=== PATIENT | male | born 1930 | race Caucasian/White ===

== ENCOUNTER 2016-05-14 20:26 | Inpatient (IN) | payer MEDICARE, BC ==
[2016-05-14] MEDS ORDERED: Sodium Chloride 0.9% 10 ML Syringe FLUSH PRN (20:50)
[2016-05-14] MEDS ORDERED: Levofloxacin/Dextrose 5%-Water 750 MG in Premix Bag 1 BAG IV ONE (20:51)
[2016-05-14] MEDS ORDERED: Sodium Chloride 0.9% 1,000 ML IV SCH (21:00)
--- NOTE | 2016-05-14 23:05 | EDM.PDOC ---
ED HISTORY OF PRESENT ILLNESS - General Chief Complaint: Respiratory Problem Stated Complaint: COUGH THROAT SWELLING Time Seen by Provider: 05/14/16 20:38 Source of Information: Reports: Patient History Limitations: Reports: No limitations - History of Present Illness INITIAL COMMENTS - FREE TEXT/NARRATIVE: The patient presents with cough, fever and chills. He was recently diagnosed with pneumonia and influenza. He was put on tamiflu and cipro. He is having a hard time swallowing the pills and he feels like he is getting worse. He has no chest pain. He has no shortness of breath. He has no nausea, vomiting or abdominal pain. He had hypokalemia recently and was on potassium but he stopped taking that because it was hard to swallow. Timing/Duration: Reports: Day(s): Severity: moderate Improves with: Reports: None Worsens with: Reports: None Associated Symptoms (General): Reports: cough, fever/chills. Denies: chest pain , nausea/vomiting, shortness of breath - Related Data Allergies/ADRs: Allergies Allergy/AdvReac Type Severity Reaction Status Date / Time No Known Allergies Allergy Verified 05/14/16 20:37 Home Meds: Home Meds Flunisolide [Nasalide Nasal [place]] 2 spray DUARTE BID 10/24/13 [History] Tamsulosin [Flomax] 0.4 mg PO DAILY 10/24/13 [History] Travoprost (Benzalkonium) [Travoprost 0.004% Eye Drop] 1 drop EYEBOTH BEDTIME [History] amLODIPine [Norvasc] 5 mg PO DAILY 10/24/13 [History] Melatonin/Pyridoxine HCl (B6) [Melatonin 3 mg Tablet] 1 each PO DAILY 11/11/14 [ History] metFORMIN HCl [Metformin HCl] 1,000 mg PO DAILY 11/11/14 [History] Cholecalciferol (Vitamin D3) [Vitamin D3] 1,000 unit PO DAILY 07/10/15 [History] Lisinopril 40 mg PO DAILY 07/10/15 [History] QUEtiapine Fumarate [Seroquel] 25 mg PO DAILY 07/10/15 [History] Vit C/E/Zn/Coppr/Lutein/Zeaxan [Preservision Areds 2 Softgel] 1 each PO DAILY [History] glipiZIDE [Glucotrol] 10 mg PO BID 07/10/15 [History] Aspirin [Ecotrin] 81 mg PO DAILY 12/19/15 [History] Carvedilol [Coreg] 25 mg PO DAILY 12/19/15 [History] Enalapril [Vasotec] 20 mg PO BID 12/19/15 [History] Hydrochlorothiazide 25 mg PO DAILY 12/25/15 [History] Psyllium with Sucrose [Metamucil] 1 each PO BID 12/25/15 [History] Benzonatate [Tessalon Perles] 100 mg PO TID PRN 05/14/16 [History] Ciprofloxacin [Ciprofloxacin HCl] 250 mg PO BID 05/14/16 [History] Ferrous Sulfate [Slow Fe] 142 mg PO DAILY 05/14/16 [History] Naproxen Sodium 220 mg PO DAILY 05/14/16 [History] Omeprazole 20 mg PO DAILY 05/14/16 [History] Oseltamivir [Tamiflu] 75 mg PO DAILY 05/14/16 [History] Potassium Chloride 20 meq PO DAILY 05/14/16 [History] Rivaroxaban [Xarelto] 20 mg PO DAILY 05/14/16 [History] Simvastatin [Zocor] 40 mg PO BEDTIME 05/14/16 [History] metFORMIN [Glucophage] 500 mg PO ACDINNER 05/14/16 [History] Past Medical History HEENT History: Reports: Glaucoma, Impaired vision, Macular degeneration, Other ( see below) Other HEENT History: wears glasses Cardiovascular History: Reports: Afib, Hypertension Respiratory History: Reports: None Gastrointestinal History: Reports: Chronic diarrhea, GERD, Other (see below) Other Gastrointestinal History: hematochezia, melena, dysphagia Genitourinary History: Reports: Other (see below) Other Genitourinary History: polyuria Musculoskeletal History: Reports: Arthritis Other Musculoskeletal History: contractures of the fingers Endocrine/Metabolic History: Reports: Diabetes, type I Hematologic History: Reports: Anemia - Infectious Disease History Infectious Disease History: Reports: Influenza - Past Surgical History GI Surgical History: Reports: Cholecystectomy, Colonoscopy Social & Family History - Family History Family Medical History: Noncontributory - Tobacco Use Smoking Status *Q: Never Smoker Second Hand Smoke Exposure: No - Caffeine Use Caffeine Use: Reports: None - Alcohol Use Days Per Week of Alcohol Use: 0 Number of Drinks Per Day: 0 Total Drinks Per Week: 0 - Recreational Drug Use Recreational Drug Use: No Drug Use in Last 12 Months: No ED ROS GENERAL - Review of Systems Review Of Systems: See Below Constitutional: Reports: fever, chills HEENT: Reports: No symptoms Respiratory: Reports: Cough. Denies: Shortness of Breath Cardiovascular: Reports: No symptoms Endocrine: Reports: no symptoms GI/Abdominal: Reports: No symptoms : Reports: no symptoms Musculoskeletal: Reports: no symptoms Skin: Reports: no symptoms Neurological: Reports: No Symptoms ED EXAM, GENERAL - Physical Exam Exam: See Below Exam Limited By: No limitations General Appearance: alert, no apparent distress Ears: normal external exam Nose: normal inspection Head: atraumatic, normocephalic Neck: normal inspection Respiratory/Chest: no respiratory distress, lungs clear, normal breath sounds Cardiovascular: regular rate, rhythm, no edema, no murmur GI/Abdominal: soft, non tender, no organomegaly, no mass Back Exam: normal inspection Extremities: normal inspection Course - Vital Signs Last Recorded V/S: Last Vital Signs Temp 97.7 F 05/14/16 20:30 Pulse 97 05/14/16 20:30 Resp 20 05/14/16 20:30 BP 128/80 05/14/16 20:30 Pulse Ox 93 L 05/14/16 20:30 - Orders/Labs/Meds Orders: Active Orders 24 hr Category Date Time Status Patient Status [ADT] Routine ADT 05/14/16 22:54 Active Cardiac Monitoring [RC] . DIRECTED Care 05/14/16 20:50 Active Oxygen Therapy [RC] PRN Care 05/14/16 20:50 Active Peripheral IV Care [RC] . DIRECTED Care 05/14/16 20:50 Active Chest 2V [CR] Stat Exams 05/14/16 20:50 Taken CULTURE BLOOD [BC] Stat Lab 05/14/16 21:28 Received CULTURE BLOOD [BC] Stat Lab 05/14/16 21:28 Received NS + KCl 20mEq/L [Normal Saline with 20 mEq KCl] 1,000 Med 05/14/16 23:00 Active ml IV ASDIRECTED Sodium Chloride 0.9% [Normal Saline] 1,000 ml Med 05/14/16 21:00 Active IV ASDIRECTED Sodium Chloride 0.9% [Saline Flush] Med 05/14/16 20:50 Active 10 ml FLUSH ASDIRECTED PRN Blood Culture x2 Reflex Set [OM.PC] Stat Oth 05/14/16 20:51 Ordered Peripheral IV Insertion Adult [OM.PC] Stat Ot 05/14/16 20:50 Ordered Medication Orders Sodium Chloride (Normal Saline) 1,000 mls @ 125 mls/hr IV ASDIRECTED GABRIELLE Last Admin: 05/14/16 21:31 Dose: 125 mls/hr Potassium Chloride/Sodium Chloride (Normal Saline With 20 Meq Kcl) 1,000 mls @ 100 mls/hr IV ASDIRECTED GABRIELLE Sodium Chloride (Saline Flush) 10 ml FLUSH ASDIRECTED PRN PRN Reason: Keep Vein Open Last Admin: 05/14/16 21:33 Dose: 10 ml Labs: Laboratory Tests 05/14/16 05/14/16 Range/Units 21:17 21:17 WBC 6.25 (4.23-9.07) K/mm3 RBC 4.34 L (4.63-6.08) M/mm3 Hgb 11.5 L (13.7-17.5) gm/L Hct 34.6 L (40.1-51.0) % MCV 79.7 (79.0-92.2) fl MCH 26.5 (25.7-32.2) pg MCHC 33.2 (32.2-35.5) g/dl RDW Std Deviation 43.6 (35.1-43.9) fL Plt Count 168 (163-337) K/mm3 MPV 10.2 (9.4-12.3) fl Neut % (Auto) 68.6 H (34.0-67.9) % Lymph % (Auto) 16.8 L (21.8-53.1) % [place] % (Auto) 13.6 H (5.3-12.2) % Eos % (Auto) 0.5 L (0.8-7.0) Baso % (Auto) 0.2 (0.1-1.2) % Neut # 4.29 (1.78-5.38) K/mm3 Lymph # 1.05 L (1.32-3.57) K/mm3 [place] # 0.85 H (0.30-0.82) K/mm3 Eos # 0.03 L (0.04-0.54) K/mm3 Baso # 0.01 (0.01-0.08) K/mm3 Manual Slide Review Normal smear Sodium 136 (136-145) mEq/L Potassium 2.7 L (3.5-5.1) mEq/L Chloride 96 L (98-107) mEq/L Carbon Dioxide 30 (21-32) mEq/L Anion Gap 12.7 (5-15) BUN 10 (7-18) mg/dL Creatinine 0.9 (0.7-1.3) mg/dL Est Cr Clr Drug Dosing 61.59 mL/min Estimated GFR (MDRD) > 60 (>60) mL/min BUN/Creatinine Ratio 11.1 L (14-18) Glucose 162 H (83-115) mg/dL Calcium 7.7 L (8.5-10.1) mg/dL Total Bilirubin 0.7 (0.2-1.0) mg/dL AST 17 (15-37) U/L ALT 13 L (16-63) U/L Alkaline Phosphatase 49 (46-116) U/L Total Protein 6.8 (6.4-8.2) g/dl Albumin 3.1 L (3.4-5.0) g/dl Globulin 3.7 gm/dL Albumin/Globulin Ratio 0.8 L (1-2) Meds: Medications Generic Name Dose Route Start Last Admin Trade Name Freq PRN Reason Stop Dose Admin Sodium Chloride 1,000 mls @ 125 mls/hr 05/14/16 21:00 05/14/16 21:31 Normal Saline IV 125 mls/hr ASDIRECTED GABRIELLE Administration Potassium Chloride/Sodium Chloride 1,000 mls @ 100 mls/hr 05/14/16 23:00 Normal Saline With 20 Meq Kcl IV ASDIRECTED GABRIELLE Sodium Chloride 10 ml 05/14/16 20:50 05/14/16 21:33 Saline Flush FLUSH 10 ml ASDIRECTED PRN Administration Keep Vein Open Discontinued Medications Generic Name Dose Route Start Last Admin Trade Name Freq PRN Reason Stop Dose Admin Levofloxacin/Dextrose 750 mg/ 150 mls @ 100 mls/hr 05/14/16 20:51 05/14/16 21 :32 Premix IV 05/14/16 22:20 100 mls/hr ONETIME ONE Administration - Re-Assessments/Exams Free Text/Narrative Re-Assessment/Exam: 05/14/16 23:03 I ordered an IV NS at 100mL/hr, labs, blood cultures and CXR. His CXR shows a RML infiltrate. His CBC looks good. His K is low at 2.7. His influenza was positive. I changed his IV fluid to NS with 20meq of KCL at 100mL/hr. I feel he needs to be admitted. I called Dr Hu and he agreed to the admission. Departure - Departure Time of Disposition: 23:05 Disposition: Admitted As Inpatient 65 Condition: fair Clinical Impression: Influenza A, Hypokalemia Pneumonia Qualifiers: Pneumonia type: due to unspecified organism Laterality: right Lung location: middle lobe of lung Qualified Code(s): J18.1 - Lobar pneumonia, unspecified organism Forms: ED Department Discharge - My Orders Last 24 Hours: My Active Orders 05/14/16 20:50 Cardiac Monitoring [RC] . DIRECTED Oxygen Therapy [RC] PRN Peripheral IV Care [RC] . DIRECTED Chest 2V [CR] Stat Sodium Chloride 0.9% [Saline Flush] 10 ml FLUSH ASDIRECTED PRN Peripheral IV Insertion Adult [OM.PC] Stat 05/14/16 20:51 Blood Culture x2 Reflex Set [OM.PC] Stat 05/14/16 21:00 Sodium Chloride 0.9% [Normal Saline] 1,000 ml IV ASDIRECTED 05/14/16 21:28 CULTURE BLOOD [BC] Stat CULTURE BLOOD [BC] Stat 05/14/16 22:54 Patient Status [ADT] Routine 05/14/16 23:00 NS + KCl 20mEq/L [Normal Saline with 20 mEq KCl] 1,000 ml IV ASDIRECTED - Assessment/Plan Last 24 Hours: My Active Orders 05/14/16 20:50 Cardiac Monitoring [RC] . DIRECTED Oxygen Therapy [RC] PRN Peripheral IV Care [RC] . DIRECTED Chest 2V [CR] Stat Sodium Chloride 0.9% [Saline Flush] 10 ml FLUSH ASDIRECTED PRN Peripheral IV Insertion Adult [OM.PC] Stat 05/14/16 20:51 Blood Culture x2 Reflex Set [OM.PC] Stat 05/14/16 21:00 Sodium Chloride 0.9% [Normal Saline] 1,000 ml IV ASDIRECTED 05/14/16 21:28 CULTURE BLOOD [BC] Stat CULTURE BLOOD [BC] Stat 05/14/16 22:54 Patient Status [ADT] Routine 05/14/16 23:00 NS + KCl 20mEq/L [Normal Saline with 20 mEq KCl] 1,000 ml IV ASDIRECTED
--- NOTE | 2016-05-15 01:12 | PCM.HP ---
H&P History of Present Illness - General Date of Service: 05/15/16 Admit Problem/Dx: Admission Diagnosis/Problem Admission Diagnosis/Problem Pneumonia Source of Information: Patient, Old records, Provider, RN notes reviewed History Limitations: Reports: No limitations - History of Present Illness Initial Comments - Free Text/Narative: This is an 86 yo elderly white male with past medical hx/o Impaired Vision, Chronic A-fib on Xarelto, HTN, Chronic Diarrhea, GERD, Dysphagia, Polyuria, OA/ DJD, DM1 and Anemia who comes worsening cough associated with fever and chills. Patient was recently diagnosed with pneumonia and influenza A by his PCP. He given cipro and tamiflu. However he was not able to take any of it b/c of difficulty swallowing. Patient carries a hx/o some form of dysphagia and a long standing hx/o GERD on PPI. He is not on any special diet. His initial work up in ED shows a fairly unremarkable CBC. His chemistry is remarkable for K 2.7, Cl 96, BS 162, Ca 7.7, ALT 13, and Albumin 3.1. His CXR shows increased opacification on right middle-lower lobe. He is modified full code. - Related Data Allergies/Adverse Reactions: Allergies Allergy/AdvReac Type Severity Reaction Status Date / Time No Known Allergies Allergy Verified 05/14/16 20:37 Home Medications: Home Meds Flunisolide [Nasalide Nasal [place]] 2 spray DUARTE BID 10/24/13 [History] Tamsulosin [Flomax] 0.4 mg PO DAILY 10/24/13 [History] Travoprost (Benzalkonium) [Travoprost 0.004% Eye Drop] 1 drop EYEBOTH BEDTIME [History] amLODIPine [Norvasc] 5 mg PO DAILY 10/24/13 [History] Melatonin/Pyridoxine HCl (B6) [Melatonin 3 mg Tablet] 1 each PO DAILY 11/11/14 [ History] metFORMIN HCl [Metformin HCl] 1,000 mg PO DAILY 11/11/14 [History] Cholecalciferol (Vitamin D3) [Vitamin D3] 1,000 unit PO DAILY 07/10/15 [History] Lisinopril 40 mg PO DAILY 07/10/15 [History] QUEtiapine Fumarate [Seroquel] 25 mg PO DAILY 07/10/15 [History] Vit C/E/Zn/Coppr/Lutein/Zeaxan [Preservision Areds 2 Softgel] 1 each PO DAILY [History] glipiZIDE [Glucotrol] 10 mg PO BID 07/10/15 [History] Aspirin [Ecotrin] 81 mg PO DAILY 12/19/15 [History] Carvedilol [Coreg] 25 mg PO DAILY 12/19/15 [History] Enalapril [Vasotec] 20 mg PO BID 12/19/15 [History] Hydrochlorothiazide 25 mg PO DAILY 12/25/15 [History] Psyllium with Sucrose [Metamucil] 1 each PO BID 12/25/15 [History] Benzonatate [Tessalon Perles] 100 mg PO TID PRN 05/14/16 [History] Ciprofloxacin [Ciprofloxacin HCl] 250 mg PO BID 05/14/16 [History] Ferrous Sulfate [Slow Fe] 142 mg PO DAILY 05/14/16 [History] Naproxen Sodium 220 mg PO DAILY 05/14/16 [History] Omeprazole 20 mg PO DAILY 05/14/16 [History] Oseltamivir [Tamiflu] 75 mg PO DAILY 05/14/16 [History] Potassium Chloride 20 meq PO DAILY 05/14/16 [History] Rivaroxaban [Xarelto] 20 mg PO DAILY 05/14/16 [History] Simvastatin [Zocor] 40 mg PO BEDTIME 05/14/16 [History] metFORMIN [Glucophage] 500 mg PO ACDINNER 05/14/16 [History] Past Medical History HEENT History: Reports: Glaucoma, Impaired vision, Macular degeneration, Other ( see below) Other HEENT History: wears glasses Cardiovascular History: Reports: Afib, Hypertension Respiratory History: Reports: None Gastrointestinal History: Reports: Chronic diarrhea, GERD, Other (see below) Other Gastrointestinal History: hematochezia, melena, dysphagia Genitourinary History: Reports: Other (see below) Other Genitourinary History: polyuria Musculoskeletal History: Reports: Arthritis Other Musculoskeletal History: contractures of the fingers Endocrine/Metabolic History: Reports: Diabetes, type I Hematologic History: Reports: Anemia - Infectious Disease History Infectious Disease History: Reports: Influenza - Past Surgical History GI Surgical History: Reports: Cholecystectomy, Colonoscopy Social & Family History - Family History Family Medical History: Noncontributory - Tobacco Use Smoking Status *Q: Never Smoker Second Hand Smoke Exposure: No - Caffeine Use Caffeine Use: Reports: None - Alcohol Use Days Per Week of Alcohol Use: 0 Number of Drinks Per Day: 0 Total Drinks Per Week: 0 - Recreational Drug Use Recreational Drug Use: No Drug Use in Last 12 Months: No H&P Review of Systems - Review of Systems: Review Of Systems: See Below General: Denies: fever, chills HEENT: Reports: no symptoms Pulmonary: Reports: Cough. Denies: Shortness of Breath Cardiovascular: Denies: chest pain, palpitations Gastrointestinal: Reports: Difficulty swallowing. Denies: Abdominal pain, Constipation, Diarrhea, Decreased appetite, Nausea, Vomiting Genitourinary: Reports: no symptoms Musculoskeletal: Reports: no symptoms Skin: Denies: cyanosis, pruritis, rash, erythema Psychiatric: Denies: depression, anxiety, hallucinations Neurological: Reports: Gait Disturbance. Denies: Confusion, Difficulty Walking Hematologic/Lymphatic: Reports: no symptoms Immunologic: Reports: no symptoms Exam - Exam Exam: See Below - Vital Signs Vital Signs: Last Vital Signs Temp 36.5 C 05/14/16 20:30 Pulse 97 05/14/16 20:30 Resp 20 05/14/16 20:30 BP 128/80 05/14/16 20:30 Pulse Ox 93 L 05/14/16 20:30 Weight: 78.925 kg - Exam Quality Assessment: No: supplemental oxygen General: alert, oriented, cooperative, mild distress HEENT: Conjunctiva clear, EOMI, Hearing intact, Mucosa moist & pink, Nares patent, Normal nasal septum Neck: supple, trachea midline, 2+ carotid pulse wo bruit Lungs: Normal respiratory effort, Decreased breath sounds Cardiovascular: irregular rhythm Abdomen: normal bowel sounds, soft. No: organomegaly (Male) Exam: Deferred Rectal (Males) Exam: Deferred Back Exam: normal inspection, decreased range of motion Extremities: normal inspection, normal pulses. No: clubbing, cyanosis, calf tenderness, edema Peripheral Pulses: 2+: dorsalis pedis (L), dorsalis pedis (R) Skin: warm, dry, intact Neuro Extensive - Mental Status: oriented x3, normal cognition, memory intact Neuro Extensive - Motor, Sensory, Reflexes: CN II-XII intact, normal gait Psychiatric: alert, normal affect, normal mood - Patient Data Result Diagrams: 05/14/16 21:17 05/14/16 21:17 *Q Meaningful Use (ADM) - VTE *Q VTE Criteria *Q: - Stroke *Q Stroke Criteria *Q: - AMI *Q AMI Criteria *Q: Problem List Initiated/Reviewed/Updated: Yes Orders Last 24hrs: Active Orders 24 hr Category Date Time Status NS + KCl 20mEq/L [Normal Saline with 20 mEq KCl] 1,000 Med 05/14/16 23:00 Active ml IV ASDIRECTED Medication Orders Sodium Chloride (Normal Saline) 1,000 mls @ 125 mls/hr IV ASDIRECTED GABRIELLE Last Admin: 05/14/16 21:31 Dose: 125 mls/hr Potassium Chloride/Sodium Chloride (Normal Saline With 20 Meq Kcl) 1,000 mls @ 100 mls/hr IV ASDIRECTED GABRIELLE Sodium Chloride (Saline Flush) 10 ml FLUSH ASDIRECTED PRN PRN Reason: Keep Vein Open Last Admin: 05/14/16 21:33 Dose: 10 ml Assessment/Plan Comment:: Assessment/Plan: Acute: Right Lung PNA - Likely Aspiration - Risk factor: Dysphagia and GERD - Failed outpatient treatment due to dysphagia with pills Influenza A+ - Unable to take Tamiflu due to dysphagia - NPO until [employer] [facility] eval except ice chips and sips of water - Will ask pharmacy for guidance later this am Dysphagia with Pills (New) - NPO for now as above - [facility] [facility] [facility] eval - May need EGD r/o esophageal strictures, he carries a hx/o long standing GERD - Will consult Dr. Barber Mild Hypokalemia - K 2.7 - Will replete today - Pharmacy to replete and monitor for subsequent levels Chronic: Chronic A-Fib on Xarelto HTN Chronic Diarrhea GERD Polyuria OA/DJD Contractures of fingers DM Anemia Plan: Admit to Med-Surg w/ Tele Routine AM Labs Resume Home Meds NPO for now [employer] [facility] eval Isolation protocol Consider EGD given his hx/o dysphagia and GERD, he may have esophageal strictures PT/OT consult CM/SW for d/c planning Accu-check AM/HS Code status: ACLS only
[2016-05-15] MEDS: NS + KCl 20mEq/L 1,000 ML IV SCH ×3 (01:20→22:47)
[2016-05-15] MEDS ORDERED: Promethazine 12.5 MG in Sodium Chloride 0.9% 50 ML IV PRN (01:29)
[2016-05-15] MEDS ORDERED: Docusate Sodium 100 MG Cap PO PRN (01:29)
[2016-05-15] MEDS ORDERED: Acetaminophen/HYDROcodone 325-5 MG Tab PO PRN (01:29)
[2016-05-15] MEDS ORDERED: Albuterol/Ipratropium 3.0-0.5 MG/3 ML Neb Soln NEB PRN (01:29)
[2016-05-15] MEDS ORDERED: Bisacodyl 5 MG Tab PO PRN (01:29)
[2016-05-15] MEDS ORDERED: HYDROmorphone 1 MG/ML Syringe IVPUSH PRN (01:29)
[2016-05-15] MEDS ORDERED: Ondansetron 4 MG/2 ML SDV IV PRN (01:29)
[2016-05-15] MEDS ORDERED: Acetaminophen 325 MG Tab PO PRN (01:29)
[2016-05-15] MEDS ORDERED: Polyethylene Glycol 3350 Powder 17 GM Packet PO PRN (01:29)
[2016-05-15] MEDS ORDERED: 50% Dextrose in Water 50 ML Syringe IVPUSH PRN (01:37)
[2016-05-15] MEDS ORDERED: hydrALAZINE 20 MG/ML SDV IVPUSH PRN (01:38)
[2016-05-15] MEDS ORDERED: metroNIDAZOLE/Normal Saline 500 MG in Premix Bag 1 BAG IV SCH (02:00)
[2016-05-15] MEDS: Potassium Chloride 10 MEQ in Premix Bag 1 BAG IV SCH ×7 (04:24→14:39)
[2016-05-15] MEDS: Insulin Aspart 100 Units/ML 3 ML Pen SUBCUT SCH ×4 (06:39→23:39)
--- NOTE | 2016-05-15 07:11 | PCM.PN ---
- General Info Date of Service: 05/15/16 Admission Dx/Problem (Free Text): Admission Diagnosis/Problem Admission Diagnosis/Problem Pneumonia Marco is seen this morning, pleasant. Sitting up in chair. Cough continues but nonproductive. Denies CP, SOB, palpitations or pain. Did not sleep well last night. Speech therapy is ordered for swallow eval due to RML/RLL pneumonia, likely aspiration and recent hx of dysphagia with pills, longstanding GERD; pending evaluation/recommendations- NPO status currently until eval. Functional Status: Reports: pain controlled, ambulating, urinating. Denies: tolerating diet (NPO pending swallow eval with ST), new symptoms - Review of Systems General: Reports: Weakness (generalized). Denies: Fever HEENT: Reports: no symptoms Pulmonary: Reports: shortness of breath (improved), cough Cardiovascular: Reports: No Symptoms Gastrointestinal: Reports: No symptoms Genitourinary: Reports: no symptoms Musculoskeletal: Reports: no symptoms Neurological: Reports: No Symptoms Psychiatric: Reports: no symptoms - Patient Data Vitals - most recent: Last Vital Signs Temp 98.4 F 05/15/16 04:49 Pulse 89 05/15/16 04:49 Resp 16 05/15/16 04:49 BP 126/65 05/15/16 04:49 Pulse Ox 91 L 05/15/16 04:49 Weight - most recent: 174 lb I&O - last 24 hours: Intake & Output 05/14/16 05/15/16 05/15/16 22:59 06:59 14:59 Output Total 250 Balance -250 Lab Results last 24 hrs: Laboratory Results - last 24 hr 05/15/16 05/15/16 05/15/16 Range/Units 01:03 05:55 06:12 WBC 8.49 (4.23-9.07) K/mm3 RBC 4.18 L (4.63-6.08) M/mm3 Hgb 11.1 L (13.7-17.5) gm/L Hct 33.5 L (40.1-51.0) % MCV 80.1 (79.0-92.2) fl MCH 26.6 (25.7-32.2) pg MCHC 33.1 (32.2-35.5) g/dl RDW Std Deviation 43.1 (35.1-43.9) fL Plt Count 165 (163-337) K/mm3 MPV 10.5 (9.4-12.3) fl Neut % (Auto) 78.2 H (34.0-67.9) % Lymph % (Auto) 9.9 L (21.8-53.1) % [place] % (Auto) 11.4 (5.3-12.2) % Eos % (Auto) 0.4 L (0.8-7.0) Baso % (Auto) 0.1 (0.1-1.2) % Neut # 6.64 H (1.78-5.38) K/mm3 Lymph # 0.84 L (1.32-3.57) K/mm3 [place] # 0.97 H (0.30-0.82) K/mm3 Eos # 0.03 L (0.04-0.54) K/mm3 Baso # 0.01 (0.01-0.08) K/mm3 POC Glucose 133 H (83-110) mg/dL Urine Color Yellow (Yellow) Urine Appearance Clear (Clear) Urine pH 7.0 (5.0-8.0) Ur Specific [place] 1.015 (1.005-1.030) Urine Protein Negative (Negative) Urine Glucose (UA) Negative (Negative) Urine Ketones Negative (Negative) Urine Occult Blood Negative (Negative) Urine Nitrite Negative (Negative) Urine Bilirubin Negative (Negative) Urine Urobilinogen 0.2 (0.2-1.0) Ur Leukocyte Esterase Negative (Negative) Urine RBC 0-5 (0-5) /hpf Urine WBC 0-5 (0-5) /hpf Ur Squamous Epith Cells 0-5 (0-5) /hpf Urine Bacteria Not seen (FEW) /hpf Urine Mucus Few (FEW) /hpf Med Orders - Current: Current Medications Acetaminophen (Tylenol) 650 mg PO Q4H PRN PRN Reason: Pain (Mild 1-3)/fever Acetaminophen/Hydrocodone Bitart ([place] 325-5 Mg) 1 tab PO Q4H PRN PRN Reason: Pain (moderate 4-6) Albuterol/Ipratropium (Duoneb 3.0-0.5 Mg/3 Ml) 3 ml NEB Q4H PRN PRN Reason: Shortness Of Breath/wheezing Bisacodyl (Dulcolax) 5 mg PO DAILY PRN PRN Reason: Constipation Dextrose/Water (Dextrose 50% In Water) 50 ml IVPUSH ASDIRECTED PRN PRN Reason: Hypoglycemia Docusate Sodium (Colace) 100 mg PO BID PRN PRN Reason: Constipation Hydralazine HCl (Apresoline) 10 mg IVPUSH Q4H PRN PRN Reason: Hypertension Hydromorphone HCl (Dilaudid) 0.25 mg IVPUSH Q2H PRN PRN Reason: Pain (severe 7-10) Potassium Chloride/Sodium Chloride (Normal Saline With 20 Meq Kcl) 1,000 mls @ 100 mls/hr IV ASDIRECTED [facility] Last Admin: 05/15/16 01:20 Dose: 100 mls/hr Promethazine HCl 12.5 mg/ (Sodium Chloride) 50.5 mls @ 100 mls/hr IV Q6H PRN PRN Reason: Nausea/Vomiting Metronidazole 500 mg/ Premix 100 mls @ 100 mls/hr IV Q8H [facility] Potassium Chloride 10 meq/ (Premix) 100 mls @ 100 mls/hr IV Q1H [facility] Stop: 05/15/16 10:59 Last Admin: 05/15/16 06:38 Dose: 100 mls/hr Insulin Aspart (Novolog) 0 unit SUBCUT QIDACANDBED [facility] PRN Reason: Protocol Last Admin: 05/15/16 06:39 Dose: Not Given Lorazepam (Ativan) 0.5 mg IV Q6H PRN PRN Reason: Anxiety Magnesium Sulfate (Pharmacy To Dose - Magnesium Replacement) 1 dose .XX ASDIRECTED [facility] Metoprolol Tartrate (Lopressor) 5 mg IVPUSH Q4H PRN PRN Reason: Tachycardia Ondansetron HCl (Zofran) 4 mg IV Q6H PRN PRN Reason: Nausea/Vomiting Pantoprazole Sodium (Protonix Iv) 40 mg IVPUSH DAILY [facility] Polyethylene Glycol (Miralax) 17 gm PO DAILY PRN PRN Reason: Constipation Potassium Chloride (Pharmacy To Dose - Potassium Replacement) 1 dose .XX ASDIRECTED [facility] Senna/Docusate Sodium (Senna Plus) 1 tab PO BID PRN PRN Reason: Constipation Sodium Chloride (Saline Flush) 10 ml FLUSH ASDIRECTED PRN PRN Reason: Keep Vein Open Last Admin: 05/14/16 21:33 Dose: 10 ml Temazepam (Restoril) 15 mg PO BEDTIME PRN PRN Reason: Sleep Discontinued Medications Levofloxacin/Dextrose 750 mg/ (Premix) 150 mls @ 100 mls/hr IV ONETIME ONE Stop: 05/14/16 22:20 Last Admin: 05/14/16 21:32 Dose: 100 mls/hr Sodium Chloride (Normal Saline) 1,000 mls @ 125 mls/hr IV ASDIRECTED [facility] Last Admin: 05/14/16 21:31 Dose: 125 mls/hr Metronidazole 500 mg/ Premix 100 mls @ 100 mls/hr IV Q8H [facility] Last Admin: 05/15/16 04:24 Dose: 100 mls/hr Potassium Chloride 10 meq/ (Premix) 100 mls @ 100 mls/hr IV Q1H [facility] Stop: 05/15/16 07:59 Last Admin: 05/15/16 05:23 Dose: Not Given - Exam Quality Assessment: DVT prophylaxis General: alert, oriented, cooperative, no acute distress HEENT: Pupils equal, Pupils reactive, EOMI, Mucous membr. moist/pink Neck: supple Lungs: Normal respiratory effort, Decreased breath sounds, Wheezing (expiratory to bases bilat- rt >lt) Cardiovascular: Irregular Rhythm Abdomen: bowel sounds present, soft, no tenderness (Male) Exam: Deferred Extremities: no edema, no calf tenderness Peripheral Pulses: 1+: dorsalis pedis (L), dorsalis pedis (R) Skin: warm, dry, intact Neurological: no new focal deficit Psy/Mental Status: alert, normal affect, normal mood - Problem List & Annotations (1) Pneumonia SNOMED Code(s): 357128839 Code(s): J18.9 - PNEUMONIA, UNSPECIFIED ORGANISM Status: Acute Priority: High Current Visit: Yes Qualifiers: Pneumonia type: due to unspecified organism Laterality: right Lung location: middle lobe of lung Qualified Code(s): J18.1 - Lobar pneumonia, unspecified organism (2) Influenza A SNOMED Code(s): 163490271 Code(s): J10.1 - FLU DUE TO OTH IDENT INFLUENZA VIRUS W OTH RESP MANIFEST Status: Acute Priority: High Current Visit: Yes (3) Hypokalemia SNOMED Code(s): 21398994 Code(s): E87.6 - HYPOKALEMIA Status: Acute Priority: High Current Visit : Yes (4) Atrial fibrillation SNOMED Code(s): 13058505 Code(s): I48.91 - UNSPECIFIED ATRIAL FIBRILLATION Status: Chronic Priority: High Current Visit: Yes Qualifiers: Atrial fibrillation type: persistent Qualified Code(s): I48.1 - Persistent atrial fibrillation - Problem List Review Problem List Initiated/Reviewed/Updated: Yes - Plan Plan:: Assessment/Plan: Acute: Right Lung PNA-RML and RLL - Likely Aspiration - Risk factor: Dysphagia and GERD - Failed outpatient treatment due to dysphagia with pills- unable to take oral Cipro and tamiflu rx'd by PCP earlier in the week Influenza A+ - Unable to take Tamiflu due to dysphagia-- symptom onset past window for tamiflu to be helpful - NPO until SUPERVISING FILM OR VIDEOTAPE EDITOR eval except ice chips and sips of water Dysphagia with Pills (New) - NPO for now as above - SUPERVISING FILM OR VIDEOTAPE EDITOR eval - Longstanding GERD - May need EGD r/o esophageal strictures, he carries a hx/o long standing GERD - Will consult Dr. Barber Hypokalemia - K 2.7-- 2.4 today; mag also low - Will replete today with IV dosing - Pharmacy to replete and monitor for subsequent levels Hypomagnesemia -Mag level 1.1 this am; 2gm IV this am and again afternoon with recheck of mag and potassium levels at 1500 today -Cont to follow levels Chronic: Chronic A-Fib on Xarelto HTN- stable Chronic Diarrhea GERD- chronic and longstanding Polyuria OA/DJD Contractures of fingers DM- sugars stable Anemia- stable Plan: Admit to Med-Surg w/ Tele Routine AM Labs Resume Home Meds NPO for now pending SUPERVISING [employer]M OR VIDEOTAPE EDITOR eval SUPERVISING [employer]M OR VIDEOTAPE EDITOR eval Isolation protocol- flu + Consider EGD given his hx/o dysphagia and GERD, he may have esophageal strictures- Dr. Barber consult for opinion PT/OT consult CM/SW for d/c planning Accu-check AM/HS Code status: ACLS only
--- NOTE | 2016-05-15 08:01 | CR ---
Chest: Two views of the chest were obtained. Comparison: Previous chest x-ray of 11/11/14. Heart size is normal. Tortuous thoracic aorta is seen. Increased density noted within both lung bases. Possible minimal pleural effusion seen posteriorly. Upper lungs are clear. Bony structures show degenerative spurring within the spine with calcification seen within the anterior longitudinal ligament. Scattered disc space narrowing is seen. Impression: 1. Mild increased density within both lung bases. Findings could represent mild areas of pneumonia if patient has infectious symptoms. Findings otherwise are due to atelectasis. 2. Possible minimal pleural effusion. 3. Other incidental findings. Diagnostic code #3
[2016-05-15] MEDS: Pantoprazole 40 MG Vial IVPUSH SCH (08:43)
[2016-05-15] MEDS ORDERED: Diphtheria,Pertussis(Acell),Tetanus Vaccine 0.5 ML SDV inactive IM ONE (09:47)
[2016-05-15] MEDS: Magnesium Sulfate/Water 2 GM in Premix Bag 1 BAG IV ONE (10:46)
[2016-05-15] MEDS ORDERED: HYDROmorphone 0.5 MG/0.5 ML Syringe IVPUSH PRN (11:17)
[2016-05-15] MEDS ORDERED: Magnesium Sulfate/Water 2 GM in Premix Bag 1 BAG IV ONE (13:00)
[2016-05-15] MEDS: metroNIDAZOLE/Normal Saline 500 MG in Premix Bag 1 BAG IV SCH ×2 (13:11→18:34)
[2016-05-15] MEDS: Rivaroxaban 10 MG Tab PO SCH (13:40)
[2016-05-15] MEDS: Potassium Chloride 20 MEQ Tab.ER PO SCH (14:00)
[2016-05-15] MEDS: Benzonatate 100 MG Cap PO PRN ×2 (14:00→21:06)
[2016-05-15] MEDS: Cholecalciferol (Vitamin D3) 1,000 Unit Tab PO SCH (14:00)
[2016-05-15] MEDS: Hydrochlorothiazide 25 MG Tab PO SCH (14:01)
[2016-05-15] MEDS: Psyllium Husk Powder Sugar Free 3.4 GM Packet PO SCH ×2 (14:02→21:06)
[2016-05-15] MEDS: QUEtiapine 25 MG Tab PO SCH (14:04)
[2016-05-15] MEDS: Lisinopril 20 MG Tab PO SCH (14:04)
[2016-05-15] MEDS: Carvedilol 12.5 MG Tab PO SCH (14:04)
[2016-05-15] MEDS: Pantoprazole 40 MG Tab.CR PO SCH (14:04)
[2016-05-15] MEDS: Metoprolol Tartrate 5 MG/5 ML SDV IVPUSH PRN (14:05)
[2016-05-15] MEDS: FERROUS SULFATE 142 MG PO SCH (14:40)
[2016-05-15] MEDS: PYRIDOXINE HCL PO SCH (14:40)
[2016-05-15] MEDS: MELATONIN PO SCH (14:40)
[2016-05-15] MEDS: metFORMIN 500 MG Tab PO SCH (17:11)
--- NOTE | 2016-05-15 17:33 | PCM.CONSN ---
- General Info Date of Service: 05/15/16 - Patient Data Vitals - most recent: Last Vital Signs Temp 97.3 F 05/15/16 15:38 Pulse 82 05/15/16 15:38 Resp 20 05/15/16 15:38 BP 116/56 L 05/15/16 15:38 Pulse Ox 94 L 05/15/16 15:38 Weight - most recent: 78.925 kg I&O - last 24 hours: Intake & Output 05/15/16 05/15/16 05/15/16 07:59 15:59 23:59 Output Total 250 Balance -250 Lab Results last 24 hrs: Laboratory Results - last 24 hr 05/15/16 05/15/16 05/15/16 Range/Units 01:03 05:55 05:55 WBC 8.49 (4.23-9.07) K/mm3 RBC 4.18 L (4.63-6.08) M/mm3 Hgb 11.1 L (13.7-17.5) gm/L Hct 33.5 L (40.1-51.0) % MCV 80.1 (79.0-92.2) fl MCH 26.6 (25.7-32.2) pg MCHC 33.1 (32.2-35.5) g/dl RDW Std Deviation 43.1 (35.1-43.9) fL Plt Count 165 (163-337) K/mm3 MPV 10.5 (9.4-12.3) fl Neut % (Auto) 78.2 H (34.0-67.9) % Lymph % (Auto) 9.9 L (21.8-53.1) % [place] % (Auto) 11.4 (5.3-12.2) % Eos % (Auto) 0.4 L (0.8-7.0) Baso % (Auto) 0.1 (0.1-1.2) % Neut # 6.64 H (1.78-5.38) K/mm3 Lymph # 0.84 L (1.32-3.57) K/mm3 [place] # 0.97 H (0.30-0.82) K/mm3 Eos # 0.03 L (0.04-0.54) K/mm3 Baso # 0.01 (0.01-0.08) K/mm3 Manual Slide Review Normal smear Sodium 140 (136-145) mEq/L Potassium 2.7 L (3.5-5.1) mEq/L Chloride 99 (98-107) mEq/L Carbon Dioxide 31 (21-32) mEq/L Anion Gap 12.7 (5-15) BUN 7 (7-18) mg/dL Creatinine 0.7 (0.7-1.3) mg/dL Est Cr Clr Drug Dosing 79.18 mL/min Estimated GFR (MDRD) > 60 (>60) mL/min BUN/Creatinine Ratio 10.0 L (14-18) Glucose 135 H (83-115) mg/dL POC Glucose (83-110) mg/dL Calcium 7.7 L (8.5-10.1) mg/dL Magnesium 1.1 L (1.8-2.4) mg/dl C-Reactive Protein 7.2 H* (<1.0) mg/dL Urine Color Yellow (Yellow) Urine Appearance Clear (Clear) Urine pH 7.0 (5.0-8.0) Ur Specific [place] 1.015 (1.005-1.030) Urine Protein Negative (Negative) Urine Glucose (UA) Negative (Negative) Urine Ketones Negative (Negative) Urine Occult Blood Negative (Negative) Urine Nitrite Negative (Negative) Urine Bilirubin Negative (Negative) Urine Urobilinogen 0.2 (0.2-1.0) Ur Leukocyte Esterase Negative (Negative) Urine RBC 0-5 (0-5) /hpf Urine WBC 0-5 (0-5) /hpf Ur Squamous Epith Cells 0-5 (0-5) /hpf Urine Bacteria Not seen (FEW) /hpf Urine Mucus Few (FEW) /hpf Mycoplasma pneumon IgM Negative (NEGATIVE) 05/15/16 05/15/16 05/15/16 Range/Units 06:12 12:18 16:05 WBC (4.23-9.07) K/mm3 RBC (4.63-6.08) M/mm3 Hgb (13.7-17.5) gm/L Hct (40.1-51.0) % MCV (79.0-92.2) fl MCH (25.7-32.2) pg MCHC (32.2-35.5) g/dl RDW Std Deviation (35.1-43.9) fL Plt Count (163-337) K/mm3 MPV (9.4-12.3) fl Neut % (Auto) (34.0-67.9) % Lymph % (Auto) (21.8-53.1) % [place] % (Auto) (5.3-12.2) % Eos % (Auto) (0.8-7.0) Baso % (Auto) (0.1-1.2) % Neut # (1.78-5.38) K/mm3 Lymph # (1.32-3.57) K/mm3 [place] # (0.30-0.82) K/mm3 Eos # (0.04-0.54) K/mm3 Baso # (0.01-0.08) K/mm3 Manual Slide Review Sodium (136-145) mEq/L Potassium 3.3 L (3.5-5.1) mEq/L Chloride (98-107) mEq/L Carbon Dioxide (21-32) mEq/L Anion Gap (5-15) BUN (7-18) mg/dL Creatinine (0.7-1.3) mg/dL Est Cr Clr Drug Dosing mL/min Estimated GFR (MDRD) (>60) mL/min BUN/Creatinine Ratio (14-18) Glucose (83-115) mg/dL POC Glucose 133 H 233 H (83-110) mg/dL Calcium (8.5-10.1) mg/dL Magnesium 2.4 (1.8-2.4) mg/dl C-Reactive Protein (<1.0) mg/dL Urine Color (Yellow) Urine Appearance (Clear) Urine pH (5.0-8.0) Ur Specific [place] (1.005-1.030) Urine Protein (Negative) Urine Glucose (UA) (Negative) Urine Ketones (Negative) Urine Occult Blood (Negative) Urine Nitrite (Negative) Urine Bilirubin (Negative) Urine Urobilinogen (0.2-1.0) Ur Leukocyte Esterase (Negative) Urine RBC (0-5) /hpf Urine WBC (0-5) /hpf Ur Squamous Epith Cells (0-5) /hpf Urine Bacteria (FEW) /hpf Urine Mucus (FEW) /hpf Mycoplasma pneumon IgM (NEGATIVE) 05/15/16 Range/Units 16:49 WBC (4.23-9.07) K/mm3 RBC (4.63-6.08) M/mm3 Hgb (13.7-17.5) gm/L Hct (40.1-51.0) % MCV (79.0-92.2) fl MCH (25.7-32.2) pg MCHC (32.2-35.5) g/dl RDW Std Deviation (35.1-43.9) fL Plt Count (163-337) K/mm3 MPV (9.4-12.3) fl Neut % (Auto) (34.0-67.9) % Lymph % (Auto) (21.8-53.1) % [place] % (Auto) (5.3-12.2) % Eos % (Auto) (0.8-7.0) Baso % (Auto) (0.1-1.2) % Neut # (1.78-5.38) K/mm3 Lymph # (1.32-3.57) K/mm3 [place] # (0.30-0.82) K/mm3 Eos # (0.04-0.54) K/mm3 Baso # (0.01-0.08) K/mm3 Manual Slide Review Sodium (136-145) mEq/L Potassium (3.5-5.1) mEq/L Chloride (98-107) mEq/L Carbon Dioxide (21-32) mEq/L Anion Gap (5-15) BUN (7-18) mg/dL Creatinine (0.7-1.3) mg/dL Est Cr Clr Drug Dosing mL/min Estimated GFR (MDRD) (>60) mL/min BUN/Creatinine Ratio (14-18) Glucose (83-115) mg/dL POC Glucose 209 H (83-110) mg/dL Calcium (8.5-10.1) mg/dL Magnesium (1.8-2.4) mg/dl C-Reactive Protein (<1.0) mg/dL Urine Color (Yellow) Urine Appearance (Clear) Urine pH (5.0-8.0) Ur Specific [place] (1.005-1.030) Urine Protein (Negative) Urine Glucose (UA) (Negative) Urine Ketones (Negative) Urine Occult Blood (Negative) Urine Nitrite (Negative) Urine Bilirubin (Negative) Urine Urobilinogen (0.2-1.0) Ur Leukocyte Esterase (Negative) Urine RBC (0-5) /hpf Urine WBC (0-5) /hpf Ur Squamous Epith Cells (0-5) /hpf Urine Bacteria (FEW) /hpf Urine Mucus (FEW) /hpf Mycoplasma pneumon IgM (NEGATIVE) Med Orders - Current: Current Medications Acetaminophen (Tylenol) 650 mg PO Q4H PRN PRN Reason: Pain (Mild 1-3)/fever Acetaminophen/Hydrocodone Bitart ([place] 325-5 Mg) 1 tab PO Q4H PRN PRN Reason: Pain (moderate 4-6) Albuterol/Ipratropium (Duoneb 3.0-0.5 Mg/3 Ml) 3 ml NEB Q4H PRN PRN Reason: Shortness Of Breath/wheezing Amlodipine Besylate (Norvasc) 5 mg PO DAILY [facility] Aspirin (Halfprin) 81 mg PO DAILY [facility] Benzonatate (Tessalon Perles) 100 mg PO TID PRN PRN Reason: Cough Last Admin: 05/15/16 14:00 Dose: 100 mg Bisacodyl (Dulcolax) 5 mg PO DAILY PRN PRN Reason: Constipation Carvedilol (Coreg) 25 mg PO DAILY [facility] Last Admin: 05/15/16 14:04 Dose: 25 mg Cholecalciferol (Vitamin D3) 1,000 units PO DAILY [facility] Last Admin: 05/15/16 14:00 Dose: 1,000 units Cholestyramine Resin (Prevalite Packet) 4 gm PO DAILY [facility] Dextrose/Water (Dextrose 50% In Water) 50 ml IVPUSH ASDIRECTED PRN PRN Reason: Hypoglycemia Docusate Sodium (Colace) 100 mg PO BID PRN PRN Reason: Constipation Enalapril Maleate (Vasotec) 20 mg PO BID [facility] Flunisolide (Nasalide Nasal [place]) 0 ml DUARTE BID [facility] Last Admin: 05/15/16 14:02 Dose: 2 spr Glipizide (Glucotrol) 10 mg PO BID [facility] Hydralazine HCl (Apresoline) 10 mg IVPUSH Q4H PRN PRN Reason: Hypertension Hydrochlorothiazide (Hydrochlorothiazide) 25 mg PO DAILY [facility] Last Admin: 05/15/16 14:01 Dose: 25 mg Hydromorphone HCl (Dilaudid) 0.25 mg IVPUSH Q2H PRN PRN Reason: Pain (severe 7-10) Potassium Chloride/Sodium Chloride (Normal Saline With 20 Meq Kcl) 1,000 mls @ 100 mls/hr IV ASDIRECTED [facility] Last Admin: 05/15/16 12:57 Dose: 100 mls/hr Promethazine HCl 12.5 mg/ (Sodium Chloride) 50.5 mls @ 100 mls/hr IV Q6H PRN PRN Reason: Nausea/Vomiting Metronidazole 500 mg/ Premix 100 mls @ 100 mls/hr IV Q8H [facility] Last Admin: 05/15/16 13:11 Dose: 100 mls/hr Levofloxacin/Dextrose 750 mg/ (Premix) 150 mls @ 100 mls/hr IV Q24H [facility] Insulin Aspart (Novolog) 0 unit SUBCUT QIDACANDBED [facility] PRN Reason: Protocol Last Admin: 05/15/16 17:11 Dose: 2 units Lisinopril (Prinivil) 40 mg PO DAILY [facility] Last Admin: 05/15/16 14:04 Dose: 40 mg Lorazepam (Ativan) 0.5 mg IV Q6H PRN PRN Reason: Anxiety Magnesium Sulfate (Pharmacy To Dose - Magnesium Replacement) 1 dose .XX ASDIRECTED [facility] Metformin HCl (Glucophage) 500 mg PO ACDINNER [facility] Last Admin: 05/15/16 17:11 Dose: 500 mg Metformin HCl (Glucophage) 1,000 mg PO DAILY [facility] Metoprolol Tartrate (Lopressor) 5 mg IVPUSH Q4H PRN PRN Reason: Tachycardia Last Admin: 05/15/16 14:05 Dose: 5 mg Ondansetron HCl (Zofran) 4 mg IV Q6H PRN PRN Reason: Nausea/Vomiting Pantoprazole Sodium (Protonix Iv) 40 mg IVPUSH DAILY [facility] Last Admin: 05/15/16 08:43 Dose: 40 mg Pantoprazole Sodium (Protonix) 40 mg PO DAILY [facility] Last Admin: 05/15/16 14:04 Dose: 40 mg Cyanocobalamin ( Vitamin B-12) 100 Mcg 0 each PO DAILY [facility] Ferrous Sulfate [ (Slow Fe] 142 Mg) 0 each PO DAILY [facility] Last Admin: 05/15/16 14:40 Dose: Not Given Melatonin/Pyridoxine Hcl (B6) [Melatonin 3 Mg Tablet] 1 E 0 each PO DAILY [facility] Last Admin: 05/15/16 14:40 Dose: Not Given Travoprost ( Benzalkonium) [ Travoprost 0.004% Eye Drop] 1 0 each EYEBOTH BEDTIME [facility] Polyethylene Glycol (Miralax) 17 gm PO DAILY PRN PRN Reason: Constipation Potassium Chloride (Pharmacy To Dose - Potassium Replacement) 1 dose .XX ASDIRECTED [facility] Potassium Chloride (Klor-Con M20) 20 meq PO DAILY [facility] Last Admin: 05/15/16 14:00 Dose: 20 meq Psyllium Husk (Metamucil Sugar Free) 1 packet PO BID [facility] Last Admin: 05/15/16 14:02 Dose: 1 packet Quetiapine Fumarate (Seroquel) 25 mg PO DAILY [facility] Last Admin: 05/15/16 14:04 Dose: 25 mg Rivaroxaban (Xarelto) 20 mg PO DAILY [facility] Last Admin: 05/15/16 13:40 Dose: 20 mg Senna/Docusate Sodium (Senna Plus) 1 tab PO BID PRN PRN Reason: Constipation Simvastatin (Zocor) 40 mg PO BEDTIME [facility] Sodium Chloride (Saline Flush) 10 ml FLUSH ASDIRECTED PRN PRN Reason: Keep Vein Open Last Admin: 05/14/16 21:33 Dose: 10 ml Tamsulosin HCl (Flomax) 0.4 mg PO DAILY [facility] Temazepam (Restoril) 15 mg PO BEDTIME PRN PRN Reason: Sleep Vit A/Vit C/Vit E/Selen/Cu/Zn/Lutei (Icaps Mv) 1 tab PO DAILY [facility] Discontinued Medications Diphtheria/Tetanus/Acell Pertussis (Boostrix) 0.5 ml IM .ONCE ONE Stop: 05/15/16 09:48 Hydromorphone HCl (Dilaudid) 0.25 mg IVPUSH Q2H PRN PRN Reason: Pain (severe 7-10) Levofloxacin/Dextrose 750 mg/ (Premix) 150 mls @ 100 mls/hr IV ONETIME ONE Stop: 05/14/16 22:20 Last Admin: 05/14/16 21:32 Dose: 100 mls/hr Sodium Chloride (Normal Saline) 1,000 mls @ 125 mls/hr IV ASDIRECTED [facility] Last Admin: 05/14/16 21:31 Dose: 125 mls/hr Metronidazole 500 mg/ Premix 100 mls @ 100 mls/hr IV Q8H [facility] Last Admin: 05/15/16 04:24 Dose: 100 mls/hr Potassium Chloride 10 meq/ (Premix) 100 mls @ 100 mls/hr IV Q1H [facility] Stop: 05/15/16 07:59 Last Admin: 05/15/16 05:23 Dose: Not Given Potassium Chloride 10 meq/ (Premix) 100 mls @ 100 mls/hr IV Q1H [facility] Stop: 05/15/16 10:59 Last Admin: 05/15/16 14:39 Dose: 100 mls/hr Magnesium Sulfate 2 gm/ Premix 50 mls @ 25 mls/hr IV ONETIME ONE Stop: 05/15/16 10:59 Last Admin: 05/15/16 10:46 Dose: 25 mls/hr Magnesium Sulfate 2 gm/ Premix 50 mls @ 25 mls/hr IV ONETIME ONE Stop: 05/15/16 14:59 Last Admin: 05/15/16 14:25 Dose: 25 mls/hr Consult PN Assessment/Plan Procedures: Procedures ASSAY OF BLOOD LIPOPROTEIN (01/23/15) ASSAY OF CREATININE (11/13/14) ASSAY OF LACTIC ACID (11/11/14) ASSAY OF NATRIURETIC PEPTIDE (11/11/14) ASSAY OF SERUM POTASSIUM (12/21/14) ASSAY OF TROPONIN QUANT (07/10/15) BLOOD CULTURE FOR BACTERIA (11/11/14) C-REACTIVE PROTEIN (11/11/14) CHEST X-RAY 1 VIEW FRONTAL (11/11/14) COLONOSCOPY AND BIOPSY (12/26/15) COMPLETE CBC W/AUTO DIFF WBC (07/10/15) COMPREHEN METABOLIC PANEL (07/10/15) CT ABD & PELV W/CONTRAST (11/11/14) CT HEAD/BRAIN W/O DYE (07/10/15) DIAGNOSTIC COLONOSCOPY (10/25/13) EGD BIOPSY SINGLE/MULTIPLE (12/26/15) ELECTROCARDIOGRAM TRACING (07/10/15) EMERGENCY DEPT VISIT (12/19/15) EMERGENCY DEPT VISIT (07/10/15) EMERGENCY DEPT VISIT (11/11/14) EMERGENCY DEPT VISIT (11/12/13) GLUCOSE BLOOD TEST (12/26/15) GLYCOSYLATED HEMOGLOBIN TEST (08/15/15) HYDRATE IV INFUSION ADD-ON (11/11/14) HYDRATION IV INFUSION INIT (07/10/15) METABOLIC PANEL TOTAL CA (07/16/15) MICROALBUMIN QUANTITATIVE (01/23/15) PROTHROMBIN TIME (09/18/15) ROUTINE VENIPUNCTURE (09/18/15) THER/PROPH/DIAG IV INF ADDON (11/11/14) THER/PROPH/DIAG IV INF INIT (11/11/14) TISSUE EXAM BY PATHOLOGIST (12/26/15) TTE W/DOPPLER COMPLETE (07/19/15) URINALYSIS AUTO W/SCOPE (11/11/14) X-RAY EXAM OF FOREARM (12/19/15) X-RAY EXAM OF SHOULDER (12/19/15) Problem List Initiated/Reviewed/Updated: Yes My Orders last 24 hours: surgical consult dictated MAGALY
[2016-05-15] MEDS: Simvastatin 40 MG Tab PO SCH (21:06)
[2016-05-15] MEDS: Levofloxacin/Dextrose 5%-Water 750 MG in Premix Bag 1 BAG IV SCH (21:07)
[2016-05-15] MEDS: TRAVOPROST EYEBOTH SCH (22:48)
[2016-05-16] MEDS: metroNIDAZOLE/Normal Saline 500 MG in Premix Bag 1 BAG IV SCH ×3 (03:48→18:07)
[2016-05-16] MEDS: Temazepam 15 MG Cap PO PRN (04:34)
--- NOTE | 2016-05-16 07:09 | CONS ---
CONSULTING PHYSICIAN: Rustam Barber MD DATE OF CONSULTATION: 05/15/2016 HISTORY OF PRESENT ILLNESS: This is an 86-year-old, who came in through the emergency room on 05/14/2016. He was complaining of a cough, fever and chills and an x-ray, which suggested pneumonia or influenza. The patient was placed in the hospital and was treated and has improved. He carries with him a history of some dysphasia especially the pills, which has possibly associated with GERD of which has been treated since November with PPIs and he has this problem has been quite stable. In fact, upper GI endoscopy was done on 12/[address] Singh did not show any obstruction. The patient is presently undergoing a swallowing evaluation for possible aspiration and the report is not yet available. PAST MEDICAL HISTORY: Glaucoma, hypertension, atrial fib on Xarelto, gastroesophageal reflux with some dysphagia to pills. Note, the pill dysphagia has been partially solved by giving him crushed pills or liquid. MEDICATIONS: Per medication reconciliation form noted. SOCIAL HISTORY: No exposure to smoke. No alcohol use. No smoking or drug use. FAMILY HISTORY: Negative. PAST SURGICAL HISTORY: Colonoscopy, EGD and upper GI and cholecystectomy. REVIEW OF SYSTEMS: No chest pain, shortness of breath, hoarseness, wheezing. He does have a cough. No fainting, weakness, numbness, convulsions. No GI problems other than pill dysphagia. PHYSICAL EXAMINATION: GENERAL: Reveals an elderly thin male. VITAL SIGNS: Show temperature 97, pulse rate 82, blood pressure 160/52 and saturation 94% on 1 L. HEENT: Eyes, sclerae white. Extraocular muscle motion normal. Oral cavity, healthy mucous membrane with mouth and tongue. NECK: Supple. No nodes. No thyromegaly. Trachea midline. LUNGS: Clear. No rales, rhonchi, fremitus, or dullness. ABDOMEN: Soft. 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 NEUROLOGIC: Cranial nerves 3 trough 7 intact. He does have some gait disturbances requiring a walker. SKIN: Dry and clean. ASSESSMENT: Pill dysphagia. He has had an upper GI endoscopy in November and feels at the moment, repeat will not contribute to his care. It may be helpful if an esophagram may help given his diagnosis. PLAN: As stated above. MMODAL /[id number]
[2016-05-16] MEDS: Insulin Aspart 100 Units/ML 3 ML Pen SUBCUT SCH ×4 (08:18→21:56)
[2016-05-16] MEDS ORDERED: Potassium Chloride 20 MEQ Tab.ER PO ONE (08:30)
[2016-05-16] MEDS: Carvedilol 12.5 MG Tab PO SCH (08:36)
[2016-05-16] MEDS: Rivaroxaban 10 MG Tab PO SCH (08:36)
[2016-05-16] MEDS: Multivitamins with Minerals/Folic Acid/Lutein/Zeaxanth Tab PO SCH (08:36)
[2016-05-16] MEDS: Pantoprazole 40 MG Tab.CR PO SCH (08:36)
[2016-05-16] MEDS: Potassium Chloride 20 MEQ Tab.ER PO SCH (08:37)
[2016-05-16] MEDS: Hydrochlorothiazide 25 MG Tab PO SCH (08:37)
[2016-05-16] MEDS: Tamsulosin 0.4 MG Cap.ER PO SCH (08:38)
[2016-05-16] MEDS: metFORMIN 500 MG Tab PO SCH ×2 (08:38→15:59)
[2016-05-16] MEDS: Cholecalciferol (Vitamin D3) 1,000 Unit Tab PO SCH (08:39)
[2016-05-16] MEDS: Lisinopril 20 MG Tab PO SCH (08:40)
[2016-05-16] MEDS: Psyllium Husk Powder Sugar Free 3.4 GM Packet PO SCH ×2 (08:40→21:53)
[2016-05-16] MEDS: QUEtiapine 25 MG Tab PO SCH (08:40)
[2016-05-16] MEDS: Cholestyramine/Aspartame Powder 4 GM Packet PO SCH (08:40)
[2016-05-16] MEDS: Aspirin 81 MG Tab.EC PO SCH (08:40)
[2016-05-16] MEDS: amLODIPine 5 MG Tab PO SCH (08:40)
[2016-05-16] MEDS: Pantoprazole 40 MG Vial IVPUSH SCH (08:41)
[2016-05-16] MEDS: Cyanocobalamin (Vitamin B-12) 100 MCG PO SCH (08:41)
[2016-05-16] MEDS: FERROUS SULFATE 142 MG PO SCH (08:41)
[2016-05-16] MEDS: PYRIDOXINE HCL PO SCH (08:41)
[2016-05-16] MEDS: MELATONIN PO SCH (08:41)
[2016-05-16] MEDS ORDERED: Magnesium Sulfate/Water 2 GM in Premix Bag 1 BAG IV ONE (10:00)
[2016-05-16] MEDS: Magnesium Sulfate/Water 2 GM in Premix Bag 1 BAG IV ONE (10:53)
[2016-05-16] MEDS ORDERED: Albuterol/Ipratropium 3.0-0.5 MG/3 ML Neb Soln NEB SCH (13:00)
--- NOTE | 2016-05-16 13:07 | PCM.PN ---
- General Info Date of Service: 05/16/16 Admission Dx/Problem (Free Text): Admission Diagnosis/Problem Admission Diagnosis/Problem Pneumonia Marco is seen this morning, pleasant. Sitting up in chair. Cough continues now productive but unable to get it up; weak cough. Denies CP, SOB, palpitations or pain. Slept better last night. Ambulating with PT, working with OT and ST. Afebrile overnight; VSS. Functional Status: Reports: pain controlled, tolerating diet, ambulating, urinating. Denies: new symptoms - Review of Systems General: Reports: Weakness HEENT: Reports: no symptoms Pulmonary: Reports: shortness of breath (mild ), cough (weak) Cardiovascular: Denies: Chest Pain, Palpitations Gastrointestinal: Reports: No symptoms Genitourinary: Reports: no symptoms Musculoskeletal: Reports: other (generalized weakness) Neurological: Reports: No Symptoms Psychiatric: Reports: no symptoms - Patient Data Vitals - most recent: Last Vital Signs Temp 97.0 F 05/16/16 11:50 Pulse 86 05/16/16 11:50 Resp 24 H 05/16/16 11:50 BP 133/69 05/16/16 11:50 Pulse Ox 93 L 05/16/16 11:50 Weight - most recent: 163 lb 11.2 oz I&O - last 24 hours: Intake & Output 05/15/16 05/16/16 05/16/16 22:59 06:59 14:59 Intake Total 2460 1800 0 Output Total 1025 1050 Balance 1435 750 0 Lab Results last 24 hrs: Laboratory Results - last 24 hr 05/15/16 05/15/16 05/15/16 Range/Units 12:18 16:05 16:49 WBC (4.23-9.07) K/mm3 RBC (4.63-6.08) M/mm3 Hgb (13.7-17.5) gm/L Hct (40.1-51.0) % MCV (79.0-92.2) fl MCH (25.7-32.2) pg MCHC (32.2-35.5) g/dl RDW Std Deviation (35.1-43.9) fL Plt Count (163-337) K/mm3 MPV (9.4-12.3) fl Neut % (Auto) (34.0-67.9) % Lymph % (Auto) (21.8-53.1) % [place] % (Auto) (5.3-12.2) % Eos % (Auto) (0.8-7.0) Baso % (Auto) (0.1-1.2) % Neut # (1.78-5.38) K/mm3 Lymph # (1.32-3.57) K/mm3 [place] # (0.30-0.82) K/mm3 Eos # (0.04-0.54) K/mm3 Baso # (0.01-0.08) K/mm3 Manual Slide Review Sodium (136-145) mEq/L Potassium 3.3 L (3.5-5.1) mEq/L Chloride (98-107) mEq/L Carbon Dioxide (21-32) mEq/L Anion Gap (5-15) BUN (7-18) mg/dL Creatinine (0.7-1.3) mg/dL Est Cr Clr Drug Dosing mL/min Estimated GFR (MDRD) (>60) mL/min BUN/Creatinine Ratio (14-18) Glucose (83-115) mg/dL POC Glucose 233 H 209 H (83-110) mg/dL Calcium (8.5-10.1) mg/dL Magnesium 2.4 (1.8-2.4) mg/dl C-Reactive Protein (<1.0) mg/dL 05/15/16 05/16/16 05/16/16 Range/Units 20:44 07:23 07:23 WBC 7.07 (4.23-9.07) K/mm3 RBC 3.84 L (4.63-6.08) M/mm3 Hgb 10.2 L (13.7-17.5) gm/L Hct 31.2 L (40.1-51.0) % MCV 81.3 (79.0-92.2) fl MCH 26.6 (25.7-32.2) pg MCHC 32.7 (32.2-35.5) g/dl RDW Std Deviation 44.0 H (35.1-43.9) fL Plt Count 180 (163-337) K/mm3 MPV 10.0 (9.4-12.3) fl Neut % (Auto) 75.2 H (34.0-67.9) % Lymph % (Auto) 12.7 L (21.8-53.1) % [place] % (Auto) 11.6 (5.3-12.2) % Eos % (Auto) 0.3 L (0.8-7.0) Baso % (Auto) 0.1 (0.1-1.2) % Neut # 5.31 (1.78-5.38) K/mm3 Lymph # 0.90 L (1.32-3.57) K/mm3 [place] # 0.82 (0.30-0.82) K/mm3 Eos # 0.02 L (0.04-0.54) K/mm3 Baso # 0.01 (0.01-0.08) K/mm3 Manual Slide Review Normal smear Sodium 138 (136-145) mEq/L Potassium 3.1 L (3.5-5.1) mEq/L Chloride 102 (98-107) mEq/L Carbon Dioxide 29 (21-32) mEq/L Anion Gap 10.1 (5-15) BUN 5 L (7-18) mg/dL Creatinine 0.7 (0.7-1.3) mg/dL Est Cr Clr Drug Dosing 78.08 mL/min Estimated GFR (MDRD) > 60 (>60) mL/min BUN/Creatinine Ratio 7.1 L (14-18) Glucose 170 H (83-115) mg/dL POC Glucose 145 H (83-110) mg/dL Calcium 7.4 L (8.5-10.1) mg/dL Magnesium 1.8 (1.8-2.4) mg/dl C-Reactive Protein 5.8 H* (<1.0) mg/dL 05/16/16 05/16/16 Range/Units 07:54 11:10 WBC (4.23-9.07) K/mm3 RBC (4.63-6.08) M/mm3 Hgb (13.7-17.5) gm/L Hct (40.1-51.0) % MCV (79.0-92.2) fl MCH (25.7-32.2) pg MCHC (32.2-35.5) g/dl RDW Std Deviation (35.1-43.9) fL Plt Count (163-337) K/mm3 MPV (9.4-12.3) fl Neut % (Auto) (34.0-67.9) % Lymph % (Auto) (21.8-53.1) % [place] % (Auto) (5.3-12.2) % Eos % (Auto) (0.8-7.0) Baso % (Auto) (0.1-1.2) % Neut # (1.78-5.38) K/mm3 Lymph # (1.32-3.57) K/mm3 [place] # (0.30-0.82) K/mm3 Eos # (0.04-0.54) K/mm3 Baso # (0.01-0.08) K/mm3 Manual Slide Review Sodium (136-145) mEq/L Potassium (3.5-5.1) mEq/L Chloride (98-107) mEq/L Carbon Dioxide (21-32) mEq/L Anion Gap (5-15) BUN (7-18) mg/dL Creatinine (0.7-1.3) mg/dL Est Cr Clr Drug Dosing mL/min Estimated GFR (MDRD) (>60) mL/min BUN/Creatinine Ratio (14-18) Glucose (83-115) mg/dL POC Glucose 148 H 204 H (83-110) mg/dL Calcium (8.5-10.1) mg/dL Magnesium (1.8-2.4) mg/dl C-Reactive Protein (<1.0) mg/dL Mikael Results last 24 hrs: Microbiology 05/15/16 01:03 Streptococcus pneumoniae Antigen (M - Final Urine 05/15/16 01:03 Urine Culture - Preliminary Urine, Clean Catch NO GROWTH AFTER 1 DAY Med Orders - Current: Current Medications Acetaminophen (Tylenol) 650 mg PO Q4H PRN PRN Reason: Pain (Mild 1-3)/fever Acetaminophen/Hydrocodone Bitart ([place] 325-5 Mg) 1 tab PO Q4H PRN PRN Reason: Pain (moderate 4-6) Albuterol/Ipratropium (Duoneb 3.0-0.5 Mg/3 Ml) 3 ml NEB Q4H PRN PRN Reason: Shortness Of Breath/wheezing Amlodipine Besylate (Norvasc) 5 mg PO DAILY [facility] Last Admin: 05/16/16 08:40 Dose: 5 mg Aspirin (Halfprin) 81 mg PO DAILY [facility] Last Admin: 05/16/16 08:40 Dose: 81 mg Bisacodyl (Dulcolax) 5 mg PO DAILY PRN PRN Reason: Constipation Carvedilol (Coreg) 25 mg PO DAILY [facility] Last Admin: 05/16/16 08:36 Dose: 25 mg Cholecalciferol (Vitamin D3) 1,000 units PO DAILY [facility] Last Admin: 05/16/16 08:39 Dose: 1,000 units Cholestyramine Resin (Prevalite Packet) 4 gm PO DAILY [facility] Last Admin: 05/16/16 08:40 Dose: 4 gm Dextrose/Water (Dextrose 50% In Water) 50 ml IVPUSH ASDIRECTED PRN PRN Reason: Hypoglycemia Docusate Sodium (Colace) 100 mg PO BID PRN PRN Reason: Constipation Enalapril Maleate (Vasotec) 20 mg PO BID [facility] Last Admin: 05/16/16 08:39 Dose: 20 mg Flunisolide (Nasalide Nasal [place]ts) 0 ml DUARTE BID [facility] Last Admin: 05/16/16 08:35 Dose: 2 spr Glipizide (Glucotrol) 10 mg PO BID [facility] Last Admin: 05/16/16 08:37 Dose: 10 mg Guaifenesin/Phenylephrine HCl (Robitussin Dm) 5 ml PO Q6H [facility] Hydralazine HCl (Apresoline) 10 mg IVPUSH Q4H PRN PRN Reason: Hypertension Hydrochlorothiazide (Hydrochlorothiazide) 25 mg PO DAILY [facility] Last Admin: 05/16/16 08:37 Dose: 25 mg Hydromorphone HCl (Dilaudid) 0.25 mg IVPUSH Q2H PRN PRN Reason: Pain (severe 7-10) Promethazine HCl 12.5 mg/ (Sodium Chloride) 50.5 mls @ 100 mls/hr IV Q6H PRN PRN Reason: Nausea/Vomiting Metronidazole 500 mg/ Premix 100 mls @ 100 mls/hr IV Q8H [facility] Last Admin: 05/16/16 10:53 Dose: 100 mls/hr Levofloxacin/Dextrose 750 mg/ (Premix) 150 mls @ 100 mls/hr IV Q24H [facility] Last Admin: 05/15/16 21:07 Dose: 100 mls/hr Insulin Aspart (Novolog) 0 unit SUBCUT QIDACANDBED [facility] PRN Reason: Protocol Last Admin: 05/16/16 12:08 Dose: 2 units Lisinopril (Prinivil) 40 mg PO DAILY [facility] Last Admin: 05/16/16 08:40 Dose: 40 mg Lorazepam (Ativan) 0.5 mg IV Q6H PRN PRN Reason: Anxiety Magnesium Sulfate (Pharmacy To Dose - Magnesium Replacement) 1 dose .XX ASDIRECTED [facility] Metformin HCl (Glucophage) 500 mg PO ACDINNER [facility] Last Admin: 05/15/16 17:11 Dose: 500 mg Metformin HCl (Glucophage) 1,000 mg PO DAILY [facility] Last Admin: 05/16/16 08:38 Dose: 1,000 mg Metoprolol Tartrate (Lopressor) 5 mg IVPUSH Q4H PRN PRN Reason: Tachycardia Last Admin: 05/15/16 14:05 Dose: 5 mg Ondansetron HCl (Zofran) 4 mg IV Q6H PRN PRN Reason: Nausea/Vomiting Pantoprazole Sodium (Protonix) 40 mg PO DAILY [facility] Last Admin: 05/16/16 08:36 Dose: 40 mg Cyanocobalamin ( Vitamin B-12) 100 Mcg 0 each PO DAILY [facility] Last Admin: 05/16/16 08:41 Dose: Not Given Ferrous Sulfate [ (Slow Fe] 142 Mg) 0 each PO DAILY [facility] Last Admin: 05/16/16 08:41 Dose: Not Given Melatonin/Pyridoxine Hcl (B6) [Melatonin 3 Mg Tablet] 1 E 0 each PO DAILY [facility] Last Admin: 05/16/16 08:41 Dose: Not Given Travoprost ( Benzalkonium) [ Travoprost 0.004% Eye Drop] 1 0 each EYEBOTH BEDTIME [facility] Last Admin: 05/15/16 22:48 Dose: 2 each Polyethylene Glycol (Miralax) 17 gm PO DAILY PRN PRN Reason: Constipation Potassium Chloride (Pharmacy To Dose - Potassium Replacement) 1 dose .XX ASDIRECTED [facility] Potassium Chloride (Klor-Con M20) 20 meq PO DAILY [facility] Last Admin: 05/16/16 08:37 Dose: 20 meq Psyllium Husk (Metamucil Sugar Free) 1 packet PO BID [facility] Last Admin: 05/16/16 08:40 Dose: 1 packet Quetiapine Fumarate (Seroquel) 25 mg PO DAILY [facility] Last Admin: 05/16/16 08:40 Dose: 25 mg Rivaroxaban (Xarelto) 20 mg PO DAILY [facility] Last Admin: 05/16/16 08:36 Dose: 20 mg Senna/Docusate Sodium (Senna Plus) 1 tab PO BID PRN PRN Reason: Constipation Simvastatin (Zocor) 40 mg PO BEDTIME [facility] Last Admin: 05/15/16 21:06 Dose: 40 mg Sodium Chloride (Saline Flush) 10 ml FLUSH ASDIRECTED PRN PRN Reason: Keep Vein Open Last Admin: 05/14/16 21:33 Dose: 10 ml Tamsulosin HCl (Flomax) 0.4 mg PO DAILY [facility] Last Admin: 05/16/16 08:38 Dose: 0.4 mg Temazepam (Restoril) 15 mg PO BEDTIME PRN PRN Reason: Sleep Last Admin: 05/16/16 04:34 Dose: 15 mg Vit A/Vit C/Vit E/Selen/Cu/Zn/Lutei (Icaps Mv) 1 tab PO DAILY [facility] Last Admin: 05/16/16 08:36 Dose: 1 tab Discontinued Medications Benzonatate (Tessalon Perles) 100 mg PO TID PRN PRN Reason: Cough Last Admin: 05/15/16 21:06 Dose: 100 mg Diphtheria/Tetanus/Acell Pertussis (Boostrix) 0.5 ml IM .ONCE ONE Stop: 05/15/16 09:48 Hydromorphone HCl (Dilaudid) 0.25 mg IVPUSH Q2H PRN PRN Reason: Pain (severe 7-10) Levofloxacin/Dextrose 750 mg/ (Premix) 150 mls @ 100 mls/hr IV ONETIME ONE Stop: 05/14/16 22:20 Last Admin: 05/14/16 21:32 Dose: 100 mls/hr Sodium Chloride (Normal Saline) 1,000 mls @ 125 mls/hr IV ASDIRECTED [facility] Last Admin: 05/14/16 21:31 Dose: 125 mls/hr Potassium Chloride/Sodium Chloride (Normal Saline With 20 Meq Kcl) 1,000 mls @ 100 mls/hr IV ASDIRECTED [facility] Last Admin: 05/15/16 22:47 Dose: 100 mls/hr Metronidazole 500 mg/ Premix 100 mls @ 100 mls/hr IV Q8H [facility] Last Admin: 05/15/16 04:24 Dose: 100 mls/hr Potassium Chloride 10 meq/ (Premix) 100 mls @ 100 mls/hr IV Q1H [facility] Stop: 05/15/16 07:59 Last Admin: 05/15/16 05:23 Dose: Not Given Potassium Chloride 10 meq/ (Premix) 100 mls @ 100 mls/hr IV Q1H [facility] Stop: 05/15/16 10:59 Last Admin: 05/15/16 14:39 Dose: 100 mls/hr Magnesium Sulfate 2 gm/ Premix 50 mls @ 25 mls/hr IV ONETIME ONE Stop: 05/15/16 10:59 Last Admin: 05/16/16 10:53 Dose: 25 mls/hr Magnesium Sulfate 2 gm/ Premix 50 mls @ 25 mls/hr IV ONETIME ONE Stop: 05/15/16 14:59 Last Admin: 05/15/16 14:25 Dose: 25 mls/hr Magnesium Sulfate 2 gm/ Premix 50 mls @ 25 mls/hr IV ONETIME ONE Stop: 05/16/16 11:59 Last Admin: 05/16/16 10:54 Dose: Not Given Pantoprazole Sodium (Protonix Iv) 40 mg IVPUSH DAILY [facility] Last Admin: 05/16/16 08:41 Dose: Not Given Potassium Chloride (Klor-Con M20) 40 meq PO ONETIME ONE Stop: 05/16/16 08:31 Last Admin: 05/16/16 08:37 Dose: 40 meq - Exam Quality Assessment: DVT prophylaxis. No: supplemental oxygen General: alert, oriented, cooperative, no acute distress HEENT: Pupils equal, Pupils reactive, EOMI, Mucous membr. moist/pink Neck: supple Lungs: Normal respiratory effort, Decreased breath sounds, Rhonchi (rt >lt), Wheezing (exp at bases) Cardiovascular: Irregular Rhythm Abdomen: bowel sounds present, soft, no tenderness, no distension (Male) Exam: Deferred Back Exam: normal inspection Extremities: no edema, no calf tenderness Peripheral Pulses: 1+: dorsalis pedis (L), dorsalis pedis (R) Skin: warm, dry, intact Neurological: no new focal deficit, other [place] Psy/Mental Status: alert, normal affect, normal mood - Problem List & Annotations (1) Pneumonia SNOMED Code(s): 654658914 Code(s): J18.9 - PNEUMONIA, UNSPECIFIED ORGANISM Status: Acute Priority: High Current Visit: Yes Qualifiers: Pneumonia type: due to unspecified organism Laterality: right Lung location: middle lobe of lung Qualified Code(s): J18.1 - Lobar pneumonia, unspecified organism (2) Influenza A SNOMED Code(s): 401756450 Code(s): J10.1 - FLU DUE TO OTH IDENT INFLUENZA VIRUS W OTH RESP MANIFEST Status: Acute Priority: High Current Visit: Yes (3) Hypokalemia SNOMED Code(s): 72960946 Code(s): E87.6 - HYPOKALEMIA Status: Acute Priority: High Current Visit : Yes (4) Atrial fibrillation SNOMED Code(s): 44635218 Code(s): I48.91 - UNSPECIFIED ATRIAL FIBRILLATION Status: Chronic Priority: High Current Visit: Yes Qualifiers: Atrial fibrillation type: persistent Qualified Code(s): I48.1 - Persistent atrial fibrillation - Problem List Review Problem List Initiated/Reviewed/Updated: Yes - My Orders Last 24 Hours: My Active Orders 05/15/16 21:00 Levofloxacin/Dextrose 5%-Water [Levaquin in D5W 750 MG/150 ML] 750 mg Premix Bag 1 bag IV Q24H 05/16/16 12:57 RT Chest Physiotherapy [RC] Q2HWA RT Incentive Spirometry [RC] Q2HWA Turn, Cough, Deep Breathe [RC] Q2HWA 05/16/16 12:59 RT Aerosol Therapy [RC] ASDIRECTED RT Aerosol Therapy [RC] ASDIRECTED 05/16/16 13:00 Albuterol/Ipratropium [DuoNeb 3.0-0.5 MG/3 ML] 3 ml NEB QID Dextromethorphan/guaiFENesin [Robitussin DM] 10 ml PO Q6H 05/16/16 21:00 Budesonide [Pulmicort] 0.5 mg NEB BIDRT - Plan Plan:: Assessment/Plan: Acute: Right Lung PNA-RML and RLL - Likely Aspiration - Risk factor: Dysphagia and GERD - Failed outpatient treatment due to dysphagia with pills- unable to take oral Cipro and tamiflu rx'd by PCP earlier in the week -Cont with Levaquin and Flagyl; responding well -Neb tx, RT, IS, acapella Influenza A+ - Unable to take Tamiflu due to dysphagia-- symptom onset past window for tamiflu to be helpful - Symptomatic tx; symptoms improving Dysphagia with Pills (New) - [employer] eval; mechanical soft diet with liquids changed to nectar thick on this mornings eval - Longstanding GERD - May need EGD r/o esophageal strictures, he carries a hx/o long standing GERD - Will consult Dr. Barber; ? of EGD to be done vs esophagram/barium swallow-- Radiologist out of town and unable to do esophagram x 1+ weeks. Hypokalemia - K 2.7-- 2.4-->3.1 today; mag also low - Will replete today with IV dosing - Pharmacy to replete and monitor for subsequent levels Hypomagnesemia -Mag level 1.1 -->2.8--> 1.9 -Cont to follow levels and replete as needed per pharmacy to dose Chronic: Chronic A-Fib on Xarelto HTN- stable Chronic Diarrhea GERD- chronic and longstanding, now with pill dysphagia Polyuria OA/DJD Contractures of fingers DM- sugars stable Anemia- stable Plan: Admit to Med-Surg w/ Tele Routine AM Labs Resume Home Meds [employer] eval- recommendations above Isolation protocol- flu + Consider EGD given his hx/o dysphagia and GERD, he may have esophageal strictures- Dr. Barber consult for opinion--as above PT/OT consult CM/SW for d/c planning Accu-check AM/HS Code status: ACLS only LOS will likely be >96 hours due to complexity of case, cont swallow evaluations , cont tx for aspiration pneumonia with IV abx, electrolyte monitoring and replacement until stable.
[2016-05-16] MEDS: Albuterol/Ipratropium 3.0-0.5 MG/3 ML Neb Soln NEB SCH ×2 (15:15→21:25)
[2016-05-16] MEDS: guaiFENesin/Dextromethorphan 100-10 MG/5 ML Soln 5 ML Cup PO SCH ×2 (15:59→21:52)
[2016-05-16] MEDS ORDERED: Budesonide 0.5 MG/2 ML Neb Susp NEB SCH (21:00)
[2016-05-16] MEDS: Levofloxacin/Dextrose 5%-Water 750 MG in Premix Bag 1 BAG IV SCH (21:53)
[2016-05-16] MEDS: TRAVOPROST EYEBOTH SCH (21:54)
[2016-05-16] MEDS: Simvastatin 40 MG Tab PO SCH (21:55)
[2016-05-17] MEDS: guaiFENesin/Dextromethorphan 100-10 MG/5 ML Soln 5 ML Cup PO SCH ×4 (01:51→18:43)
[2016-05-17] MEDS: metroNIDAZOLE/Normal Saline 500 MG in Premix Bag 1 BAG IV SCH ×3 (01:59→18:42)
[2016-05-17] MEDS: Amiodarone In Dextrose,Iso-Osm 200 ML IV SCH ×2 (02:26→08:19)
[2016-05-17] MEDS ORDERED: Amiodarone In Dextrose,Iso-Osm 150 MG in Premix Bag 1 BAG IV ONE ×2 (03:16)
[2016-05-17] MEDS: Albuterol/Ipratropium 3.0-0.5 MG/3 ML Neb Soln NEB SCH ×4 (05:44→20:21)
[2016-05-17] MEDS ORDERED: Budesonide 0.5 MG/2 ML Neb Susp NEB SCH ×2 (06:00→09:00)
--- NOTE | 2016-05-17 09:16 | PCM.PN ---
- General Info Date of Service: 05/17/16 Admission Dx/Problem (Free Text): Admission Diagnosis/Problem Admission Diagnosis/Problem Pneumonia Subjective Update: Follow Up Functional Status: Reports: pain controlled, tolerating diet, ambulating, urinating. Denies: new symptoms - Review of Systems General: Reports: Weakness. Denies: Fever, Malaise HEENT: Reports: no symptoms, contact lenses, dysphasia Pulmonary: Denies: shortness of breath, cough Cardiovascular: Denies: Chest Pain, Palpitations, Dyspnea on Exertion Gastrointestinal: Reports: Difficulty swallowing. Denies: Abdominal pain, Nausea, Vomiting Genitourinary: Reports: no symptoms Musculoskeletal: Reports: no symptoms Skin: Reports: no symptoms Neurological: Denies: Confusion, Difficulty Walking, Gait Disturbance Psychiatric: Denies: depression, anxiety, hallucinations Systems Review Comment:: His HR has been stable. Still has occasional PVCs no v-tach noted on telemetry. He remains asymptomatic. He did not sleep well last night due to his a-fib RVR. - Patient Data Vitals - most recent: Last Vital Signs Temp 36.7 C 05/17/16 04:00 Pulse 99 05/17/16 04:00 Resp 20 05/17/16 04:00 BP 114/80 05/17/16 04:00 Pulse Ox 96 05/17/16 05:45 Weight - most recent: 74.7 kg I&O - last 24 hours: Intake & Output 05/16/16 05/17/16 05/17/16 22:59 06:59 14:59 Intake Total 1527 250 Output Total 600 600 Balance 927 -350 Lab Results last 24 hrs: Laboratory Results - last 24 hr 05/16/16 05/16/16 05/16/16 Range/Units 11:10 16:50 21:32 WBC (4.23-9.07) K/mm3 RBC (4.63-6.08) M/mm3 Hgb (13.7-17.5) gm/L Hct (40.1-51.0) % MCV (79.0-92.2) fl MCH (25.7-32.2) pg MCHC (32.2-35.5) g/dl RDW Std Deviation (35.1-43.9) fL Plt Count (163-337) K/mm3 MPV (9.4-12.3) fl Neut % (Auto) (34.0-67.9) % Lymph % (Auto) (21.8-53.1) % [place] % (Auto) (5.3-12.2) % Eos % (Auto) (0.8-7.0) Baso % (Auto) (0.1-1.2) % Neut # (1.78-5.38) K/mm3 Lymph # (1.32-3.57) K/mm3 [place] # (0.30-0.82) K/mm3 Eos # (0.04-0.54) K/mm3 Baso # (0.01-0.08) K/mm3 Sodium (136-145) mEq/L Potassium (3.5-5.1) mEq/L Chloride (98-107) mEq/L Carbon Dioxide (21-32) mEq/L Anion Gap (5-15) BUN (7-18) mg/dL Creatinine (0.7-1.3) mg/dL Est Cr Clr Drug Dosing mL/min Estimated GFR (MDRD) (>60) mL/min BUN/Creatinine Ratio (14-18) Glucose (83-115) mg/dL POC Glucose 204 H 198 H 140 H (83-110) mg/dL Calcium (8.5-10.1) mg/dL Magnesium (1.8-2.4) mg/dl C-Reactive Protein (<1.0) mg/dL 05/16/16 05/17/16 05/17/16 Range/Units 23:01 05:29 05:29 WBC 6.50 (4.23-9.07) K/mm3 RBC 4.44 L (4.63-6.08) M/mm3 Hgb 11.6 L (13.7-17.5) gm/L Hct 35.9 L (40.1-51.0) % MCV 80.9 (79.0-92.2) fl MCH 26.1 (25.7-32.2) pg MCHC 32.3 (32.2-35.5) g/dl RDW Std Deviation 44.3 H (35.1-43.9) fL Plt Count 211 (163-337) K/mm3 MPV 9.9 (9.4-12.3) fl Neut % (Auto) 75.2 H (34.0-67.9) % Lymph % (Auto) 11.4 L (21.8-53.1) % [place] % (Auto) 12.2 (5.3-12.2) % Eos % (Auto) 0.9 (0.8-7.0) Baso % (Auto) 0.0 L (0.1-1.2) % Neut # 4.89 (1.78-5.38) K/mm3 Lymph # 0.74 L (1.32-3.57) K/mm3 [place] # 0.79 (0.30-0.82) K/mm3 Eos # 0.06 (0.04-0.54) K/mm3 Baso # 0.00 L (0.01-0.08) K/mm3 Sodium 137 137 (136-145) mEq/L Potassium 3.9 3.8 (3.5-5.1) mEq/L Chloride 102 101 (98-107) mEq/L Carbon Dioxide 30 29 (21-32) mEq/L Anion Gap 8.9 10.8 (5-15) BUN 7 6 L (7-18) mg/dL Creatinine 0.8 0.8 (0.7-1.3) mg/dL Est Cr Clr Drug Dosing 68.32 68.32 mL/min Estimated GFR (MDRD) > 60 > 60 (>60) mL/min BUN/Creatinine Ratio 8.8 L 7.5 L (14-18) Glucose 180 H 190 H (83-115) mg/dL POC Glucose (83-110) mg/dL Calcium 7.7 L 7.8 L (8.5-10.1) mg/dL Magnesium 2.1 1.9 (1.8-2.4) mg/dl C-Reactive Protein 3.8 H* (<1.0) mg/dL Mikael Results last 24 hrs: Microbiology 05/15/16 01:03 Urine Culture - Final Urine, Clean Catch NO GROWTH AFTER 2 DAYS 05/15/16 01:03 Streptococcus pneumoniae Antigen (M - Final Urine Med Orders - Current: Current Medications Acetaminophen (Tylenol) 650 mg PO Q4H PRN PRN Reason: Pain (Mild 1-3)/fever Acetaminophen/Hydrocodone Bitart ([place] 325-5 Mg) 1 tab PO Q4H PRN PRN Reason: Pain (moderate 4-6) Albuterol/Ipratropium (Duoneb 3.0-0.5 Mg/3 Ml) 3 ml NEB Q4H PRN PRN Reason: Shortness Of Breath/wheezing Albuterol/Ipratropium (Duoneb 3.0-0.5 Mg/3 Ml) 3 ml NEB QIDRT [facility] Last Admin: 05/17/16 05:44 Dose: 3 ml Amiodarone HCl (Cordarone) 200 mg PO DAILY [facility] Amlodipine Besylate (Norvasc) 5 mg PO DAILY [facility] Last Admin: 05/16/16 08:40 Dose: 5 mg Aspirin (Halfprin) 81 mg PO DAILY [facility] Last Admin: 05/16/16 08:40 Dose: 81 mg Bisacodyl (Dulcolax) 5 mg PO DAILY PRN PRN Reason: Constipation Budesonide (Pulmicort) 0.5 mg NEB BID [facility] Carvedilol (Coreg) 25 mg PO DAILY [facility] Last Admin: 05/16/16 08:36 Dose: 25 mg Cholecalciferol (Vitamin D3) 1,000 units PO DAILY [facility] Last Admin: 05/16/16 08:39 Dose: 1,000 units Cholestyramine Resin (Prevalite Packet) 4 gm PO DAILY [facility] Last Admin: 05/16/16 08:40 Dose: 4 gm Dextrose/Water (Dextrose 50% In Water) 50 ml IVPUSH ASDIRECTED PRN PRN Reason: Hypoglycemia Docusate Sodium (Colace) 100 mg PO BID PRN PRN Reason: Constipation Enalapril Maleate (Vasotec) 20 mg PO BID [facility] Last Admin: 05/16/16 21:54 Dose: 20 mg Flunisolide (Nasalide Nasal [place]) 0 ml DUARTE BID [facility] Last Admin: 05/16/16 21:54 Dose: 2 spr Glipizide (Glucotrol) 10 mg PO BID [facility] Last Admin: 05/16/16 21:53 Dose: 10 mg Guaifenesin/Phenylephrine HCl (Robitussin Dm) 5 ml PO Q6H [facility] Last Admin: 05/17/16 01:51 Dose: 5 ml Hydralazine HCl (Apresoline) 10 mg IVPUSH Q4H PRN PRN Reason: Hypertension Hydrochlorothiazide (Hydrochlorothiazide) 25 mg PO DAILY [facility] Last Admin: 05/16/16 08:37 Dose: 25 mg Hydromorphone HCl (Dilaudid) 0.25 mg IVPUSH Q2H PRN PRN Reason: Pain (severe 7-10) Promethazine HCl 12.5 mg/ (Sodium Chloride) 50.5 mls @ 100 mls/hr IV Q6H PRN PRN Reason: Nausea/Vomiting Metronidazole 500 mg/ Premix 100 mls @ 100 mls/hr IV Q8H [facility] Last Admin: 05/17/16 01:59 Dose: 100 mls/hr Levofloxacin/Dextrose 750 mg/ (Premix) 150 mls @ 100 mls/hr IV Q24H [facility] Last Admin: 05/16/16 21:53 Dose: 100 mls/hr Amiodarone HCl/Dextrose (Nexterone In Dextrose 360 Mg/200 Ml) 200 mls @ 33.333 mls/hr IV ASDIRECTED [facility] PRN Reason: Protocol Last Admin: 05/17/16 08:19 Dose: 16.7 mls/hr Insulin Aspart (Novolog) 0 unit SUBCUT QIDACANDBED [facility] PRN Reason: Protocol Last Admin: 05/16/16 21:56 Dose: Not Given Lisinopril (Prinivil) 40 mg PO DAILY [facility] Last Admin: 05/16/16 08:40 Dose: 40 mg Lorazepam (Ativan) 0.5 mg IV Q6H PRN PRN Reason: Anxiety Magnesium Sulfate (Pharmacy To Dose - Magnesium Replacement) 1 dose .XX ASDIRECTED [facility] Metformin HCl (Glucophage) 500 mg PO ACDINNER [facility] Last Admin: 05/16/16 15:59 Dose: 500 mg Metformin HCl (Glucophage) 1,000 mg PO DAILY [facility] Last Admin: 05/16/16 08:38 Dose: 1,000 mg Metoprolol Tartrate (Lopressor) 5 mg IVPUSH Q4H PRN PRN Reason: Tachycardia Last Admin: 05/15/16 14:05 Dose: 5 mg Ondansetron HCl (Zofran) 4 mg IV Q6H PRN PRN Reason: Nausea/Vomiting Pantoprazole Sodium (Protonix) 40 mg PO DAILY [facility] Last Admin: 05/16/16 08:36 Dose: 40 mg Cyanocobalamin ( Vitamin B-12) 100 Mcg 0 each PO DAILY [facility] Last Admin: 05/16/16 08:41 Dose: Not Given Ferrous Sulfate [ (Slow Fe] 142 Mg) 0 each PO DAILY [facility] Last Admin: 05/16/16 08:41 Dose: Not Given Melatonin/Pyridoxine Hcl (B6) [Melatonin 3 Mg Tablet] 1 E 0 each PO DAILY [facility] Last Admin: 05/16/16 08:41 Dose: Not Given Travoprost ( Benzalkonium) [ Travoprost 0.004% Eye Drop] 1 0 each EYEBOTH BEDTIME [facility] Last Admin: 05/16/16 21:54 Dose: 1 each Polyethylene Glycol (Miralax) 17 gm PO DAILY PRN PRN Reason: Constipation Potassium Chloride (Pharmacy To Dose - Potassium Replacement) 1 dose .XX ASDIRECTED [facility] Potassium Chloride (Klor-Con M20) 20 meq PO DAILY [facility] Last Admin: 05/16/16 08:37 Dose: 20 meq Psyllium Husk (Metamucil Sugar Free) 1 packet PO BID [facility] Last Admin: 05/16/16 21:53 Dose: 1 packet Quetiapine Fumarate (Seroquel) 25 mg PO DAILY [facility] Last Admin: 05/16/16 08:40 Dose: 25 mg Rivaroxaban (Xarelto) 20 mg PO DAILY [facility] Last Admin: 05/16/16 08:36 Dose: 20 mg Senna/Docusate Sodium (Senna Plus) 1 tab PO BID PRN PRN Reason: Constipation Simvastatin (Zocor) 40 mg PO BEDTIME [facility] Last Admin: 05/16/16 21:55 Dose: 40 mg Sodium Chloride (Saline Flush) 10 ml FLUSH ASDIRECTED PRN PRN Reason: Keep Vein Open Last Admin: 05/14/16 21:33 Dose: 10 ml Tamsulosin HCl (Flomax) 0.4 mg PO DAILY [facility] Last Admin: 05/16/16 08:38 Dose: 0.4 mg Temazepam (Restoril) 15 mg PO BEDTIME PRN PRN Reason: Sleep Last Admin: 05/16/16 04:34 Dose: 15 mg Vit A/Vit C/Vit E/Selen/Cu/Zn/Lutei (Icaps Mv) 1 tab PO DAILY [facility] Last Admin: 05/16/16 08:36 Dose: 1 tab Discontinued Medications Albuterol/Ipratropium (Duoneb 3.0-0.5 Mg/3 Ml) 3 ml NEB QID [facility] Last Admin: 05/17/16 02:04 Dose: Not Given Benzonatate (Tessalon Perles) 100 mg PO TID PRN PRN Reason: Cough Last Admin: 05/15/16 21:06 Dose: 100 mg Budesonide (Pulmicort) 0.5 mg NEB BIDRT [facility] Last Admin: 05/16/16 21:25 Dose: 0.5 mg Budesonide (Pulmicort) 0.5 mg NEB BIDRT [facility] Budesonide (Pulmicort) 0.5 mg NEB BIDRT [facility] Diphtheria/Tetanus/Acell Pertussis (Boostrix) 0.5 ml IM .ONCE ONE Stop: 05/15/16 09:48 Hydromorphone HCl (Dilaudid) 0.25 mg IVPUSH Q2H PRN PRN Reason: Pain (severe 7-10) Levofloxacin/Dextrose 750 mg/ (Premix) 150 mls @ 100 mls/hr IV ONETIME ONE Stop: 05/14/16 22:20 Last Admin: 05/14/16 21:32 Dose: 100 mls/hr Sodium Chloride (Normal Saline) 1,000 mls @ 125 mls/hr IV ASDIRECTED [facility] Last Admin: 05/14/16 21:31 Dose: 125 mls/hr Potassium Chloride/Sodium Chloride (Normal Saline With 20 Meq Kcl) 1,000 mls @ 100 mls/hr IV ASDIRECTED [facility] Last Admin: 05/15/16 22:47 Dose: 100 mls/hr Metronidazole 500 mg/ Premix 100 mls @ 100 mls/hr IV Q8H [facility] Last Admin: 05/15/16 04:24 Dose: 100 mls/hr Potassium Chloride 10 meq/ (Premix) 100 mls @ 100 mls/hr IV Q1H [facility] Stop: 05/15/16 07:59 Last Admin: 05/15/16 05:23 Dose: Not Given Potassium Chloride 10 meq/ (Premix) 100 mls @ 100 mls/hr IV Q1H [facility] Stop: 05/15/16 10:59 Last Admin: 05/15/16 14:39 Dose: 100 mls/hr Magnesium Sulfate 2 gm/ Premix 50 mls @ 25 mls/hr IV ONETIME ONE Stop: 05/15/16 10:59 Last Admin: 05/16/16 10:53 Dose: 25 mls/hr Magnesium Sulfate 2 gm/ Premix 50 mls @ 25 mls/hr IV ONETIME ONE Stop: 05/15/16 14:59 Last Admin: 05/15/16 14:25 Dose: 25 mls/hr Magnesium Sulfate 2 gm/ Premix 50 mls @ 25 mls/hr IV ONETIME ONE Stop: 05/16/16 11:59 Last Admin: 05/16/16 10:54 Dose: Not Given Amiodarone HCl/Dextrose (Nexterone In Dextrose 150 Mg/100 Ml) Confirm Administered Dose 100 mls @ as directed IV .STK-MED ONE Stop: 05/17/16 03:15 Last Admin: 05/17/16 06:48 Dose: Not Given Amiodarone HCl/Dextrose 150 mg (/ Premix) 100 mls @ 400 mls/hr IV NOW ONE PRN Reason: Protocol Stop: 05/17/16 03:30 Last Admin: 05/17/16 06:48 Dose: Not Given Pantoprazole Sodium (Protonix Iv) 40 mg IVPUSH DAILY [facility] Last Admin: 05/16/16 08:41 Dose: Not Given Potassium Chloride (Klor-Con M20) 40 meq PO ONETIME ONE Stop: 05/16/16 08:31 Last Admin: 05/16/16 08:37 Dose: 40 meq - Exam General: alert, oriented, cooperative, no acute distress HEENT: Pupils equal, Pupils reactive, EOMI, Mucous membr. moist/pink Neck: supple, trachea midline, no JVD Lungs: Normal respiratory effort, Decreased breath sounds Cardiovascular: Irregular Rhythm, Other (irregular) Abdomen: bowel sounds present, soft, no tenderness, no distension (Male) Exam: Deferred Back Exam: normal inspection, decreased range of motion Extremities: no edema, normal pulses, no tenderness/swelling, no clubbing, no cyanosis, no calf tenderness Peripheral Pulses: 2+: dorsalis pedis (L), dorsalis pedis (R) Skin: warm, dry, intact Neurological: no new focal deficit Psy/Mental Status: alert, normal affect, normal mood - Problem List Review Problem List Initiated/Reviewed/Updated: Yes - My Orders Last 24 Hours: My Active Orders 05/16/16 09:00 Aspirin [Halfprin] 81 mg PO DAILY Cholestyramine/Aspartame [Prevalite Packet] 4 gm PO DAILY Multivitamins/Min/FA/Lut/Zeax [ICaps MV] 1 tab PO DAILY Patient's Own Medication [Ptom] 0 each PO DAILY Tamsulosin [Flomax] 0.4 mg PO DAILY amLODIPine [Norvasc] 5 mg PO DAILY metFORMIN [Glucophage] 1,000 mg PO DAILY 05/17/16 02:12 Transfer Patient (Change bed) [ADT] Routine 05/17/16 02:15 Amiodarone In Dextrose,Iso-Osm [Nexterone in Dextrose 360 MG/200 ML] 200 ml IV ASDIRECTED 05/17/16 02:53 Transfer Patient (Change bed) [ADT] Routine 05/17/16 05:11 Chest 2V [CR] AM 05/17/16 08:43 EKG 12 Lead [EKG Documentation Completion] [RC] URGENT 05/17/16 09:00 Amiodarone [Cordarone] 200 mg PO DAILY 05/18/16 05:11 BASIC METABOLIC PANEL,BMP [CHEM] AM C-REACTIVE PROTEIN [CHEM] AM CBC WITH AUTO DIFF [HEME] AM MAGNESIUM [CHEM] AM 05/19/16 05:11 BASIC METABOLIC PANEL,BMP [CHEM] AM C-REACTIVE PROTEIN [CHEM] AM CBC WITH AUTO DIFF [HEME] AM MAGNESIUM [CHEM] AM 05/20/16 05:11 BASIC METABOLIC PANEL,BMP [CHEM] AM C-REACTIVE PROTEIN [CHEM] AM CBC WITH AUTO DIFF [HEME] AM MAGNESIUM [CHEM] AM - Plan Plan:: Assessment/Plan: Acute: A-Fib with RVR - HR is now controlled with digoxin added - Coreg 25 mg po BID - Xarelto for stroke ppx Right Lung PNA-RML and RLL - Likely Aspiration - Risk factor: Dysphagia and GERD - Failed outpatient treatment due to dysphagia with pills- unable to take oral Cipro and tamiflu rx'd by PCP earlier in the week - Cont with Levaquin and Flagyl; responding well - Neb tx, RT, IS, acapella - Follow up CXR: continuing b/l pleural effusion with probable atelectasis, no interval change - CT scan in am to assess pleural effusions Influenza A+ - Unable to take Tamiflu due to dysphagia-- symptom onset past window for tamiflu to be helpful - Symptomatic tx; symptoms improving Dysphagia with Pills - ETL TESTER eval; mechanical soft diet with liquids changed to nectar thick on this mornings eval - Longstanding GERD - May need EGD r/o esophageal strictures, he carries a hx/o long standing GERD - Consulted Dr. Barber; ? of EGD to be done vs esophagram/barium swallow-- Radiologist out of town and unable to do esophagram x 1+ weeks - EGD not indicated per Dr. Barber - May need outpatient work up, consider ENT eval as well Resolved: S/p Hypokalemia - K 2.7-- 2.4-->3.1 today; mag also low - Will replete today with IV dosing - Pharmacy to replete and monitor for subsequent levels S/p Hypomagnesemia -Mag level 1.1 -->2.8--> 1.9 -Cont to follow levels and replete as needed per pharmacy to dose S/p V-tach - Received amiodarone drip - Continue cordarone 200 mg po daily Chronic: Chronic A-Fib on Xarelto HTN- stable Chronic Diarrhea GERD- chronic and longstanding, now with pill dysphagia Polyuria OA/DJD Contractures of fingers DM- sugars stable Anemia- stable Plan: He is clinically stable Possible transfer to Med-Surg in AM Routine AM Labs Isolation protocol- flu + Consider EGD given his hx/o dysphagia and GERD, he may have esophageal strictures- Dr. Barber consult for opinion--as above Continue PT/OT consult CM/SW for d/c planning Accu-check AM/HS Code status: ACLS only Additional orders as above LOS likely >96 hours due to complexity of case, cont swallow evaluations, cont tx for aspiration pneumonia with IV abx, electrolyte monitoring and replacement until stable.
[2016-05-17] MEDS: Budesonide 0.5 MG/2 ML Neb Susp NEB SCH ×2 (09:24→20:23)
[2016-05-17] MEDS: Aspirin 81 MG Tab.EC PO SCH (09:25)
[2016-05-17] MEDS: Pantoprazole 40 MG Tab.CR PO SCH (09:26)
[2016-05-17] MEDS: Hydrochlorothiazide 25 MG Tab PO SCH (09:26)
[2016-05-17] MEDS: metFORMIN 500 MG Tab PO SCH ×2 (09:26→17:13)
[2016-05-17] MEDS: Potassium Chloride 20 MEQ Tab.ER PO SCH (09:26)
[2016-05-17] MEDS: Lisinopril 20 MG Tab PO SCH (09:26)
[2016-05-17] MEDS: Rivaroxaban 10 MG Tab PO SCH (09:27)
[2016-05-17] MEDS: Multivitamins with Minerals/Folic Acid/Lutein/Zeaxanth Tab PO SCH (09:27)
[2016-05-17] MEDS: Carvedilol 12.5 MG Tab PO SCH (09:28)
[2016-05-17] MEDS: amLODIPine 5 MG Tab PO SCH (09:28)
[2016-05-17] MEDS: Tamsulosin 0.4 MG Cap.ER PO SCH (09:28)
[2016-05-17] MEDS: QUEtiapine 25 MG Tab PO SCH (09:28)
[2016-05-17] MEDS: Amiodarone 200 MG Tab PO SCH (09:29)
[2016-05-17] MEDS: Cholecalciferol (Vitamin D3) 1,000 Unit Tab PO SCH (09:29)
[2016-05-17] MEDS: Cholestyramine/Aspartame Powder 4 GM Packet PO SCH (09:30)
[2016-05-17] MEDS: Psyllium Husk Powder Sugar Free 3.4 GM Packet PO SCH ×2 (09:30→20:42)
[2016-05-17] MEDS: Cyanocobalamin (Vitamin B-12) 100 MCG PO SCH (09:31)
[2016-05-17] MEDS: Metoprolol Tartrate 5 MG/5 ML SDV IVPUSH PRN (09:36)
[2016-05-17] MEDS: Insulin Aspart 100 Units/ML 3 ML Pen SUBCUT SCH ×4 (09:55→21:01)
[2016-05-17] MEDS: FERROUS SULFATE 142 MG PO SCH (09:56)
[2016-05-17] MEDS: PYRIDOXINE HCL PO SCH (09:56)
[2016-05-17] MEDS: MELATONIN PO SCH (09:56)
[2016-05-17] MEDS: Digoxin 500 MCG/2 ML Amp IVPUSH SCH ×3 (11:11→21:44)
[2016-05-17] MEDS: Temazepam 15 MG Cap PO PRN (12:14)
--- NOTE | 2016-05-17 16:09 | CR ---
Chest: 2 views of the chest were obtained. Comparison: Previous chest x-ray of 05/14/16. Bilateral pleural effusions are seen. Probable atelectasis also noted within both lung bases. Lungs otherwise are clear. Heart size and mediastinum are within normal limits. Diffuse degenerative endplate spurring is noted within the spine. Impression: 1. Continuing bilateral pleural effusions with probable bibasilar atelectasis. 2. No appreciable interval change is seen from prior exam. Diagnostic code #3
[2016-05-17] MEDS: Levofloxacin/Dextrose 5%-Water 750 MG in Premix Bag 1 BAG IV SCH (20:34)
[2016-05-17] MEDS: Simvastatin 40 MG Tab PO SCH (20:36)
[2016-05-17] MEDS: TRAVOPROST EYEBOTH SCH (20:41)
[2016-05-18] MEDS: Metoprolol Tartrate 5 MG/5 ML SDV IVPUSH PRN ×2 (00:40→09:14)
[2016-05-18] MEDS: guaiFENesin/Dextromethorphan 100-10 MG/5 ML Soln 5 ML Cup PO SCH ×2 (00:40→07:06)
[2016-05-18] MEDS: Digoxin 500 MCG/2 ML Amp IVPUSH SCH (03:56)
[2016-05-18] MEDS: metroNIDAZOLE/Normal Saline 500 MG in Premix Bag 1 BAG IV SCH ×3 (03:59→18:10)
[2016-05-18] MEDS: Albuterol/Ipratropium 3.0-0.5 MG/3 ML Neb Soln NEB SCH ×4 (06:54→21:23)
[2016-05-18] MEDS: Insulin Aspart 100 Units/ML 3 ML Pen SUBCUT SCH ×4 (07:04→21:00)
[2016-05-18] MEDS ORDERED: Magnesium Sulfate/Water 2 GM in Premix Bag 1 BAG IV ONE (08:15)
[2016-05-18] MEDS: Budesonide 0.5 MG/2 ML Neb Susp NEB SCH ×2 (09:00→21:23)
[2016-05-18] MEDS: QUEtiapine 25 MG Tab PO SCH (09:18)
[2016-05-18] MEDS: Tamsulosin 0.4 MG Cap.ER PO SCH (09:18)
[2016-05-18] MEDS: Potassium Chloride 20 MEQ Tab.ER PO SCH (09:18)
[2016-05-18] MEDS: Cholestyramine/Aspartame Powder 4 GM Packet PO SCH (09:18)
[2016-05-18] MEDS: Lisinopril 20 MG Tab PO SCH (09:19)
[2016-05-18] MEDS: Rivaroxaban 10 MG Tab PO SCH (09:19)
[2016-05-18] MEDS: amLODIPine 5 MG Tab PO SCH (09:19)
[2016-05-18] MEDS: Aspirin 81 MG Tab.EC PO SCH (09:19)
[2016-05-18] MEDS: Multivitamins with Minerals/Folic Acid/Lutein/Zeaxanth Tab PO SCH (09:19)
[2016-05-18] MEDS: Hydrochlorothiazide 25 MG Tab PO SCH (09:20)
[2016-05-18] MEDS: metFORMIN 500 MG Tab PO SCH ×2 (09:20→16:36)
[2016-05-18] MEDS: Cholecalciferol (Vitamin D3) 1,000 Unit Tab PO SCH (09:20)
[2016-05-18] MEDS: Amiodarone 200 MG Tab PO SCH (09:20)
[2016-05-18] MEDS: Carvedilol 12.5 MG Tab PO SCH (09:20)
[2016-05-18] MEDS: Pantoprazole 40 MG Tab.CR PO SCH (09:20)
[2016-05-18] MEDS: Psyllium Husk Powder Sugar Free 3.4 GM Packet PO SCH ×2 (09:34→21:00)
[2016-05-18] MEDS: PYRIDOXINE HCL PO SCH (09:38)
[2016-05-18] MEDS: Cyanocobalamin (Vitamin B-12) 100 MCG PO SCH (09:38)
[2016-05-18] MEDS: MELATONIN PO SCH (09:38)
[2016-05-18] MEDS: FERROUS SULFATE 142 MG PO SCH (09:38)
--- NOTE | 2016-05-18 10:06 | PCM.PN ---
- General Info Date of Service: 05/18/16 Admission Dx/Problem (Free Text): Admission Diagnosis/Problem Admission Diagnosis/Problem Pneumonia Subjective Update: Follow Up Functional Status: Reports: pain controlled, tolerating diet, ambulating. Denies: urinating, new symptoms - Review of Systems General: Reports: No Symptoms. Denies: Fever, Chills HEENT: Reports: no symptoms Pulmonary: Denies: shortness of breath Cardiovascular: Denies: Chest Pain Gastrointestinal: Denies: Abdominal pain, Nausea, Vomiting Genitourinary: Reports: no symptoms Musculoskeletal: Reports: no symptoms Skin: Reports: no symptoms Neurological: Reports: Weakness Psychiatric: Denies: depression, anxiety, hallucinations Systems Review Comment:: No overnight issues. HR is fairly stable. He still fell weak. Mg is low at 1.7. His Chest CT scan shows b/l pleural effusions. - Patient Data Vitals - most recent: Last Vital Signs Temp 36.7 C 05/18/16 08:00 Pulse 112 H 05/18/16 09:20 Resp 16 05/18/16 08:00 BP 132/93 H 05/18/16 09:20 Pulse Ox 94 L 05/18/16 09:00 Weight - most recent: 74.298 kg I&O - last 24 hours: Intake & Output 05/17/16 05/18/16 05/18/16 22:59 06:59 14:59 Intake Total 100 250 Output Total 250 Balance 100 0 Lab Results last 24 hrs: Laboratory Results - last 24 hr 05/17/16 05/17/16 05/17/16 Range/Units 12:12 17:09 20:59 WBC (4.23-9.07) K/mm3 RBC (4.63-6.08) M/mm3 Hgb (13.7-17.5) gm/L Hct (40.1-51.0) % MCV (79.0-92.2) fl MCH (25.7-32.2) pg MCHC (32.2-35.5) g/dl RDW Std Deviation (35.1-43.9) fL Plt Count (163-337) K/mm3 MPV (9.4-12.3) fl Neut % (Auto) (34.0-67.9) % Lymph % (Auto) (21.8-53.1) % [place] % (Auto) (5.3-12.2) % Eos % (Auto) (0.8-7.0) Baso % (Auto) (0.1-1.2) % Neut # (1.78-5.38) K/mm3 Lymph # (1.32-3.57) K/mm3 [place] # (0.30-0.82) K/mm3 Eos # (0.04-0.54) K/mm3 Baso # (0.01-0.08) K/mm3 Manual Slide Review Sodium (136-145) mEq/L Potassium (3.5-5.1) mEq/L Chloride (98-107) mEq/L Carbon Dioxide (21-32) mEq/L Anion Gap (5-15) BUN (7-18) mg/dL Creatinine (0.7-1.3) mg/dL Est Cr Clr Drug Dosing mL/min Estimated GFR (MDRD) (>60) mL/min BUN/Creatinine Ratio (14-18) Glucose (83-115) mg/dL POC Glucose 258 H 159 H 136 H (83-110) mg/dL Calcium (8.5-10.1) mg/dL Magnesium (1.8-2.4) mg/dl C-Reactive Protein (<1.0) mg/dL Digoxin (0.9-2.0) ng/mL 05/18/16 05/18/16 05/18/16 Range/Units 05:32 05:32 07:01 WBC 11.54 H (4.23-9.07) K/mm3 RBC 4.58 L (4.63-6.08) M/mm3 Hgb 12.2 L (13.7-17.5) gm/L Hct 36.8 L (40.1-51.0) % MCV 80.3 (79.0-92.2) fl MCH 26.6 (25.7-32.2) pg MCHC 33.2 (32.2-35.5) g/dl RDW Std Deviation 44.1 H (35.1-43.9) fL Plt Count 245 (163-337) K/mm3 MPV 10.0 (9.4-12.3) fl Neut % (Auto) 82.4 H (34.0-67.9) % Lymph % (Auto) 5.6 L (21.8-53.1) % [place] % (Auto) 11.2 (5.3-12.2) % Eos % (Auto) 0.5 L (0.8-7.0) Baso % (Auto) 0.1 (0.1-1.2) % Neut # 9.51 H (1.78-5.38) K/mm3 Lymph # 0.65 L (1.32-3.57) K/mm3 [place] # 1.29 H (0.30-0.82) K/mm3 Eos # 0.06 (0.04-0.54) K/mm3 Baso # 0.01 (0.01-0.08) K/mm3 Manual Slide Review Normal smear Sodium 137 (136-145) mEq/L Potassium 3.7 (3.5-5.1) mEq/L Chloride 101 (98-107) mEq/L Carbon Dioxide 26 (21-32) mEq/L Anion Gap 13.7 (5-15) BUN 6 L (7-18) mg/dL Creatinine 0.8 (0.7-1.3) mg/dL Est Cr Clr Drug Dosing 68.36 mL/min Estimated GFR (MDRD) > 60 (>60) mL/min BUN/Creatinine Ratio 7.5 L (14-18) Glucose 155 H (83-115) mg/dL POC Glucose 156 H (83-110) mg/dL Calcium 7.8 L (8.5-10.1) mg/dL Magnesium 1.7 L (1.8-2.4) mg/dl C-Reactive Protein 2.4 H* (<1.0) mg/dL Digoxin 1.2 (0.9-2.0) ng/mL Mikael Results last 24 hrs: Microbiology 05/15/16 01:03 Urine Culture - Final Urine, Clean Catch NO GROWTH AFTER 2 DAYS Med Orders - Current: Current Medications Acetaminophen (Tylenol) 650 mg PO Q4H PRN PRN Reason: Pain (Mild 1-3)/fever Acetaminophen/Hydrocodone Bitart ([place] 325-5 Mg) 1 tab PO Q4H PRN PRN Reason: Pain (moderate 4-6) Albuterol/Ipratropium (Duoneb 3.0-0.5 Mg/3 Ml) 3 ml NEB Q4H PRN PRN Reason: Shortness Of Breath/wheezing Albuterol/Ipratropium (Duoneb 3.0-0.5 Mg/3 Ml) 3 ml NEB QIDRT [facility] Last Admin: 05/18/16 09:00 Dose: 3 ml Amiodarone HCl (Cordarone) 200 mg PO DAILY [facility] Last Admin: 05/18/16 09:20 Dose: 200 mg Amlodipine Besylate (Norvasc) 5 mg PO DAILY [facility] Last Admin: 05/18/16 09:19 Dose: 5 mg Aspirin (Halfprin) 81 mg PO DAILY [facility] Last Admin: 05/18/16 09:19 Dose: 81 mg Bisacodyl (Dulcolax) 5 mg PO DAILY PRN PRN Reason: Constipation Budesonide (Pulmicort) 0.5 mg NEB BID [facility] Last Admin: 05/18/16 09:00 Dose: 0.5 mg Carvedilol (Coreg) 25 mg PO DAILY [facility] Last Admin: 05/18/16 09:20 Dose: 25 mg Cholecalciferol (Vitamin D3) 1,000 units PO DAILY [facility] Last Admin: 05/18/16 09:20 Dose: 1,000 units Cholestyramine Resin (Prevalite Packet) 4 gm PO DAILY [facility] Last Admin: 05/18/16 09:18 Dose: 4 gm Dextrose/Water (Dextrose 50% In Water) 50 ml IVPUSH ASDIRECTED PRN PRN Reason: Hypoglycemia Docusate Sodium (Colace) 100 mg PO BID PRN PRN Reason: Constipation Enalapril Maleate (Vasotec) 20 mg PO BID [facility] Last Admin: 05/18/16 09:19 Dose: 20 mg Flunisolide (Nasalide Nasal [place]) 0 ml DUARTE BID [facility] Last Admin: 05/18/16 09:34 Dose: Not Given Glipizide (Glucotrol) 10 mg PO BID [facility] Last Admin: 05/18/16 09:20 Dose: 10 mg Guaifenesin/Phenylephrine HCl (Robitussin Dm) 5 ml PO Q6H [facility] Last Admin: 05/18/16 07:06 Dose: Not Given Hydralazine HCl (Apresoline) 10 mg IVPUSH Q4H PRN PRN Reason: Hypertension Hydrochlorothiazide (Hydrochlorothiazide) 25 mg PO DAILY [facility] Last Admin: 05/18/16 09:20 Dose: 25 mg Hydromorphone HCl (Dilaudid) 0.25 mg IVPUSH Q2H PRN PRN Reason: Pain (severe 7-10) Promethazine HCl 12.5 mg/ (Sodium Chloride) 50.5 mls @ 100 mls/hr IV Q6H PRN PRN Reason: Nausea/Vomiting Metronidazole 500 mg/ Premix 100 mls @ 100 mls/hr IV Q8H [facility] Last Admin: 05/18/16 03:59 Dose: 100 mls/hr Levofloxacin/Dextrose 750 mg/ (Premix) 150 mls @ 100 mls/hr IV Q24H [facility] Last Admin: 05/17/16 20:34 Dose: 100 mls/hr Amiodarone HCl/Dextrose (Nexterone In Dextrose 360 Mg/200 Ml) 200 mls @ 33.333 mls/hr IV ASDIRECTED [facility] PRN Reason: Protocol Last Admin: 05/17/16 08:19 Dose: 16.7 mls/hr Magnesium Sulfate 2 gm/ Premix 50 mls @ 25 mls/hr IV ONETIME ONE Stop: 05/18/16 10:14 Last Admin: 05/18/16 09:16 Dose: 25 mls/hr Insulin Aspart (Novolog) 0 unit SUBCUT QIDACANDBED [facility] PRN Reason: Protocol Last Admin: 05/18/16 07:04 Dose: 1 units Lisinopril (Prinivil) 40 mg PO DAILY [facility] Last Admin: 05/18/16 09:19 Dose: 40 mg Lorazepam (Ativan) 0.5 mg IV Q6H PRN PRN Reason: Anxiety Magnesium Sulfate (Pharmacy To Dose - Magnesium Replacement) 1 dose .XX ASDIRECTED [facility] Metformin HCl (Glucophage) 500 mg PO ACDINNER [facility] Last Admin: 05/17/16 17:13 Dose: 500 mg Metformin HCl (Glucophage) 1,000 mg PO DAILY [facility] Last Admin: 05/18/16 09:20 Dose: 1,000 mg Metoprolol Tartrate (Lopressor) 5 mg IVPUSH Q4H PRN PRN Reason: Tachycardia Last Admin: 05/18/16 09:14 Dose: 5 mg Ondansetron HCl (Zofran) 4 mg IV Q6H PRN PRN Reason: Nausea/Vomiting Pantoprazole Sodium (Protonix) 40 mg PO DAILY [facility] Last Admin: 05/18/16 09:20 Dose: 40 mg Cyanocobalamin ( Vitamin B-12) 100 Mcg 0 each PO DAILY [facility] Last Admin: 05/18/16 09:38 Dose: Not Given Ferrous Sulfate [ (Slow Fe] 142 Mg) 0 each PO DAILY [facility] Last Admin: 05/18/16 09:38 Dose: Not Given Melatonin/Pyridoxine Hcl (B6) [Melatonin 3 Mg Tablet] 1 E 0 each PO DAILY [facility] Last Admin: 05/18/16 09:38 Dose: Not Given Travoprost ( Benzalkonium) [ Travoprost 0.004% Eye Drop] 1 0 each EYEBOTH BEDTIME [facility] Last Admin: 05/17/16 20:41 Dose: 1 each Polyethylene Glycol (Miralax) 17 gm PO DAILY PRN PRN Reason: Constipation Potassium Chloride (Pharmacy To Dose - Potassium Replacement) 1 dose .XX ASDIRECTED [facility] Potassium Chloride (Klor-Con M20) 20 meq PO DAILY [facility] Last Admin: 05/18/16 09:18 Dose: 20 meq Psyllium Husk (Metamucil Sugar Free) 1 packet PO BID [facility] Last Admin: 05/18/16 09:34 Dose: Not Given Quetiapine Fumarate (Seroquel) 25 mg PO DAILY [facility] Last Admin: 05/18/16 09:18 Dose: 25 mg Rivaroxaban (Xarelto) 20 mg PO DAILY [facility] Last Admin: 05/18/16 09:19 Dose: 20 mg Senna/Docusate Sodium (Senna Plus) 1 tab PO BID PRN PRN Reason: Constipation Simvastatin (Zocor) 40 mg PO BEDTIME [facility] Last Admin: 05/17/16 20:36 Dose: 40 mg Sodium Chloride (Saline Flush) 10 ml FLUSH ASDIRECTED PRN PRN Reason: Keep Vein Open Last Admin: 05/14/16 21:33 Dose: 10 ml Tamsulosin HCl (Flomax) 0.4 mg PO DAILY [facility] Last Admin: 05/18/16 09:18 Dose: 0.4 mg Temazepam (Restoril) 15 mg PO BEDTIME PRN PRN Reason: Sleep Last Admin: 05/17/16 12:14 Dose: 15 mg Vit A/Vit C/Vit E/Selen/Cu/Zn/Lutei (Icaps Mv) 1 tab PO DAILY [facility] Last Admin: 05/18/16 09:19 Dose: 1 tab Discontinued Medications Albuterol/Ipratropium (Duoneb 3.0-0.5 Mg/3 Ml) 3 ml NEB QID [facility] Last Admin: 05/17/16 02:04 Dose: Not Given Benzonatate (Tessalon Perles) 100 mg PO TID PRN PRN Reason: Cough Last Admin: 05/15/16 21:06 Dose: 100 mg Budesonide (Pulmicort) 0.5 mg NEB BIDRT [facility] Last Admin: 05/16/16 21:25 Dose: 0.5 mg Budesonide (Pulmicort) 0.5 mg NEB BIDRT [facility] Budesonide (Pulmicort) 0.5 mg NEB BIDRT [facility] Digoxin (Lanoxin) 125 mcg IVPUSH Q6H [facility] Stop: 05/18/16 04:01 Last Admin: 05/18/16 03:56 Dose: 125 mcg Diphtheria/Tetanus/Acell Pertussis (Boostrix) 0.5 ml IM .ONCE ONE Stop: 05/15/16 09:48 Hydromorphone HCl (Dilaudid) 0.25 mg IVPUSH Q2H PRN PRN Reason: Pain (severe 7-10) Levofloxacin/Dextrose 750 mg/ (Premix) 150 mls @ 100 mls/hr IV ONETIME ONE Stop: 05/14/16 22:20 Last Admin: 05/14/16 21:32 Dose: 100 mls/hr Sodium Chloride (Normal Saline) 1,000 mls @ 125 mls/hr IV ASDIRECTED [facility] Last Admin: 05/14/16 21:31 Dose: 125 mls/hr Potassium Chloride/Sodium Chloride (Normal Saline With 20 Meq Kcl) 1,000 mls @ 100 mls/hr IV ASDIRECTED [facility] Last Admin: 05/15/16 22:47 Dose: 100 mls/hr Metronidazole 500 mg/ Premix 100 mls @ 100 mls/hr IV Q8H [facility] Last Admin: 05/15/16 04:24 Dose: 100 mls/hr Potassium Chloride 10 meq/ (Premix) 100 mls @ 100 mls/hr IV Q1H [facility] Stop: 05/15/16 07:59 Last Admin: 05/15/16 05:23 Dose: Not Given Potassium Chloride 10 meq/ (Premix) 100 mls @ 100 mls/hr IV Q1H [facility] Stop: 05/15/16 10:59 Last Admin: 05/15/16 14:39 Dose: 100 mls/hr Magnesium Sulfate 2 gm/ Premix 50 mls @ 25 mls/hr IV ONETIME ONE Stop: 05/15/16 10:59 Last Admin: 05/16/16 10:53 Dose: 25 mls/hr Magnesium Sulfate 2 gm/ Premix 50 mls @ 25 mls/hr IV ONETIME ONE Stop: 05/15/16 14:59 Last Admin: 05/15/16 14:25 Dose: 25 mls/hr Magnesium Sulfate 2 gm/ Premix 50 mls @ 25 mls/hr IV ONETIME ONE Stop: 05/16/16 11:59 Last Admin: 05/16/16 10:54 Dose: Not Given Amiodarone HCl/Dextrose (Nexterone In Dextrose 150 Mg/100 Ml) Confirm Administered Dose 100 mls @ as directed IV .STK-MED ONE Stop: 05/17/16 03:15 Last Admin: 05/17/16 06:48 Dose: Not Given Amiodarone HCl/Dextrose 150 mg (/ Premix) 100 mls @ 400 mls/hr IV NOW ONE PRN Reason: Protocol Stop: 05/17/16 03:30 Last Admin: 05/17/16 06:48 Dose: Not Given Pantoprazole Sodium (Protonix Iv) 40 mg IVPUSH DAILY [facility] Last Admin: 05/16/16 08:41 Dose: Not Given Potassium Chloride (Klor-Con M20) 40 meq PO ONETIME ONE Stop: 05/16/16 08:31 Last Admin: 05/16/16 08:37 Dose: 40 meq - Exam Quality Assessment: No: supplemental oxygen General: alert, cooperative, no acute distress HEENT: Pupils equal, Pupils reactive, EOMI, Mucous membr. moist/pink Neck: supple, trachea midline, no JVD Lungs: Normal respiratory effort, Decreased breath sounds Cardiovascular: Irregular Rhythm, Other (irregular) Abdomen: bowel sounds present, soft, no tenderness, no distension (Male) Exam: Deferred Back Exam: normal inspection, decreased range of motion Extremities: no edema, normal pulses, no tenderness/swelling, no clubbing, no cyanosis, no calf tenderness Peripheral Pulses: 2+: dorsalis pedis (L), dorsalis pedis (R) Skin: warm, dry, intact Neurological: no new focal deficit Psy/Mental Status: alert, normal affect, normal mood - Problem List Review Problem List Initiated/Reviewed/Updated: Yes - My Orders Last 24 Hours: My Active Orders 05/18/16 07:00 Chest wo Cont [CT] Routine 05/18/16 08:15 Magnesium Sulfate/Water [Magnesium Sulfate 2 GM in Water 50 ML] 2 gm Premix Bag 1 bag IV ONETIME 05/18/16 09:52 Consult to Occupational Therapy [OT Evaluation and Treatment] [CONS] Routine Consult to Physical Therapy [PT Evaluation and Treatment] [CONS] Routine Consult to Speech Language Pathology [SKY CAP Evaluation and Treatment] [CONS] Routine 05/19/16 05:11 BASIC METABOLIC PANEL,BMP [CHEM] AM C-REACTIVE PROTEIN [CHEM] AM CBC WITH AUTO DIFF [HEME] AM MAGNESIUM [CHEM] AM 05/20/16 05:11 BASIC METABOLIC PANEL,BMP [CHEM] AM C-REACTIVE PROTEIN [CHEM] AM CBC WITH AUTO DIFF [HEME] AM MAGNESIUM [CHEM] AM - Plan Plan:: Assessment/Plan: Acute: A-Fib with RVR - HR is now controlled with digoxin added - Coreg 25 mg po BID - Xarelto for stroke ppx B/L Pleural Effusions L>R - Discussed with patient, and daughter CT scan result - Informed them diuretic could only do so much - Offered therapeutic and diagnostic thoracentesis-they all agreed - CXR in AM Right Lung PNA-RML and RLL - Likely Aspiration - Risk factor: Dysphagia and GERD - Failed outpatient treatment due to dysphagia with pills- unable to take oral Cipro and tamiflu rx'd by PCP earlier in the week - Cont with Levaquin and Flagyl; responding well - Neb tx, RT, IS, acapella - Follow up CXR: continuing b/l pleural effusion with probable atelectasis, no interval change - CT scan: shows b/l effusions Dysphagia with Pills - SKY CAP eval; mechanical soft diet with liquids changed to nectar thick on this mornings eval - Longstanding GERD - May need EGD r/o esophageal strictures, he carries a hx/o long standing GERD - Consulted Dr. Barber; ? of EGD to be done vs esophagram/barium swallow-- Radiologist out of town and unable to do esophagram x 1+ weeks - EGD not indicated per Dr. Barber - May need outpatient work up, consider ENT eval as well Resolved: S/p Hypokalemia - K 2.7-- 2.4-->3.1 today; mag also low - Will replete today with IV dosing - Pharmacy to replete and monitor for subsequent levels S/p Hypomagnesemia -Mag level 1.1 -->2.8--> 1.9 -Cont to follow levels and replete as needed per pharmacy to dose S/p V-tach - Received amiodarone drip - Continue cordarone 200 mg po daily S/p Influenza A+ - Unable to take Tamiflu due to dysphagia-- symptom onset past window for tamiflu to be helpful - Symptomatic tx; symptoms improving Chronic: Chronic A-Fib on Xarelto HTN- stable Chronic Diarrhea GERD- chronic and longstanding, now with pill dysphagia Polyuria OA/DJD Contractures of fingers DM- sugars stable Anemia- stable Plan: He remains clinically stable Transfer to [facility] Routine AM Labs Consider EGD given his hx/o dysphagia and GERD, he may have esophageal strictures- Dr. Barber consult for opinion--as above Continue PT/OT Therapeutic and diagnostic thoracentesis sometime today CM/SW for d/c planning Accu-check AM/HS Code status: ACLS only Additional orders as above LOS likely >96 hours due to complexity of case, cont swallow evaluations, cont tx for aspiration pneumonia with IV abx, electrolyte monitoring and replacement until stable. Patient may not do well at home, who is his primary care coordinator also sick here in the hospital, receiving treatment. SW to re-evaluate d/c care plans in AM. They may need both [facility].
--- NOTE | 2016-05-18 10:35 | CT ---
CT chest Technique: Multiple axial sections were obtained from above the lung apices inferiorly through the lung bases. Intravenous contrast was not utilized. Comparison: Previous chest x-ray of 05/17/16. No previous chest CT. Findings: Small to moderate sized bilateral pleural effusions are seen. Atelectasis likely on a compressive basis is seen within both lung bases, more prominent on the left side. Atherosclerotic change is seen within the aorta. Multiple small mediastinal lymph nodes are seen which are believed to be within normal limits. Mild coronary artery calcification is seen. Surgical clips are seen from prior cholecystectomy. No acute parenchymal change is appreciated. Scattered degenerative change is seen within the spine. Impression: 1. Small to moderate sized bilateral pleural effusions. 2. Lower lobe atelectasis on a compressive basis, more prominent on the left side. 3. Other incidental findings. Diagnostic code #3
[2016-05-18] MEDS ORDERED: Digoxin 500 MCG/2 ML Amp IVPUSH ONE (11:00)
[2016-05-18] MEDS ORDERED: guaiFENesin/Dextromethorphan 100-10 MG/5 ML Soln 5 ML Cup PO PRN (11:34)
--- NOTE | 2016-05-18 16:13 | PCM.PRNOTE ---
- Free Text/Narrative Note: DATE OF PROCEDURE: 05/18/2016 PREOPERATIVE DIAGNOSIS: Bilateral Pleural Effusion (L>R) POSTOPERATIVE DIAGNOSIS: Bilateral Pleural Effusion PROCEDURE PERFORMED: Therapeutic and Diagnostic U/S Guided Left Sided Thoracentesis DESCRIPTION OF PROCEDURE: Informed consent was obtained. The patient was in his room with daughter present at bedside, seated in an upright position. The left posterior chest was marked and localized using ultrasound. Chlorhexidine was used to prep the skin in the usual sterile fashion. Ten mL of 1% Xylocaine was used to infiltrate the skin and soft tissue. Subsequently, an 18 gauge drainage catheter was introduced over the rib in the pleural space, and free flowing clear, straw-colored pleural fluid was easily aspirated. The catheter was advanced and the needle removed. The catheter was hooked through a stopcock and opened to vacutainer suction. A total of 950 mL of pleural fluid was easily drained. The flow was spontaneously ceased. The catheter was removed and procedure terminated. Studies were sent to the lab. The patient tolerated the procedure well. Post thoracentesis chest x-ray ordered. ESTIMATED BLOOD LOSS: Minimal COMPLICATIONS: None
--- NOTE | 2016-05-18 17:14 | CR ---
Chest: Portable view of the chest was obtained. Comparison: Previous chest CT performed on the same day as well as chest x-ray performed one day earlier. Decreased density within both lung bases noted from prior study. No pneumothorax is seen. Minimal right sided pleural effusion remains. Mild atelectasis within the right lung base remains. Upper lungs are clear. Heart size and mediastinum are stable. Bony structures are also unchanged. Impression: 1. Improved appearance of both lung bases from prior study. 2. Mild right-sided pleural effusion is seen with mild continued right basilar atelectasis. Diagnostic code #3
[2016-05-18] MEDS: TRAVOPROST EYEBOTH SCH (20:53)
[2016-05-18] MEDS: Levofloxacin/Dextrose 5%-Water 750 MG in Premix Bag 1 BAG IV SCH (21:00)
[2016-05-18] MEDS: Simvastatin 40 MG Tab PO SCH (21:00)
[2016-05-18] MEDS: Temazepam 15 MG Cap PO PRN (21:04)
[2016-05-19] MEDS: metroNIDAZOLE/Normal Saline 500 MG in Premix Bag 1 BAG IV SCH ×3 (04:09→18:29)
[2016-05-19] MEDS: Albuterol/Ipratropium 3.0-0.5 MG/3 ML Neb Soln NEB SCH ×4 (06:33→20:38)
--- NOTE | 2016-05-19 07:43 | PCM.DCSUM1 ---
Discharge Summary - Hospital Course Free Text/Narrative:: This is an 86 yo elderly white male with past medical hx/o Impaired Vision, Chronic A-fib on Xarelto, HTN, Chronic Diarrhea, GERD, Dysphagia, Polyuria, OA/ DJD, DM1 and Anemia who comes worsening cough associated with fever and chills. Patient was recently diagnosed with pneumonia and influenza A by his PCP. He given cipro and tamiflu. However he was not able to take any of it b/c of difficulty swallowing. Patient carries a hx/o some form of dysphagia and a long standing hx/o GERD on PPI. He is not on any special diet. His initial work up in ED shows a fairly unremarkable CBC. His chemistry is remarkable for K 2.7, Cl 96, BS 162, Ca 7.7, ALT 13, and Albumin 3.1. His CXR shows increased opacification on right middle-lower lobe. He is modified full code. He was admitted for hydration, IV antibiotics for RML pneumonia- started on levaquin and flagyl IV. Swallow eval was orded with to [facility] during his hospital stay. PT/OT also worked with him on strengthening. He developed bout of afib with RVR then vtach one evening. He received amiodarone loading dose IV , drip and was transitioned to oral dosing once stable. He was also started on digoxin due to hypotension but continuous, intermittent tachycardia. Echocardiogram was obtained with essentially normal findings, cardiac enzymes were normal. HR control was maintained after medication administration, in the 80's. Patient continued to have pill dysphagia. Dr. Barber was consulted for opinion re: EGD. He felt not necessary or indicated at this time. Patient will have ENT f/up as outpatient for further eval of this dysphagia. Repeat CXR showed worsening pleural effusion, Dr. Hu performed thoracentesis with normal or negative workup/eval of fluid aspirate. Patient slowly improved but remained weak. He will be discharged to [facility] today for a rehab stay. He will follow up with Dr. Choi within 5-7 days of discharge with labs at that time, CBC, BMP and dig level. - Discharge Data Discharge Date: 05/22/16 (admit date 05/14/16) Discharge Disposition: DC/Tfer to SNF 03 Condition: Good - Discharge Diagnosis/Problem(s) (1) Pneumonia SNOMED Code(s): 169591097 ICD Code: J18.9 - PNEUMONIA, UNSPECIFIED ORGANISM Status: Acute Priority : High Qualifiers: Pneumonia type: due to unspecified organism Laterality: right Lung location: middle lobe of lung Qualified Code(s): J18.1 - Lobar pneumonia, unspecified organism (2) Influenza A SNOMED Code(s): 944383065 ICD Code: J10.1 - FLU DUE TO OTH IDENT INFLUENZA VIRUS W OTH RESP MANIFEST Status: Acute Priority: High (3) Hypokalemia SNOMED Code(s): 92395418 ICD Code: E87.6 - HYPOKALEMIA Status: Resolved Priority: High (4) Atrial fibrillation SNOMED Code(s): 00518235 ICD Code: I48.91 - UNSPECIFIED ATRIAL FIBRILLATION Status: Chronic Priority: High Qualifiers: Atrial fibrillation type: persistent Qualified Code(s): I48.1 - Persistent atrial fibrillation (5) S/P thoracentesis SNOMED Code(s): 135632957, 197563311 ICD Code: Z98.890 - OTHER SPECIFIED POSTPROCEDURAL STATES Status: Resolved Priority: High Problem Details: 950cc (6) Pleural effusion associated with pulmonary infection SNOMED Code(s): 83145603 ICD Code: J18.9 - PNEUMONIA, UNSPECIFIED ORGANISM; J91.8 - PLEURAL EFFUSION IN OTHER CONDITIONS CLASSIFIED ELSEWHERE Status: Acute Priority: High (7) Ventricular tachyarrhythmia SNOMED Code(s): 80066972 ICD Code: I47.2 - VENTRICULAR TACHYCARDIA Status: Resolved Priority: High (8) Weakness generalized SNOMED Code(s): 17145614 ICD Code: R53.1 - WEAKNESS Status: Acute Priority: High - Patient Summary/Data Operative Procedure(s) Performed: None Complications: None Consults: Consultations 05/15/16 01:32 Consult to Case Management [CONS] Routine Consult to Sanitarian [CONS] Routine Consult to Spiritual Care [CONS] Routine Respiratory Care Assess and Treatment [CONS] Routine 05/15/16 01:35 Consult to Physician [CONS] Routine - Dr. Rustam Barber 05/18/16 09:52 Consult to Occupational Therapy [OT Evaluation and Treatment] [CONS] Routine Consult to Physical Therapy [PT Evaluation and Treatment] [CONS] Routine Consult to Speech Language Pathology [PREPARATION SUPER[employer] CANNING Evaluation and Treatment] [CONS] Routine Labs Pending at D/C: None Recommended Follow-up Testing/Procedures: Close follow up with PCP, Dr. Choi within 3-5 days of discharge with labs prior to appointment Planned Operative Procedure(s) after DC: None Hospital Course: As above - Patient Instructions Diet: Heart Healthy Diet, Low Sodium Activity: As Tolerated, Rest and Relax Today Driving: Do Not Drive Showering/Bathing: May Shower Notify Provider of: Fever, Increased Pain, Nausea and/or Vomiting (shortness of breath, chest pains, palpiations, dizziness) - Discharge Plan Prescriptions/Med Rec: RX: Amiodarone [Cordarone] 200 mg PO DAILY #30 tablet RX: Carvedilol [Coreg] 25 mg PO BID #60 tablet RX: Digoxin [Lanoxin] 125 mcg PO DAILY #30 tablet RX: Doxazosin [Cardura] 4 mg PO BEDTIME #30 tablet RX: Dronabinol [Marinol] 2.5 mg PO BIDMEALS #60 cap RX: Levofloxacin [Levaquin] 500 mg PO Q24H #3 tablet RX: Magnesium Oxide 400 mg PO BID #60 tablet RX: Tamsulosin [Flomax] 0.4 mg PO BIDPC #60 cap.er Home Medications: Home Meds RX: Flunisolide [Nasalide Nasal [place]] 2 spray DUARTE BID 10/24/13 [History] RX: Travoprost (Benzalkonium) [Travoprost 0.004% Eye Drop] 1 drop EYEBOTH BEDTIME 10/24/13 [History] RX: Melatonin/Pyridoxine HCl (B6) [Melatonin 3 mg Tablet] 1 each PO DAILY [History] RX: metFORMIN HCl [Metformin HCl] 1,000 mg PO DAILY 11/11/14 [History] RX: Cholecalciferol (Vitamin D3) [Vitamin D3] 1,000 unit PO DAILY 07/10/15 [ History] RX: Lisinopril 40 mg PO DAILY 07/10/15 [History] RX: QUEtiapine Fumarate [Seroquel] 25 mg PO DAILY 07/10/15 [History] RX: Vit C/E/Zn/Coppr/Lutein/Zeaxan [Preservision Areds 2 Softgel] 1 each PO DAILY 07/10/15 [History] RX: glipiZIDE [Glucotrol] 10 mg PO BID 07/10/15 [History] RX: Aspirin [Ecotrin] 81 mg PO DAILY 12/19/15 [History] RX: Enalapril [Vasotec] 20 mg PO BID 12/19/15 [History] RX: Hydrochlorothiazide 25 mg PO DAILY 12/25/15 [History] RX: Psyllium with Sucrose [Metamucil] 1 each PO BID 12/25/15 [History] RX: Ferrous Sulfate [Slow Fe] 142 mg PO DAILY 05/14/16 [History] RX: Naproxen Sodium 220 mg PO DAILY 05/14/16 [History] RX: Omeprazole 20 mg PO DAILY 05/14/16 [History] RX: Potassium Chloride 20 meq PO DAILY 05/14/16 [History] RX: Rivaroxaban [Xarelto] 20 mg PO DAILY 05/14/16 [History] RX: Simvastatin [Zocor] 40 mg PO BEDTIME 05/14/16 [History] RX: metFORMIN [Glucophage] 500 mg PO ACDINNER 05/14/16 [History] RX: Cholestyramine/Sucrose [Cholestyramine] 4 gm PO DAILY 05/15/16 [History] RX: Cyanocobalamin (Vitamin B-12) [Vitamin B-12] 100 mcg PO DAILY 05/15/16 [ History] RX: Amiodarone [Cordarone] 200 mg PO DAILY #30 tablet 05/22/16 [Rx] RX: Carvedilol [Coreg] 25 mg PO BID #60 tablet 05/22/16 [Rx] RX: Digoxin [Lanoxin] 125 mcg PO DAILY #30 tablet 05/22/16 [Rx] RX: Doxazosin [Cardura] 4 mg PO BEDTIME #30 tablet 05/22/16 [Rx] RX: Dronabinol [Marinol] 2.5 mg PO BIDMEALS #60 cap 05/22/16 [Rx] RX: Levofloxacin [Levaquin] 500 mg PO Q24H #3 tablet 05/22/16 [Rx] RX: Magnesium Oxide 400 mg PO BID #60 tablet 05/22/16 [Rx] RX: Tamsulosin [Flomax] 0.4 mg PO BIDPC #60 cap.er 05/22/16 [Rx] Patient Handouts: Influenza, Adult, [id number], Hypertension, [id number], Dysphagia Diet Level 3, Mechanically Advanced, Atrial Fibrillation, [id number] , Community-Acquired Pneumonia, Adult, [id number] Referrals: Jean Pierre Choi MD [Primary Care Provider] - - Discharge Summary/Plan Comment DC Time >30 min.: Yes (40 min) - General Info Date of Service: 05/22/16 Admission Dx/Problem (Free Text: Admission Diagnosis/Problem Admission Diagnosis/Problem Pneumonia Marco is seen this morning sitting up in chair. He is feeling better overall, strength is slowly improving. Cough is minimal now, no SOB. Continues to have difficulties getting his medications down even with nursing crushing and putting them in applesauce or pudding. VSS, afebrile. Continues to work with PT/ OT/ST. Plans for discharge to [facility] today for rehab stay Functional Status: Reports: pain controlled, tolerating diet, ambulating, urinating. Denies: new symptoms - Review of Systems General: Reports: Weakness (improving) HEENT: Reports: no symptoms Pulmonary: Reports: shortness of breath (mild), cough (improved) Cardiovascular: Reports: No Symptoms Gastrointestinal: Reports: No symptoms Genitourinary: Reports: no symptoms Musculoskeletal: Reports: no symptoms Skin: Reports: no symptoms Neurological: Reports: No Symptoms Psychiatric: Reports: no symptoms - Patient Data Vitals - Most Recent: Last Vital Signs Temp 97.3 F 05/19/16 04:11 Pulse 92 05/19/16 04:11 Resp 20 05/19/16 04:11 BP 131/64 05/19/16 04:11 Pulse Ox 97 05/19/16 06:33 Weight - Most Recent: 156 lb 14.4 oz I&O - Last 24 hours: Intake & Output 05/18/16 05/19/16 05/19/16 22:59 06:59 14:59 Intake Total 150 550 Output Total 200 200 Balance -50 350 Lab Results - Last 24 hrs: Laboratory Results - last 24 hr 05/18/16 05/18/16 05/18/16 Range/Units 11:30 16:05 16:05 POC Glucose 189 H (83-110) mg/dL Body Fluid Site Fluid Type Thoracentesis fluid Thoracentesis fluid Fluid Volume ML Fluid Color Fluid Appearance Fluid pH 8.0 (4.5-10.0) Fluid WBC (0.20-0.60) k/mm*3 Fluid RBC (0.00-0.010) 10*6/uL Fluid Diff Comment Fluid Seg Neutrophils (0-25) % Fluid Lymphocytes (0-78) % Fluid Monocytes (0-71) % Fl Polymorphonucl Cell Fluid Macrophages Fluid Glucose mg/dL Fluid Total Protein 3.0 gm/dl Fluid Albumin Cancelled 05/18/16 05/18/16 05/18/16 Range/Units 16:05 16:35 20:55 POC Glucose 150 H 145 H (83-110) mg/dL Body Fluid Site Left lung pleural fl Fluid Type Thoracentesis fluid Fluid Volume 848 ML Fluid Color Yellow Fluid Appearance Cloudy Fluid pH (4.5-10.0) Fluid WBC 0.71 H (0.20-0.60) k/mm*3 Fluid RBC 0.001 (0.00-0.010) 10*6/uL Fluid Diff Comment Not Reportable Fluid Seg Neutrophils 8.0 (0-25) % Fluid Lymphocytes 58.0 (0-78) % Fluid Monocytes 24.0 (0-71) % Fl Polymorphonucl Cell Not Reportable Fluid Macrophages 10 Fluid Glucose 178 mg/dL Fluid Total Protein gm/dl Fluid Albumin JOANNE Results - Last 24 hrs: Microbiology 05/18/16 16:05 VARGHESE Preparation - Final Other - Lung, Left Med Orders - Current: Current Medications Acetaminophen (Tylenol) 650 mg PO Q4H PRN PRN Reason: Pain (Mild 1-3)/fever Acetaminophen/Hydrocodone Bitart ([place] 325-5 Mg) 1 tab PO Q4H PRN PRN Reason: Pain (moderate 4-6) Albuterol/Ipratropium (Duoneb 3.0-0.5 Mg/3 Ml) 3 ml NEB Q4H PRN PRN Reason: Shortness Of Breath/wheezing Albuterol/Ipratropium (Duoneb 3.0-0.5 Mg/3 Ml) 3 ml NEB QIDRT [facility] Last Admin: 05/19/16 06:33 Dose: 3 ml Amiodarone HCl (Cordarone) 200 mg PO DAILY [facility] Last Admin: 05/18/16 09:20 Dose: 200 mg Amlodipine Besylate (Norvasc) 5 mg PO DAILY [facility] Last Admin: 05/18/16 09:19 Dose: 5 mg Aspirin (Halfprin) 81 mg PO DAILY [facility] Last Admin: 05/18/16 09:19 Dose: 81 mg Bisacodyl (Dulcolax) 5 mg PO DAILY PRN PRN Reason: Constipation Budesonide (Pulmicort) 0.5 mg NEB BID [facility] Last Admin: 05/18/16 21:23 Dose: 0.5 mg Carvedilol (Coreg) 25 mg PO DAILY [facility] Last Admin: 05/18/16 09:20 Dose: 25 mg Cholecalciferol (Vitamin D3) 1,000 units PO DAILY [facility] Last Admin: 05/18/16 09:20 Dose: 1,000 units Cholestyramine Resin (Prevalite Packet) 4 gm PO DAILY [facility] Last Admin: 05/18/16 09:18 Dose: 4 gm Dextrose/Water (Dextrose 50% In Water) 50 ml IVPUSH ASDIRECTED PRN PRN Reason: Hypoglycemia Digoxin (Lanoxin) 125 mcg PO DAILY [facility] Docusate Sodium (Colace) 100 mg PO BID PRN PRN Reason: Constipation Doxazosin Mesylate (Cardura) 4 mg PO BEDTIME [facility] Enalapril Maleate (Vasotec) 20 mg PO BID [facility] Last Admin: 05/18/16 20:56 Dose: 20 mg Flunisolide (Nasalide Nasal [place]) 0 ml DUARTE BID [facility] Last Admin: 05/18/16 09:34 Dose: Not Given Glipizide (Glucotrol) 10 mg PO BID [facility] Last Admin: 05/18/16 20:57 Dose: 10 mg Guaifenesin/Phenylephrine HCl (Robitussin Dm) 5 ml PO Q6H PRN PRN Reason: Cough Hydralazine HCl (Apresoline) 10 mg IVPUSH Q4H PRN PRN Reason: Hypertension Hydrochlorothiazide (Hydrochlorothiazide) 25 mg PO DAILY [facility] Last Admin: 05/18/16 09:20 Dose: 25 mg Hydromorphone HCl (Dilaudid) 0.25 mg IVPUSH Q2H PRN PRN Reason: Pain (severe 7-10) Promethazine HCl 12.5 mg/ (Sodium Chloride) 50.5 mls @ 100 mls/hr IV Q6H PRN PRN Reason: Nausea/Vomiting Metronidazole 500 mg/ Premix 100 mls @ 100 mls/hr IV Q8H [facility] Last Admin: 05/19/16 04:09 Dose: 100 mls/hr Levofloxacin/Dextrose 750 mg/ (Premix) 150 mls @ 100 mls/hr IV Q24H [facility] Last Admin: 05/18/16 21:00 Dose: 100 mls/hr Insulin Aspart (Novolog) 0 unit SUBCUT QIDACANDBED [facility] PRN Reason: Protocol Last Admin: 05/18/16 21:00 Dose: Not Given Lorazepam (Ativan) 0.5 mg IV Q6H PRN PRN Reason: Anxiety Magnesium Sulfate (Pharmacy To Dose - Magnesium Replacement) 1 dose .XX ASDIRECTED [facility] Metformin HCl (Glucophage) 500 mg PO ACDINNER [facility] Last Admin: 05/18/16 16:36 Dose: 500 mg Metformin HCl (Glucophage) 1,000 mg PO DAILY [facility] Last Admin: 05/18/16 09:20 Dose: 1,000 mg Metoprolol Tartrate (Lopressor) 5 mg IVPUSH Q4H PRN PRN Reason: Tachycardia Last Admin: 05/18/16 09:14 Dose: 5 mg Ondansetron HCl (Zofran) 4 mg IV Q6H PRN PRN Reason: Nausea/Vomiting Last Admin: 05/18/16 18:16 Dose: 4 mg Pantoprazole Sodium (Protonix) 40 mg PO DAILY [facility] Last Admin: 05/18/16 09:20 Dose: 40 mg Cyanocobalamin ( Vitamin B-12) 100 Mcg 0 each PO DAILY [facility] Last Admin: 05/18/16 09:38 Dose: Not Given Ferrous Sulfate [ (Slow Fe] 142 Mg) 0 each PO DAILY [facility] Last Admin: 05/18/16 09:38 Dose: Not Given Melatonin/Pyridoxine Hcl (B6) [Melatonin 3 Mg Tablet] 1 E 0 each PO DAILY [facility] Last Admin: 05/18/16 09:38 Dose: Not Given Travoprost ( Benzalkonium) [ Travoprost 0.004% Eye Drop] 1 0 each EYEBOTH BEDTIME [facility] Last Admin: 05/18/16 20:53 Dose: 1 each Polyethylene Glycol (Miralax) 17 gm PO DAILY PRN PRN Reason: Constipation Potassium Chloride (Pharmacy To Dose - Potassium Replacement) 1 dose .XX ASDIRECTED [facility] Potassium Chloride (Klor-Con M20) 20 meq PO DAILY [facility] Last Admin: 05/18/16 09:18 Dose: 20 meq Psyllium Husk (Metamucil Sugar Free) 1 packet PO BID [facility] Last Admin: 05/18/16 21:00 Dose: 1 packet Quetiapine Fumarate (Seroquel) 25 mg PO DAILY [facility] Last Admin: 05/18/16 09:18 Dose: 25 mg Rivaroxaban (Xarelto) 20 mg PO DAILY [facility] Last Admin: 05/18/16 09:19 Dose: 20 mg Senna/Docusate Sodium (Senna Plus) 1 tab PO BID PRN PRN Reason: Constipation Simvastatin (Zocor) 40 mg PO BEDTIME [facility] Last Admin: 05/18/16 21:00 Dose: 40 mg Sodium Chloride (Saline Flush) 10 ml FLUSH ASDIRECTED PRN PRN Reason: Keep Vein Open Last Admin: 05/14/16 21:33 Dose: 10 ml Tamsulosin [facility] ([facility]) [facility] Temazepam (Restoril) 15 mg PO BEDTIME PRN PRN Reason: Sleep Last Admin: 05/18/16 21:04 Dose: 15 mg Vit A/Vit C/Vit E/Selen/Cu/Zn/Lutei (Icaps Mv) 1 tab PO DAILY [facility] Last Admin: 05/18/16 09:19 Dose: 1 tab Discontinued Medications Albuterol/Ipratropium (Duoneb 3.0-0.5 Mg/3 Ml) 3 ml NEB QID [facility] Last Admin: 05/17/16 02:04 Dose: Not Given Benzonatate (Tessalon Perles) 100 mg PO TID PRN PRN Reason: Cough Last Admin: 05/15/16 21:06 Dose: 100 mg Budesonide (Pulmicort) 0.5 mg NEB BIDRT [facility] Last Admin: 05/16/16 21:25 Dose: 0.5 mg Budesonide (Pulmicort) 0.5 mg NEB BIDRT [facility] Budesonide (Pulmicort) 0.5 mg NEB BIDRT [facility] Digoxin (Lanoxin) 125 mcg IVPUSH Q6H [facility] Stop: 05/18/16 04:01 Last Admin: 05/18/16 03:56 Dose: 125 mcg Digoxin (Lanoxin) 125 mcg IVPUSH ONETIME ONE Stop: 05/18/16 11:01 Last Admin: 05/18/16 11:28 Dose: 125 mcg Diphtheria/Tetanus/Acell Pertussis (Boostrix) 0.5 ml IM .ONCE ONE Stop: 05/15/16 09:48 Guaifenesin/Phenylephrine HCl (Robitussin Dm) 5 ml PO Q6H [facility] Last Admin: 05/18/16 07:06 Dose: Not Given Hydromorphone HCl (Dilaudid) 0.25 mg IVPUSH Q2H PRN PRN Reason: Pain (severe 7-10) Levofloxacin/Dextrose 750 mg/ (Premix) 150 mls @ 100 mls/hr IV ONETIME ONE Stop: 05/14/16 22:20 Last Admin: 05/14/16 21:32 Dose: 100 mls/hr Sodium Chloride (Normal Saline) 1,000 mls @ 125 mls/hr IV ASDIRECTED [facility] Last Admin: 05/14/16 21:31 Dose: 125 mls/hr Potassium Chloride/Sodium Chloride (Normal Saline With 20 Meq Kcl) 1,000 mls @ 100 mls/hr IV ASDIRECTED [facility] Last Admin: 05/15/16 22:47 Dose: 100 mls/hr Metronidazole 500 mg/ Premix 100 mls @ 100 mls/hr IV Q8H [facility] Last Admin: 05/15/16 04:24 Dose: 100 mls/hr Potassium Chloride 10 meq/ (Premix) 100 mls @ 100 mls/hr IV Q1H [facility] Stop: 05/15/16 07:59 Last Admin: 05/15/16 05:23 Dose: Not Given Potassium Chloride 10 meq/ (Premix) 100 mls @ 100 mls/hr IV Q1H [facility] Stop: 05/15/16 10:59 Last Admin: 05/15/16 14:39 Dose: 100 mls/hr Magnesium Sulfate 2 gm/ Premix 50 mls @ 25 mls/hr IV ONETIME ONE Stop: 05/15/16 10:59 Last Admin: 05/16/16 10:53 Dose: 25 mls/hr Magnesium Sulfate 2 gm/ Premix 50 mls @ 25 mls/hr IV ONETIME ONE Stop: 05/15/16 14:59 Last Admin: 05/15/16 14:25 Dose: 25 mls/hr Magnesium Sulfate 2 gm/ Premix 50 mls @ 25 mls/hr IV ONETIME ONE Stop: 05/16/16 11:59 Last Admin: 05/16/16 10:54 Dose: Not Given Amiodarone HCl/Dextrose (Nexterone In Dextrose 360 Mg/200 Ml) 200 mls @ 33.333 mls/hr IV ASDIRECTED [facility] PRN Reason: Protocol Last Admin: 05/17/16 08:19 Dose: 16.7 mls/hr Amiodarone HCl/Dextrose (Nexterone In Dextrose 150 Mg/100 Ml) Confirm Administered Dose 100 mls @ as directed IV .STK-MED ONE Stop: 05/17/16 03:15 Last Admin: 05/17/16 06:48 Dose: Not Given Amiodarone HCl/Dextrose 150 mg (/ Premix) 100 mls @ 400 mls/hr IV NOW ONE PRN Reason: Protocol Stop: 05/17/16 03:30 Last Admin: 05/17/16 06:48 Dose: Not Given Magnesium Sulfate 2 gm/ Premix 50 mls @ 25 mls/hr IV ONETIME ONE Stop: 05/18/16 10:14 Last Admin: 05/18/16 09:16 Dose: 25 mls/hr Lisinopril (Prinivil) 40 mg PO DAILY [facility] Last Admin: 05/18/16 09:19 Dose: 40 mg Pantoprazole Sodium (Protonix Iv) 40 mg IVPUSH DAILY [facility] Last Admin: 05/16/16 08:41 Dose: Not Given Potassium Chloride (Klor-Con M20) 40 meq PO ONETIME ONE Stop: 05/16/16 08:31 Last Admin: 05/16/16 08:37 Dose: 40 meq Tamsulosin HCl (Flomax) 0.4 mg PO DAILY [facility] Last Admin: 05/18/16 09:18 Dose: 0.4 mg - Exam Quality Assessment: Reports: DVT prophylaxis General: Reports: alert, oriented, cooperative, no acute distress HEENT: Reports: Pupils equal, Pupils reactive, EOMI, Mucous membr. moist/pink Neck: Reports: supple Lungs: Reports: Normal respiratory effort, Wheezing (rt lobes- middle to lower) Cardiovascular: Reports: Irregular Rhythm Abdomen: Reports: bowel sounds present, soft, no tenderness, no distension (Male) Exam: Deferred Rectal (Males) Exam: Deferred Extremities: Reports: no edema, no calf tenderness Skin: Reports: warm, dry, intact Neurological: Reports: no new focal deficit Psy/Mental Status: Reports: alert, normal affect, normal mood *Q Meaningful Use (DIS) - VTE *Q VTE Criteria *Q: - Stroke *Q Stroke Criteria *Q: - AMI *Q AMI Criteria *Q:
[2016-05-19] MEDS: Insulin Aspart 100 Units/ML 3 ML Pen SUBCUT SCH ×4 (08:00→22:01)
[2016-05-19] MEDS: Psyllium Husk Powder Sugar Free 3.4 GM Packet PO SCH ×2 (08:56→22:03)
[2016-05-19] MEDS: Cholestyramine/Aspartame Powder 4 GM Packet PO SCH (08:56)
[2016-05-19] MEDS: Hydrochlorothiazide 25 MG Tab PO SCH (08:57)
[2016-05-19] MEDS: Rivaroxaban 10 MG Tab PO SCH (08:57)
[2016-05-19] MEDS: amLODIPine 5 MG Tab PO SCH (08:57)
[2016-05-19] MEDS: metFORMIN 500 MG Tab PO SCH ×2 (08:57→17:18)
[2016-05-19] MEDS: QUEtiapine 25 MG Tab PO SCH (08:57)
[2016-05-19] MEDS: Aspirin 81 MG Tab.EC PO SCH (08:57)
[2016-05-19] MEDS: Carvedilol 12.5 MG Tab PO SCH (08:57)
[2016-05-19] MEDS: Cholecalciferol (Vitamin D3) 1,000 Unit Tab PO SCH (08:57)
[2016-05-19] MEDS: Potassium Chloride 20 MEQ Tab.ER PO SCH (08:57)
[2016-05-19] MEDS: Pantoprazole 40 MG Tab.CR PO SCH (08:58)
[2016-05-19] MEDS: Multivitamins with Minerals/Folic Acid/Lutein/Zeaxanth Tab PO SCH (08:58)
[2016-05-19] MEDS: Tamsulosin 0.4 MG Cap.ER PO SCH ×2 (08:58→17:18)
[2016-05-19] MEDS: Digoxin 125 MCG Tab PO SCH (08:58)
[2016-05-19] MEDS: Amiodarone 200 MG Tab PO SCH (08:58)
[2016-05-19] MEDS: Cyanocobalamin (Vitamin B-12) 100 MCG PO SCH (08:59)
[2016-05-19] MEDS: PYRIDOXINE HCL PO SCH (08:59)
[2016-05-19] MEDS: FERROUS SULFATE 142 MG PO SCH (08:59)
[2016-05-19] MEDS: MELATONIN PO SCH (08:59)
[2016-05-19] MEDS: Budesonide 0.5 MG/2 ML Neb Susp NEB SCH ×2 (09:41→20:38)
[2016-05-19] MEDS ORDERED: Magnesium Sulfate/Water 2 GM in Premix Bag 1 BAG IV ONE (10:15)
--- NOTE | 2016-05-19 10:30 | CR ---
Chest: Portable view of the chest was obtained. Comparison: Previous chest x-ray of 05/18/16. Decreased pleural effusion on the right side. Thick linear density within the right lung base is seen presumably due to persisting atelectasis. Lungs otherwise are clear. No pneumothorax is appreciated at this time. Heart size and mediastinum are stable. Impression: 1. Decreased right-sided pleural effusion. Persisting thick linear density within right lung base most likely due to continued atelectasis. Diagnostic code #3
--- NOTE | 2016-05-19 13:22 | PCM.PN ---
- General Info Date of Service: 05/19/16 Admission Dx/Problem (Free Text): Admission Diagnosis/Problem Admission Diagnosis/Problem Pneumonia Marco is seen this morning sitting up in chair. He is feeling better overall, strength is slowly improving. Cough is minimal now, no SOB. He has no appetite. Continues to have difficulties getting his medications down even with nursing crushing and putting them in applesauce or pudding. VSS, afebrile. Continues to work with PT/OT/ST. Telemetry is with no further v-tach or RVR. Functional Status: Reports: pain controlled, tolerating diet, ambulating, urinating. Denies: new symptoms - Review of Systems General: Reports: Weakness (improving). Denies: Appetite (minimal) HEENT: Reports: no symptoms Pulmonary: Reports: cough (minimal). Denies: shortness of breath, pleuritic chest pain, sputum, wheezing Cardiovascular: Reports: No Symptoms. Denies: Chest Pain, Palpitations, Dyspnea on Exertion, Lightheadedness Gastrointestinal: Reports: No symptoms Genitourinary: Reports: no symptoms Musculoskeletal: Reports: no symptoms Neurological: Reports: No Symptoms Psychiatric: Reports: no symptoms - Patient Data Vitals - most recent: Last Vital Signs Temp 97.3 F 05/19/16 04:11 Pulse 80 05/19/16 08:58 Resp 20 05/19/16 04:11 BP 145/75 H 05/19/16 08:58 Pulse Ox 97 05/19/16 09:42 Weight - most recent: 156 lb 14.4 oz I&O - last 24 hours: Intake & Output 05/18/16 05/19/16 05/19/16 22:59 06:59 14:59 Intake Total 150 550 0 Output Total 200 200 Balance -50 350 0 Lab Results last 24 hrs: Laboratory Results - last 24 hr 05/18/16 05/18/16 05/18/16 Range/Units 16:05 16:05 16:05 WBC (4.23-9.07) K/mm3 RBC (4.63-6.08) M/mm3 Hgb (13.7-17.5) gm/L Hct (40.1-51.0) % MCV (79.0-92.2) fl MCH (25.7-32.2) pg MCHC (32.2-35.5) g/dl RDW Std Deviation (35.1-43.9) fL Plt Count (163-337) K/mm3 MPV (9.4-12.3) fl Neut % (Auto) (34.0-67.9) % Lymph % (Auto) (21.8-53.1) % [place] % (Auto) (5.3-12.2) % Eos % (Auto) (0.8-7.0) Baso % (Auto) (0.1-1.2) % Neut # (1.78-5.38) K/mm3 Lymph # (1.32-3.57) K/mm3 [place] # (0.30-0.82) K/mm3 Eos # (0.04-0.54) K/mm3 Baso # (0.01-0.08) K/mm3 Manual Slide Review Sodium (136-145) mEq/L Potassium (3.5-5.1) mEq/L Chloride (98-107) mEq/L Carbon Dioxide (21-32) mEq/L Anion Gap (5-15) BUN (7-18) mg/dL Creatinine (0.7-1.3) mg/dL Est Cr Clr Drug Dosing mL/min Estimated GFR (MDRD) (>60) mL/min BUN/Creatinine Ratio (14-18) Glucose (83-115) mg/dL POC Glucose (83-110) mg/dL Calcium (8.5-10.1) mg/dL Magnesium (1.8-2.4) mg/dl Lactate Dehydrogenase (85-227) U/L CK-MB (CK-2) (0-3.6) ng/ml Troponin I (0.00-0.056) ng/mL C-Reactive Protein (<1.0) mg/dL Albumin (3.4-5.0) g/dl Body Fluid Site Left lung pleural fl Fluid Type Thoracentesis fluid Thoracentesis fluid Thoracentesis fluid Fluid Volume 848 ML Fluid Color Yellow Fluid Appearance Cloudy Fluid pH 8.0 (4.5-10.0) Fluid WBC 0.71 H (0.20-0.60) k/mm*3 Fluid RBC 0.001 (0.00-0.010) 10*6/uL Fluid Diff Comment Not Reportable Fluid Seg Neutrophils 8.0 (0-25) % Fluid Lymphocytes 58.0 (0-78) % Fluid Monocytes 24.0 (0-71) % Fl Polymorphonucl Cell Not Reportable Fluid Macrophages 10 Fluid Glucose 178 mg/dL Fluid Total Protein 3.0 gm/dl Fluid Albumin Cancelled 05/18/16 05/18/16 05/19/16 Range/Units 16:35 20:55 05:52 WBC 10.86 H (4.23-9.07) K/mm3 RBC 4.72 (4.63-6.08) M/mm3 Hgb 12.5 L (13.7-17.5) gm/L Hct 37.9 L (40.1-51.0) % MCV 80.3 (79.0-92.2) fl MCH 26.5 (25.7-32.2) pg MCHC 33.0 (32.2-35.5) g/dl RDW Std Deviation 44.1 H (35.1-43.9) fL Plt Count 287 (163-337) K/mm3 MPV 10.0 (9.4-12.3) fl Neut % (Auto) 79.5 H (34.0-67.9) % Lymph % (Auto) 7.7 L (21.8-53.1) % [place] % (Auto) 12.0 (5.3-12.2) % Eos % (Auto) 0.4 L (0.8-7.0) Baso % (Auto) 0.0 L (0.1-1.2) % Neut # 8.64 H (1.78-5.38) K/mm3 Lymph # 0.84 L (1.32-3.57) K/mm3 [place] # 1.30 H (0.30-0.82) K/mm3 Eos # 0.04 (0.04-0.54) K/mm3 Baso # 0.00 L (0.01-0.08) K/mm3 Manual Slide Review Normal smear Sodium (136-145) mEq/L Potassium (3.5-5.1) mEq/L Chloride (98-107) mEq/L Carbon Dioxide (21-32) mEq/L Anion Gap (5-15) BUN (7-18) mg/dL Creatinine (0.7-1.3) mg/dL Est Cr Clr Drug Dosing mL/min Estimated GFR (MDRD) (>60) mL/min BUN/Creatinine Ratio (14-18) Glucose (83-115) mg/dL POC Glucose 150 H 145 H (83-110) mg/dL Calcium (8.5-10.1) mg/dL Magnesium (1.8-2.4) mg/dl Lactate Dehydrogenase (85-227) U/L CK-MB (CK-2) (0-3.6) ng/ml Troponin I (0.00-0.056) ng/mL C-Reactive Protein (<1.0) mg/dL Albumin (3.4-5.0) g/dl Body Fluid Site Fluid Type Fluid Volume ML Fluid Color Fluid Appearance Fluid pH (4.5-10.0) Fluid WBC (0.20-0.60) k/mm*3 Fluid RBC (0.00-0.010) 10*6/uL Fluid Diff Comment Fluid Seg Neutrophils (0-25) % Fluid Lymphocytes (0-78) % Fluid Monocytes (0-71) % Fl Polymorphonucl Cell Fluid Macrophages Fluid Glucose mg/dL Fluid Total Protein gm/dl Fluid Albumin 05/19/16 05/19/16 05/19/16 Range/Units 05:52 05:52 07:39 WBC (4.23-9.07) K/mm3 RBC (4.63-6.08) M/mm3 Hgb (13.7-17.5) gm/L Hct (40.1-51.0) % MCV (79.0-92.2) fl MCH (25.7-32.2) pg MCHC (32.2-35.5) g/dl RDW Std Deviation (35.1-43.9) fL Plt Count (163-337) K/mm3 MPV (9.4-12.3) fl Neut % (Auto) (34.0-67.9) % Lymph % (Auto) (21.8-53.1) % [place] % (Auto) (5.3-12.2) % Eos % (Auto) (0.8-7.0) Baso % (Auto) (0.1-1.2) % Neut # (1.78-5.38) K/mm3 Lymph # (1.32-3.57) K/mm3 [place] # (0.30-0.82) K/mm3 Eos # (0.04-0.54) K/mm3 Baso # (0.01-0.08) K/mm3 Manual Slide Review Sodium 137 (136-145) mEq/L Potassium 3.9 (3.5-5.1) mEq/L Chloride 102 (98-107) mEq/L Carbon Dioxide 28 (21-32) mEq/L Anion Gap 10.9 (5-15) BUN 9 (7-18) mg/dL Creatinine 0.9 (0.7-1.3) mg/dL Est Cr Clr Drug Dosing 58.21 mL/min Estimated GFR (MDRD) > 60 (>60) mL/min BUN/Creatinine Ratio 10.0 L (14-18) Glucose 131 H (83-115) mg/dL POC Glucose 136 H (83-110) mg/dL Calcium 8.2 L (8.5-10.1) mg/dL Magnesium 1.8 (1.8-2.4) mg/dl Lactate Dehydrogenase 165 (85-227) U/L CK-MB (CK-2) 0.5 (0-3.6) ng/ml Troponin I < 0.017 (0.00-0.056) ng/mL C-Reactive Protein 1.6 H* (<1.0) mg/dL Albumin 2.8 L (3.4-5.0) g/dl Body Fluid Site Fluid Type Fluid Volume ML Fluid Color Fluid Appearance Fluid pH (4.5-10.0) Fluid WBC (0.20-0.60) k/mm*3 Fluid RBC (0.00-0.010) 10*6/uL Fluid Diff Comment Fluid Seg Neutrophils (0-25) % Fluid Lymphocytes (0-78) % Fluid Monocytes (0-71) % Fl Polymorphonucl Cell Fluid Macrophages Fluid Glucose mg/dL Fluid Total Protein gm/dl Fluid Albumin 05/19/16 Range/Units 10:54 WBC (4.23-9.07) K/mm3 RBC (4.63-6.08) M/mm3 Hgb (13.7-17.5) gm/L Hct (40.1-51.0) % MCV (79.0-92.2) fl MCH (25.7-32.2) pg MCHC (32.2-35.5) g/dl RDW Std Deviation (35.1-43.9) fL Plt Count (163-337) K/mm3 MPV (9.4-12.3) fl Neut % (Auto) (34.0-67.9) % Lymph % (Auto) (21.8-53.1) % [place] % (Auto) (5.3-12.2) % Eos % (Auto) (0.8-7.0) Baso % (Auto) (0.1-1.2) % Neut # (1.78-5.38) K/mm3 Lymph # (1.32-3.57) K/mm3 [place] # (0.30-0.82) K/mm3 Eos # (0.04-0.54) K/mm3 Baso # (0.01-0.08) K/mm3 Manual Slide Review Sodium (136-145) mEq/L Potassium (3.5-5.1) mEq/L Chloride (98-107) mEq/L Carbon Dioxide (21-32) mEq/L Anion Gap (5-15) BUN (7-18) mg/dL Creatinine (0.7-1.3) mg/dL Est Cr Clr Drug Dosing mL/min Estimated GFR (MDRD) (>60) mL/min BUN/Creatinine Ratio (14-18) Glucose (83-115) mg/dL POC Glucose 245 H (83-110) mg/dL Calcium (8.5-10.1) mg/dL Magnesium (1.8-2.4) mg/dl Lactate Dehydrogenase (85-227) U/L CK-MB (CK-2) (0-3.6) ng/ml Troponin I (0.00-0.056) ng/mL C-Reactive Protein (<1.0) mg/dL Albumin (3.4-5.0) g/dl Body Fluid Site Fluid Type Fluid Volume ML Fluid Color Fluid Appearance Fluid pH (4.5-10.0) Fluid WBC (0.20-0.60) k/mm*3 Fluid RBC (0.00-0.010) 10*6/uL Fluid Diff Comment Fluid Seg Neutrophils (0-25) % Fluid Lymphocytes (0-78) % Fluid Monocytes (0-71) % Fl Polymorphonucl Cell Fluid Macrophages Fluid Glucose mg/dL Fluid Total Protein gm/dl Fluid Albumin Mikael Results last 24 hrs: Microbiology 05/18/16 16:05 VARGHESE Preparation - Final Other - Lung, Left Med Orders - Current: Current Medications Acetaminophen (Tylenol) 650 mg PO Q4H PRN PRN Reason: Pain (Mild 1-3)/fever Acetaminophen/Hydrocodone Bitart ([place] 325-5 Mg) 1 tab PO Q4H PRN PRN Reason: Pain (moderate 4-6) Albuterol/Ipratropium (Duoneb 3.0-0.5 Mg/3 Ml) 3 ml NEB Q4H PRN PRN Reason: Shortness Of Breath/wheezing Albuterol/Ipratropium (Duoneb 3.0-0.5 Mg/3 Ml) 3 ml NEB QIDRT [facility] Last Admin: 05/19/16 09:41 Dose: 3 ml Amiodarone HCl (Cordarone) 200 mg PO DAILY [facility] Last Admin: 05/19/16 08:58 Dose: 200 mg Amlodipine Besylate (Norvasc) 5 mg PO DAILY [facility] Last Admin: 05/19/16 08:57 Dose: 5 mg Aspirin (Halfprin) 81 mg PO DAILY [facility] Last Admin: 05/19/16 08:57 Dose: 81 mg Bisacodyl (Dulcolax) 5 mg PO DAILY PRN PRN Reason: Constipation Budesonide (Pulmicort) 0.5 mg NEB BID [facility] Last Admin: 05/19/16 09:41 Dose: 0.5 mg Carvedilol (Coreg) 25 mg PO DAILY [facility] Last Admin: 05/19/16 08:57 Dose: 25 mg Cholecalciferol (Vitamin D3) 1,000 units PO DAILY [facility] Last Admin: 05/19/16 08:57 Dose: 1,000 units Cholestyramine Resin (Prevalite Packet) 4 gm PO DAILY [facility] Last Admin: 05/19/16 08:56 Dose: 4 gm Dextrose/Water (Dextrose 50% In Water) 50 ml IVPUSH ASDIRECTED PRN PRN Reason: Hypoglycemia Digoxin (Lanoxin) 125 mcg PO DAILY [facility] Last Admin: 05/19/16 08:58 Dose: 125 mcg Docusate Sodium (Colace) 100 mg PO BID PRN PRN Reason: Constipation Doxazosin Mesylate (Cardura) 4 mg PO BEDTIME [facility] Enalapril Maleate (Vasotec) 20 mg PO BID [facility] Last Admin: 05/19/16 08:58 Dose: 20 mg Flunisolide (Nasalide Nasal [place]) 0 ml DUARTE BID [facility] Last Admin: 05/19/16 08:58 Dose: 2 spr Glipizide (Glucotrol) 10 mg PO BID [facility] Last Admin: 05/19/16 08:57 Dose: 10 mg Guaifenesin/Phenylephrine HCl (Robitussin Dm) 5 ml PO Q6H PRN PRN Reason: Cough Hydralazine HCl (Apresoline) 10 mg IVPUSH Q4H PRN PRN Reason: Hypertension Hydrochlorothiazide (Hydrochlorothiazide) 25 mg PO DAILY [facility] Last Admin: 05/19/16 08:57 Dose: 25 mg Hydromorphone HCl (Dilaudid) 0.25 mg IVPUSH Q2H PRN PRN Reason: Pain (severe 7-10) Promethazine HCl 12.5 mg/ (Sodium Chloride) 50.5 mls @ 100 mls/hr IV Q6H PRN PRN Reason: Nausea/Vomiting Metronidazole 500 mg/ Premix 100 mls @ 100 mls/hr IV Q8H [facility] Last Admin: 05/19/16 10:46 Dose: 100 mls/hr Levofloxacin/Dextrose 750 mg/ (Premix) 150 mls @ 100 mls/hr IV Q24H [facility] Last Admin: 05/18/16 21:00 Dose: 100 mls/hr Insulin Aspart (Novolog) 0 unit SUBCUT QIDACANDBED [facility] PRN Reason: Protocol Last Admin: 05/19/16 11:00 Dose: 2 units Lorazepam (Ativan) 0.5 mg IV Q6H PRN PRN Reason: Anxiety Magnesium Oxide (Magnesium Oxide) 400 mg PO BID [facility] Magnesium Sulfate (Pharmacy To Dose - Magnesium Replacement) 1 dose .XX ASDIRECTED [facility] Metformin HCl (Glucophage) 500 mg PO ACDINNER [facility] Last Admin: 05/18/16 16:36 Dose: 500 mg Metformin HCl (Glucophage) 1,000 mg PO DAILY [facility] Last Admin: 05/19/16 08:57 Dose: 1,000 mg Metoprolol Tartrate (Lopressor) 5 mg IVPUSH Q4H PRN PRN Reason: Tachycardia Last Admin: 05/18/16 09:14 Dose: 5 mg Ondansetron HCl (Zofran) 4 mg IV Q6H PRN PRN Reason: Nausea/Vomiting Last Admin: 05/18/16 18:16 Dose: 4 mg Pantoprazole Sodium (Protonix) 40 mg PO DAILY [facility] Last Admin: 05/19/16 08:58 Dose: 40 mg Cyanocobalamin ( Vitamin B-12) 100 Mcg 0 each PO DAILY [facility] Last Admin: 05/19/16 08:59 Dose: Not Given Ferrous Sulfate [ (Slow Fe] 142 Mg) 0 each PO DAILY [facility] Last Admin: 05/19/16 08:59 Dose: Not Given Melatonin/Pyridoxine Hcl (B6) [Melatonin 3 Mg Tablet] 1 E 0 each PO DAILY [facility] Last Admin: 05/19/16 08:59 Dose: Not Given Travoprost ( Benzalkonium) [ Travoprost 0.004% Eye Drop] 1 0 each EYEBOTH BEDTIME [facility] Last Admin: 05/18/16 20:53 Dose: 1 each Polyethylene Glycol (Miralax) 17 gm PO DAILY PRN PRN Reason: Constipation Potassium Chloride (Pharmacy To Dose - Potassium Replacement) 1 dose .XX ASDIRECTED [facility] Potassium Chloride (Klor-Con M20) 20 meq PO DAILY [facility] Last Admin: 05/19/16 08:57 Dose: 20 meq Psyllium Husk (Metamucil Sugar Free) 1 packet PO BID [facility] Last Admin: 05/19/16 08:56 Dose: 1 packet Quetiapine Fumarate (Seroquel) 25 mg PO DAILY [facility] Last Admin: 05/19/16 08:57 Dose: 25 mg Rivaroxaban (Xarelto) 20 mg PO DAILY [facility] Last Admin: 05/19/16 08:57 Dose: 20 mg Senna/Docusate Sodium (Senna Plus) 1 tab PO BID PRN PRN Reason: Constipation Simvastatin (Zocor) 40 mg PO BEDTIME [facility] Last Admin: 05/18/16 21:00 Dose: 40 mg Sodium Chloride (Saline Flush) 10 ml FLUSH ASDIRECTED PRN PRN Reason: Keep Vein Open Last Admin: 05/14/16 21:33 Dose: 10 ml [facility] Last Admin: 05/19/16 08:58 Dose: 0.4 mg Temazepam (Restoril) 15 mg PO BEDTIME PRN PRN Reason: Sleep Last Admin: 05/18/16 21:04 Dose: 15 mg Vit A/Vit C/Vit E/Selen/Cu/Zn/Lutei (Icaps Mv) 1 tab PO DAILY [facility] Last Admin: 05/19/16 08:58 Dose: 1 tab Discontinued Medications Albuterol/Ipratropium (Duoneb 3.0-0.5 Mg/3 Ml) 3 ml NEB QID [facility] Last Admin: 05/17/16 02:04 Dose: Not Given Benzonatate (Tessalon Perles) 100 mg PO TID PRN PRN Reason: Cough Last Admin: 05/15/16 21:06 Dose: 100 mg Budesonide (Pulmicort) 0.5 mg NEB BIDRT [facility] Last Admin: 05/16/16 21:25 Dose: 0.5 mg Budesonide (Pulmicort) 0.5 mg NEB BIDRT [facility] Budesonide (Pulmicort) 0.5 mg NEB BIDRT [facility] Digoxin (Lanoxin) 125 mcg IVPUSH Q6H [facility] Stop: 05/18/16 04:01 Last Admin: 05/18/16 03:56 Dose: 125 mcg Digoxin (Lanoxin) 125 mcg IVPUSH ONETIME ONE Stop: 05/18/16 11:01 Last Admin: 05/18/16 11:28 Dose: 125 mcg Diphtheria/Tetanus/Acell Pertussis (Boostrix) 0.5 ml IM .ONCE ONE Stop: 05/15/16 09:48 Guaifenesin/Phenylephrine HCl (Robitussin Dm) 5 ml PO Q6H [facility] Last Admin: 05/18/16 07:06 Dose: Not Given Hydromorphone HCl (Dilaudid) 0.25 mg IVPUSH Q2H PRN PRN Reason: Pain (severe 7-10) Levofloxacin/Dextrose 750 mg/ (Premix) 150 mls @ 100 mls/hr IV ONETIME ONE Stop: 05/14/16 22:20 Last Admin: 05/14/16 21:32 Dose: 100 mls/hr Sodium Chloride (Normal Saline) 1,000 mls @ 125 mls/hr IV ASDIRECTED [facility] Last Admin: 05/14/16 21:31 Dose: 125 mls/hr Potassium Chloride/Sodium Chloride (Normal Saline With 20 Meq Kcl) 1,000 mls @ 100 mls/hr IV ASDIRECTED [facility] Last Admin: 05/15/16 22:47 Dose: 100 mls/hr Metronidazole 500 mg/ Premix 100 mls @ 100 mls/hr IV Q8H [facility] Last Admin: 05/15/16 04:24 Dose: 100 mls/hr Potassium Chloride 10 meq/ (Premix) 100 mls @ 100 mls/hr IV Q1H [facility] Stop: 05/15/16 07:59 Last Admin: 05/15/16 05:23 Dose: Not Given Potassium Chloride 10 meq/ (Premix) 100 mls @ 100 mls/hr IV Q1H [facility] Stop: 05/15/16 10:59 Last Admin: 05/15/16 14:39 Dose: 100 mls/hr Magnesium Sulfate 2 gm/ Premix 50 mls @ 25 mls/hr IV ONETIME ONE Stop: 05/15/16 10:59 Last Admin: 05/16/16 10:53 Dose: 25 mls/hr Magnesium Sulfate 2 gm/ Premix 50 mls @ 25 mls/hr IV ONETIME ONE Stop: 05/15/16 14:59 Last Admin: 05/15/16 14:25 Dose: 25 mls/hr Magnesium Sulfate 2 gm/ Premix 50 mls @ 25 mls/hr IV ONETIME ONE Stop: 05/16/16 11:59 Last Admin: 05/16/16 10:54 Dose: Not Given Amiodarone HCl/Dextrose (Nexterone In Dextrose 360 Mg/200 Ml) 200 mls @ 33.333 mls/hr IV ASDIRECTED [facility] PRN Reason: Protocol Last Admin: 05/17/16 08:19 Dose: 16.7 mls/hr Amiodarone HCl/Dextrose (Nexterone In Dextrose 150 Mg/100 Ml) Confirm Administered Dose 100 mls @ as directed IV .STK-MED ONE Stop: 05/17/16 03:15 Last Admin: 05/17/16 06:48 Dose: Not Given Amiodarone HCl/Dextrose 150 mg (/ Premix) 100 mls @ 400 mls/hr IV NOW ONE PRN Reason: Protocol Stop: 05/17/16 03:30 Last Admin: 05/17/16 06:48 Dose: Not Given Magnesium Sulfate 2 gm/ Premix 50 mls @ 25 mls/hr IV ONETIME ONE Stop: 05/18/16 10:14 Last Admin: 05/18/16 09:16 Dose: 25 mls/hr Magnesium Sulfate 2 gm/ Premix 50 mls @ 25 mls/hr IV ONETIME ONE Stop: 05/19/16 12:14 Last Admin: 05/19/16 10:46 Dose: 25 mls/hr Lisinopril (Prinivil) 40 mg PO DAILY [facility] Last Admin: 05/18/16 09:19 Dose: 40 mg Pantoprazole Sodium (Protonix Iv) 40 mg IVPUSH DAILY [facility] Last Admin: 05/16/16 08:41 Dose: Not Given Potassium Chloride (Klor-Con M20) 40 meq PO ONETIME ONE Stop: 05/16/16 08:31 Last Admin: 05/16/16 08:37 Dose: 40 meq Tamsulosin HCl (Flomax) 0.4 mg PO DAILY [facility] Last Admin: 05/18/16 09:18 Dose: 0.4 mg - Exam Quality Assessment: DVT prophylaxis General: alert, oriented, cooperative, no acute distress, other (color much improved than when I saw him last on Thursday) HEENT: Pupils equal, Pupils reactive, EOMI, Mucous membr. moist/pink Neck: supple Lungs: Clear to auscultation, Normal respiratory effort, Decreased breath sounds (to bases) Cardiovascular: Irregular Rhythm Abdomen: bowel sounds present, soft, no tenderness, no distension (Male) Exam: Deferred Back Exam: normal inspection Extremities: no edema, no calf tenderness Peripheral Pulses: 1+: dorsalis pedis (L), dorsalis pedis (R) Skin: warm, dry, intact Neurological: no new focal deficit Psy/Mental Status: alert, normal affect, normal mood - Problem List & Annotations (1) Pneumonia SNOMED Code(s): 665895176 Code(s): J18.9 - PNEUMONIA, UNSPECIFIED ORGANISM Status: Acute Priority: High Current Visit: Yes Qualifiers: Pneumonia type: due to unspecified organism Laterality: right Lung location: middle lobe of lung Qualified Code(s): J18.1 - Lobar pneumonia, unspecified organism (2) Influenza A SNOMED Code(s): 103226535 Code(s): J10.1 - FLU DUE TO OTH IDENT INFLUENZA VIRUS W OTH RESP MANIFEST Status: Acute Priority: High Current Visit: Yes (3) Hypokalemia SNOMED Code(s): 00615947 Code(s): E87.6 - HYPOKALEMIA Status: Acute Priority: High Current Visit : Yes (4) Atrial fibrillation SNOMED Code(s): 09403587 Code(s): I48.91 - UNSPECIFIED ATRIAL FIBRILLATION Status: Chronic Priority: High Current Visit: Yes Qualifiers: Atrial fibrillation type: persistent Qualified Code(s): I48.1 - Persistent atrial fibrillation (5) S/P thoracentesis SNOMED Code(s): 898627354, 759214186 Code(s): Z98.890 - OTHER SPECIFIED POSTPROCEDURAL STATES Status: Acute Priority: High Current Visit: Yes Annotation/Comment:: 950cc (6) Pleural effusion associated with pulmonary infection SNOMED Code(s): 92461739 Code(s): J18.9 - PNEUMONIA, UNSPECIFIED ORGANISM; J91.8 - PLEURAL EFFUSION IN OTHER CONDITIONS CLASSIFIED ELSEWHERE Status: Acute Priority: High Current Visit: Yes (7) Ventricular tachyarrhythmia SNOMED Code(s): 56898472 Code(s): I47.2 - VENTRICULAR TACHYCARDIA Status: Resolved Priority: High Current Visit: Yes (8) Weakness generalized SNOMED Code(s): 26805772 Code(s): R53.1 - WEAKNESS Status: Acute Priority: High Current Visit: Yes - Problem List Review Problem List Initiated/Reviewed/Updated: Yes - My Orders Last 24 Hours: My Active Orders 05/19/16 21:00 Magnesium Oxide 400 mg PO BID - Plan Plan:: Assessment/Plan: Acute: A-Fib with RVR - HR is now controlled with digoxin added; cont PO dosing - Coreg 25 mg po BID - Xarelto for stroke ppx; home dose B/L Pleural Effusions L>R - Discussed with patient, and daughter CT scan result - Informed them diuretic could only do so much - Offered therapeutic and diagnostic thoracentesis-they all agreed-- 950cc was drained from left side yesterday per Dr. Hu; tolerated well with improvement in resp status. - CXR to be repeated this am. Right Lung PNA-RML and RLL - Likely Aspiration in conjunction with Influenza A infection - Risk factor: Dysphagia and GERD - Failed outpatient treatment due to dysphagia with pills- unable to take oral Cipro and tamiflu rx'd by PCP as outpatient - Cont with Levaquin and Flagyl; responding well - Neb tx, RT, IS, acapella Dysphagia with Pills - CERAMIC ARTIST eval; mechanical soft diet with liquids changed to nectar thick - Longstanding GERD - May need EGD r/o esophageal strictures, he carries a hx/o long standing GERD - Consulted Dr. Barber; ? of EGD to be done vs esophagram/barium swallow-- Radiologist out of town and unable to do esophagram x 1+ weeks - EGD not indicated per Dr. Barber - May need outpatient work up, consider ENT eval as outpatient, will schedule for consult as outpatient Resolved: S/p Hypokalemia - K 2.7-- 2.4-->3.1 today; mag also low - Will replete today with IV dosing - Pharmacy to replete and monitor for subsequent levels S/p Hypomagnesemia -Mag level 1.1 -->2.8--> 1.9 -Cont to follow levels and replete as needed per pharmacy to dose S/p V-tach (over the weekend--resolved now) - Received amiodarone drip - Continue cordarone 200 mg po daily S/p Influenza A+ - Unable to take Tamiflu due to dysphagia-- symptom onset past window for tamiflu to be helpful - Symptomatic tx; symptoms improving Chronic: Chronic A-Fib on Xarelto HTN- stable Chronic Diarrhea GERD- chronic and longstanding, now with pill dysphagia Polyuria OA/DJD Contractures of fingers DM- sugars stable Anemia- stable Plan: He remains clinically stable; slowly improving Routine AM Labs Consider EGD given his hx/o dysphagia and GERD, he may have esophageal strictures- ENT for eval as outpatient Continue PT/OT Therapeutic and diagnostic thoracentesis s/p procedure yesterday with Dr. Hu as above CM/SW for d/c planning Accu-check AM/HS Code status: ACLS only Additional orders as above LOS likely >96 hours due to complexity of case, cont swallow evaluations, cont tx for aspiration pneumonia with IV abx, electrolyte monitoring and replacement until stable. Patient may not do well at home, who is his primary rn complex care also sick here in the hospital, receiving treatment. SW to re-evaluate d/c care plans in AM. They may need both Care Home Home Health. Discussion with patient and today; they are not open to NH or assisted living at this time. Will arrange social work for home and community based services, Home health care with PT/OT and ST as outpatient basis for continued cares. I discussed case with Dr. Choi today PCP; recommends echocardiogram due to arrhythmias over the weekend- ordered and results pending. Likely discharge home tomorrow.
[2016-05-19] MEDS: Levofloxacin/Dextrose 5%-Water 750 MG in Premix Bag 1 BAG IV SCH (22:01)
[2016-05-19] MEDS: Simvastatin 40 MG Tab PO SCH (22:02)
[2016-05-19] MEDS: Magnesium Oxide 400 MG Tab PO SCH (22:02)
[2016-05-19] MEDS: TRAVOPROST EYEBOTH SCH (22:03)
[2016-05-19] MEDS: Doxazosin 4 MG Tab PO SCH (22:03)
[2016-05-20] MEDS: metroNIDAZOLE/Normal Saline 500 MG in Premix Bag 1 BAG IV SCH ×3 (03:02→18:49)
[2016-05-20] MEDS: Albuterol/Ipratropium 3.0-0.5 MG/3 ML Neb Soln NEB SCH (05:30)
[2016-05-20] MEDS: Insulin Aspart 100 Units/ML 3 ML Pen SUBCUT SCH ×4 (06:41→21:41)
[2016-05-20] MEDS: amLODIPine 5 MG Tab PO SCH (08:28)
[2016-05-20] MEDS: Hydrochlorothiazide 25 MG Tab PO SCH (08:30)
[2016-05-20] MEDS: metFORMIN 500 MG Tab PO SCH ×2 (08:31→17:03)
[2016-05-20] MEDS: Rivaroxaban 10 MG Tab PO SCH (08:32)
[2016-05-20] MEDS: Magnesium Oxide 400 MG Tab PO SCH ×2 (08:32→20:42)
[2016-05-20] MEDS: Cholestyramine/Aspartame Powder 4 GM Packet PO SCH (08:34)
[2016-05-20] MEDS: Psyllium Husk Powder Sugar Free 3.4 GM Packet PO SCH ×2 (08:34→20:41)
[2016-05-20] MEDS: Amiodarone 200 MG Tab PO SCH (08:34)
[2016-05-20] MEDS: Digoxin 125 MCG Tab PO SCH (08:34)
[2016-05-20] MEDS: Potassium Chloride 20 MEQ Tab.ER PO SCH (08:35)
[2016-05-20] MEDS: Cholecalciferol (Vitamin D3) 1,000 Unit Tab PO SCH (08:36)
[2016-05-20] MEDS: Tamsulosin 0.4 MG Cap.ER PO SCH ×2 (08:36→17:04)
[2016-05-20] MEDS: Aspirin 81 MG Tab.EC PO SCH (08:37)
[2016-05-20] MEDS: PYRIDOXINE HCL PO SCH (08:38)
[2016-05-20] MEDS: FERROUS SULFATE 142 MG PO SCH (08:38)
[2016-05-20] MEDS: QUEtiapine 25 MG Tab PO SCH (08:38)
[2016-05-20] MEDS: Pantoprazole 40 MG Tab.CR PO SCH (08:38)
[2016-05-20] MEDS: Cyanocobalamin (Vitamin B-12) 100 MCG PO SCH (08:38)
[2016-05-20] MEDS: MELATONIN PO SCH (08:38)
[2016-05-20] MEDS: Multivitamins with Minerals/Folic Acid/Lutein/Zeaxanth Tab PO SCH (08:39)
[2016-05-20] MEDS: Metoprolol Tartrate 5 MG/5 ML SDV IVPUSH PRN (08:56)
[2016-05-20] MEDS: Budesonide 0.5 MG/2 ML Neb Susp NEB SCH (10:16)
[2016-05-20] MEDS: Carvedilol 12.5 MG Tab PO SCH ×2 (11:04→20:42)
--- NOTE | 2016-05-20 13:42 | PCM.PN ---
- General Info Date of Service: 05/20/16 Admission Dx/Problem (Free Text): Admission Diagnosis/Problem Admission Diagnosis/Problem Pneumonia Marco is seen this morning sitting up in chair. He is feeling better overall, strength is slowly improving. Cough is minimal now, no SOB. He has no appetite. Continues to have difficulties getting his medications down even with nursing crushing and putting them in applesauce or pudding. VSS, afebrile. Continues to work with PT/OT/ST. Telemetry is with no further v-tach or RVR. Discussion with daughter this morning about discharge plan; recommend SW discuss further with family. Functional Status: Reports: pain controlled, tolerating diet (still pill dysphagia), ambulating, urinating. Denies: new symptoms - Review of Systems General: Reports: Weakness (improving) HEENT: Reports: no symptoms Pulmonary: Reports: cough (improved) Cardiovascular: Reports: No Symptoms Gastrointestinal: Reports: Difficulty swallowing (pills; crushing all meds and still difficulty getting them down) Genitourinary: Reports: no symptoms Musculoskeletal: Reports: no symptoms Skin: Reports: no symptoms Neurological: Reports: No Symptoms Psychiatric: Reports: no symptoms - Patient Data Vitals - most recent: Last Vital Signs Temp 98.1 F 05/20/16 11:06 Pulse 113 H 05/20/16 11:06 Resp 16 05/20/16 11:06 BP 121/66 05/20/16 11:06 Pulse Ox 98 05/20/16 11:06 Weight - most recent: 156 lb 1.6 oz I&O - last 24 hours: Intake & Output 05/19/16 05/20/16 05/20/16 22:59 06:59 14:59 Intake Total 390 490 60 Output Total 400 Balance -10 490 60 Lab Results last 24 hrs: Laboratory Results - last 24 hr 05/19/16 05/19/16 05/20/16 Range/Units 17:17 21:40 06:32 WBC (4.23-9.07) K/mm3 RBC (4.63-6.08) M/mm3 Hgb (13.7-17.5) gm/L Hct (40.1-51.0) % MCV (79.0-92.2) fl MCH (25.7-32.2) pg MCHC (32.2-35.5) g/dl RDW Std Deviation (35.1-43.9) fL Plt Count (163-337) K/mm3 MPV (9.4-12.3) fl Neut % (Auto) (34.0-67.9) % Lymph % (Auto) (21.8-53.1) % [place] % (Auto) (5.3-12.2) % Eos % (Auto) (0.8-7.0) Baso % (Auto) (0.1-1.2) % Neut # (1.78-5.38) K/mm3 Lymph # (1.32-3.57) K/mm3 [place] # (0.30-0.82) K/mm3 Eos # (0.04-0.54) K/mm3 Baso # (0.01-0.08) K/mm3 Manual Slide Review Sodium (136-145) mEq/L Potassium (3.5-5.1) mEq/L Chloride (98-107) mEq/L Carbon Dioxide (21-32) mEq/L Anion Gap (5-15) BUN (7-18) mg/dL Creatinine (0.7-1.3) mg/dL Est Cr Clr Drug Dosing mL/min Estimated GFR (MDRD) (>60) mL/min BUN/Creatinine Ratio (14-18) Glucose (83-115) mg/dL POC Glucose 135 H 160 H 166 H (83-110) mg/dL Calcium (8.5-10.1) mg/dL Magnesium (1.8-2.4) mg/dl C-Reactive Protein (<1.0) mg/dL 05/20/16 05/20/16 05/20/16 Range/Units 06:35 06:35 11:02 WBC 14.18 H (4.23-9.07) K/mm3 RBC 4.84 (4.63-6.08) M/mm3 Hgb 12.7 L (13.7-17.5) gm/L Hct 38.9 L (40.1-51.0) % MCV 80.4 (79.0-92.2) fl MCH 26.2 (25.7-32.2) pg MCHC 32.6 (32.2-35.5) g/dl RDW Std Deviation 44.4 H (35.1-43.9) fL Plt Count 294 (163-337) K/mm3 MPV 10.1 (9.4-12.3) fl Neut % (Auto) 87.5 H (34.0-67.9) % Lymph % (Auto) 3.7 L (21.8-53.1) % [place] % (Auto) 8.1 (5.3-12.2) % Eos % (Auto) 0.4 L (0.8-7.0) Baso % (Auto) 0.1 (0.1-1.2) % Neut # 12.41 H (1.78-5.38) K/mm3 Lymph # 0.53 L (1.32-3.57) K/mm3 [place] # 1.15 H (0.30-0.82) K/mm3 Eos # 0.05 (0.04-0.54) K/mm3 Baso # 0.01 (0.01-0.08) K/mm3 Manual Slide Review Abnormal smear Sodium 137 (136-145) mEq/L Potassium 4.1 (3.5-5.1) mEq/L Chloride 102 (98-107) mEq/L Carbon Dioxide 27 (21-32) mEq/L Anion Gap 12.1 (5-15) BUN 15 (7-18) mg/dL Creatinine 1.0 (0.7-1.3) mg/dL Est Cr Clr Drug Dosing 52.12 mL/min Estimated GFR (MDRD) > 60 (>60) mL/min BUN/Creatinine Ratio 15.0 (14-18) Glucose 172 H (83-115) mg/dL POC Glucose 216 H (83-110) mg/dL Calcium 8.4 L (8.5-10.1) mg/dL Magnesium 2.1 (1.8-2.4) mg/dl C-Reactive Protein 1.4 H* (<1.0) mg/dL Mikael Results last 24 hrs: Microbiology 05/18/16 16:05 Gram Stain - Final Thoracentesis Fluid - Left Body Fluid Culture - Preliminary NO GROWTH AFTER 2 DAYS Med Orders - Current: Current Medications Acetaminophen (Tylenol) 650 mg PO Q4H PRN PRN Reason: Pain (Mild 1-3)/fever Acetaminophen/Hydrocodone Bitart (Cataldo 325-5 Mg) 1 tab PO Q4H PRN PRN Reason: Pain (moderate 4-6) Amiodarone HCl (Cordarone) 200 mg PO DAILY [facility] Last Admin: 05/20/16 08:34 Dose: 200 mg Aspirin (Halfprin) 81 mg PO DAILY [facility] Last Admin: 05/20/16 08:37 Dose: 81 mg Bisacodyl (Dulcolax) 5 mg PO DAILY PRN PRN Reason: Constipation Carvedilol (Coreg) 25 mg PO BID [facility] Cholecalciferol (Vitamin D3) 1,000 units PO DAILY [facility] Last Admin: 05/20/16 08:36 Dose: 1,000 units Cholestyramine Resin (Prevalite Packet) 4 gm PO DAILY [facility] Last Admin: 05/20/16 08:34 Dose: 4 gm Dextrose/Water (Dextrose 50% In Water) 50 ml IVPUSH ASDIRECTED PRN PRN Reason: Hypoglycemia Digoxin (Lanoxin) 125 mcg PO DAILY [facility] Last Admin: 05/20/16 08:34 Dose: 125 mcg Docusate Sodium (Colace) 100 mg PO BID PRN PRN Reason: Constipation Doxazosin Mesylate (Cardura) 4 mg PO BEDTIME [facility] Last Admin: 05/19/16 22:03 Dose: 4 mg [facility] Enalapril Maleate (Vasotec) 20 mg PO BID [facility] Last Admin: 05/20/16 08:29 Dose: 20 mg Flunisolide (Nasalide Nasal [place]) 0 ml DUARTE BID [facility] Last Admin: 05/20/16 08:39 Dose: 1 spr Glipizide (Glucotrol) 10 mg PO BID [facility] Last Admin: 05/20/16 08:30 Dose: 10 mg Guaifenesin/Phenylephrine HCl (Robitussin Dm) 5 ml PO Q6H PRN PRN Reason: Cough Hydralazine HCl (Apresoline) 10 mg IVPUSH Q4H PRN PRN Reason: Hypertension Hydrochlorothiazide (Hydrochlorothiazide) 25 mg PO DAILY [facility] Last Admin: 05/20/16 08:30 Dose: 25 mg Hydromorphone HCl (Dilaudid) 0.25 mg IVPUSH Q2H PRN PRN Reason: Pain (severe 7-10) Promethazine HCl 12.5 mg/ (Sodium Chloride) 50.5 mls @ 100 mls/hr IV Q6H PRN PRN Reason: Nausea/Vomiting Metronidazole 500 mg/ Premix 100 mls @ 100 mls/hr IV Q8H [facility] Last Admin: 05/20/16 11:03 Dose: 100 mls/hr Levofloxacin/Dextrose 750 mg/ (Premix) 150 mls @ 100 mls/hr IV Q24H [facility] Last Admin: 05/19/16 22:01 Dose: 100 mls/hr Insulin Aspart (Novolog) 0 unit SUBCUT QIDACANDBED [facility] PRN Reason: Protocol Last Admin: 05/20/16 11:07 Dose: 2 units Lorazepam (Ativan) 0.5 mg IV Q6H PRN PRN Reason: Anxiety Magnesium Oxide (Magnesium Oxide) 400 mg PO BID [facility] Last Admin: 05/20/16 08:32 Dose: 400 mg Magnesium Sulfate (Pharmacy To Dose - Magnesium Replacement) 1 dose .XX ASDIRECTED [facility] Metformin HCl (Glucophage) 500 mg PO ACDINNER [facility] Last Admin: 05/19/16 17:18 Dose: 500 mg Metformin HCl (Glucophage) 1,000 mg PO DAILY [facility] Last Admin: 05/20/16 08:31 Dose: 1,000 mg Metoprolol Tartrate (Lopressor) 5 mg IVPUSH Q4H PRN PRN Reason: Tachycardia Last Admin: 05/20/16 08:56 Dose: 2.5 mg Ondansetron HCl (Zofran) 4 mg IV Q6H PRN PRN Reason: Nausea/Vomiting Last Admin: 05/18/16 18:16 Dose: 4 mg Pantoprazole Sodium (Protonix) 40 mg PO DAILY [facility] Last Admin: 05/20/16 08:38 Dose: 40 mg Cyanocobalamin ( Vitamin B-12) 100 Mcg 0 each PO DAILY [facility] Last Admin: 05/20/16 08:38 Dose: Not Given Ferrous Sulfate [ (Slow Fe] 142 Mg) 0 each PO DAILY [facility] Last Admin: 05/20/16 08:38 Dose: Not Given Melatonin/Pyridoxine Hcl (B6) [Melatonin 3 Mg Tablet] 1 E 0 each PO DAILY [facility] Last Admin: 05/20/16 08:38 Dose: Not Given Travoprost ( Benzalkonium) [ Travoprost 0.004% Eye Drop] 1 0 each EYEBOTH BEDTIME [facility] Last Admin: 05/19/16 22:03 Dose: 1 each Polyethylene Glycol (Miralax) 17 gm PO DAILY PRN PRN Reason: Constipation Potassium Chloride (Pharmacy To Dose - Potassium Replacement) 1 dose .XX ASDIRECTED [facility] Potassium Chloride (Klor-Con M20) 20 meq PO DAILY [facility] Last Admin: 05/20/16 08:35 Dose: 20 meq Psyllium Husk (Metamucil Sugar Free) 1 packet PO BID [facility] Last Admin: 05/20/16 08:34 Dose: 1 packet Quetiapine Fumarate (Seroquel) 25 mg PO DAILY [facility] Last Admin: 05/20/16 08:38 Dose: 25 mg Rivaroxaban (Xarelto) 20 mg PO DAILY [facility] Last Admin: 05/20/16 08:32 Dose: 20 mg Senna/Docusate Sodium (Senna Plus) 1 tab PO BID PRN PRN Reason: Constipation Simvastatin (Zocor) 40 mg PO BEDTIME [facility] Last Admin: 05/19/16 22:02 Dose: 40 mg Sodium Chloride (Saline Flush) 10 ml FLUSH ASDIRECTED PRN PRN Reason: Keep Vein Open Last Admin: 05/14/16 21:33 Dose: 10 ml [facility]amsulosin [facility]) [id number] Last Admin: 05/20/16 08:36 Dose: 0.4 mg Temazepam (Restoril) 15 mg PO BEDTIME PRN PRN Reason: Sleep Last Admin: 05/18/16 21:04 Dose: 15 mg Vit A/Vit C/Vit E/Selen/Cu/Zn/Lutei (Icaps Mv) 1 tab PO DAILY [facility] Last Admin: 05/20/16 08:39 Dose: 1 tab Discontinued Medications Albuterol/Ipratropium (Duoneb 3.0-0.5 Mg/3 Ml) 3 ml NEB Q4H PRN PRN Reason: Shortness Of Breath/wheezing Albuterol/Ipratropium (Duoneb 3.0-0.5 Mg/3 Ml) 3 ml NEB QID [facility] Last Admin: 05/17/16 02:04 Dose: Not Given Albuterol/Ipratropium (Duoneb 3.0-0.5 Mg/3 Ml) 3 ml NEB QIDRT [facility] Last Admin: 05/20/16 05:30 Dose: 3 ml Amlodipine Besylate (Norvasc) 5 mg PO DAILY [facility] Last Admin: 05/20/16 08:28 Dose: 5 mg Benzonatate (Tessalon Perles) 100 mg PO TID PRN PRN Reason: Cough Last Admin: 05/15/16 21:06 Dose: 100 mg Budesonide (Pulmicort) 0.5 mg NEB BIDRT [facility] Last Admin: 05/16/16 21:25 Dose: 0.5 mg Budesonide (Pulmicort) 0.5 mg NEB BIDRT [facility] Budesonide (Pulmicort) 0.5 mg NEB BIDRT [facility] Budesonide (Pulmicort) 0.5 mg NEB BID [facility] Last Admin: 05/20/16 10:16 Dose: Not Given Carvedilol (Coreg) 25 mg PO DAILY [facility] Last Admin: 05/20/16 11:04 Dose: 25 mg Digoxin (Lanoxin) 125 mcg IVPUSH Q6H [facility] Stop: 05/18/16 04:01 Last Admin: 05/18/16 03:56 Dose: 125 mcg Digoxin (Lanoxin) 125 mcg IVPUSH ONETIME ONE Stop: 05/18/16 11:01 Last Admin: 05/18/16 11:28 Dose: 125 mcg Diphtheria/Tetanus/Acell Pertussis (Boostrix) 0.5 ml IM .ONCE ONE Stop: 05/15/16 09:48 Guaifenesin/Phenylephrine HCl (Robitussin Dm) 5 ml PO Q6H [facility] Last Admin: 05/18/16 07:06 Dose: Not Given Hydromorphone HCl (Dilaudid) 0.25 mg IVPUSH Q2H PRN PRN Reason: Pain (severe 7-10) Levofloxacin/Dextrose 750 mg/ (Premix) 150 mls @ 100 mls/hr IV ONETIME ONE Stop: 05/14/16 22:20 Last Admin: 05/14/16 21:32 Dose: 100 mls/hr Sodium Chloride (Normal Saline) 1,000 mls @ 125 mls/hr IV ASDIRECTED [facility] Last Admin: 05/14/16 21:31 Dose: 125 mls/hr Potassium Chloride/Sodium Chloride (Normal Saline With 20 Meq Kcl) 1,000 mls @ 100 mls/hr IV ASDIRECTED [facility] Last Admin: 05/15/16 22:47 Dose: 100 mls/hr Metronidazole 500 mg/ Premix 100 mls @ 100 mls/hr IV Q8H [facility] Last Admin: 05/15/16 04:24 Dose: 100 mls/hr Potassium Chloride 10 meq/ (Premix) 100 mls @ 100 mls/hr IV Q1H [facility] Stop: 05/15/16 07:59 Last Admin: 05/15/16 05:23 Dose: Not Given Potassium Chloride 10 meq/ (Premix) 100 mls @ 100 mls/hr IV Q1H [facility] Stop: 05/15/16 10:59 Last Admin: 05/15/16 14:39 Dose: 100 mls/hr Magnesium Sulfate 2 gm/ Premix 50 mls @ 25 mls/hr IV ONETIME ONE Stop: 05/15/16 10:59 Last Admin: 05/16/16 10:53 Dose: 25 mls/hr Magnesium Sulfate 2 gm/ Premix 50 mls @ 25 mls/hr IV ONETIME ONE Stop: 05/15/16 14:59 Last Admin: 05/15/16 14:25 Dose: 25 mls/hr Magnesium Sulfate 2 gm/ Premix 50 mls @ 25 mls/hr IV ONETIME ONE Stop: 05/16/16 11:59 Last Admin: 05/16/16 10:54 Dose: Not Given Amiodarone HCl/Dextrose (Nexterone In Dextrose 360 Mg/200 Ml) 200 mls @ 33.333 mls/hr IV ASDIRECTED [facility] PRN Reason: Protocol Last Admin: 05/17/16 08:19 Dose: 16.7 mls/hr Amiodarone HCl/Dextrose (Nexterone In Dextrose 150 Mg/100 Ml) Confirm Administered Dose 100 mls @ as directed IV .STK-MED ONE Stop: 05/17/16 03:15 Last Admin: 05/17/16 06:48 Dose: Not Given Amiodarone HCl/Dextrose 150 mg (/ Premix) 100 mls @ 400 mls/hr IV NOW ONE PRN Reason: Protocol Stop: 05/17/16 03:30 Last Admin: 05/17/16 06:48 Dose: Not Given Magnesium Sulfate 2 gm/ Premix 50 mls @ 25 mls/hr IV ONETIME ONE Stop: 05/18/16 10:14 Last Admin: 05/18/16 09:16 Dose: 25 mls/hr Magnesium Sulfate 2 gm/ Premix 50 mls @ 25 mls/hr IV ONETIME ONE Stop: 05/19/16 12:14 Last Admin: 05/19/16 10:46 Dose: 25 mls/hr Lisinopril (Prinivil) 40 mg PO DAILY [facility] Last Admin: 05/18/16 09:19 Dose: 40 mg Pantoprazole Sodium (Protonix Iv) 40 mg IVPUSH DAILY [facility] Last Admin: 05/16/16 08:41 Dose: Not Given Potassium Chloride (Klor-Con M20) 40 meq PO ONETIME ONE Stop: 05/16/16 08:31 Last Admin: 05/16/16 08:37 Dose: 40 meq Tamsulosin HCl (Flomax) 0.4 mg PO DAILY [facility] Last Admin: 05/18/16 09:18 Dose: 0.4 mg - Exam Quality Assessment: DVT prophylaxis General: alert, oriented, cooperative, no acute distress HEENT: Pupils equal, Pupils reactive, EOMI, Mucous membr. moist/pink Neck: supple Lungs: Clear to auscultation, Normal respiratory effort, Decreased breath sounds (to bases) Cardiovascular: Irregular Rhythm Abdomen: bowel sounds present, soft, no tenderness, no distension (Male) Exam: Deferred Extremities: no edema, no calf tenderness Peripheral Pulses: 1+: dorsalis pedis (L), dorsalis pedis (R) Skin: warm, dry, intact Neurological: no new focal deficit Psy/Mental Status: alert, normal mood, other (flat affect) - Problem List & Annotations (1) Pneumonia SNOMED Code(s): 623644547 Code(s): J18.9 - PNEUMONIA, UNSPECIFIED ORGANISM Status: Acute Priority: High Current Visit: Yes Qualifiers: Pneumonia type: due to unspecified organism Laterality: right Lung location: middle lobe of lung Qualified Code(s): J18.1 - Lobar pneumonia, unspecified organism (2) Influenza A SNOMED Code(s): 158821005 Code(s): J10.1 - FLU DUE TO OTH IDENT INFLUENZA VIRUS W OTH RESP MANIFEST Status: Acute Priority: High Current Visit: Yes (3) Hypokalemia SNOMED Code(s): 95904438 Code(s): E87.6 - HYPOKALEMIA Status: Acute Priority: High Current Visit : Yes (4) Atrial fibrillation SNOMED Code(s): 57630312 Code(s): I48.91 - UNSPECIFIED ATRIAL FIBRILLATION Status: Chronic Priority: High Current Visit: Yes Qualifiers: Atrial fibrillation type: persistent Qualified Code(s): I48.1 - Persistent atrial fibrillation (5) S/P thoracentesis SNOMED Code(s): 386386006, 920658943 Code(s): Z98.890 - OTHER SPECIFIED POSTPROCEDURAL STATES Status: Acute Priority: High Current Visit: Yes Annotation/Comment:: 950cc (6) Pleural effusion associated with pulmonary infection SNOMED Code(s): 09992828 Code(s): J18.9 - PNEUMONIA, UNSPECIFIED ORGANISM; J91.8 - PLEURAL EFFUSION IN OTHER CONDITIONS CLASSIFIED ELSEWHERE Status: Acute Priority: High Current Visit: Yes (7) Ventricular tachyarrhythmia SNOMED Code(s): 26080009 Code(s): I47.2 - VENTRICULAR TACHYCARDIA Status: Resolved Priority: High Current Visit: Yes (8) Weakness generalized SNOMED Code(s): 25866311 Code(s): R53.1 - WEAKNESS Status: Acute Priority: High Current Visit: Yes - Problem List Review Problem List Initiated/Reviewed/Updated: Yes - My Orders Last 24 Hours: My Active Orders 05/19/16 21:00 Magnesium Oxide 400 mg PO BID 05/20/16 12:15 Dronabinol [Marinol] 2.5 mg PO BIDMEALS 05/20/16 21:00 Carvedilol [Coreg] 25 mg PO BID - Plan Plan:: Assessment/Plan: Acute: A-Fib with RVR - HR is now controlled with digoxin added; cont PO dosing--HR up to 150-160' s with activity this am; meds adjusted, did receive lopressor PRN IVP for tachycardia. Will cont on telemetry; hold discharge for today to cont to monitor heart rates. - Coreg 25 mg po BID-- up from once daily, stopped amlodipine 5mg daily for b /p - Xarelto for stroke ppx; home dose Right Lung PNA-RML and RLL - Likely Aspiration in conjunction with Influenza A infection - Risk factor: Dysphagia and GERD; acute infection - Failed outpatient treatment due to dysphagia with pills- unable to take oral Cipro and tamiflu rx'd by PCP as outpatient - Cont with Levaquin and Flagyl; responding well - Neb tx, RT, IS, acapella Dysphagia with Pills - [employer] eval; mechanical soft diet with liquids changed to nectar thick - Longstanding GERD - May need EGD r/o esophageal strictures, he carries a hx/o long standing GERD - Consulted Dr. Barber; ? of EGD to be done vs esophagram/barium swallow-- Radiologist out of town and unable to do esophagram x 1+ weeks - EGD not indicated per Dr. Barber - May need outpatient work up, consider ENT eval as outpatient, will schedule for consult as outpatient; long discussion with daughter this morning, patient does not want further evaluation with any specialist for dysphagia. At this time will keep ENT f/up and have him f/up with PCP, Dr. Choi after discharge for further discussion and recommendations. Resolved: B/L Pleural Effusions L>R - Discussed with patient, and daughter CT scan result - Informed them diuretic could only do so much - Offered therapeutic and diagnostic thoracentesis-they all agreed-- 950cc was drained from left side yesterday per Dr. Hu; tolerated well with improvement in resp status. - CXR --much improved and stable now S/p Hypokalemia - K 2.7-- 2.4-->3.1 today; mag also low - Will replete today with IV dosing - Pharmacy to replete and monitor for subsequent levels S/p Hypomagnesemia -Mag level 1.1 -->2.8--> 1.9 -Cont to follow levels and replete as needed per pharmacy to dose S/p V-tach (over the weekend--resolved now) - Received amiodarone drip - Continue cordarone 200 mg po daily S/p Influenza A+ - Unable to take Tamiflu due to dysphagia-- symptom onset past window for tamiflu to be helpful - Symptomatic tx; symptoms improving Chronic: Chronic A-Fib on Xarelto HTN- stable Chronic Diarrhea GERD- chronic and longstanding, now with pill dysphagia Polyuria OA/DJD Contractures of fingers DM- sugars stable Anemia- stable Plan: He remains clinically stable; slowly improving--heart rate bursts this am with activity Routine AM Labs Consider EGD given his hx/o dysphagia and GERD, he may have esophageal strictures- ENT for eval as outpatient-- f/up with PCP after discharge to discuss further Continue PT/OT Therapeutic and diagnostic thoracentesis s/p procedure with Dr. Hu as above CM/SW for d/c planning--family requesting NH placement/rehab stay. SW to discuss further with family. Accu-check AM/HS Code status: ACLS only Additional orders as above LOS likely >96 hours due to complexity of case, cont swallow evaluations, cont tx for aspiration pneumonia with IV abx, electrolyte monitoring and replacement until stable. HR elevated this am with ambulation- cont to monitor on tele today. Patient may not do well at home, who is his primary care partner also sick here in the hospital, receiving treatment. SW to re-evaluate d/c care plans in AM. They may both need Alf Home Health. Discussion with patient and yesterday, at that time they were not open to NH or assisted living at this time. Will arrange social work for home and community based services, Home health care with PT/OT and ST as outpatient basis for continued cares. Today however, family is concerned about patient returning home. I discussed case with Dr. Choi yesterday PCP; recommends echocardiogram due to arrhythmias over the weekend- ordered and results with EF of 50-55%, moderate aortic valve sclerosis without stenosis. Results to be sent to Dr. Choi for his review also. Likely discharge tomorrow- home vs SNF/rehab.
[2016-05-20] MEDS: Dronabinol 2.5 MG Cap PO SCH ×2 (17:03)
[2016-05-20] MEDS: Levofloxacin/Dextrose 5%-Water 750 MG in Premix Bag 1 BAG IV SCH (20:40)
[2016-05-20] MEDS: Simvastatin 40 MG Tab PO SCH (20:42)
[2016-05-20] MEDS: Doxazosin 4 MG Tab PO SCH (20:43)
[2016-05-20] MEDS: TRAVOPROST EYEBOTH SCH (21:36)
[2016-05-20] MEDS: LORazepam 2 MG/ML MDV IV PRN (22:20)
[2016-05-21] MEDS: metroNIDAZOLE/Normal Saline 500 MG in Premix Bag 1 BAG IV SCH ×3 (01:32→11:33)
[2016-05-21] MEDS: Dronabinol 2.5 MG Cap PO SCH ×2 (06:23→16:59)
[2016-05-21] MEDS: Insulin Aspart 100 Units/ML 3 ML Pen SUBCUT SCH ×4 (06:28→23:58)
[2016-05-21] MEDS: Psyllium Husk Powder Sugar Free 3.4 GM Packet PO SCH ×2 (08:04→21:11)
[2016-05-21] MEDS: Cholestyramine/Aspartame Powder 4 GM Packet PO SCH (08:04)
[2016-05-21] MEDS: Magnesium Oxide 400 MG Tab PO SCH ×2 (08:06→21:10)
[2016-05-21] MEDS: Potassium Chloride 20 MEQ Tab.ER PO SCH (08:07)
[2016-05-21] MEDS: Multivitamins with Minerals/Folic Acid/Lutein/Zeaxanth Tab PO SCH (08:07)
[2016-05-21] MEDS: Cholecalciferol (Vitamin D3) 1,000 Unit Tab PO SCH (08:08)
[2016-05-21] MEDS: Amiodarone 200 MG Tab PO SCH (08:08)
[2016-05-21] MEDS: Hydrochlorothiazide 25 MG Tab PO SCH (08:08)
[2016-05-21] MEDS: Digoxin 125 MCG Tab PO SCH (08:09)
[2016-05-21] MEDS: QUEtiapine 25 MG Tab PO SCH (08:09)
[2016-05-21] MEDS: Pantoprazole 40 MG Tab.CR PO SCH (08:09)
[2016-05-21] MEDS: Carvedilol 12.5 MG Tab PO SCH ×2 (08:10→21:10)
[2016-05-21] MEDS: Rivaroxaban 10 MG Tab PO SCH (08:11)
[2016-05-21] MEDS: Tamsulosin 0.4 MG Cap.ER PO SCH ×2 (08:11→16:59)
[2016-05-21] MEDS: metFORMIN 500 MG Tab PO SCH ×2 (08:12→16:59)
[2016-05-21] MEDS: Cyanocobalamin (Vitamin B-12) 100 MCG PO SCH (08:13)
[2016-05-21] MEDS: FERROUS SULFATE 142 MG PO SCH (08:13)
[2016-05-21] MEDS: Aspirin 81 MG Tab.EC PO SCH (08:13)
[2016-05-21] MEDS: MELATONIN PO SCH (08:14)
[2016-05-21] MEDS: PYRIDOXINE HCL PO SCH (08:14)
[2016-05-21] MEDS ORDERED: Magnesium Sulfate/Water 2 GM in Premix Bag 1 BAG IV ONE (11:00)
--- NOTE | 2016-05-21 15:13 | PCM.PN ---
<Kaley Knight M - Last Filed: 05/21/16 15:09> - General Info Date of Service: 05/21/16 Admission Dx/Problem (Free Text): Admission Diagnosis/Problem Admission Diagnosis/Problem Pneumonia Marco is seen this morning sitting up in chair. He is feeling better overall, strength is slowly improving. Cough is minimal now, no SOB. Continues to have difficulties getting his medications down even with nursing crushing and putting them in applesauce or pudding. VSS, afebrile. Continues to work with PT/ OT/ST. Functional Status: Reports: pain controlled, tolerating diet, ambulating, urinating. Denies: new symptoms - Review of Systems General: Reports: Weakness, Fatigue HEENT: Reports: no symptoms Pulmonary: Reports: shortness of breath (improved) Cardiovascular: Reports: Dyspnea on Exertion (improved) Gastrointestinal: Reports: No symptoms Genitourinary: Reports: no symptoms Musculoskeletal: Reports: no symptoms Neurological: Reports: No Symptoms Psychiatric: Reports: no symptoms - Patient Data Vitals - most recent: Last Vital Signs Temp 97.5 F 05/21/16 11:54 Pulse 84 05/21/16 11:54 Resp 18 05/21/16 11:54 BP 118/80 05/21/16 11:54 Pulse Ox 96 05/21/16 11:54 Weight - most recent: 71.804 kg I&O - last 24 hours: Intake & Output 05/21/16 05/21/16 05/21/16 06:59 14:59 22:59 Intake Total 550 Output Total 600 Balance -50 Lab Results last 24 hrs: Laboratory Results - last 24 hr 05/20/16 05/20/16 05/21/16 Range/Units 17:09 20:40 06:28 WBC (4.23-9.07) K/mm3 RBC (4.63-6.08) M/mm3 Hgb (13.7-17.5) gm/L Hct (40.1-51.0) % MCV (79.0-92.2) fl MCH (25.7-32.2) pg MCHC (32.2-35.5) g/dl RDW Std Deviation (35.1-43.9) fL Plt Count (163-337) K/mm3 MPV (9.4-12.3) fl Neut % (Auto) (34.0-67.9) % Lymph % (Auto) (21.8-53.1) % [place] % (Auto) (5.3-12.2) % Eos % (Auto) (0.8-7.0) Baso % (Auto) (0.1-1.2) % Neut # (1.78-5.38) K/mm3 Lymph # (1.32-3.57) K/mm3 [place] # (0.30-0.82) K/mm3 Eos # (0.04-0.54) K/mm3 Baso # (0.01-0.08) K/mm3 Manual Slide Review Sodium (136-145) mEq/L Potassium (3.5-5.1) mEq/L Chloride (98-107) mEq/L Carbon Dioxide (21-32) mEq/L Anion Gap (5-15) BUN (7-18) mg/dL Creatinine (0.7-1.3) mg/dL Est Cr Clr Drug Dosing mL/min Estimated GFR (MDRD) (>60) mL/min BUN/Creatinine Ratio (14-18) Glucose (83-115) mg/dL POC Glucose 196 H 125 H 101 (83-110) mg/dL Calcium (8.5-10.1) mg/dL Magnesium (1.8-2.4) mg/dl 05/21/16 05/21/16 05/21/16 Range/Units 09:00 09:00 11:31 WBC 13.73 H (4.23-9.07) K/mm3 RBC 4.82 (4.63-6.08) M/mm3 Hgb 12.6 L (13.7-17.5) gm/L Hct 38.8 L (40.1-51.0) % MCV 80.5 (79.0-92.2) fl MCH 26.1 (25.7-32.2) pg MCHC 32.5 (32.2-35.5) g/dl RDW Std Deviation 44.3 H (35.1-43.9) fL Plt Count 293 (163-337) K/mm3 MPV 9.6 (9.4-12.3) fl Neut % (Auto) 83.7 H (34.0-67.9) % Lymph % (Auto) 6.0 L (21.8-53.1) % [place] % (Auto) 9.5 (5.3-12.2) % Eos % (Auto) 0.6 L (0.8-7.0) Baso % (Auto) 0.1 (0.1-1.2) % Neut # 11.50 H (1.78-5.38) K/mm3 Lymph # 0.82 L (1.32-3.57) K/mm3 [place] # 1.30 H (0.30-0.82) K/mm3 Eos # 0.08 (0.04-0.54) K/mm3 Baso # 0.01 (0.01-0.08) K/mm3 Manual Slide Review Abnormal smear Sodium 135 L (136-145) mEq/L Potassium 4.2 (3.5-5.1) mEq/L Chloride 102 (98-107) mEq/L Carbon Dioxide 28 (21-32) mEq/L Anion Gap 9.2 (5-15) BUN 14 (7-18) mg/dL Creatinine 1.0 (0.7-1.3) mg/dL Est Cr Clr Drug Dosing 52.86 mL/min Estimated GFR (MDRD) > 60 (>60) mL/min BUN/Creatinine Ratio 14.0 (14-18) Glucose 128 H (83-115) mg/dL POC Glucose 177 H (83-110) mg/dL Calcium 8.4 L (8.5-10.1) mg/dL Magnesium 1.7 L (1.8-2.4) mg/dl Mikael Results last 24 hrs: Microbiology 05/18/16 16:05 Gram Stain - Final Thoracentesis Fluid - Left Body Fluid Culture - Preliminary NO GROWTH AFTER 3 DAYS 05/18/16 16:05 Acid Fast Bacilli Smear - Final Thoracentesis Fluid - Left Med Orders - Current: Current Medications Acetaminophen (Tylenol) 650 mg PO Q4H PRN PRN Reason: Pain (Mild 1-3)/fever Acetaminophen/Hydrocodone Bitart ([place] 325-5 Mg) 1 tab PO Q4H PRN PRN Reason: Pain (moderate 4-6) Amiodarone HCl (Cordarone) 200 mg PO DAILY [facility] Last Admin: 05/21/16 08:08 Dose: 200 mg Aspirin (Halfprin) 81 mg PO DAILY [facility] Last Admin: 05/21/16 08:13 Dose: 81 mg Bisacodyl (Dulcolax) 5 mg PO DAILY PRN PRN Reason: Constipation Carvedilol (Coreg) 25 mg PO BID [facility] Last Admin: 05/21/16 08:10 Dose: 25 mg Cholecalciferol (Vitamin D3) 1,000 units PO DAILY [facility] Last Admin: 05/21/16 08:08 Dose: 1,000 units Cholestyramine Resin (Prevalite Packet) 4 gm PO DAILY [facility] Last Admin: 05/21/16 08:04 Dose: 4 gm Dextrose/Water (Dextrose 50% In Water) 50 ml IVPUSH ASDIRECTED PRN PRN Reason: Hypoglycemia Digoxin (Lanoxin) 125 mcg PO DAILY [facility] Last Admin: 05/21/16 08:09 Dose: 125 mcg Docusate Sodium (Colace) 100 mg PO BID PRN PRN Reason: Constipation Doxazosin Mesylate (Cardura) 4 mg PO BEDTIME [facility] Last Admin: 05/20/16 20:43 Dose: 4 mg Dronabinol (Marinol) 2.5 mg PO BIDMEALS [facility] Last Admin: 05/21/16 06:23 Dose: 2.5 mg Enalapril Maleate (Vasotec) 20 mg PO BID [facility] Last Admin: 05/21/16 08:06 Dose: 20 mg Flunisolide (Nasalide Nasal [place]) 0 ml DUARTE BID [facility] Last Admin: 05/21/16 08:03 Dose: 2 spr Glipizide (Glucotrol) 10 mg PO BID [facility] Last Admin: 05/21/16 08:12 Dose: 10 mg Guaifenesin/Phenylephrine HCl (Robitussin Dm) 5 ml PO Q6H PRN PRN Reason: Cough Hydralazine HCl (Apresoline) 10 mg IVPUSH Q4H PRN PRN Reason: Hypertension Hydrochlorothiazide (Hydrochlorothiazide) 25 mg PO DAILY [facility] Last Admin: 05/21/16 08:08 Dose: 25 mg Hydromorphone HCl (Dilaudid) 0.25 mg IVPUSH Q2H PRN PRN Reason: Pain (severe 7-10) Promethazine HCl 12.5 mg/ (Sodium Chloride) 50.5 mls @ 100 mls/hr IV Q6H PRN PRN Reason: Nausea/Vomiting Insulin Aspart (Novolog) 0 unit SUBCUT QIDACANDBED [facility] PRN Reason: Protocol Last Admin: 05/21/16 11:34 Dose: 1 units Levofloxacin (Levaquin) 500 mg PO Q24H [facility] Stop: 05/23/16 21:01 Lorazepam (Ativan) 0.5 mg IV Q6H PRN PRN Reason: Anxiety Last Admin: 05/20/16 22:20 Dose: 0.5 mg Magnesium Oxide (Magnesium Oxide) 400 mg PO BID [facility] Last Admin: 05/21/16 08:06 Dose: 400 mg Metformin HCl (Glucophage) 500 mg PO ACDINNER [facility] Last Admin: 05/20/16 17:03 Dose: 500 mg Metformin HCl (Glucophage) 1,000 mg PO DAILY [facility] Last Admin: 05/21/16 08:12 Dose: 1,000 mg Metoprolol Tartrate (Lopressor) 5 mg IVPUSH Q4H PRN PRN Reason: Tachycardia Last Admin: 05/20/16 08:56 Dose: 2.5 mg Ondansetron HCl (Zofran) 4 mg IV Q6H PRN PRN Reason: Nausea/Vomiting Last Admin: 05/18/16 18:16 Dose: 4 mg Pantoprazole Sodium (Protonix) 40 mg PO DAILY [facility] Last Admin: 05/21/16 08:09 Dose: 40 mg Cyanocobalamin ( Vitamin B-12) 100 Mcg 0 each PO DAILY [facility] Last Admin: 05/21/16 08:13 Dose: Not Given Ferrous Sulfate [ (Slow Fe] 142 Mg) 0 each PO DAILY [facility] Last Admin: 05/21/16 08:13 Dose: Not Given Melatonin/Pyridoxine Hcl (B6) [Melatonin 3 Mg Tablet] 1 E 0 each PO DAILY [facility] Last Admin: 05/21/16 08:14 Dose: Not Given Travoprost ( Benzalkonium) [ Travoprost 0.004% Eye Drop] 1 0 each EYEBOTH BEDTIME [facility] Last Admin: 05/20/16 21:36 Dose: Not Given Polyethylene Glycol (Miralax) 17 gm PO DAILY PRN PRN Reason: Constipation Potassium Chloride (Klor-Con M20) 20 meq PO DAILY [facility] Last Admin: 05/21/16 08:07 Dose: 20 meq Psyllium Husk (Metamucil Sugar Free) 1 packet PO BID [facility] Last Admin: 05/21/16 08:04 Dose: 1 packet Quetiapine Fumarate (Seroquel) 25 mg PO DAILY [facility] Last Admin: 05/21/16 08:09 Dose: 25 mg Rivaroxaban (Xarelto) 20 mg PO DAILY [facility] Last Admin: 05/21/16 08:11 Dose: 20 mg Saccharomyces Boulardii (Florastor) 250 mg PO BID [facility] Senna/Docusate Sodium (Senna Plus) 1 tab PO BID PRN PRN Reason: Constipation Simvastatin (Zocor) 40 mg PO BEDTIME [facility] Last Admin: 05/20/16 20:42 Dose: 40 mg Sodium Chloride (Saline Flush) 10 ml FLUSH ASDIRECTED PRN PRN Reason: Keep Vein Open Last Admin: 05/14/16 21:33 Dose: 10 ml Tamsulosin HCl (Flomax) 0.4 mg PO BIDPC [facility] Last Admin: 05/21/16 08:11 Dose: 0.4 mg Temazepam (Restoril) 15 mg PO BEDTIME PRN PRN Reason: Sleep Last Admin: 05/18/16 21:04 Dose: 15 mg Vit A/Vit C/Vit E/Selen/Cu/Zn/Lutei (Icaps Mv) 1 tab PO DAILY [facility] Last Admin: 05/21/16 08:07 Dose: 1 tab Discontinued Medications Albuterol/Ipratropium (Duoneb 3.0-0.5 Mg/3 Ml) 3 ml NEB Q4H PRN PRN Reason: Shortness Of Breath/wheezing Albuterol/Ipratropium (Duoneb 3.0-0.5 Mg/3 Ml) 3 ml NEB QID [facility] Last Admin: 05/17/16 02:04 Dose: Not Given Albuterol/Ipratropium (Duoneb 3.0-0.5 Mg/3 Ml) 3 ml NEB QIDRT [facility] Last Admin: 05/20/16 05:30 Dose: 3 ml Amlodipine Besylate (Norvasc) 5 mg PO DAILY [facility] Last Admin: 05/20/16 08:28 Dose: 5 mg Benzonatate (Tessalon Perles) 100 mg PO TID PRN PRN Reason: Cough Last Admin: 05/15/16 21:06 Dose: 100 mg Budesonide (Pulmicort) 0.5 mg NEB BIDRT [facility] Last Admin: 05/16/16 21:25 Dose: 0.5 mg Budesonide (Pulmicort) 0.5 mg NEB BIDRT [facility] Budesonide (Pulmicort) 0.5 mg NEB BIDRT [facility] Budesonide (Pulmicort) 0.5 mg NEB BID [facility] Last Admin: 05/20/16 10:16 Dose: Not Given Carvedilol (Coreg) 25 mg PO DAILY [facility] Last Admin: 05/20/16 11:04 Dose: 25 mg Digoxin (Lanoxin) 125 mcg IVPUSH Q6H [facility] Stop: 05/18/16 04:01 Last Admin: 05/18/16 03:56 Dose: 125 mcg Digoxin (Lanoxin) 125 mcg IVPUSH ONETIME ONE Stop: 05/18/16 11:01 Last Admin: 05/18/16 11:28 Dose: 125 mcg Diphtheria/Tetanus/Acell Pertussis (Boostrix) 0.5 ml IM .ONCE ONE Stop: 05/15/16 09:48 Guaifenesin/Phenylephrine HCl (Robitussin Dm) 5 ml PO Q6H [facility] Last Admin: 05/18/16 07:06 Dose: Not Given Hydromorphone HCl (Dilaudid) 0.25 mg IVPUSH Q2H PRN PRN Reason: Pain (severe 7-10) Levofloxacin/Dextrose 750 mg/ (Premix) 150 mls @ 100 mls/hr IV ONETIME ONE Stop: 05/14/16 22:20 Last Admin: 05/14/16 21:32 Dose: 100 mls/hr Sodium Chloride (Normal Saline) 1,000 mls @ 125 mls/hr IV ASDIRECTED [facility] Last Admin: 05/14/16 21:31 Dose: 125 mls/hr Potassium Chloride/Sodium Chloride (Normal Saline With 20 Meq Kcl) 1,000 mls @ 100 mls/hr IV ASDIRECTED [facility] Last Admin: 05/15/16 22:47 Dose: 100 mls/hr Metronidazole 500 mg/ Premix 100 mls @ 100 mls/hr IV Q8H [facility] Last Admin: 05/15/16 04:24 Dose: 100 mls/hr Potassium Chloride 10 meq/ (Premix) 100 mls @ 100 mls/hr IV Q1H [facility] Stop: 05/15/16 07:59 Last Admin: 05/15/16 05:23 Dose: Not Given Metronidazole 500 mg/ Premix 100 mls @ 100 mls/hr IV Q8H [facility] Last Admin: 05/21/16 11:33 Dose: 100 mls/hr Potassium Chloride 10 meq/ (Premix) 100 mls @ 100 mls/hr IV Q1H [facility] Stop: 05/15/16 10:59 Last Admin: 05/15/16 14:39 Dose: 100 mls/hr Magnesium Sulfate 2 gm/ Premix 50 mls @ 25 mls/hr IV ONETIME ONE Stop: 05/15/16 10:59 Last Admin: 05/16/16 10:53 Dose: 25 mls/hr Magnesium Sulfate 2 gm/ Premix 50 mls @ 25 mls/hr IV ONETIME ONE Stop: 05/15/16 14:59 Last Admin: 05/15/16 14:25 Dose: 25 mls/hr Levofloxacin/Dextrose 750 mg/ (Premix) 150 mls @ 100 mls/hr IV Q24H [facility] Last Admin: 05/20/16 20:40 Dose: 100 mls/hr Magnesium Sulfate 2 gm/ Premix 50 mls @ 25 mls/hr IV ONETIME ONE Stop: 05/16/16 11:59 Last Admin: 05/16/16 10:54 Dose: Not Given Amiodarone HCl/Dextrose (Nexterone In Dextrose 360 Mg/200 Ml) 200 mls @ 33.333 mls/hr IV ASDIRECTED [facility] PRN Reason: Protocol Last Admin: 05/17/16 08:19 Dose: 16.7 mls/hr Amiodarone HCl/Dextrose (Nexterone In Dextrose 150 Mg/100 Ml) Confirm Administered Dose 100 mls @ as directed IV .STK-MED ONE Stop: 05/17/16 03:15 Last Admin: 05/17/16 06:48 Dose: Not Given Amiodarone HCl/Dextrose 150 mg (/ Premix) 100 mls @ 400 mls/hr IV NOW ONE PRN Reason: Protocol Stop: 05/17/16 03:30 Last Admin: 05/17/16 06:48 Dose: Not Given Magnesium Sulfate 2 gm/ Premix 50 mls @ 25 mls/hr IV ONETIME ONE Stop: 05/18/16 10:14 Last Admin: 05/18/16 09:16 Dose: 25 mls/hr Magnesium Sulfate 2 gm/ Premix 50 mls @ 25 mls/hr IV ONETIME ONE Stop: 05/19/16 12:14 Last Admin: 05/19/16 10:46 Dose: 25 mls/hr Magnesium Sulfate 2 gm/ Premix 50 mls @ 25 mls/hr IV ONETIME ONE Stop: 05/21/16 12:59 Last Admin: 05/21/16 11:34 Dose: 25 mls/hr Lisinopril (Prinivil) 40 mg PO DAILY [facility] Last Admin: 05/18/16 09:19 Dose: 40 mg Magnesium Sulfate (Pharmacy To Dose - Magnesium Replacement) 1 dose .XX ASDIRECTED [facility] Pantoprazole Sodium (Protonix Iv) 40 mg IVPUSH DAILY [facility] Last Admin: 05/16/16 08:41 Dose: Not Given Potassium Chloride (Pharmacy To Dose - Potassium Replacement) 1 dose .XX ASDIRECTED [facility] Potassium Chloride (Klor-Con M20) 40 meq PO ONETIME ONE Stop: 05/16/16 08:31 Last Admin: 05/16/16 08:37 Dose: 40 meq Tamsulosin HCl (Flomax) 0.4 mg PO DAILY [facility] Last Admin: 05/18/16 09:18 Dose: 0.4 mg - Exam Quality Assessment: DVT prophylaxis General: alert, oriented, cooperative, no acute distress HEENT: Pupils equal, Pupils reactive, EOMI, Mucous membr. moist/pink Neck: supple Lungs: Clear to auscultation, Normal respiratory effort, Decreased breath sounds (to bases) Cardiovascular: Irregular Rhythm Abdomen: bowel sounds present, soft, no tenderness, no distension (Male) Exam: Deferred Extremities: no edema, no calf tenderness Peripheral Pulses: 1+: dorsalis pedis (L), dorsalis pedis (R) Skin: warm, dry Neurological: no new focal deficit Psy/Mental Status: alert, normal affect, normal mood - Problem List & Annotations (1) Pneumonia SNOMED Code(s): 166994660 Code(s): J18.9 - PNEUMONIA, UNSPECIFIED ORGANISM Status: Acute Priority: High Qualifiers: Pneumonia type: due to unspecified organism Laterality: right Lung location: middle lobe of lung Qualified Code(s): J18.1 - Lobar pneumonia, unspecified organism (2) Influenza A SNOMED Code(s): 014988218 Code(s): J10.1 - FLU DUE TO OTH IDENT INFLUENZA VIRUS W OTH RESP MANIFEST Status: Acute Priority: High (3) Hypokalemia SNOMED Code(s): 81871384 Code(s): E87.6 - HYPOKALEMIA Status: Resolved Priority: High (4) Atrial fibrillation SNOMED Code(s): 52228068 Code(s): I48.91 - UNSPECIFIED ATRIAL FIBRILLATION Status: Chronic Priority: High Qualifiers: Atrial fibrillation type: persistent Qualified Code(s): I48.1 - Persistent atrial fibrillation (5) S/P thoracentesis SNOMED Code(s): 295742407, 985285755 Code(s): Z98.890 - OTHER SPECIFIED POSTPROCEDURAL STATES Status: Resolved Priority: High Annotation/Comment:: 950cc (6) Pleural effusion associated with pulmonary infection SNOMED Code(s): 46026902 Code(s): J18.9 - PNEUMONIA, UNSPECIFIED ORGANISM; J91.8 - PLEURAL EFFUSION IN OTHER CONDITIONS CLASSIFIED ELSEWHERE Status: Acute Priority: High (7) Ventricular tachyarrhythmia SNOMED Code(s): 84435454 Code(s): I47.2 - VENTRICULAR TACHYCARDIA Status: Resolved Priority: High (8) Weakness generalized SNOMED Code(s): 19064061 Code(s): R53.1 - WEAKNESS Status: Acute Priority: High - Problem List Review Problem List Initiated/Reviewed/Updated: Yes - My Orders Last 24 Hours: My Active Orders 05/20/16 21:00 Carvedilol [Coreg] 25 mg PO BID 05/21/16 21:00 Levofloxacin [Levaquin] 500 mg PO Q24H Saccharomyces Boulardii [Florastor] 250 mg PO BID 05/22/16 05:11 Chest 2V [CR] AM BASIC METABOLIC PANEL,BMP [CHEM] AM CBC WITH AUTO DIFF [HEME] AM DIGOXIN [CHEM] AM MAGNESIUM [CHEM] AM - Plan Plan:: Assessment/Plan: Acute: A-Fib with RVR-- HR improved over last 24 hours - HR is now controlled with digoxin added; cont PO dosing--HR up to 150-160' s with activity this am; meds adjusted, did receive lopressor PRN IVP for tachycardia. - Coreg 25 mg po BID-- up from once daily, stopped amlodipine 5mg daily for b /p - Xarelto for stroke ppx; home dose Right Lung PNA-RML and RLL - Likely Aspiration in conjunction with Influenza A infection - Risk factor: Dysphagia and GERD; acute infection - Failed outpatient treatment due to dysphagia with pills- unable to take oral Cipro and tamiflu rx'd by PCP as outpatient - Cont with Levaquin - will switch to PO as has rec'd 7 days of IV levaquin and flagyl now. - Neb tx, RT, IS, acapella - Florastor BID - Repeat CXR in am Dysphagia with Pills - [employer] eval; mechanical soft diet with liquids changed to nectar thick - Longstanding GERD - May need EGD r/o esophageal strictures, he carries a hx/o long standing GERD - Consulted Dr. Barber; ? of EGD to be done vs esophagram/barium swallow-- Radiologist out of town and unable to do esophagram x 1+ weeks - EGD not indicated per Dr. Barber - May need outpatient work up, consider ENT eval as outpatient, will schedule for consult as outpatient; long discussion with daughter this morning, patient does not want further evaluation with any specialist for dysphagia. At this time will keep ENT f/up and have him f/up with PCP, Dr. Choi after discharge for further discussion and recommendations. Resolved: B/L Pleural Effusions L>R - Discussed with patient, and daughter CT scan result - Informed them diuretic could only do so much - Offered therapeutic and diagnostic thoracentesis-they all agreed-- 950cc was drained from left side yesterday per Dr. Hu; tolerated well with improvement in resp status. - CXR --much improved and stable now S/p Hypokalemia - K 2.7-- 2.4-->3.1 today; mag also low - Will replete today with IV dosing - Pharmacy to replete and monitor for subsequent levels S/p Hypomagnesemia -Mag level 1.1 -->2.8--> 1.9 -Cont to follow levels and replete as needed per pharmacy to dose S/p V-tach (over the weekend--resolved now) - Received amiodarone drip - Continue cordarone 200 mg po daily S/p Influenza A+ - Unable to take Tamiflu due to dysphagia-- symptom onset past window for tamiflu to be helpful - Symptomatic tx; symptoms improving Chronic: Chronic A-Fib on Xarelto HTN- stable Chronic Diarrhea GERD- chronic and longstanding, now with pill dysphagia Polyuria OA/DJD Contractures of fingers DM- sugars stable Anemia- stable Plan: He remains clinically stable; slowly improving--heart rates improved today Routine AM Labs Consider EGD given his hx/o dysphagia and GERD, he may have esophageal strictures- ENT for eval as outpatient-- f/up with PCP after discharge to discuss further Continue PT/OT Therapeutic and diagnostic thoracentesis s/p procedure with Dr. Hu as above CM/SW for d/c planning--family requesting NH placement/rehab stay. SW to discuss further with family. Likely DC to SNF tomorrow Accu-check AM/HS Code status: ACLS only LOS likely >96 hours due to complexity of case, cont swallow evaluations, cont tx for aspiration pneumonia with IV abx, electrolyte monitoring and replacement until stable. HR elevated this am with ambulation- cont to monitor on tele today. <Kristal Carrillo M - Last Filed: 05/27/16 13:31> - Patient Data Vitals - most recent: Last Vital Signs Temp 37.0 C 05/22/16 08:00 Pulse 78 05/22/16 08:33 Resp 18 05/22/16 08:00 BP 121/74 05/22/16 08:33 Pulse Ox 96 05/22/16 08:00 Med Orders - Current: Current Medications Discontinued Medications Acetaminophen (Tylenol) 650 mg PO Q4H PRN PRN Reason: Pain (Mild 1-3)/fever Hydrocodone Bitart/Acetaminophen ([place] 325-5 Mg) 1 tab PO Q4H PRN PRN Reason: Pain (moderate 4-6) Albuterol/Ipratropium (Duoneb 3.0-0.5 Mg/3 Ml) 3 ml NEB Q4H PRN PRN Reason: Shortness Of Breath/wheezing Albuterol/Ipratropium (Duoneb 3.0-0.5 Mg/3 Ml) 3 ml NEB QID [facility] Last Admin: 05/17/16 02:04 Dose: Not Given Albuterol/Ipratropium (Duoneb 3.0-0.5 Mg/3 Ml) 3 ml NEB QIDRT [facility] Last Admin: 05/20/16 05:30 Dose: 3 ml Amiodarone HCl (Cordarone) 200 mg PO DAILY [facility] Last Admin: 05/22/16 08:33 Dose: 200 mg Amlodipine Besylate (Norvasc) 5 mg PO DAILY [facility] Last Admin: 05/20/16 08:28 Dose: 5 mg Aspirin (Halfprin) 81 mg PO DAILY [facility] Last Admin: 05/22/16 08:31 Dose: 81 mg Benzonatate (Tessalon Perles) 100 mg PO TID PRN PRN Reason: Cough Last Admin: 05/15/16 21:06 Dose: 100 mg Bisacodyl (Dulcolax) 5 mg PO DAILY PRN PRN Reason: Constipation Budesonide (Pulmicort) 0.5 mg NEB BIDRT [facility] Last Admin: 05/16/16 21:25 Dose: 0.5 mg Budesonide (Pulmicort) 0.5 mg NEB BIDRT [facility] Budesonide (Pulmicort) 0.5 mg NEB BIDRT [facility] Budesonide (Pulmicort) 0.5 mg NEB BID [facility] Last Admin: 05/20/16 10:16 Dose: Not Given Carvedilol (Coreg) 25 mg PO DAILY [facility] Last Admin: 05/20/16 11:04 Dose: 25 mg Carvedilol (Coreg) 25 mg PO BID [facility] Last Admin: 05/22/16 08:31 Dose: 25 mg Cholecalciferol (Vitamin D3) 1,000 units PO DAILY [facility] Last Admin: 05/22/16 08:31 Dose: 1,000 units Cholestyramine Resin (Prevalite Packet) 4 gm PO DAILY [facility] Last Admin: 05/22/16 08:30 Dose: 4 gm Dextrose/Water (Dextrose 50% In Water) 50 ml IVPUSH ASDIRECTED PRN PRN Reason: Hypoglycemia Digoxin (Lanoxin) 125 mcg IVPUSH Q6H [facility] Stop: 05/18/16 04:01 Last Admin: 05/18/16 03:56 Dose: 125 mcg Digoxin (Lanoxin) 125 mcg IVPUSH ONETIME ONE Stop: 05/18/16 11:01 Last Admin: 05/18/16 11:28 Dose: 125 mcg Digoxin (Lanoxin) 125 mcg PO DAILY [facility] Last Admin: 05/22/16 08:33 Dose: 125 mcg Diphtheria/Tetanus/Acell Pertussis (Boostrix) 0.5 ml IM .ONCE ONE Stop: 05/15/16 09:48 Diphtheria/Tetanus/Acell Pertussis (Boostrix) 0.5 ml IM .ONCE ONE Stop: 05/22/16 10:33 Last Admin: 05/22/16 10:43 Dose: 0.5 ml Docusate Sodium (Colace) 100 mg PO BID PRN PRN Reason: Constipation Doxazosin Mesylate (Cardura) 4 mg PO BEDTIME [facility] Last Admin: 05/21/16 21:10 Dose: 4 mg Dronabinol (Marinol) 2.5 mg PO BIDMEALS [facility] Last Admin: 05/22/16 06:34 Dose: 2.5 mg Enalapril Maleate (Vasotec) 20 mg PO BID [facility] Last Admin: 05/22/16 08:33 Dose: 20 mg Flunisolide (Nasalide Nasal [place]) 0 ml DUARTE BID [facility] Last Admin: 05/22/16 08:32 Dose: 2 spr Glipizide (Glucotrol) 10 mg PO BID [facility] Last Admin: 05/22/16 08:32 Dose: 10 mg Guaifenesin/Phenylephrine HCl (Robitussin Dm) 5 ml PO Q6H [facility] Last Admin: 05/18/16 07:06 Dose: Not Given Guaifenesin/Phenylephrine HCl (Robitussin Dm) 5 ml PO Q6H PRN PRN Reason: Cough Hydralazine HCl (Apresoline) 10 mg IVPUSH Q4H PRN PRN Reason: Hypertension Hydrochlorothiazide (Hydrochlorothiazide) 25 mg PO DAILY [facility] Last Admin: 05/22/16 08:32 Dose: 25 mg Hydromorphone HCl (Dilaudid) 0.25 mg IVPUSH Q2H PRN PRN Reason: Pain (severe 7-10) Hydromorphone HCl (Dilaudid) 0.25 mg IVPUSH Q2H PRN PRN Reason: Pain (severe 7-10) Levofloxacin/Dextrose 750 mg/ (Premix) 150 mls @ 100 mls/hr IV ONETIME ONE Stop: 05/14/16 22:20 Last Admin: 05/14/16 21:32 Dose: 100 mls/hr Sodium Chloride (Normal Saline) 1,000 mls @ 125 mls/hr IV ASDIRECTED [facility] Last Admin: 05/14/16 21:31 Dose: 125 mls/hr Potassium Chloride/Sodium Chloride (Normal Saline With 20 Meq Kcl) 1,000 mls @ 100 mls/hr IV ASDIRECTED [facility] Last Admin: 05/15/16 22:47 Dose: 100 mls/hr Promethazine HCl 12.5 mg/ (Sodium Chloride) 50.5 mls @ 100 mls/hr IV Q6H PRN PRN Reason: Nausea/Vomiting Metronidazole 500 mg/ Premix 100 mls @ 100 mls/hr IV Q8H [facility] Last Admin: 05/15/16 04:24 Dose: 100 mls/hr Potassium Chloride 10 meq/ (Premix) 100 mls @ 100 mls/hr IV Q1H [facility] Stop: 05/15/16 07:59 Last Admin: 05/15/16 05:23 Dose: Not Given Metronidazole 500 mg/ Premix 100 mls @ 100 mls/hr IV Q8H [facility] Last Admin: 05/21/16 11:33 Dose: 100 mls/hr Potassium Chloride 10 meq/ (Premix) 100 mls @ 100 mls/hr IV Q1H [facility] Stop: 05/15/16 10:59 Last Admin: 05/15/16 14:39 Dose: 100 mls/hr Magnesium Sulfate 2 gm/ Premix 50 mls @ 25 mls/hr IV ONETIME ONE Stop: 05/15/16 10:59 Last Admin: 05/16/16 10:53 Dose: 25 mls/hr Magnesium Sulfate 2 gm/ Premix 50 mls @ 25 mls/hr IV ONETIME ONE Stop: 05/15/16 14:59 Last Admin: 05/15/16 14:25 Dose: 25 mls/hr Levofloxacin/Dextrose 750 mg/ (Premix) 150 mls @ 100 mls/hr IV Q24H [facility] Last Admin: 05/20/16 20:40 Dose: 100 mls/hr Magnesium Sulfate 2 gm/ Premix 50 mls @ 25 mls/hr IV ONETIME ONE Stop: 05/16/16 11:59 Last Admin: 05/16/16 10:54 Dose: Not Given Amiodarone HCl/Dextrose (Nexterone In Dextrose 360 Mg/200 Ml) 200 mls @ 33.333 mls/hr IV ASDIRECTED [facility] HEALTH PRN Reason: Protocol Last Admin: 05/17/16 08:19 Dose: 16.7 mls/hr Amiodarone HCl/Dextrose (Nexterone In Dextrose 150 Mg/100 Ml) Confirm Administered Dose 100 mls @ as directed IV .STK-MED ONE Stop: 05/17/16 03:15 Last Admin: 05/17/16 06:48 Dose: Not Given Amiodarone HCl/Dextrose 150 mg (/ Premix) 100 mls @ 400 mls/hr IV NOW ONE PRN Reason: Protocol Stop: 05/17/16 03:30 Last Admin: 05/17/16 06:48 Dose: Not Given Magnesium Sulfate 2 gm/ Premix 50 mls @ 25 mls/hr IV ONETIME ONE Stop: 05/18/16 10:14 Last Admin: 05/18/16 09:16 Dose: 25 mls/hr Magnesium Sulfate 2 gm/ Premix 50 mls @ 25 mls/hr IV ONETIME ONE Stop: 05/19/16 12:14 Last Admin: 05/19/16 10:46 Dose: 25 mls/hr Magnesium Sulfate 2 gm/ Premix 50 mls @ 25 mls/hr IV ONETIME ONE Stop: 05/21/16 12:59 Last Admin: 05/21/16 11:34 Dose: 25 mls/hr Insulin Aspart (Novolog) 0 unit SUBCUT QIDACANDBED [facility] PRN Reason: Protocol Last Admin: 05/22/16 06:35 Dose: Not Given Levofloxacin (Levaquin) 500 mg PO Q24H [facility] Stop: 05/23/16 21:01 Last Admin: 05/21/16 21:09 Dose: 500 mg Lisinopril (Prinivil) 40 mg PO DAILY [facility] Last Admin: 05/18/16 09:19 Dose: 40 mg Lorazepam (Ativan) 0.5 mg IV Q6H PRN PRN Reason: Anxiety Last Admin: 05/22/16 00:04 Dose: 0.5 mg Magnesium Oxide (Magnesium Oxide) 400 mg PO BID [facility] Last Admin: 05/22/16 08:30 Dose: 400 mg Magnesium Sulfate (Pharmacy To Dose - Magnesium Replacement) 1 dose .XX ASDIRECTED [facility] Metformin HCl (Glucophage) 500 mg PO ACDINNER [facility] Last Admin: 05/21/16 16:59 Dose: 500 mg Metformin HCl (Glucophage) 1,000 mg PO DAILY [facility] Last Admin: 05/22/16 08:38 Dose: 1,000 mg Metoprolol Tartrate (Lopressor) 5 mg IVPUSH Q4H PRN PRN Reason: Tachycardia Last Admin: 05/20/16 08:56 Dose: 2.5 mg Ondansetron HCl (Zofran) 4 mg IV Q6H PRN PRN Reason: Nausea/Vomiting Last Admin: 05/18/16 18:16 Dose: 4 mg Pantoprazole Sodium (Protonix Iv) 40 mg IVPUSH DAILY [facility] Last Admin: 05/16/16 08:41 Dose: Not Given Pantoprazole Sodium (Protonix) 40 mg PO DAILY [facility] Last Admin: 05/22/16 08:31 Dose: 40 mg Cyanocobalamin ( Vitamin B-12) 100 Mcg 0 each PO DAILY [facility] Last Admin: 05/22/16 08:32 Dose: Not Given Ferrous Sulfate [ (Slow Fe] 142 Mg) 0 each PO DAILY [facility] Last Admin: 05/22/16 08:33 Dose: Not Given Melatonin/Pyridoxine Hcl (B6) [Melatonin 3 Mg Tablet] 1 E 0 each PO DAILY [facility] Last Admin: 05/22/16 08:33 Dose: Not Given Travoprost ( Benzalkonium) [ Travoprost 0.004% Eye Drop] 1 0 each EYEBOTH BEDTIME [facility] Last Admin: 05/21/16 21:11 Dose: Not Given Polyethylene Glycol (Miralax) 17 gm PO DAILY PRN PRN Reason: Constipation Potassium Chloride (Pharmacy To Dose - Potassium Replacement) 1 dose .XX ASDIRECTED [facility] Potassium Chloride (Klor-Con M20) 20 meq PO DAILY [facility] Last Admin: 05/22/16 08:33 Dose: 20 meq Potassium Chloride (Klor-Con M20) 40 meq PO ONETIME ONE Stop: 05/16/16 08:31 Last Admin: 05/16/16 08:37 Dose: 40 meq Psyllium Husk (Metamucil Sugar Free) 1 packet PO BID [facility] Last Admin: 05/22/16 08:30 Dose: 1 packet Quetiapine Fumarate (Seroquel) 25 mg PO DAILY [facility] Last Admin: 05/22/16 08:31 Dose: 25 mg Rivaroxaban (Xarelto) 20 mg PO DAILY [facility] Last Admin: 05/22/16 08:31 Dose: 20 mg Saccharomyces Boulardii (Florastor) 250 mg PO BID [facility] Last Admin: 05/22/16 08:30 Dose: 250 mg Senna/Docusate Sodium (Senna Plus) 1 tab PO BID PRN PRN Reason: Constipation Simvastatin (Zocor) 40 mg PO BEDTIME [facility] Last Admin: 05/21/16 21:10 Dose: 40 mg Sodium Chloride (Saline Flush) 10 ml FLUSH ASDIRECTED PRN PRN Reason: Keep Vein Open Last Admin: 05/14/16 21:33 Dose: 10 ml Tamsulosin HCl (Flomax) 0.4 mg PO DAILY [facility] Last Admin: 05/18/16 09:18 Dose: 0.4 mg Tamsulosin HCl (Flomax) 0.4 mg PO BIDPC [facility] Last Admin: 05/22/16 08:30 Dose: 0.4 mg Temazepam (Restoril) 15 mg PO BEDTIME PRN PRN Reason: Sleep Last Admin: 05/21/16 21:10 Dose: 15 mg Vit A/Vit C/Vit E/Selen/Cu/Zn/Lutei (Icaps Mv) 1 tab PO DAILY [facility] Last Admin: 05/22/16 08:31 Dose: 1 tab - Plan Plan:: Agree with above.
[2016-05-21] MEDS ORDERED: Levofloxacin 500 MG Tab PO SCH (21:00)
[2016-05-21] MEDS: Saccharomyces Boulardii (Probiotic) 250 MG Cap PO SCH (21:09)
[2016-05-21] MEDS: Doxazosin 4 MG Tab PO SCH (21:10)
[2016-05-21] MEDS: Temazepam 15 MG Cap PO PRN (21:10)
[2016-05-21] MEDS: Simvastatin 40 MG Tab PO SCH (21:10)
[2016-05-21] MEDS: TRAVOPROST EYEBOTH SCH (21:11)
[2016-05-22] MEDS: LORazepam 2 MG/ML MDV IV PRN (00:04)
[2016-05-22] MEDS: Dronabinol 2.5 MG Cap PO SCH (06:34)
[2016-05-22] MEDS: Insulin Aspart 100 Units/ML 3 ML Pen SUBCUT SCH (06:35)
[2016-05-22 08:04] VITALS: BP 121/74
[2016-05-22] MEDS: Magnesium Oxide 400 MG Tab PO SCH (08:30)
[2016-05-22] MEDS: Tamsulosin 0.4 MG Cap.ER PO SCH (08:30)
[2016-05-22] MEDS: Psyllium Husk Powder Sugar Free 3.4 GM Packet PO SCH (08:30)
[2016-05-22] MEDS: Cholestyramine/Aspartame Powder 4 GM Packet PO SCH (08:30)
[2016-05-22] MEDS: Saccharomyces Boulardii (Probiotic) 250 MG Cap PO SCH (08:30)
[2016-05-22] MEDS: Rivaroxaban 10 MG Tab PO SCH (08:31)
[2016-05-22] MEDS: Multivitamins with Minerals/Folic Acid/Lutein/Zeaxanth Tab PO SCH (08:31)
[2016-05-22] MEDS: Pantoprazole 40 MG Tab.CR PO SCH (08:31)
[2016-05-22] MEDS: Aspirin 81 MG Tab.EC PO SCH (08:31)
[2016-05-22] MEDS: QUEtiapine 25 MG Tab PO SCH (08:31)
[2016-05-22] MEDS: Cholecalciferol (Vitamin D3) 1,000 Unit Tab PO SCH (08:31)
[2016-05-22] MEDS: Carvedilol 12.5 MG Tab PO SCH (08:31)
[2016-05-22] MEDS: Hydrochlorothiazide 25 MG Tab PO SCH (08:32)
[2016-05-22] MEDS: Cyanocobalamin (Vitamin B-12) 100 MCG PO SCH (08:32)
[2016-05-22] MEDS: Potassium Chloride 20 MEQ Tab.ER PO SCH (08:33)
[2016-05-22] MEDS: Amiodarone 200 MG Tab PO SCH (08:33)
[2016-05-22] MEDS: MELATONIN PO SCH (08:33)
[2016-05-22] MEDS: PYRIDOXINE HCL PO SCH (08:33)
[2016-05-22] MEDS: Digoxin 125 MCG Tab PO SCH (08:33)
[2016-05-22] MEDS: FERROUS SULFATE 142 MG PO SCH (08:33)
[2016-05-22] MEDS: metFORMIN 500 MG Tab PO SCH (08:38)
--- NOTE | 2016-05-22 09:50 | CR ---
Chest: Two views of the chest were obtained. Comparison: Previous chest x-ray of 05/19/16. Minimal bilateral pleural effusions are noted. Thick density seen within the right costophrenic angle compatible with stable atelectasis. Lungs otherwise are clear. Heart size is normal. Tortuous thoracic aorta is noted. Bony structures show diffuse degenerative spurring within the spine. Osteopenia is also noted. Impression: 1. Minimal pleural effusions on both sides. 2. Stable area of atelectasis within the right costophrenic angle. Diagnostic code #2
[2016-05-22] MEDS ORDERED: Diphtheria,Pertussis(Acell),Tetanus Vaccine 0.5 ML SDV inactive IM ONE (10:32)
== END 2016-05-22 10:50 | DRG 194 ==
LOC: JD.ED 20:26 → JD.MS 22:54 → JD.ICU 05-17 02:12 → JD.MS 05-18 13:13
PROVIDERS: ADMIT Internal Medicine; ATTEND Internal Medicine
PROC: 0W9B3ZZ Drainage of Left Pleural Cavity, Percutaneous Approach (ICD-10-PCS; principal; 2016-05-18)
DX: J09.X1 Influenza due to identified novel influenza A virus with pneumonia (principal); J90 Pleural effusion, not elsewhere classified; I48.91 Unspecified atrial fibrillation; I10 Essential (primary) hypertension; R13.10 Dysphagia, unspecified; E87.6 Hypokalemia; E83.42 Hypomagnesemia; R53.1 Weakness; I49.3 Ventricular premature depolarization; I48.2 Chronic atrial fibrillation; I11.0 Hypertensive heart disease with heart failure; I50.9 Heart failure, unspecified; K21.9 Gastro-esophageal reflux disease without esophagitis; K52.9 Noninfective gastroenteritis and colitis, unspecified; M19.90 Unspecified osteoarthritis, unspecified site; E10.9 Type 1 diabetes mellitus without complications; Z79.84 Long term (current) use of oral hypoglycemic drugs; D64.9 Anemia, unspecified; H35.30 Unspecified macular degeneration; Z79.01 Long term (current) use of anticoagulants; Z79.82 Long term (current) use of aspirin; Z79.899 Other long term (current) drug therapy
CPT/HCPCS: 36415; 71020; 80053; 85025; 87040 ×2; 87804 ×2; 96361; 96365; 96366; 99284; J1956; J7040; J7050; 71010; 71010-26; 71250; 71250-26; 76942; 80048; 80162; 81001; 82040; 82042; 82553; 82945; 82962; 83615; 83735; 83986; 84132; 84157; 84484; 86140; 86738; 87015; 87070; 87086; 87102; 87116; 87205; 87206; 87220; 87899; 88112; 88112-26; 88305; 88305-26; 89050; 90471; 90715; 92526-GN; 92610-GN; 93005; 93306; 94640-76; 94664; 94667; 94668; 94760; 94761; 97116-GP; 97161-GP; 97165-GO; 97530-GP; A9270-GY; C1729; C9113; J0282; J1160; J1815-GY; J2060; J2405; J3475; J3480; J3490; Q0167

== ENCOUNTER 2016-06-16 07:41 | Inpatient (IN) | payer MEDICARE, BC ==
[2016-06-16] MEDS ORDERED: Sodium Chloride 0.9% 10 ML Syringe FLUSH PRN (07:50)
--- NOTE | 2016-06-16 08:03 | EDM.PDOC ---
ED HISTORY OF PRESENT ILLNESS - General Chief Complaint: Respiratory Problem Stated Complaint: [facility] Time Seen by Provider: 06/16/16 07:44 Source of Information: Reports: Patient, EMS, jail records, RN notes reviewed - History of Present Illness INITIAL COMMENTS - FREE TEXT/NARRATIVE: 86-year-old retirement resident brought in by ambulance for difficulty breathing. This started during the night and became much worse this morning. He was on O2 2 L upon EMS arrival. Sats were only about 87% with oxygen on arrival. He was tachypneic, obviously short of breath. He was given an albuterol neb while in route and sats did improve to the low 90s with that. He has had occasional nonproductive cough. No recent fever or chills. No recent nasal or sinus congestion. He denies chest discomfort during the night or at present. He denies current abdominal pain. He states he did have some nausea this morning with the difficulty breathing but that is now gone. - Related Data Allergies/ADRs: Allergies Allergy/AdvReac Type Severity Reaction Status Date / Time No Known Allergies Allergy Verified 06/16/16 08:01 Home Meds: Home Meds Flunisolide [Nasalide Nasal [place]] 2 spray DUARTE BID 10/24/13 [History] Travoprost (Benzalkonium) [Travoprost 0.004% Eye Drop] 1 drop EYEBOTH BEDTIME [History] Melatonin/Pyridoxine HCl (B6) [Melatonin 3 mg Tablet] 1 each PO DAILY 11/11/14 [ History] metFORMIN HCl [Metformin HCl] 1,000 mg PO DAILY 11/11/14 [History] Cholecalciferol (Vitamin D3) [Vitamin D3] 1,000 unit PO DAILY 07/10/15 [History] Lisinopril 40 mg PO DAILY 07/10/15 [History] QUEtiapine Fumarate [Seroquel] 25 mg PO DAILY 07/10/15 [History] Vit C/E/Zn/Coppr/Lutein/Zeaxan [Preservision Areds 2 Softgel] 1 each PO DAILY [History] glipiZIDE [Glucotrol] 10 mg PO BID 07/10/15 [History] Aspirin [Ecotrin] 81 mg PO DAILY 12/19/15 [History] Enalapril [Vasotec] 20 mg PO BID 12/19/15 [History] Hydrochlorothiazide 25 mg PO DAILY 12/25/15 [History] Psyllium with Sucrose [Metamucil] 1 each PO BID 12/25/15 [History] Ferrous Sulfate [Slow Fe] 142 mg PO DAILY 05/14/16 [History] Naproxen Sodium 220 mg PO DAILY 05/14/16 [History] Omeprazole 20 mg PO DAILY 05/14/16 [History] Potassium Chloride 20 meq PO DAILY 05/14/16 [History] Rivaroxaban [Xarelto] 20 mg PO DAILY 05/14/16 [History] Simvastatin [Zocor] 40 mg PO BEDTIME 05/14/16 [History] metFORMIN [Glucophage] 500 mg PO ACDINNER 05/14/16 [History] Cholestyramine/Sucrose [Cholestyramine] 4 gm PO DAILY 05/15/16 [History] Cyanocobalamin (Vitamin B-12) [Vitamin B-12] 100 mcg PO DAILY 05/15/16 [History] Amiodarone [Cordarone] 200 mg PO DAILY #30 tablet 05/22/16 [Rx] Carvedilol [Coreg] 25 mg PO BID #60 tablet 05/22/16 [Rx] Digoxin [Lanoxin] 125 mcg PO DAILY #30 tablet 05/22/16 [Rx] Doxazosin [Cardura] 4 mg PO BEDTIME #30 tablet 05/22/16 [Rx] Dronabinol [Marinol] 2.5 mg PO BIDMEALS #60 cap 05/22/16 [Rx] Levofloxacin [Levaquin] 500 mg PO Q24H #3 tablet 05/22/16 [Rx] Magnesium Oxide 400 mg PO BID #60 tablet 05/22/16 [Rx] Tamsulosin [Flomax] 0.4 mg PO BIDPC #60 cap.er 05/22/16 [Rx] Past Medical History HEENT History: Reports: Glaucoma, Impaired vision, Macular degeneration, Other ( see below) Other HEENT History: wears glasses Cardiovascular History: Reports: Afib, Hypertension Respiratory History: Reports: None Gastrointestinal History: Reports: Chronic diarrhea, GERD, Other (see below) Other Gastrointestinal History: hematochezia, melena, dysphagia Genitourinary History: Reports: Other (see below) Other Genitourinary History: polyuria Musculoskeletal History: Reports: Arthritis Other Musculoskeletal History: contractures of the fingers Endocrine/Metabolic History: Reports: Diabetes, type I Hematologic History: Reports: Anemia - Infectious Disease History Infectious Disease History: Reports: Influenza - Past Surgical History GI Surgical History: Reports: Cholecystectomy, Colonoscopy Social & Family History - Family History Family Medical History: Noncontributory - Tobacco Use Smoking Status *Q: Never Smoker Second Hand Smoke Exposure: No - Caffeine Use Caffeine Use: Reports: None Other Caffeine Use: 2 cups in am and tea at night - Alcohol Use Days Per Week of Alcohol Use: 0 Number of Drinks Per Day: 0 Total Drinks Per Week: 0 - Recreational Drug Use Recreational Drug Use: No Drug Use in Last 12 Months: No ED ROS GENERAL - Review of Systems Review Of Systems: See Below Constitutional: Denies: fever, chills, diaphoresis HEENT: Denies: Sinus problem, Throat pain Respiratory: Reports: Shortness of Breath, Wheezing, Cough. Denies: Pleuritic Chest Pain, Sputum Cardiovascular: Denies: Chest pain GI/Abdominal: Reports: Nausea. Denies: Abdominal pain, Hematochezia, Melena, Vomiting Musculoskeletal: Denies: leg pain Neurological: Denies: Numbness, Tingling, Trouble Speaking ED EXAM, GENERAL - Physical Exam Exam: See Below General Appearance: alert, no apparent distress Eye Exam: bilateral eye: PERRL Throat/Mouth: Normal inspection, Normal oropharynx Head: atraumatic. No: facial swelling Neck: supple, full range of motion, other (No JVD) Respiratory/Chest: respiratory distress (Moderate tachypnea), decreased breath sounds, wheezing (My) Cardiovascular: irregularly irregular GI/Abdominal: soft, non tender. No: guarding Back Exam: No: CVA tenderness (L), CVA tenderness (R) Extremities: pedal edema. No: leg pain, increased warmth, redness Skin Exam: Warm, Dry, Normal color EKG INTERPRETATION EKG Date: 06/16/16 Rhythm: a-fib [place]: normal QRS: normal ST-T: other (T-wave flattening inferior leads) Course - Vital Signs Last Recorded V/S: Last Vital Signs Temp 97.2 F 06/16/16 07:41 Pulse 71 06/16/16 09:40 Resp 20 06/16/16 09:40 BP 151/85 H 06/16/16 09:40 Pulse Ox 96 06/16/16 09:40 - Orders/Labs/Meds Orders: Active Orders 24 hr Category Date Time Status EKG 12 Lead [EKG Documentation Completion] [RC] STAT Care 06/16/16 07:51 Active Peripheral IV Care [RC] . DIRECTED Care 06/16/16 07:51 Active Sodium Chloride 0.9% [Saline Flush] Med 06/16/16 07:50 Active 10 ml FLUSH ASDIRECTED PRN Peripheral IV Insertion Adult [OM.PC] Stat Oth 06/16/16 07:51 Ordered Medication Orders Sodium Chloride (Saline Flush) 10 ml FLUSH ASDIRECTED PRN PRN Reason: Keep Vein Open Last Admin: 06/16/16 08:19 Dose: 10 ml Labs: Laboratory Tests 06/16/16 06/16/16 06/16/16 Range/Units 08:18 08:18 08:18 WBC 11.29 H (4.23-9.07) K/mm3 RBC 3.79 L (4.63-6.08) M/mm3 Hgb 10.3 L (13.7-17.5) gm/L Hct 32.1 L (40.1-51.0) % MCV 84.7 (79.0-92.2) fl MCH 27.2 (25.7-32.2) pg MCHC 32.1 L (32.2-35.5) g/dl RDW Std Deviation 53.2 H (35.1-43.9) fL Plt Count 176 (163-337) K/mm3 MPV 10.0 (9.4-12.3) fl Neut % (Auto) 87.1 H (34.0-67.9) % Lymph % (Auto) 4.5 L (21.8-53.1) % Ogle % (Auto) 6.6 (5.3-12.2) % Eos % (Auto) 1.4 (0.8-7.0) Baso % (Auto) 0.2 (0.1-1.2) % Neut # (Auto) 9.83 H (1.78-5.38) K/mm3 Lymph # (Auto) 0.51 L (1.32-3.57) K/mm3 Ogle # (Auto) 0.75 (0.30-0.82) K/mm3 Eos # (Auto) 0.16 (0.04-0.54) K/mm3 Baso # (Auto) 0.02 (0.01-0.08) K/mm3 Manual Slide Review Abnormal smear Sodium 134 L (136-145) mEq/L Potassium 4.0 (3.5-5.1) mEq/L Chloride 98 (98-107) mEq/L Carbon Dioxide 29 (21-32) mEq/L Anion Gap 11.0 (5-15) BUN 7 (7-18) mg/dL Creatinine 0.8 (0.7-1.3) mg/dL Est Cr Clr Drug Dosing 69.29 mL/min Estimated GFR (MDRD) > 60 (>60) mL/min BUN/Creatinine Ratio 8.8 L (14-18) Glucose 174 H (83-115) mg/dL Calcium 8.5 (8.5-10.1) mg/dL Total Bilirubin 0.5 (0.2-1.0) mg/dL AST 13 L (15-37) U/L ALT 16 (16-63) U/L Alkaline Phosphatase 45 L (46-116) U/L Troponin I 0.022 (0.00-0.056) ng/mL C-Reactive Protein < 0.2 (<1.0) mg/dL B-Natriuretic Peptide 552 H (0-100) pg/mL Total Protein 6.3 L (6.4-8.2) g/dl Albumin 3.0 L (3.4-5.0) g/dl Globulin 3.3 gm/dL Albumin/Globulin Ratio 0.9 L (1-2) Meds: Medications Generic Name Dose Route Start Last Admin Trade Name Freq PRN Reason Stop Dose Admin Sodium Chloride 10 ml 06/16/16 07:50 06/16/16 08:19 Saline Flush FLUSH 10 ml ASDIRECTED PRN Administration Keep Vein Open Discontinued Medications Generic Name Dose Route Start Last Admin Trade Name Freq PRN Reason Stop Dose Admin Furosemide 40 mg 06/16/16 08:41 06/16/16 09:06 Lasix IVPUSH 06/16/16 08:42 40 mg NOW ONE Administration - Re-Assessments/Exams Free Text/Narrative Re-Assessment/Exam: 06/16/16 09:00. Chest x-ray shows bilateral pleural effusions, visiting with family he has history of that and did have some fluid tapped from one side just 3 or 4 weeks ago. Have given Lasix 40 mg IV. He is in atrial fib, rate is stable running in the 70s. Troponin was negative. White blood count mildly elevated at 11,000 with C-reactive protein was normal. BNP moderately elevated in the 550 range. As noted his sats were only about 87% this morning with oxygen at 2 L. He does meet inpatient criteria. Patient will be admitted or further treatment. CODE STATUS at the retirement called level II. Departure - Departure Time of Disposition: 09:33 Disposition: Admitted As Inpatient 65 Condition: fair Clinical Impression: Pleural effusion, Hypoxia Congestive heart failure Qualifiers: Congestive heart failure type: combined Congestive heart failure chronicity: acute on chronic Qualified Code(s): I50.43 - Acute on chronic combined systolic (congestive) and diastolic (congestive) heart failure Referrals: Jean Pierre Choi MD [Primary Care Provider] - ED Communication - Discussed Case With (1) Discussed Case With (1): Admitting Provider (Dr. Carrillo, decision to admit at about 09:40.) - My Orders Last 24 Hours: My Active Orders 06/16/16 07:50 Sodium Chloride 0.9% [Saline Flush] 10 ml FLUSH ASDIRECTED PRN 06/16/16 07:51 EKG 12 Lead [EKG Documentation Completion] [RC] STAT Peripheral IV Care [RC] . DIRECTED Peripheral IV Insertion Adult [OM.PC] Stat - Assessment/Plan Last 24 Hours: My Active Orders 06/16/16 07:50 Sodium Chloride 0.9% [Saline Flush] 10 ml FLUSH ASDIRECTED PRN 06/16/16 07:51 EKG 12 Lead [EKG Documentation Completion] [RC] STAT Peripheral IV Care [RC] . DIRECTED Peripheral IV Insertion Adult [OM.PC] Stat
--- NOTE | 2016-06-16 08:28 | CR ---
Chest: Frontal view of the chest was obtained. Comparison: Previous chest x-ray of 05/22/16. Heart size is slightly enlarged. Bilateral pleural effusions are seen. Increased density also noted within both lung bases with differential including atelectasis/aspiration as well as bibasilar pneumonia. Pulmonary vessels are felt to be slightly congested. Impression: 1. Bilateral pleural effusions with mild pulmonary vascular congestion. 2. Mild parenchymal densities within both lung bases as noted above. Diagnostic code #3
[2016-06-16] MEDS ORDERED: Furosemide 40 MG/4 ML VIAL IVPUSH ONE (08:41)
--- NOTE | 2016-06-16 13:44 | PCM.HP ---
H&P History of Present Illness - General Date of Service: 06/16/16 Admit Problem/Dx: Admission Diagnosis/Problem Admission Diagnosis/Problem Congestive heart failure Source of Information: Patient, Family, Provider History Limitations: Reports: No limitations - History of Present Illness Initial Comments - Free Text/Narative: 86 year old male with PMH CHF, unknown etiology, will review previous stay at [facility]. He now presents with progressive SOB, this began overnight, but denied PND, orthopnea. The cough has been nonproductive. There has been no chest pain; no recent change in meds or diet. He presented hypoxic which improved with 2 l/m via NC. Saturation improved from 87% to 96%. His CXR showed possible bilateral pleural effusion vs bilateral pneumonia. Onset of Symptoms: Reports: gradual Duration of Symptoms: Reports: Hour(s): Location: Reports: chest Quality: Reports: Same as previous episode Improves with: Reports: Medication Worsens with: Reports: None Associated Symptoms: Reports: shortness of breath, weakness - Related Data Allergies/Adverse Reactions: Allergies Allergy/AdvReac Type Severity Reaction Status Date / Time No Known Allergies Allergy Verified 06/16/16 08:01 Home Medications: Home Meds Flunisolide [Nasalide Nasal [place]] 2 spray NASBOTH BID 10/24/13 [History] Melatonin/Pyridoxine HCl (B6) [Melatonin 3 mg Tablet] 3 mg PO DAILY 11/11/14 [ History] metFORMIN HCl [Metformin HCl] 1,000 mg PO DAILY 11/11/14 [History] Lisinopril 40 mg PO DAILY 07/10/15 [History] QUEtiapine Fumarate [Seroquel] 25 mg PO BEDTIME 07/10/15 [History] glipiZIDE [Glucotrol] 10 mg PO BID 07/10/15 [History] Aspirin [Ecotrin] 81 mg PO DAILY 12/19/15 [History] Enalapril [Vasotec] 20 mg PO BID 12/19/15 [History] Hydrochlorothiazide 25 mg PO DAILY 12/25/15 [History] Psyllium with Sucrose [Metamucil] 0.5 packet PO BID 12/25/15 [History] Ferrous Sulfate [Slow Fe] 142 mg PO DAILY 05/14/16 [History] Naproxen Sodium 220 mg PO DAILY 05/14/16 [History] Omeprazole 20 mg PO DAILY 05/14/16 [History] Potassium Chloride 20 meq PO DAILY 05/14/16 [History] Rivaroxaban [Xarelto] 20 mg PO DAILY 05/14/16 [History] Simvastatin [Zocor] 40 mg PO BEDTIME 05/14/16 [History] metFORMIN [Glucophage] 500 mg PO ACDINNER 05/14/16 [History] Cholestyramine/Sucrose [Cholestyramine] 4 gm PO DAILY 05/15/16 [History] Amiodarone [Cordarone] 200 mg PO DAILY #30 tablet 05/22/16 [Rx] Carvedilol [Coreg] 25 mg PO BID #60 tablet 05/22/16 [Rx] Digoxin [Lanoxin] 125 mcg PO DAILY #30 tablet 05/22/16 [Rx] Doxazosin [Cardura] 4 mg PO BEDTIME #30 tablet 05/22/16 [Rx] Dronabinol [Marinol] 2.5 mg PO BIDMEALS #60 cap 05/22/16 [Rx] Magnesium Oxide 400 mg PO BID #60 tablet 05/22/16 [Rx] Bisacodyl 10 mg PO ASDIRECTED PRN 06/16/16 [History] Cholecalciferol (Vitamin D3) [Vitamin D3] 1,000 unit PO DAILY 06/16/16 [History] Lanolin [Lantiseptic] 1 applic TOP BID 06/16/16 [History] Polyvinyl Alcohol/Povidone/Pf [Refresh Classic Eye Drops] 1 drop EYEBOTH ASDIRECTED PRN 06/16/16 [History] Tamsulosin [Flomax] 0.4 mg PO DAILY 06/16/16 [History] Travoprost [Travatan Z] 1 drop EYEBOTH BEDTIME 06/16/16 [History] Vit A,C & E/Lutein/Minerals [Healthy Eyes] 1 tab PO DAILY 06/16/16 [History] Past Medical History HEENT History: Reports: Glaucoma, Impaired vision, Macular degeneration, Other ( see below) Other HEENT History: wears glasses, cannot hear or see from right side. Cardiovascular History: Reports: Afib, Aneurysm, Arrhythmia, Hypertension, Other (see below) Other Cardiovascular History: ventricular tachycardia Respiratory History: Reports: None, Other (see below) Other Respiratory History: had pneumonia 2 weeks ago, now admitted for CHF. Gastrointestinal History: Reports: GERD, Other (see below) Other Gastrointestinal History: hematochezia, melena, dysphagia Genitourinary History: Reports: Other (see below) Other Genitourinary History: polyuria Musculoskeletal History: Reports: Arthritis, Osteoarthritis Other Musculoskeletal History: contractures of the fingers Endocrine/Metabolic History: Reports: Diabetes, type I Hematologic History: Reports: Anemia - Infectious Disease History Infectious Disease History: Reports: Chicken pox, Influenza, Measles - Past Surgical History HEENT Surgical History: Reports: Cataract surgery, Laser surgery Other HEENT Surgeries/Procedures: laser surgery after cataract surgery Cardiovascular Surgical History: Reports: None GI Surgical History: Reports: Cholecystectomy, Colonoscopy Social & Family History - Family History Family Medical History: Noncontributory - Tobacco Use Smoking Status *Q: Former Smoker Years of Tobacco use: 5 Used Tobacco, but Quit: Yes Month Tobacco Last Used: 60 years ago Second Hand Smoke Exposure: No - Caffeine Use Caffeine Use: Reports: Coffee Other Caffeine Use: 2 cups in am and tea at night - Alcohol Use Days Per Week of Alcohol Use: 0 Number of Drinks Per Day: 0 Total Drinks Per Week: 0 - Recreational Drug Use Recreational Drug Use: No Drug Use in Last 12 Months: No H&P Review of Systems - Review of Systems: Review Of Systems: See Below General: Reports: malaise, weakness, fatigue Pulmonary: Reports: Shortness of Breath Cardiovascular: Reports: palpitations Gastrointestinal: Reports: No symptoms Genitourinary: Reports: no symptoms Musculoskeletal: Reports: no symptoms Skin: Reports: no symptoms Psychiatric: Reports: no symptoms Neurological: Reports: No Symptoms Hematologic/Lymphatic: Reports: no symptoms Immunologic: Reports: no symptoms Exam - Exam Exam: See Below - Vital Signs Vital Signs: Last Vital Signs Temp 37.2 C 06/16/16 11:47 Pulse 74 06/16/16 11:47 Resp 16 06/16/16 11:47 BP 150/66 H 06/16/16 11:47 Pulse Ox 96 06/16/16 11:47 Weight: 82.463 kg - Exam Quality Assessment: supplemental oxygen, DVT prophylaxis General: alert, oriented, cooperative HEENT: Nares patent, Normal nasal septum, Posterior pharynx clear, Pupils equal , Pupils reactive Neck: supple, trachea midline Lungs: Normal respiratory effort, Decreased breath sounds, Crackles Cardiovascular: regular rate Abdomen: normal bowel sounds, soft (Male) Exam: Deferred Rectal (Males) Exam: Deferred Back Exam: normal inspection Extremities: normal inspection Skin: warm Neurological: cranial nerves intact Neuro Extensive - Mental Status: alert, oriented x3 Neuro Extensive - Motor, Sensory, Reflexes: CN II-XII intact Psychiatric: alert, normal affect, normal mood - Patient Data Result Diagrams: 06/16/16 08:18 06/16/16 08:18 *Q Meaningful Use (ADM) - VTE *Q VTE Criteria *Q: - Stroke *Q Stroke Criteria *Q: - AMI *Q AMI Criteria *Q: - Problem List (1) Congestive heart failure SNOMED Code(s): 39509796 ICD Code: I50.9 - HEART FAILURE, UNSPECIFIED Status: Acute Current Visit : Yes Qualifiers: Congestive heart failure type: combined Congestive heart failure chronicity : acute on chronic Qualified Code(s): I50.43 - Acute on chronic combined systolic (congestive) and diastolic (congestive) heart failure (2) Hypoxia SNOMED Code(s): 030008262, 114731372 ICD Code: R09.02 - HYPOXEMIA Status: Acute Current Visit: Yes (3) Pleural effusion SNOMED Code(s): 75243018 ICD Code: J90 - PLEURAL EFFUSION, NOT ELSEWHERE CLASSIFIED Status: Acute Current Visit: Yes (4) Dizziness SNOMED Code(s): 853879764, 408135275 ICD Code: R42 - DIZZINESS AND GIDDINESS Status: Acute Current Visit: No Problem List Initiated/Reviewed/Updated: Yes Orders Last 24hrs: Active Orders 24 hr Category Date Time Status 2 Gram Sodium Diet [DIET] Diet 06/16/16 Lunch Active Code Status [Resuscitation Status] Routine Resus Stat 06/16/16 12:28 Ordered Medication Orders Sodium Chloride (Saline Flush) 10 ml FLUSH ASDIRECTED PRN PRN Reason: Keep Vein Open Last Admin: 06/16/16 08:19 Dose: 10 ml Assessment/Plan Comment:: Impression: History of A fib DHF, likely with poor functional capacity Query dietary restriction non compliance Hypoxia with mild pulmonary congestion/pleural effusion and possible bilateral infiltrates. Chronic HTN Hyperlipidemia Diabetes Mellitus GERD Plan: Continue diuresis Adjust meds to avoid hypotension Empiric treatment for HCAP monotherapy Sliding Scale Novolog DVT/GI prophylaxis Consult SW/PT/OT
[2016-06-16] MEDS: Ferrous Sulfate 140 MG Tab PO SCH (16:48)
[2016-06-16] MEDS: Multivitamins with Minerals/Folic Acid/Lutein/Zeaxanth Tab PO SCH (16:48)
[2016-06-16] MEDS: Aspirin 81 MG Tab.EC PO SCH (16:49)
[2016-06-16] MEDS: Rivaroxaban 10 MG Tab PO SCH (16:49)
[2016-06-16] MEDS: Tamsulosin 0.4 MG Cap.ER PO SCH (16:49)
[2016-06-16] MEDS: Piperacillin/Tazobactam 4.5 GM in Sodium Chloride 0.9% 100 ML IV SCH ×3 (16:49→18:21)
[2016-06-16] MEDS: Cholestyramine/Aspartame Powder 4 GM Packet PO SCH (16:49)
[2016-06-16] MEDS: Pantoprazole 40 MG Tab.CR PO SCH (16:49)
[2016-06-16] MEDS: Amiodarone 200 MG Tab PO SCH (16:49)
[2016-06-16] MEDS: Digoxin 125 MCG Tab PO SCH (16:49)
[2016-06-16] MEDS ORDERED: Piperacillin/Tazobactam 4.5 GM in Sodium Chloride 0.9% 100 ML IV ONE (17:00)
[2016-06-16] MEDS: Dronabinol 2.5 MG Cap PO SCH (18:13)
[2016-06-16] MEDS ORDERED: 50% Dextrose in Water 50 ML Syringe IVPUSH PRN (18:49)
[2016-06-16] MEDS: Psyllium Husk Powder Sugar Free 3.4 GM Packet PO SCH (22:08)
[2016-06-16] MEDS: Latanoprost 0.005% Ophth Soln 2.5 ML Bottle EYEBOTH SCH (22:08)
[2016-06-16] MEDS: Carvedilol 12.5 MG Tab PO SCH (22:09)
[2016-06-16] MEDS: Doxazosin 4 MG Tab PO SCH (22:09)
[2016-06-16] MEDS: QUEtiapine 25 MG Tab PO SCH (22:09)
[2016-06-16] MEDS: Temazepam 7.5 MG Cap PO PRN (22:10)
[2016-06-16] MEDS: Simvastatin 40 MG Tab PO SCH (22:10)
[2016-06-16] MEDS: Insulin Aspart 100 Units/ML 3 ML Pen SUBCUT SCH (22:12)
[2016-06-17] MEDS: Piperacillin/Tazobactam 4.5 GM in Sodium Chloride 0.9% 100 ML IV SCH ×3 (00:44→17:21)
[2016-06-17] MEDS: Insulin Aspart 100 Units/ML 3 ML Pen SUBCUT SCH ×4 (06:12→21:49)
[2016-06-17] MEDS: Pantoprazole 40 MG Tab.CR PO SCH (06:12)
[2016-06-17] MEDS ORDERED: Furosemide 40 MG/4 ML VIAL IVPUSH ONE (08:00)
[2016-06-17] MEDS ORDERED: Diphtheria,Pertussis(Acell),Tetanus Vaccine 0.5 ML SDV inactive IM ONE (08:24)
[2016-06-17] MEDS: Rivaroxaban 10 MG Tab PO SCH (08:54)
[2016-06-17] MEDS: Psyllium Husk Powder Sugar Free 3.4 GM Packet PO SCH ×2 (08:54→21:41)
[2016-06-17] MEDS: Ferrous Sulfate 140 MG Tab PO SCH (08:54)
[2016-06-17] MEDS: Cholestyramine/Aspartame Powder 4 GM Packet PO SCH (08:55)
[2016-06-17] MEDS: Carvedilol 12.5 MG Tab PO SCH ×2 (08:55→21:43)
[2016-06-17] MEDS: Multivitamins with Minerals/Folic Acid/Lutein/Zeaxanth Tab PO SCH (08:55)
[2016-06-17] MEDS: Tamsulosin 0.4 MG Cap.ER PO SCH (08:55)
[2016-06-17] MEDS: Amiodarone 200 MG Tab PO SCH (08:55)
[2016-06-17] MEDS: Aspirin 81 MG Tab.EC PO SCH (08:55)
[2016-06-17] MEDS: Hypromellose 0.5% Ophth Soln 15 ML Bottle EYEBOTH PRN (09:27)
[2016-06-17] MEDS: Digoxin 125 MCG Tab PO SCH (11:13)
[2016-06-17] MEDS: Dronabinol 2.5 MG Cap PO SCH ×2 (11:13→17:23)
[2016-06-17] MEDS ORDERED: Potassium Chloride 10% 20 MEQ/15 ML Soln 30 ML UD Cup PO ONE (12:26)
--- NOTE | 2016-06-17 12:38 | PCM.PN ---
- General Info Date of Service: 06/17/16 Admission Dx/Problem (Free Text): Patient has less SOB after yesterday, wants to ambulate this afternoon. Functional Status: Reports: tolerating diet, ambulating, urinating - Review of Systems General: Reports: Weakness HEENT: Reports: no symptoms Pulmonary: Reports: shortness of breath (decreased) Cardiovascular: Reports: No Symptoms Gastrointestinal: Reports: No symptoms Genitourinary: Reports: no symptoms Musculoskeletal: Reports: no symptoms Skin: Reports: no symptoms Neurological: Reports: No Symptoms - Patient Data Vitals - most recent: Last Vital Signs Temp 37.1 C 06/17/16 07:59 Pulse 67 06/17/16 07:59 Resp 16 06/17/16 07:59 BP 155/71 H 06/17/16 07:59 Pulse Ox 91 L 06/17/16 09:10 Weight - most recent: 78.88 kg I&O - last 24 hours: Intake & Output 06/16/16 06/17/16 06/17/16 22:59 06:59 14:59 Intake Total 430 900 400 Output Total 4325 620 Balance -3895 280 400 Lab Results last 24 hrs: Laboratory Results - last 24 hr 06/16/16 06/16/16 06/16/16 Range/Units 17:52 18:20 18:50 WBC (4.23-9.07) K/mm3 RBC (4.63-6.08) M/mm3 Hgb (13.7-17.5) gm/L Hct (40.1-51.0) % MCV (79.0-92.2) fl MCH (25.7-32.2) pg MCHC (32.2-35.5) g/dl RDW Std Deviation (35.1-43.9) fL Plt Count (163-337) K/mm3 MPV (9.4-12.3) fl Neut % (Auto) (34.0-67.9) % Lymph % (Auto) (21.8-53.1) % [place] % (Auto) (5.3-12.2) % Eos % (Auto) (0.8-7.0) Baso % (Auto) (0.1-1.2) % Neut # (Auto) (1.78-5.38) K/mm3 Lymph # (Auto) (1.32-3.57) K/mm3 [place] # (Auto) (0.30-0.82) K/mm3 Eos # (Auto) (0.04-0.54) K/mm3 Baso # (Auto) (0.01-0.08) K/mm3 Manual Slide Review Sodium (136-145) mEq/L Potassium (3.5-5.1) mEq/L Chloride (98-107) mEq/L Carbon Dioxide (21-32) mEq/L Anion Gap (5-15) BUN (7-18) mg/dL Creatinine (0.7-1.3) mg/dL Est Cr Clr Drug Dosing mL/min Estimated GFR (MDRD) (>60) mL/min BUN/Creatinine Ratio (14-18) Glucose (83-115) mg/dL POC Glucose 257 H (83-110) mg/dL Calcium (8.5-10.1) mg/dL B-Natriuretic Peptide (0-100) pg/mL Urine Color Light yellow (Yellow) Urine Appearance Clear (Clear) Urine pH 7.0 (5.0-8.0) Ur Specific [place] 1.015 (1.005-1.030) Urine Protein Negative (Negative) Urine Glucose (UA) Negative (Negative) Urine Ketones Negative (Negative) Urine Occult Blood Negative (Negative) Urine Nitrite Negative (Negative) Urine Bilirubin Negative (Negative) Urine Urobilinogen 0.2 (0.2-1.0) Ur Leukocyte Esterase Negative (Negative) Urine RBC 0-5 (0-5) /hpf Urine WBC Not seen (0-5) /hpf Ur Epithelial Cells Not seen (0-5) /hpf Urine Bacteria Not seen (FEW) /hpf Urine Mucus Not seen (FEW) /hpf Digoxin (0.9-2.0) ng/mL Mycoplasma pneumon IgM Negative (NEGATIVE) MRSA (PCR) 06/16/16 06/16/16 06/17/16 Range/Units 20:02 22:12 05:52 WBC 8.06 (4.23-9.07) K/mm3 RBC 3.76 L (4.63-6.08) M/mm3 Hgb 10.3 L (13.7-17.5) gm/L Hct 31.9 L (40.1-51.0) % MCV 84.8 (79.0-92.2) fl MCH 27.4 (25.7-32.2) pg MCHC 32.3 (32.2-35.5) g/dl RDW Std Deviation 54.3 H (35.1-43.9) fL Plt Count 169 (163-337) K/mm3 MPV 10.9 (9.4-12.3) fl Neut % (Auto) 76.1 H (34.0-67.9) % Lymph % (Auto) 8.7 L (21.8-53.1) % [place] % (Auto) 12.3 H (5.3-12.2) % Eos % (Auto) 2.6 (0.8-7.0) Baso % (Auto) 0.2 (0.1-1.2) % Neut # (Auto) 6.13 H (1.78-5.38) K/mm3 Lymph # (Auto) 0.70 L (1.32-3.57) K/mm3 [place] # (Auto) 0.99 H (0.30-0.82) K/mm3 Eos # (Auto) 0.21 (0.04-0.54) K/mm3 Baso # (Auto) 0.02 (0.01-0.08) K/mm3 Manual Slide Review Abnormal smear Sodium (136-145) mEq/L Potassium (3.5-5.1) mEq/L Chloride (98-107) mEq/L Carbon Dioxide (21-32) mEq/L Anion Gap (5-15) BUN (7-18) mg/dL Creatinine (0.7-1.3) mg/dL Est Cr Clr Drug Dosing mL/min Estimated GFR (MDRD) (>60) mL/min BUN/Creatinine Ratio (14-18) Glucose (83-115) mg/dL POC Glucose 219 H (83-110) mg/dL Calcium (8.5-10.1) mg/dL B-Natriuretic Peptide (0-100) pg/mL Urine Color (Yellow) Urine Appearance (Clear) Urine pH (5.0-8.0) Ur Specific [place] (1.005-1.030) Urine Protein (Negative) Urine Glucose (UA) (Negative) Urine Ketones (Negative) Urine Occult Blood (Negative) Urine Nitrite (Negative) Urine Bilirubin (Negative) Urine Urobilinogen (0.2-1.0) Ur Leukocyte Esterase (Negative) Urine RBC (0-5) /hpf Urine WBC (0-5) /hpf Ur Epithelial Cells (0-5) /hpf Urine Bacteria (FEW) /hpf Urine Mucus (FEW) /hpf Digoxin (0.9-2.0) ng/mL Mycoplasma pneumon IgM (NEGATIVE) MRSA (PCR) Negative 06/17/16 06/17/16 06/17/16 Range/Units 05:52 05:52 06:11 WBC (4.23-9.07) K/mm3 RBC (4.63-6.08) M/mm3 Hgb (13.7-17.5) gm/L Hct (40.1-51.0) % MCV (79.0-92.2) fl MCH (25.7-32.2) pg MCHC (32.2-35.5) g/dl RDW Std Deviation (35.1-43.9) fL Plt Count (163-337) K/mm3 MPV (9.4-12.3) fl Neut % (Auto) (34.0-67.9) % Lymph % (Auto) (21.8-53.1) % [place] % (Auto) (5.3-12.2) % Eos % (Auto) (0.8-7.0) Baso % (Auto) (0.1-1.2) % Neut # (Auto) (1.78-5.38) K/mm3 Lymph # (Auto) (1.32-3.57) K/mm3 [place] # (Auto) (0.30-0.82) K/mm3 Eos # (Auto) (0.04-0.54) K/mm3 Baso # (Auto) (0.01-0.08) K/mm3 Manual Slide Review Sodium 138 (136-145) mEq/L Potassium 3.4 L (3.5-5.1) mEq/L Chloride 100 (98-107) mEq/L Carbon Dioxide 32 (21-32) mEq/L Anion Gap 9.4 (5-15) BUN 9 (7-18) mg/dL Creatinine 0.8 (0.7-1.3) mg/dL Est Cr Clr Drug Dosing 69.29 mL/min Estimated GFR (MDRD) > 60 (>60) mL/min BUN/Creatinine Ratio 11.3 L (14-18) Glucose 157 H (83-115) mg/dL POC Glucose 157 H (83-110) mg/dL Calcium 8.3 L (8.5-10.1) mg/dL B-Natriuretic Peptide 551 H (0-100) pg/mL Urine Color (Yellow) Urine Appearance (Clear) Urine pH (5.0-8.0) Ur Specific [place] (1.005-1.030) Urine Protein (Negative) Urine Glucose (UA) (Negative) Urine Ketones (Negative) Urine Occult Blood (Negative) Urine Nitrite (Negative) Urine Bilirubin (Negative) Urine Urobilinogen (0.2-1.0) Ur Leukocyte Esterase (Negative) Urine RBC (0-5) /hpf Urine WBC (0-5) /hpf Ur Epithelial Cells (0-5) /hpf Urine Bacteria (FEW) /hpf Urine Mucus (FEW) /hpf Digoxin 0.8 L (0.9-2.0) ng/mL Mycoplasma pneumon IgM (NEGATIVE) MRSA (PCR) 06/17/16 Range/Units 10:44 WBC (4.23-9.07) K/mm3 RBC (4.63-6.08) M/mm3 Hgb (13.7-17.5) gm/L Hct (40.1-51.0) % MCV (79.0-92.2) fl MCH (25.7-32.2) pg MCHC (32.2-35.5) g/dl RDW Std Deviation (35.1-43.9) fL Plt Count (163-337) K/mm3 MPV (9.4-12.3) fl Neut % (Auto) (34.0-67.9) % Lymph % (Auto) (21.8-53.1) % [place] % (Auto) (5.3-12.2) % Eos % (Auto) (0.8-7.0) Baso % (Auto) (0.1-1.2) % Neut # (Auto) (1.78-5.38) K/mm3 Lymph # (Auto) (1.32-3.57) K/mm3 [place] # (Auto) (0.30-0.82) K/mm3 Eos # (Auto) (0.04-0.54) K/mm3 Baso # (Auto) (0.01-0.08) K/mm3 Manual Slide Review Sodium (136-145) mEq/L Potassium (3.5-5.1) mEq/L Chloride (98-107) mEq/L Carbon Dioxide (21-32) mEq/L Anion Gap (5-15) BUN (7-18) mg/dL Creatinine (0.7-1.3) mg/dL Est Cr Clr Drug Dosing mL/min Estimated GFR (MDRD) (>60) mL/min BUN/Creatinine Ratio (14-18) Glucose (83-115) mg/dL POC Glucose 295 H (83-110) mg/dL Calcium (8.5-10.1) mg/dL B-Natriuretic Peptide (0-100) pg/mL Urine Color (Yellow) Urine Appearance (Clear) Urine pH (5.0-8.0) Ur Specific [place] (1.005-1.030) Urine Protein (Negative) Urine Glucose (UA) (Negative) Urine Ketones (Negative) Urine Occult Blood (Negative) Urine Nitrite (Negative) Urine Bilirubin (Negative) Urine Urobilinogen (0.2-1.0) Ur Leukocyte Esterase (Negative) Urine RBC (0-5) /hpf Urine WBC (0-5) /hpf Ur Epithelial Cells (0-5) /hpf Urine Bacteria (FEW) /hpf Urine Mucus (FEW) /hpf Digoxin (0.9-2.0) ng/mL Mycoplasma pneumon IgM (NEGATIVE) MRSA (PCR) Mikael Results last 24 hrs: Microbiology 06/16/16 17:00 Influenza Type A Antigen Screen - Final Nasal, Unspecified NEGATIVE INFLUENZA A VIRUS AG Influenza Type B Antigen Screen - Final NEGATIVE INFLUENZA B VIRUS AG Med Orders - Current: Current Medications Amiodarone HCl (Cordarone) 200 mg PO DAILY [facility] Last Admin: 06/17/16 08:55 Dose: 200 mg Artificial Tears (Isopto Tears 0.5% Ophth Soln) 0 ml EYEBOTH ASDIRECTED PRN PRN Reason: Dry Eyes Last Admin: 06/17/16 09:27 Dose: 1 drop Aspirin (Halfprin) 81 mg PO DAILY [facility] Last Admin: 06/17/16 08:55 Dose: 81 mg Carvedilol (Coreg) 25 mg PO BID [facility] Last Admin: 06/17/16 08:55 Dose: 25 mg Cholestyramine Resin (Prevalite Packet) 4 gm PO DAILY [facility] Last Admin: 06/17/16 08:55 Dose: 4 gm Dextrose/Water (Dextrose 50% In Water) 50 ml IVPUSH ASDIRECTED PRN PRN Reason: Hypoglycemia Digoxin (Lanoxin) 125 mcg PO DAILY@1200 [facility] Last Admin: 06/17/16 11:13 Dose: 125 mcg Doxazosin Mesylate (Cardura) 4 mg PO BEDTIME [facility] Last Admin: 06/16/16 22:09 Dose: 4 mg Dronabinol (Marinol) 2.5 mg PO BID@1100,1700 [facility] Last Admin: 06/17/16 11:13 Dose: 2.5 mg Enalapril Maleate (Vasotec) 10 mg PO BID [facility] Last Admin: 06/17/16 08:55 Dose: 10 mg Ferrous Sulfate (Slow Fe) 140 mg PO DAILY [facility] Last Admin: 06/17/16 08:54 Dose: 140 mg Flunisolide (Nasalide Nasal [place]) 0 ml NASBOTH BID [facility] Last Admin: 06/17/16 08:55 Dose: 2 sprays Piperacillin Sod/Tazobactam (Sod 4.5 gm/ Sodium Chloride) 100 mls @ 25 mls/hr IV Q8H [facility] Last Admin: 06/17/16 08:56 Dose: 25 mls/hr Insulin Aspart (Novolog) 0 unit SUBCUT QIDACANDBED [facility] PRN Reason: Protocol Last Admin: 06/17/16 11:11 Dose: 3 units Latanoprost (Xalatan 0.005% Ophth Soln) 0 ml EYEBOTH BEDTIME [facility] Last Admin: 06/16/16 22:08 Dose: 1 drop Pantoprazole Sodium (Protonix) 40 mg PO DAILY@0700 [facility] Last Admin: 06/17/16 06:12 Dose: 40 mg Psyllium Husk (Metamucil Sugar Free) 0.5 packet PO BID [facility] Last Admin: 06/17/16 08:54 Dose: 0.5 packet Quetiapine Fumarate (Seroquel) 25 mg PO BEDTIME [facility] Last Admin: 06/16/16 22:09 Dose: 25 mg Rivaroxaban (Xarelto) 20 mg PO DAILY [facility] Last Admin: 06/17/16 08:54 Dose: 20 mg Simvastatin (Zocor) 40 mg PO BEDTIME [facility] Last Admin: 06/16/16 22:10 Dose: 40 mg Tamsulosin HCl (Flomax) 0.4 mg PO DAILY [facility] Last Admin: 06/17/16 08:55 Dose: 0.4 mg Temazepam (Restoril) 7.5 mg PO BEDTIME PRN PRN Reason: Insomnia Last Admin: 06/16/16 22:10 Dose: 7.5 mg Vit A/Vit C/Vit E/Selen/Cu/Zn/Lutei (Icaps Mv) 1 tab PO DAILY [facility] Last Admin: 06/17/16 08:55 Dose: 1 tab Discontinued Medications Diphtheria/Tetanus/Acell Pertussis (Boostrix) 0.5 ml IM .ONCE ONE Stop: 06/17/16 08:25 Furosemide (Lasix) 40 mg IVPUSH NOW ONE Stop: 06/16/16 08:42 Last Admin: 06/16/16 09:06 Dose: 40 mg Furosemide (Lasix) 40 mg IVPUSH NOW ONE Stop: 06/17/16 08:01 Last Admin: 06/17/16 08:53 Dose: 40 mg Piperacillin Sod/Tazobactam (Sod 4.5 gm/ Sodium Chloride) 100 mls @ 200 mls/hr IV ONETIME ONE Stop: 06/16/16 17:29 Last Admin: 06/16/16 16:45 Dose: 200 mls/hr Piperacillin Sod/Tazobactam (Sod 4.5 gm/ Sodium Chloride) 100 mls @ 25 mls/hr IV Q8H [facility] Last Admin: 06/16/16 18:21 Dose: Not Given Potassium Chloride (Potassium Chloride) 40 meq PO ONETIME ONE Stop: 06/17/16 12:27 Sodium Chloride (Saline Flush) 10 ml FLUSH ASDIRECTED PRN PRN Reason: Keep Vein Open Last Admin: 06/16/16 08:19 Dose: 10 ml - Exam Quality Assessment: supplemental oxygen, DVT prophylaxis General: alert, oriented, cooperative, no acute distress HEENT: Pupils equal, Pupils reactive, EOMI Neck: supple, trachea midline Lungs: Normal respiratory effort, Decreased breath sounds Cardiovascular: Regular Rate Abdomen: bowel sounds present, soft, no tenderness, no distension (Male) Exam: Deferred Back Exam: normal inspection Extremities: normal pulses Skin: warm Neurological: no new focal deficit, normal speech Psy/Mental Status: alert, normal affect, normal mood - Problem List & Annotations (1) Congestive heart failure SNOMED Code(s): 89472873 Code(s): I50.9 - HEART FAILURE, UNSPECIFIED Status: Acute Current Visit: Yes Qualifiers: Congestive heart failure type: combined Congestive heart failure chronicity : acute on chronic Qualified Code(s): I50.43 - Acute on chronic combined systolic (congestive) and diastolic (congestive) heart failure (2) Hypoxia SNOMED Code(s): 911657348, 080876690 Code(s): R09.02 - HYPOXEMIA Status: Acute Current Visit: Yes (3) Pleural effusion SNOMED Code(s): 19948265 Code(s): J90 - PLEURAL EFFUSION, NOT ELSEWHERE CLASSIFIED Status: Acute Current Visit: Yes (4) Dizziness SNOMED Code(s): 743513028, 411636775 Code(s): R42 - DIZZINESS AND GIDDINESS Status: Acute Current Visit: No - Problem List Review Problem List Initiated/Reviewed/Updated: Yes - My Orders Last 24 Hours: My Active Orders 06/16/16 12:28 Code Status [Resuscitation Status] Routine 06/16/16 13:00 Oxygen Therapy Adult [Oxygen Therapy] [RC] ASDIRECTED 06/16/16 15:47 Hypromellose [Isopto Tears 0.5% Ophth Soln] 0 ml EYEBOTH ASDIRECTED PRN 06/16/16 15:53 MAYLIN Hose [Antiembolic Hose] [OM.PC] Routine 06/16/16 15:54 Antiembolic Devices [RC] PER UNIT ROUTINE Vital Signs [RC] Q6H 06/16/16 16:00 Consult to Case Management [CONS] Routine 06/16/16 16:15 Amiodarone [Cordarone] 200 mg PO DAILY Digoxin [Lanoxin] 125 mcg PO DAILY@1200 Pantoprazole [ProTONIX] 40 mg PO DAILY@0700 Tamsulosin [Flomax] 0.4 mg PO DAILY 06/16/16 16:30 Aspirin [Halfprin] 81 mg PO DAILY Cholestyramine/Aspartame [Prevalite Packet] 4 gm PO DAILY Ferrous Sulfate [Slow Fe] 140 mg PO DAILY Multivitamins/Min/FA/Lut/Zeax [ICaps MV] 1 tab PO DAILY Rivaroxaban [Xarelto] 20 mg PO DAILY 06/16/16 17:00 Dronabinol [Marinol] 2.5 mg PO BID@1100,1700 06/16/16 18:45 STREP PNEUMONIAE ANTIGEN [MREF] Routine 06/16/16 18:49 Blood Glucose Check, Bedside [RC] QIDACANDBED Dextrose 50% in Water 50 ml IVPUSH ASDIRECTED PRN 06/16/16 19:49 Temazepam [Restoril] 7.5 mg PO BEDTIME PRN 06/16/16 19:53 Up With Assistance [RC] ASDIRECTED 06/16/16 21:00 Carvedilol [Coreg] 25 mg PO BID Doxazosin [Cardura] 4 mg PO BEDTIME Enalapril [Vasotec] 10 mg PO BID Flunisolide [Nasalide Nasal [place]] 0 ml NASBOTH BID Latanoprost [Xalatan 0.005% Ophth Soln] 0 ml EYEBOTH BEDTIME Psyllium Husk/Aspartame [Metamucil Sugar Free] 0.5 packet PO BID QUEtiapine [SEROquel] 25 mg PO BEDTIME Simvastatin [Zocor] 40 mg PO BEDTIME 06/16/16 22:00 Insulin Aspart [NovoLOG] See Protocol SUBCUT QIDACANDBED 06/17/16 01:00 Piperacillin/Tazobactam [Zosyn] 4.5 gm Sodium Chloride 0.9% [Normal Saline] 100 ml IV Q8H 06/17/16 08:00 PT Evaluation and Treatment [CONS] Routine 06/17/16 08:24 Vaccines to be Administered [RC] PER UNIT ROUTINE 06/17/16 09:00 Consult to Occupational Therapy [OT Evaluation and Treatment] [CONS] Routine 06/17/16 Breakfast 2 Gram Sodium Diet [DIET] 06/18/16 05:00 BASIC METABOLIC PANEL,BMP [CHEM] DAILY CBC WITH AUTO DIFF [HEME] DAILY 06/19/16 05:00 BASIC METABOLIC PANEL,BMP [CHEM] DAILY CBC WITH AUTO DIFF [HEME] DAILY - Plan Plan:: Impression: History of A fib DHF, likely with poor functional capacity Query dietary restriction non compliance Hypoxia with mild pulmonary congestion/pleural effusion and possible bilateral infiltrates. Chronic HTN Hyperlipidemia Diabetes Mellitus GERD Plan: Continue diuresis Adjust meds to avoid hypotension Empiric treatment for HCAP monotherapy Sliding Scale Novolog DVT/GI prophylaxis Consult SW/PT/OT DC 24-48 hours
[2016-06-17] MEDS: Latanoprost 0.005% Ophth Soln 2.5 ML Bottle EYEBOTH SCH (21:40)
[2016-06-17] MEDS: QUEtiapine 25 MG Tab PO SCH (21:42)
[2016-06-17] MEDS: Temazepam 7.5 MG Cap PO PRN (21:42)
[2016-06-17] MEDS: Doxazosin 4 MG Tab PO SCH (21:42)
[2016-06-17] MEDS: Simvastatin 40 MG Tab PO SCH (21:44)
[2016-06-18] MEDS: Piperacillin/Tazobactam 4.5 GM in Sodium Chloride 0.9% 100 ML IV SCH ×3 (02:25→16:10)
[2016-06-18] MEDS: Pantoprazole 40 MG Tab.CR PO SCH (06:01)
[2016-06-18] MEDS: Insulin Aspart 100 Units/ML 3 ML Pen SUBCUT SCH ×4 (08:10→21:27)
[2016-06-18] MEDS: Cholestyramine/Aspartame Powder 4 GM Packet PO SCH (08:11)
[2016-06-18] MEDS: Psyllium Husk Powder Sugar Free 3.4 GM Packet PO SCH ×2 (08:12→21:25)
[2016-06-18] MEDS: Rivaroxaban 10 MG Tab PO SCH (08:13)
[2016-06-18] MEDS: Tamsulosin 0.4 MG Cap.ER PO SCH (08:13)
[2016-06-18] MEDS: Ferrous Sulfate 140 MG Tab PO SCH (08:14)
[2016-06-18] MEDS: Aspirin 81 MG Tab.EC PO SCH (08:14)
[2016-06-18] MEDS: Carvedilol 12.5 MG Tab PO SCH ×2 (08:14→21:26)
[2016-06-18] MEDS: Amiodarone 200 MG Tab PO SCH (08:14)
[2016-06-18] MEDS: Multivitamins with Minerals/Folic Acid/Lutein/Zeaxanth Tab PO SCH (08:14)
[2016-06-18] MEDS ORDERED: Potassium Chloride 10% 20 MEQ/15 ML Soln 30 ML UD Cup PO ONE (10:38)
[2016-06-18] MEDS: Furosemide 20 MG Tab PO SCH (11:10)
[2016-06-18] MEDS: Dronabinol 2.5 MG Cap PO SCH ×2 (11:10→16:10)
[2016-06-18] MEDS: Digoxin 125 MCG Tab PO SCH (11:54)
--- NOTE | 2016-06-18 13:42 | PCM.PN ---
- General Info Date of Service: 06/18/16 Functional Status: Reports: tolerating diet, ambulating, urinating - Review of Systems General: Reports: No Symptoms HEENT: Reports: no symptoms Pulmonary: Reports: no symptoms Cardiovascular: Reports: No Symptoms Gastrointestinal: Reports: No symptoms Genitourinary: Reports: no symptoms Musculoskeletal: Reports: no symptoms Skin: Reports: no symptoms Neurological: Reports: No Symptoms Psychiatric: Reports: no symptoms - Patient Data Vitals - most recent: Last Vital Signs Temp 36.4 C 06/18/16 07:43 Pulse 66 06/18/16 08:14 Resp 12 06/18/16 07:43 BP 128/96 H 06/18/16 08:14 Pulse Ox 94 L 06/18/16 07:43 Weight - most recent: 77.474 kg I&O - last 24 hours: Intake & Output 06/17/16 06/18/16 06/18/16 22:59 06:59 14:59 Intake Total 970 550 210 Output Total 1600 Balance -630 550 210 Lab Results last 24 hrs: Laboratory Results - last 24 hr 06/17/16 06/17/16 06/18/16 Range/Units 17:20 21:49 06:07 WBC (4.23-9.07) K/mm3 RBC (4.63-6.08) M/mm3 Hgb (13.7-17.5) gm/L Hct (40.1-51.0) % MCV (79.0-92.2) fl MCH (25.7-32.2) pg MCHC (32.2-35.5) g/dl RDW Std Deviation (35.1-43.9) fL Plt Count (163-337) K/mm3 MPV (9.4-12.3) fl Neut % (Auto) (34.0-67.9) % Lymph % (Auto) (21.8-53.1) % [place] % (Auto) (5.3-12.2) % Eos % (Auto) (0.8-7.0) Baso % (Auto) (0.1-1.2) % Neut # (Auto) (1.78-5.38) K/mm3 Lymph # (Auto) (1.32-3.57) K/mm3 [place] # (Auto) (0.30-0.82) K/mm3 Eos # (Auto) (0.04-0.54) K/mm3 Baso # (Auto) (0.01-0.08) K/mm3 Sodium (136-145) mEq/L Potassium (3.5-5.1) mEq/L Chloride (98-107) mEq/L Carbon Dioxide (21-32) mEq/L Anion Gap (5-15) BUN (7-18) mg/dL Creatinine (0.7-1.3) mg/dL Est Cr Clr Drug Dosing mL/min Estimated GFR (MDRD) (>60) mL/min BUN/Creatinine Ratio (14-18) Glucose (83-115) mg/dL POC Glucose 156 H 252 H 168 H (83-110) mg/dL Calcium (8.5-10.1) mg/dL 06/18/16 06/18/16 06/18/16 Range/Units 06:33 06:33 11:06 WBC 7.99 (4.23-9.07) K/mm3 RBC 3.89 L (4.63-6.08) M/mm3 Hgb 10.6 L (13.7-17.5) gm/L Hct 33.1 L (40.1-51.0) % MCV 85.1 (79.0-92.2) fl MCH 27.2 (25.7-32.2) pg MCHC 32.0 L (32.2-35.5) g/dl RDW Std Deviation 55.4 H (35.1-43.9) fL Plt Count 180 (163-337) K/mm3 MPV 10.4 (9.4-12.3) fl Neut % (Auto) 72.4 H (34.0-67.9) % Lymph % (Auto) 12.4 L (21.8-53.1) % [place] % (Auto) 11.9 (5.3-12.2) % Eos % (Auto) 2.8 (0.8-7.0) Baso % (Auto) 0.4 (0.1-1.2) % Neut # (Auto) 5.79 H (1.78-5.38) K/mm3 Lymph # (Auto) 0.99 L (1.32-3.57) K/mm3 [place] # (Auto) 0.95 H (0.30-0.82) K/mm3 Eos # (Auto) 0.22 (0.04-0.54) K/mm3 Baso # (Auto) 0.03 (0.01-0.08) K/mm3 Sodium 139 (136-145) mEq/L Potassium 3.6 (3.5-5.1) mEq/L Chloride 102 (98-107) mEq/L Carbon Dioxide 30 (21-32) mEq/L Anion Gap 10.6 (5-15) BUN 13 (7-18) mg/dL Creatinine 1.0 (0.7-1.3) mg/dL Est Cr Clr Drug Dosing 55.43 mL/min Estimated GFR (MDRD) > 60 (>60) mL/min BUN/Creatinine Ratio 13.0 L (14-18) Glucose 181 H (83-115) mg/dL POC Glucose 296 H (83-110) mg/dL Calcium 8.3 L (8.5-10.1) mg/dL Mikael Results last 24 hrs: Microbiology 06/16/16 18:45 Streptococcus pneumoniae Antigen (M - Final Urine - Nasotracheal Med Orders - Current: Current Medications Amiodarone HCl (Cordarone) 200 mg PO DAILY [facility] Last Admin: 06/18/16 08:14 Dose: 200 mg Artificial Tears (Isopto Tears 0.5% Ophth Soln) 0 ml EYEBOTH ASDIRECTED PRN PRN Reason: Dry Eyes Last Admin: 06/17/16 09:27 Dose: 1 drop Aspirin (Halfprin) 81 mg PO DAILY [facility] Last Admin: 06/18/16 08:14 Dose: 81 mg Carvedilol (Coreg) 25 mg PO BID [facility] Last Admin: 06/18/16 08:14 Dose: 25 mg Cholestyramine Resin (Prevalite Packet) 4 gm PO DAILY [facility] Last Admin: 06/18/16 08:11 Dose: 4 gm Dextrose/Water (Dextrose 50% In Water) 50 ml IVPUSH ASDIRECTED PRN PRN Reason: Hypoglycemia Digoxin (Lanoxin) 125 mcg PO DAILY@1200 [facility] Last Admin: 06/18/16 11:54 Dose: Not Given Doxazosin Mesylate (Cardura) 4 mg PO BEDTIME [facility] Last Admin: 06/17/16 21:42 Dose: 4 mg Dronabinol (Marinol) 2.5 mg PO BID@1100,1700 [facility] Last Admin: 06/18/16 11:10 Dose: 2.5 mg Enalapril Maleate (Vasotec) 10 mg PO BID [facility] Last Admin: 06/18/16 08:14 Dose: 10 mg Ferrous Sulfate (Slow Fe) 140 mg PO DAILY [facility] Last Admin: 06/18/16 08:14 Dose: 140 mg Flunisolide (Nasalide Nasal [place]) 0 ml NASBOTH BID [facility] Last Admin: 06/18/16 08:13 Dose: 2 sprays Furosemide (Lasix) 10 mg PO DAILY [facility] Last Admin: 06/18/16 11:10 Dose: 10 mg Piperacillin Sod/Tazobactam (Sod 4.5 gm/ Sodium Chloride) 100 mls @ 25 mls/hr IV Q8H [facility] Last Admin: 06/18/16 08:13 Dose: 25 mls/hr Insulin Aspart (Novolog) 0 unit SUBCUT QIDACANDBED [facility] PRN Reason: Protocol Last Admin: 06/18/16 11:08 Dose: 3 units Latanoprost (Xalatan 0.005% Oph Soln) 0 ml EYEBOTH BEDTIME [facility] Last Admin: 06/17/16 21:40 Dose: 1 drop Pantoprazole Sodium (Protonix) 40 mg PO DAILY@0700 [facility] Last Admin: 06/18/16 06:01 Dose: 40 mg Psyllium Husk (Metamucil Sugar Free) 0.5 packet PO BID [facility] Last Admin: 06/18/16 08:12 Dose: 0.5 packet Quetiapine Fumarate (Seroquel) 25 mg PO BEDTIME [facility] Last Admin: 06/17/16 21:42 Dose: 25 mg Rivaroxaban (Xarelto) 20 mg PO DAILY [facility] Last Admin: 06/18/16 08:13 Dose: 20 mg Simvastatin (Zocor) 40 mg PO BEDTIME [facility] Last Admin: 06/17/16 21:44 Dose: 40 mg Tamsulosin HCl (Flomax) 0.4 mg PO DAILY [facility] Last Admin: 06/18/16 08:13 Dose: 0.4 mg Temazepam (Restoril) 7.5 mg PO BEDTIME PRN PRN Reason: Insomnia Last Admin: 06/17/16 21:42 Dose: 7.5 mg Vit A/Vit C/Vit E/Selen/Cu/Zn/Lutei (Icaps Mv) 1 tab PO DAILY [facility] Last Admin: 06/18/16 08:14 Dose: 1 tab Discontinued Medications Diphtheria/Tetanus/Acell Pertussis (Boostrix) 0.5 ml IM .ONCE ONE Stop: 06/17/16 08:25 Furosemide (Lasix) 40 mg IVPUSH NOW ONE Stop: 06/16/16 08:42 Last Admin: 06/16/16 09:06 Dose: 40 mg Furosemide (Lasix) 40 mg IVPUSH NOW ONE Stop: 06/17/16 08:01 Last Admin: 06/17/16 08:53 Dose: 40 mg Piperacillin Sod/Tazobactam (Sod 4.5 gm/ Sodium Chloride) 100 mls @ 200 mls/hr IV ONETIME ONE Stop: 06/16/16 17:29 Last Admin: 06/16/16 16:45 Dose: 200 mls/hr Piperacillin Sod/Tazobactam (Sod 4.5 gm/ Sodium Chloride) 100 mls @ 25 mls/hr IV Q8H [facility] Last Admin: 06/16/16 18:21 Dose: Not Given Potassium Chloride (Potassium Chloride) 40 meq PO ONETIME ONE Stop: 06/17/16 12:27 Last Admin: 06/17/16 13:25 Dose: 40 meq Potassium Chloride (Potassium Chloride) 40 meq PO ONETIME ONE Stop: 06/18/16 10:39 Last Admin: 06/18/16 11:08 Dose: 40 meq Sodium Chloride (Saline Flush) 10 ml FLUSH ASDIRECTED PRN PRN Reason: Keep Vein Open Last Admin: 06/16/16 08:19 Dose: 10 ml - Exam Quality Assessment: supplemental oxygen, DVT prophylaxis General: alert, oriented, cooperative HEENT: Pupils equal, Pupils reactive Neck: supple, trachea midline Lungs: Normal respiratory effort, Decreased breath sounds Cardiovascular: Regular Rate Abdomen: bowel sounds present, soft, no tenderness, no distension (Male) Exam: Deferred Back Exam: normal inspection Extremities: normal pulses Skin: warm Neurological: no new focal deficit Psy/Mental Status: alert, normal affect, normal mood - Problem List & Annotations (1) Congestive heart failure SNOMED Code(s): 79119729 Code(s): I50.9 - HEART FAILURE, UNSPECIFIED Status: Acute Current Visit: Yes Qualifiers: Congestive heart failure type: combined Congestive heart failure chronicity : acute on chronic Qualified Code(s): I50.43 - Acute on chronic combined systolic (congestive) and diastolic (congestive) heart failure (2) Hypoxia SNOMED Code(s): 655448360, 207016660 Code(s): R09.02 - HYPOXEMIA Status: Acute Current Visit: Yes (3) Pleural effusion SNOMED Code(s): 44135220 Code(s): J90 - PLEURAL EFFUSION, NOT ELSEWHERE CLASSIFIED Status: Acute Current Visit: Yes (4) Dizziness SNOMED Code(s): 505450484, 922846011 Code(s): R42 - DIZZINESS AND GIDDINESS Status: Acute Current Visit: No - Problem List Review Problem List Initiated/Reviewed/Updated: Yes - My Orders Last 24 Hours: My Active Orders 06/18/16 10:45 Furosemide [Lasix] 10 mg PO DAILY 06/19/16 05:00 BASIC METABOLIC PANEL,BMP [CHEM] DAILY CBC WITH AUTO DIFF [HEME] DAILY - Plan Plan:: Impression: History of A fib DHF, likely with poor functional capacity Query dietary restriction non compliance Hypoxia with mild pulmonary congestion/pleural effusion and possible bilateral infiltrates. Chronic HTN Hyperlipidemia Diabetes Mellitus GERD Plan: Continue diuresis, change to oral diuretic Adjust meds to avoid hypotension Empiric treatment for HCAP monotherapy Sliding Scale Novolog DVT/GI prophylaxis Consult SW/PT/OT DC 06/19/16
[2016-06-18] MEDS: Hypromellose 0.5% Ophth Soln 15 ML Bottle EYEBOTH PRN (16:46)
[2016-06-18] MEDS: Doxazosin 4 MG Tab PO SCH (21:27)
[2016-06-18] MEDS: QUEtiapine 25 MG Tab PO SCH (21:27)
[2016-06-18] MEDS: Temazepam 7.5 MG Cap PO PRN (21:27)
[2016-06-18] MEDS: Simvastatin 40 MG Tab PO SCH (21:27)
[2016-06-18] MEDS: Latanoprost 0.005% Ophth Soln 2.5 ML Bottle EYEBOTH SCH (21:28)
[2016-06-19] MEDS: Piperacillin/Tazobactam 4.5 GM in Sodium Chloride 0.9% 100 ML IV SCH ×2 (02:13→08:23)
[2016-06-19] MEDS: Pantoprazole 40 MG Tab.CR PO SCH (06:30)
--- NOTE | 2016-06-19 06:45 | PCM.DCSUM1 ---
<Kaley Knight - Last Filed: 06/19/16 08:54> Discharge Summary - Hospital Course Free Text/Narrative:: 86 year old male with PMH CHF, unknown etiology, will review previous stay at [facility]. He now presents with progressive SOB, this began overnight, but denied PND, orthopnea. The cough has been nonproductive. There has been no chest pain; no recent change in meds or diet. He presented hypoxic which improved with 2 l/m via NC. Saturation improved from 87% to 96%. His CXR showed possible bilateral pleural effusion vs bilateral pneumonia. Hospitalist service is consulted for admission for CHF exacerbation. He is admitted to medical surgical unit with telemetry. Treated for probable early evolving pneumonia with IV zosyn and diuresed with low dose IV lasix, tolerated very well. Hypoxia improved to resolved, weaned off of oxygen and maintaining saturations on room air. Labs improved. Renal function WNL. Chronic anemia is at baseline with hgb of 10.6 at time of discharge. Flu and strep pneumo were negative. He is working with PT/OT doing very well with ambulation, minimal to no SOB/RAMOS. He will be discharged back to [facility] today, he is hopeful to transition to [place] later next week. He will follow up with his PCP, Dr. Choi within 5-7 days of discharge with labs prior, CBC and BMP. - Discharge Data Discharge Date: 06/19/16 (admit date 06/16/16) Discharge Disposition: DC/Tfer to [facility] Condition: Good - Patient Summary/Data Operative Procedure(s) Performed: None Complications: None Consults: Consultations 06/16/16 16:00 Consult to Case Management [CONS] Routine 06/17/16 08:00 PT Evaluation and Treatment [CONS] Routine 06/17/16 09:00 Consult to Occupational Therapy [OT Evaluation and Treatment] [CONS] Routine Labs Pending at D/C: None Recommended Follow-up Testing/Procedures: Fluid restrictions 2000ml/24 hours Patient to ambulate with Nursing 3 times a day per recommendations of Physical Therapy Daily weights and record Follow up with PCP, Dr. Choi within 5-7 days of discharge with labs prior; CBC and BMP Planned Operative Procedure(s) after DC: None Hospital Course: As above - Patient Instructions Diet: Heart Healthy Diet, Diabetic Diet Fluid Restriction: 2000 mL Activity: As Tolerated (ambulate 3-4 times daily with PT) Driving: May Drive Today Showering/Bathing: May Shower Notify Provider of: Fever, Increased Pain, Swelling and Redness, Nausea and/or Vomiting (worsening shortness of breath, chest pains, return of hypoxia) - Discharge Plan Prescriptions/Med Rec: Furosemide [Lasix] 10 mg PO DAILY #30 tablet Home Medications: Home Meds Flunisolide [Nasalide Nasal [place]] 2 spray NASBOTH BID 10/24/13 [History] Melatonin/Pyridoxine HCl (B6) [Melatonin 3 mg Tablet] 3 mg PO DAILY 11/11/14 [ History] metFORMIN HCl [Metformin HCl] 1,000 mg PO DAILY 11/11/14 [History] Lisinopril 40 mg PO DAILY 07/10/15 [History] QUEtiapine Fumarate [Seroquel] 25 mg PO BEDTIME 07/10/15 [History] glipiZIDE [Glucotrol] 10 mg PO BID 07/10/15 [History] Aspirin [Ecotrin] 81 mg PO DAILY 12/19/15 [History] Enalapril [Vasotec] 20 mg PO BID 12/19/15 [History] Hydrochlorothiazide 25 mg PO DAILY 12/25/15 [History] Psyllium with Sucrose [Metamucil] 0.5 packet PO BID 12/25/15 [History] Ferrous Sulfate [Slow Fe] 142 mg PO DAILY 05/14/16 [History] Naproxen Sodium 220 mg PO DAILY 05/14/16 [History] Omeprazole 20 mg PO DAILY 05/14/16 [History] Potassium Chloride 20 meq PO DAILY 05/14/16 [History] Rivaroxaban [Xarelto] 20 mg PO DAILY 05/14/16 [History] Simvastatin [Zocor] 40 mg PO BEDTIME 05/14/16 [History] metFORMIN [Glucophage] 500 mg PO ACDINNER 05/14/16 [History] Cholestyramine/Sucrose [Cholestyramine] 4 gm PO DAILY 05/15/16 [History] Amiodarone [Cordarone] 200 mg PO DAILY #30 tablet 05/22/16 [Rx] Carvedilol [Coreg] 25 mg PO BID #60 tablet 05/22/16 [Rx] Digoxin [Lanoxin] 125 mcg PO DAILY #30 tablet 05/22/16 [Rx] Doxazosin [Cardura] 4 mg PO BEDTIME #30 tablet 05/22/16 [Rx] Dronabinol [Marinol] 2.5 mg PO BIDMEALS #60 cap 05/22/16 [Rx] Magnesium Oxide 400 mg PO BID #60 tablet 05/22/16 [Rx] Bisacodyl 10 mg PO ASDIRECTED PRN 06/16/16 [History] Cholecalciferol (Vitamin D3) [Vitamin D3] 1,000 unit PO DAILY 06/16/16 [History] Lanolin [Lantiseptic] 1 applic TOP BID 06/16/16 [History] Polyvinyl Alcohol/Povidone/Pf [Refresh Classic Eye Drops] 1 drop EYEBOTH ASDIRECTED PRN 06/16/16 [History] Tamsulosin [Flomax] 0.4 mg PO DAILY 06/16/16 [History] Travoprost [Travatan Z] 1 drop EYEBOTH BEDTIME 06/16/16 [History] Vit A,C & E/Lutein/Minerals [Healthy Eyes] 1 tab PO DAILY 06/16/16 [History] Furosemide [Lasix] 10 mg PO DAILY #30 tablet 06/19/16 [Rx] Patient Handouts: Hypoxemia, Heart Failure, [id number] Forms: ED Department Discharge Referrals: Jean Pierre Choi MD [Primary Care Provider] - - Discharge Summary/Plan Comment DC Time >30 min.: Yes (40 min) - General Info Date of Service: 06/19/16 Admission Dx/Problem (Free Text: Doing well; significant improvements noted, minimal SOB/RAMOS. Ambulating in halls yesterday, doing well. Repeat CXR to be done this am prior to discharge Functional Status: Reports: pain controlled, tolerating diet, ambulating, urinating. Denies: new symptoms - Review of Systems General: Reports: No Symptoms HEENT: Reports: no symptoms Pulmonary: Reports: no symptoms. Denies: shortness of breath (minimal to none) , pleuritic chest pain, cough, wheezing Cardiovascular: Reports: No Symptoms. Denies: Chest Pain, Palpitations, Dyspnea on Exertion (minimal to none) Gastrointestinal: Reports: No symptoms Genitourinary: Reports: no symptoms Musculoskeletal: Reports: no symptoms Skin: Reports: no symptoms Neurological: Reports: No Symptoms Psychiatric: Reports: no symptoms - Patient Data Vitals - Most Recent: Last Vital Signs Temp 98.2 F 06/18/16 21:25 Pulse 62 06/18/16 21:26 Resp 18 06/18/16 21:25 BP 149/80 H 06/18/16 21:27 Pulse Ox 94 L 06/18/16 21:25 Weight - Most Recent: 77.474 kg I&O - Last 24 hours: Intake & Output 06/18/16 06/18/16 06/19/16 14:59 22:59 06:59 Intake Total 210 1710 Output Total 450 Balance 210 1260 Lab Results - Last 24 hrs: Laboratory Results - last 24 hr 06/18/16 06/18/16 06/18/16 Range/Units 06:33 06:33 11:06 WBC 7.99 (4.23-9.07) K/mm3 RBC 3.89 L (4.63-6.08) M/mm3 Hgb 10.6 L (13.7-17.5) gm/L Hct 33.1 L (40.1-51.0) % MCV 85.1 (79.0-92.2) fl MCH 27.2 (25.7-32.2) pg MCHC 32.0 L (32.2-35.5) g/dl RDW Std Deviation 55.4 H (35.1-43.9) fL Plt Count 180 (163-337) K/mm3 MPV 10.4 (9.4-12.3) fl Neut % (Auto) 72.4 H (34.0-67.9) % Lymph % (Auto) 12.4 L (21.8-53.1) % Clare % (Auto) 11.9 (5.3-12.2) % Eos % (Auto) 2.8 (0.8-7.0) Baso % (Auto) 0.4 (0.1-1.2) % Neut # (Auto) 5.79 H (1.78-5.38) K/mm3 Lymph # (Auto) 0.99 L (1.32-3.57) K/mm3 Clare # (Auto) 0.95 H (0.30-0.82) K/mm3 Eos # (Auto) 0.22 (0.04-0.54) K/mm3 Baso # (Auto) 0.03 (0.01-0.08) K/mm3 Sodium 139 (136-145) mEq/L Potassium 3.6 (3.5-5.1) mEq/L Chloride 102 (98-107) mEq/L Carbon Dioxide 30 (21-32) mEq/L Anion Gap 10.6 (5-15) BUN 13 (7-18) mg/dL Creatinine 1.0 (0.7-1.3) mg/dL Est Cr Clr Drug Dosing 55.43 mL/min Estimated GFR (MDRD) > 60 (>60) mL/min BUN/Creatinine Ratio 13.0 L (14-18) Glucose 181 H (83-115) mg/dL POC Glucose 296 H (83-110) mg/dL Calcium 8.3 L (8.5-10.1) mg/dL 06/18/16 06/18/16 06/19/16 Range/Units 16:19 21:21 06:29 WBC (4.23-9.07) K/mm3 RBC (4.63-6.08) M/mm3 Hgb (13.7-17.5) gm/L Hct (40.1-51.0) % MCV (79.0-92.2) fl MCH (25.7-32.2) pg MCHC (32.2-35.5) g/dl RDW Std Deviation (35.1-43.9) fL Plt Count (163-337) K/mm3 MPV (9.4-12.3) fl Neut % (Auto) (34.0-67.9) % Lymph % (Auto) (21.8-53.1) % Clare % (Auto) (5.3-12.2) % Eos % (Auto) (0.8-7.0) Baso % (Auto) (0.1-1.2) % Neut # (Auto) (1.78-5.38) K/mm3 Lymph # (Auto) (1.32-3.57) K/mm3 Clare # (Auto) (0.30-0.82) K/mm3 Eos # (Auto) (0.04-0.54) K/mm3 Baso # (Auto) (0.01-0.08) K/mm3 Sodium (136-145) mEq/L Potassium (3.5-5.1) mEq/L Chloride (98-107) mEq/L Carbon Dioxide (21-32) mEq/L Anion Gap (5-15) BUN (7-18) mg/dL Creatinine (0.7-1.3) mg/dL Est Cr Clr Drug Dosing mL/min Estimated GFR (MDRD) (>60) mL/min BUN/Creatinine Ratio (14-18) Glucose (83-115) mg/dL POC Glucose 264 H 220 H 176 H (83-110) mg/dL Calcium (8.5-10.1) mg/dL JOANNE Results - Last 24 hrs: Microbiology 06/16/16 18:45 Streptococcus pneumoniae Antigen (M - Final Urine - Nasotracheal Med Orders - Current: Current Medications Amiodarone HCl (Cordarone) 200 mg PO DAILY [facility] Last Admin: 06/18/16 08:14 Dose: 200 mg Artificial Tears (Isopto Tears 0.5% Ophth Soln) 0 ml EYEBOTH ASDIRECTED PRN PRN Reason: Dry Eyes Last Admin: 06/18/16 16:46 Dose: 1 drop Aspirin (Halfprin) 81 mg PO DAILY [facility] Last Admin: 06/18/16 08:14 Dose: 81 mg Carvedilol (Coreg) 25 mg PO BID [facility] Last Admin: 06/18/16 21:26 Dose: 25 mg Cholestyramine Resin (Prevalite Packet) 4 gm PO DAILY [facility] Last Admin: 06/18/16 08:11 Dose: 4 gm Dextrose/Water (Dextrose 50% In Water) 50 ml IVPUSH ASDIRECTED PRN PRN Reason: Hypoglycemia Digoxin (Lanoxin) 125 mcg PO DAILY@1200 [facility] Last Admin: 06/18/16 11:54 Dose: Not Given Doxazosin Mesylate (Cardura) 4 mg PO BEDTIME [facility] Last Admin: 06/18/16 21:27 Dose: 4 mg Dronabinol (Marinol) 2.5 mg PO BID@1100,1700 [facility] Last Admin: 06/18/16 16:10 Dose: 2.5 mg Enalapril Maleate (Vasotec) 10 mg PO BID [facility] Last Admin: 06/18/16 21:27 Dose: 10 mg Ferrous Sulfate (Slow Fe) 140 mg PO DAILY [facility] Last Admin: 06/18/16 08:14 Dose: 140 mg Flunisolide (Nasalide Nasal [place]) 0 ml NASBOTH BID [facility] Last Admin: 06/18/16 21:28 Dose: 2 sprays Furosemide (Lasix) 10 mg PO DAILY [facility] Last Admin: 06/18/16 11:10 Dose: 10 mg Piperacillin Sod/Tazobactam (Sod 4.5 gm/ Sodium Chloride) 100 mls @ 25 mls/hr IV Q8H [facility] Last Admin: 06/19/16 02:13 Dose: 25 mls/hr Insulin Aspart (Novolog) 0 unit SUBCUT QIDACANDBED [facility] PRN Reason: Protocol Last Admin: 06/18/16 21:27 Dose: 2 units Latanoprost (Xalatan 0.005% [facility] Sol) 0 ml EYEBOTH BEDTIME [facility] Last Admin: 06/18/16 21:28 Dose: 1 drop Pantoprazole Sodium (Protonix) 40 mg PO DAILY@0700 [facility] Last Admin: 06/19/16 06:30 Dose: 40 mg Psyllium Husk (Metamucil Sugar Free) 0.5 packet PO BID [facility] Last Admin: 06/18/16 21:25 Dose: 0.5 packet Quetiapine Fumarate (Seroquel) 25 mg PO BEDTIME [facility] Last Admin: 06/18/16 21:27 Dose: 25 mg Rivaroxaban (Xarelto) 20 mg PO DAILY [facility] Last Admin: 06/18/16 08:13 Dose: 20 mg Simvastatin (Zocor) 40 mg PO BEDTIME [facility] Last Admin: 06/18/16 21:27 Dose: 40 mg Tamsulosin HCl (Flomax) 0.4 mg PO DAILY [facility] Last Admin: 06/18/16 08:13 Dose: 0.4 mg Temazepam (Restoril) 7.5 mg PO BEDTIME PRN PRN Reason: Insomnia Last Admin: 06/18/16 21:27 Dose: 7.5 mg Vit A/Vit C/Vit E/Selen/Cu/Zn/Lutei (Icaps Mv) 1 tab PO DAILY [facility] Last Admin: 06/18/16 08:14 Dose: 1 tab Discontinued Medications Diphtheria/Tetanus/Acell Pertussis (Boostrix) 0.5 ml IM .ONCE ONE Stop: 06/17/16 08:25 Furosemide (Lasix) 40 mg IVPUSH NOW ONE Stop: 06/16/16 08:42 Last Admin: 06/16/16 09:06 Dose: 40 mg Furosemide (Lasix) 40 mg IVPUSH NOW ONE Stop: 06/17/16 08:01 Last Admin: 06/17/16 08:53 Dose: 40 mg Piperacillin Sod/Tazobactam (Sod 4.5 gm/ Sodium Chloride) 100 mls @ 200 mls/hr IV ONETIME ONE Stop: 06/16/16 17:29 Last Admin: 06/16/16 16:45 Dose: 200 mls/hr Piperacillin Sod/Tazobactam (Sod 4.5 gm/ Sodium Chloride) 100 mls @ 25 mls/hr IV Q8H [facility] Last Admin: 06/16/16 18:21 Dose: Not Given Potassium Chloride (Potassium Chloride) 40 meq PO ONETIME ONE Stop: 06/17/16 12:27 Last Admin: 06/17/16 13:25 Dose: 40 meq Potassium Chloride (Potassium Chloride) 40 meq PO ONETIME ONE Stop: 06/18/16 10:39 Last Admin: 06/18/16 11:08 Dose: 40 meq Sodium Chloride (Saline Flush) 10 ml FLUSH ASDIRECTED PRN PRN Reason: Keep Vein Open Last Admin: 06/16/16 08:19 Dose: 10 ml - Exam Quality Assessment: Reports: DVT prophylaxis General: Reports: alert, oriented, cooperative, no acute distress HEENT: Reports: Pupils equal, Pupils reactive, EOMI, Mucous membr. moist/pink Neck: Reports: supple Lungs: Reports: Clear to auscultation, Normal respiratory effort, Decreased breath sounds (to bases), Wheezing (end expiratory, scattered at bases only). Denies: Rales, Rhonchi Cardiovascular: Reports: Irregular Rhythm Abdomen: Reports: bowel sounds present, soft, no tenderness, no distension (Male) Exam: Deferred Rectal (Males) Exam: Deferred Extremities: Reports: no edema, no calf tenderness Skin: Reports: warm, dry, intact Neurological: Reports: no new focal deficit Psy/Mental Status: Reports: alert, normal affect, normal mood *Q Meaningful Use (DIS) - VTE *Q VTE Criteria *Q: - Stroke *Q Stroke Criteria *Q: - AMI *Q AMI Criteria *Q: <Kristal Carrillo M - Last Filed: 06/19/16 09:10> Discharge Summary - Hospital Course Free Text/Narrative:: Agree with the summary above. - Discharge Diagnosis/Problem(s) (1) Congestive heart failure SNOMED Code(s): 54016407 ICD Code: I50.9 - HEART FAILURE, UNSPECIFIED Status: Acute Current Visit : Yes Qualifiers: Congestive heart failure type: combined Congestive heart failure chronicity : acute on chronic Qualified Code(s): I50.43 - Acute on chronic combined systolic (congestive) and diastolic (congestive) heart failure (2) Hypoxia SNOMED Code(s): 108042721, 371769148 ICD Code: R09.02 - HYPOXEMIA Status: Acute Current Visit: Yes (3) Pleural effusion SNOMED Code(s): 32438198 ICD Code: J90 - PLEURAL EFFUSION, NOT ELSEWHERE CLASSIFIED Status: Acute Current Visit: Yes (4) Dizziness SNOMED Code(s): 486344082, 697087919 ICD Code: R42 - DIZZINESS AND GIDDINESS Status: Acute Current Visit: No - Patient Summary/Data Consults: Consultations 06/16/16 16:00 Consult to Case Management [CONS] Routine 06/17/16 08:00 PT Evaluation and Treatment [CONS] Routine 06/17/16 09:00 Consult to Occupational Therapy [OT Evaluation and Treatment] [CONS] Routine - Patient Data Vitals - Most Recent: Last Vital Signs Temp 36.4 C 06/19/16 08:16 Pulse 71 06/19/16 08:22 Resp 16 06/19/16 08:16 BP 169/84 H 06/19/16 08:23 Pulse Ox 94 L 06/19/16 08:16 I&O - Last 24 hours: Intake & Output 06/18/16 06/19/16 06/19/16 22:59 06:59 14:59 Intake Total 1710 600 Output Total 450 550 Balance 1260 50 Lab Results - Last 24 hrs: Laboratory Results - last 24 hr 06/18/16 06/18/16 06/18/16 Range/Units 11:06 16:19 21:21 WBC (4.23-9.07) K/mm3 RBC (4.63-6.08) M/mm3 Hgb (13.7-17.5) gm/L Hct (40.1-51.0) % MCV (79.0-92.2) fl MCH (25.7-32.2) pg MCHC (32.2-35.5) g/dl RDW Std Deviation (35.1-43.9) fL Plt Count (163-337) K/mm3 MPV (9.4-12.3) fl Neut % (Auto) (34.0-67.9) % Lymph % (Auto) (21.8-53.1) % Clare % (Auto) (5.3-12.2) % Eos % (Auto) (0.8-7.0) Baso % (Auto) (0.1-1.2) % Neut # (Auto) (1.78-5.38) K/mm3 Lymph # (Auto) (1.32-3.57) K/mm3 Clare # (Auto) (0.30-0.82) K/mm3 Eos # (Auto) (0.04-0.54) K/mm3 Baso # (Auto) (0.01-0.08) K/mm3 Sodium (136-145) mEq/L Potassium (3.5-5.1) mEq/L Chloride (98-107) mEq/L Carbon Dioxide (21-32) mEq/L Anion Gap (5-15) BUN (7-18) mg/dL Creatinine (0.7-1.3) mg/dL Est Cr Clr Drug Dosing mL/min Estimated GFR (MDRD) (>60) mL/min BUN/Creatinine Ratio (14-18) Glucose (83-115) mg/dL POC Glucose 296 H 264 H 220 H (83-110) mg/dL Calcium (8.5-10.1) mg/dL 06/19/16 06/19/16 06/19/16 Range/Units 06:14 06:14 06:29 WBC 7.81 (4.23-9.07) K/mm3 RBC 3.89 L (4.63-6.08) M/mm3 Hgb 10.6 L (13.7-17.5) gm/L Hct 33.2 L (40.1-51.0) % MCV 85.3 (79.0-92.2) fl MCH 27.2 (25.7-32.2) pg MCHC 31.9 L (32.2-35.5) g/dl RDW Std Deviation 55.3 H (35.1-43.9) fL Plt Count 181 (163-337) K/mm3 MPV 10.4 (9.4-12.3) fl Neut % (Auto) 70.4 H (34.0-67.9) % Lymph % (Auto) 12.2 L (21.8-53.1) % Clare % (Auto) 12.7 H (5.3-12.2) % Eos % (Auto) 4.1 (0.8-7.0) Baso % (Auto) 0.3 (0.1-1.2) % Neut # (Auto) 5.51 H (1.78-5.38) K/mm3 Lymph # (Auto) 0.95 L (1.32-3.57) K/mm3 Clare # (Auto) 0.99 H (0.30-0.82) K/mm3 Eos # (Auto) 0.32 (0.04-0.54) K/mm3 Baso # (Auto) 0.02 (0.01-0.08) K/mm3 Sodium 140 (136-145) mEq/L Potassium 3.6 (3.5-5.1) mEq/L Chloride 104 (98-107) mEq/L Carbon Dioxide 31 (21-32) mEq/L Anion Gap 8.6 (5-15) BUN 12 (7-18) mg/dL Creatinine 0.9 (0.7-1.3) mg/dL Est Cr Clr Drug Dosing 61.59 mL/min Estimated GFR (MDRD) > 60 (>60) mL/min BUN/Creatinine Ratio 13.3 L (14-18) Glucose 188 H (83-115) mg/dL POC Glucose 176 H (83-110) mg/dL Calcium 8.1 L (8.5-10.1) mg/dL JOANNE Results - Last 24 hrs: Microbiology 06/16/16 18:45 Streptococcus pneumoniae Antigen (M - Final Urine - Nasotracheal Med Orders - Current: Current Medications Amiodarone HCl (Cordarone) 200 mg PO DAILY [facility] Last Admin: 06/19/16 08:22 Dose: 200 mg Artificial Tears (Isopto Tears 0.5% Ophth Soln) 0 ml EYEBOTH ASDIRECTED PRN PRN Reason: Dry Eyes Last Admin: 06/18/16 16:46 Dose: 1 drop Aspirin (Halfprin) 81 mg PO DAILY [facility] Last Admin: 06/19/16 08:22 Dose: 81 mg Carvedilol (Coreg) 25 mg PO BID [facility] Last Admin: 06/19/16 08:22 Dose: 25 mg Cholestyramine Resin (Prevalite Packet) 4 gm PO DAILY [facility] Last Admin: 06/19/16 08:20 Dose: 4 gm Dextrose/Water (Dextrose 50% In Water) 50 ml IVPUSH ASDIRECTED PRN PRN Reason: Hypoglycemia Digoxin (Lanoxin) 125 mcg PO DAILY@1200 [facility] Last Admin: 06/18/16 11:54 Dose: Not Given Doxazosin Mesylate (Cardura) 4 mg PO BEDTIME [facility] Last Admin: 06/18/16 21:27 Dose: 4 mg Dronabinol (Marinol) 2.5 mg PO BID@1100,1700 [facility] Last Admin: 06/18/16 16:10 Dose: 2.5 mg Enalapril Maleate (Vasotec) 10 mg PO BID [facility] Last Admin: 06/19/16 08:23 Dose: 10 mg Ferrous Sulfate (Slow Fe) 140 mg PO DAILY [facility] Last Admin: 06/19/16 08:21 Dose: 140 mg Flunisolide (Nasalide Nasal [place]) 0 ml NASBOTH BID [facility] Last Admin: 06/19/16 08:19 Dose: 2 sprays Furosemide (Lasix) 10 mg PO DAILY [facility] Last Admin: 06/19/16 08:23 Dose: 10 mg Piperacillin Sod/Tazobactam (Sod 4.5 gm/ Sodium Chloride) 100 mls @ 25 mls/hr IV Q8H [facility] Last Admin: 06/19/16 08:23 Dose: 25 mls/hr Insulin Aspart (Novolog) 0 unit SUBCUT QIDACANDBED [facility] PRN Reason: Protocol Last Admin: 06/19/16 08:20 Dose: 1 units Latanoprost (Xalatan 0.005% Ophth Soln) 0 ml EYEBOTH BEDTIME [facility] Last Admin: 06/18/16 21:28 Dose: 1 drop Pantoprazole Sodium (Protonix) 40 mg PO DAILY@0700 [facility] Last Admin: 06/19/16 06:30 Dose: 40 mg Psyllium Husk (Metamucil Sugar Free) 0.5 packet PO BID [facility] Last Admin: 06/19/16 08:20 Dose: 0.5 packet Quetiapine Fumarate (Seroquel) 25 mg PO BEDTIME [facility] Last Admin: 06/18/16 21:27 Dose: 25 mg Rivaroxaban (Xarelto) 20 mg PO DAILY [facility] Last Admin: 06/19/16 08:21 Dose: 20 mg Simvastatin (Zocor) 40 mg PO BEDTIME [facility] Last Admin: 06/18/16 21:27 Dose: 40 mg Tamsulosin HCl (Flomax) 0.4 mg PO DAILY [facility] Last Admin: 06/19/16 08:21 Dose: 0.4 mg Temazepam (Restoril) 7.5 mg PO BEDTIME PRN PRN Reason: Insomnia Last Admin: 06/18/16 21:27 Dose: 7.5 mg Vit A/Vit C/Vit E/Selen/Cu/Zn/Lutei (Icaps Mv) 1 tab PO DAILY [facility] Last Admin: 06/19/16 08:21 Dose: 1 tab Discontinued Medications Diphtheria/Tetanus/Acell Pertussis (Boostrix) 0.5 ml IM .ONCE ONE Stop: 06/17/16 08:25 Furosemide (Lasix) 40 mg IVPUSH NOW ONE Stop: 06/16/16 08:42 Last Admin: 06/16/16 09:06 Dose: 40 mg Furosemide (Lasix) 40 mg IVPUSH NOW ONE Stop: 06/17/16 08:01 Last Admin: 06/17/16 08:53 Dose: 40 mg Piperacillin Sod/Tazobactam (Sod 4.5 gm/ Sodium Chloride) 100 mls @ 200 mls/hr IV ONETIME ONE Stop: 06/16/16 17:29 Last Admin: 06/16/16 16:45 Dose: 200 mls/hr Piperacillin Sod/Tazobactam (Sod 4.5 gm/ Sodium Chloride) 100 mls @ 25 mls/hr IV Q8H [facility] Last Admin: 06/16/16 18:21 Dose: Not Given Potassium Chloride (Potassium Chloride) 40 meq PO ONETIME ONE Stop: 06/17/16 12:27 Last Admin: 06/17/16 13:25 Dose: 40 meq Potassium Chloride (Potassium Chloride) 40 meq PO ONETIME ONE Stop: 06/18/16 10:39 Last Admin: 06/18/16 11:08 Dose: 40 meq Sodium Chloride (Saline Flush) 10 ml FLUSH ASDIRECTED PRN PRN Reason: Keep Vein Open Last Admin: 06/16/16 08:19 Dose: 10 ml *Q Meaningful Use (DIS) - VTE *Q VTE Criteria *Q: - Stroke *Q Stroke Criteria *Q: - AMI *Q AMI Criteria *Q:
[2016-06-19] MEDS: Cholestyramine/Aspartame Powder 4 GM Packet PO SCH (08:20)
[2016-06-19] MEDS: Insulin Aspart 100 Units/ML 3 ML Pen SUBCUT SCH ×2 (08:20→11:46)
[2016-06-19] MEDS: Psyllium Husk Powder Sugar Free 3.4 GM Packet PO SCH (08:20)
[2016-06-19] MEDS: Multivitamins with Minerals/Folic Acid/Lutein/Zeaxanth Tab PO SCH (08:21)
[2016-06-19] MEDS: Rivaroxaban 10 MG Tab PO SCH (08:21)
[2016-06-19] MEDS: Tamsulosin 0.4 MG Cap.ER PO SCH (08:21)
[2016-06-19] MEDS: Ferrous Sulfate 140 MG Tab PO SCH (08:21)
[2016-06-19] MEDS: Amiodarone 200 MG Tab PO SCH (08:22)
[2016-06-19] MEDS: Aspirin 81 MG Tab.EC PO SCH (08:22)
[2016-06-19] MEDS: Carvedilol 12.5 MG Tab PO SCH (08:22)
[2016-06-19] MEDS: Furosemide 20 MG Tab PO SCH (08:23)
--- NOTE | 2016-06-19 10:26 | CR ---
Chest: Two views of the chest are obtained. Comparison: Previous chest x-ray of 06/16/16. Decreasing parenchymal densities are seen within both lungs. Small to moderate sized bilateral pleural effusions are seen. Upper lungs are clear. Heart size and mediastinum are normal. Degenerative spurring is noted within the spine. Impression: 1. Decreasing parenchymal densities within both lung bases with persisting small to moderate sized pleural effusions. Diagnostic code #3
[2016-06-19] MEDS: Dronabinol 2.5 MG Cap PO SCH (11:47)
[2016-06-19] MEDS: Digoxin 125 MCG Tab PO SCH (12:01)
[2016-06-19 13:40] VITALS: BP 139/61
== END 2016-06-19 13:55 | DRG 291 ==
LOC: JD.ED 07:41 → SUPCPDRO 07:41 → JD.MS 10:00
PROVIDERS: ADMIT Internal Medicine Cardiovascular Disease; ATTEND Internal Medicine Cardiovascular Disease
DX: I11.0 Hypertensive heart disease with heart failure (principal); J18.9 Pneumonia, unspecified organism; I50.43 Acute on chronic combined systolic (congestive) and diastolic (congestive) heart failure; R09.02 Hypoxemia; R42 Dizziness and giddiness; I48.91 Unspecified atrial fibrillation; E78.5 Hyperlipidemia, unspecified; E10.9 Type 1 diabetes mellitus without complications; Z79.84 Long term (current) use of oral hypoglycemic drugs; K21.9 Gastro-esophageal reflux disease without esophagitis; D64.9 Anemia, unspecified; K52.9 Noninfective gastroenteritis and colitis, unspecified; R13.10 Dysphagia, unspecified; M19.90 Unspecified osteoarthritis, unspecified site; H40.9 Unspecified glaucoma; H35.30 Unspecified macular degeneration; Z79.01 Long term (current) use of anticoagulants; Z79.82 Long term (current) use of aspirin; Z79.899 Other long term (current) drug therapy
CPT/HCPCS: 36415; 71010; 80053; 83880; 84484; 85025; 86140; 93005; 96374; 99285; J1940; J7050; 71020; 71020-26; 80048; 80162; 81001; 82962; 86738; 87641; 87804; 87899; 94761; 97161-GP; 97165-GO; 99284; A9270-GY; J1815-GY; J2543; J7030; Q0167

== ENCOUNTER 2016-11-23 19:14 | Emergency (ER) | payer MEDICARE, BC ==
[2016-11-23 19:31] VITALS: BP 123/78
[2016-11-23] MEDS ORDERED: Oxymetazoline 0.05% Nasal Spray 15 ML Bottle NAS ONE (20:05)
[2016-11-23] MEDS ORDERED: Acetaminophen/HYDROcodone 325-5 MG Tab PO ONE (21:19)
--- NOTE | 2016-11-23 22:16 | EDM.PDOC ---
ED HPI GENERAL MEDICAL PROBLEM - General Chief Complaint: ENT Problem Stated Complaint: NOSE BLEED Time Seen by Provider: 11/23/16 19:55 Source of Information: Reports: Patient, Detention Records History Limitations: Reports: No Limitations - History of Present Illness INITIAL COMMENTS - FREE TEXT/NARRATIVE: 86-year-old male presents from [facility] for evaluation treatment of a nosebleed to the right nare. Reportedly the nosebleed began around 1500 today. He has been unable to control nosebleed. Patient is currently on xeralto and an 81 mg aspirin daily. Denies any trauma to the nose. Patient reports that he has had frequent nosebleeds for the last month. Has been averaging about 1 nosebleed every 3 days. States they normally last about 30-45 minutes. He has not had to present to the ER for these nosebleeds thus far. He denies any nausea , vomiting, lightheadedness, dizziness or syncope. - Related Data Allergies Allergy/AdvReac Type Severity Reaction Status Date / Time No Known Allergies Allergy Verified 06/16/16 08:01 Home Meds: Home Meds Flunisolide [Nasalide Nasal [place]] 2 spray NASBOTH BID 10/24/13 [History] Melatonin/Pyridoxine HCl (B6) [Melatonin 3 mg Tablet] 3 mg PO DAILY 11/11/14 [ History] metFORMIN HCl [Metformin HCl] 1,000 mg PO DAILY 11/11/14 [History] Lisinopril 40 mg PO DAILY 07/10/15 [History] QUEtiapine Fumarate [Seroquel] 25 mg PO BEDTIME 07/10/15 [History] glipiZIDE [Glucotrol] 10 mg PO BID 07/10/15 [History] Aspirin [Ecotrin] 81 mg PO DAILY 12/19/15 [History] Enalapril [Vasotec] 20 mg PO BID 12/19/15 [History] Hydrochlorothiazide 25 mg PO DAILY 12/25/15 [History] Psyllium with Sucrose [Metamucil] 0.5 packet PO BID 12/25/15 [History] Ferrous Sulfate [Slow Fe] 142 mg PO DAILY 05/14/16 [History] Naproxen Sodium 220 mg PO DAILY 05/14/16 [History] Omeprazole 20 mg PO DAILY 05/14/16 [History] Potassium Chloride 20 meq PO DAILY 05/14/16 [History] Rivaroxaban [Xarelto] 20 mg PO DAILY 05/14/16 [History] Simvastatin [Zocor] 40 mg PO BEDTIME 05/14/16 [History] metFORMIN [Glucophage] 500 mg PO ACDINNER 05/14/16 [History] Cholestyramine/Sucrose [Cholestyramine] 4 gm PO DAILY 05/15/16 [History] Amiodarone [Cordarone] 200 mg PO DAILY #30 tablet 05/22/16 [Rx] Carvedilol [Coreg] 25 mg PO BID #60 tablet 05/22/16 [Rx] Digoxin [Lanoxin] 125 mcg PO DAILY #30 tablet 05/22/16 [Rx] Doxazosin [Cardura] 4 mg PO BEDTIME #30 tablet 05/22/16 [Rx] Dronabinol [Marinol] 2.5 mg PO BIDMEALS #60 cap 05/22/16 [Rx] Magnesium Oxide 400 mg PO BID #60 tablet 05/22/16 [Rx] Bisacodyl 10 mg PO ASDIRECTED PRN 06/16/16 [History] Cholecalciferol (Vitamin D3) [Vitamin D3] 1,000 unit PO DAILY 06/16/16 [History] Lanolin [Lantiseptic] 1 applic TOP BID 06/16/16 [History] Polyvinyl Alcohol/Povidone/Pf [Refresh Classic Eye Drops] 1 drop EYEBOTH ASDIRECTED PRN 06/16/16 [History] Tamsulosin [Flomax] 0.4 mg PO DAILY 06/16/16 [History] Travoprost [Travatan Z] 1 drop EYEBOTH BEDTIME 06/16/16 [History] Vit A,C & E/Lutein/Minerals [Healthy Eyes] 1 tab PO DAILY 06/16/16 [History] Furosemide [Lasix] 10 mg PO DAILY #30 tablet 06/19/16 [Rx] Acetaminophen/HYDROcodone [[place] 325-5 MG] 1 tab PO Q6H #5 tablet 11/23/16 [Rx] Cephalexin 500 mg PO BID #9 capsule 11/23/16 [Rx] Past Medical History HEENT History: Reports: Glaucoma, Impaired Vision, Macular Degeneration, Other ( See Below) Other HEENT History: wears glasses, cannot hear or see from right side. Cardiovascular History: Reports: Afib, Aneurysm, Arrhythmia, Hypertension, Other (See Below) Other Cardiovascular History: ventricular tachycardia Respiratory History: Reports: None, Other (See Below) Other Respiratory History: had pneumonia 2 weeks ago, now admitted for CHF. Gastrointestinal History: Reports: GERD, Other (See Below) Other Gastrointestinal History: hematochezia, melena, dysphagia Genitourinary History: Reports: Other (See Below) Other Genitourinary History: polyuria Musculoskeletal History: Reports: Arthritis, Osteoarthritis Other Musculoskeletal History: contractures of the fingers Endocrine/Metabolic History: Reports: Diabetes, Type I Hematologic History: Reports: Anemia - Infectious Disease History Infectious Disease History: Reports: Chicken Pox, Influenza, Measles - Past Surgical History HEENT Surgical History: Reports: Cataract Surgery, Laser Surgery Social & Family History - Family History Family Medical History: Noncontributory - Tobacco Use Smoking Status *Q: Unknown Ever Smoked Years of Tobacco use: 5 Used Tobacco, but Quit: Yes Month Tobacco Last Used: 60 years ago Second Hand Smoke Exposure: No - Caffeine Use Caffeine Use: Reports: Coffee Other Caffeine Use: 2 cups in am and tea at night - Alcohol Use Days Per Week of Alcohol Use: 0 Number of Drinks Per Day: 0 Total Drinks Per Week: 0 - Recreational Drug Use Recreational Drug Use: No Drug Use in Last 12 Months: No ED ROS ENT - Review of Systems Review Of Systems: See Below HEENT: Reports: Nosebleed (right nare) GI/Abdominal: Denies: Nausea, Vomiting Neurological: Denies: Dizziness, Syncope ED EXAM, ENT - Physical Exam Exam: See Below Exam Limited By: No Limitations General Appearance: Alert, WD/WN, No Apparent Distress Nose: Septal Hematoma, Dried Blood (right nare). No: Active Bleeding Mouth/Throat: Normal Inspection, Normal Gums, Normal Lips, Normal Oropharynx Respiratory/Chest: No Respiratory Distress Neurological: Alert Psychiatric: Normal Affect, Normal Mood Skin: Warm, Dry, Normal Color ED ENT PROCEDURES - Epistaxis Procedure Indication: Epistaxis Recent anticoagulants/antiplatlets: Yes Uncontrolled HTN: No Recent septal/nasal surgery: No Site of bleeding: Right Nare Clearing of clots: Patient Blew Nose Anterior Packing: Inflatable Nasal Tampon (initally a 5.5 cm tampon then a 7.5 tampon) Complications: Yes (inital 5.5 cm tampon unsuccessful) Course - Vital Signs Last Recorded V/S: Last Vital Signs Temp 36.9 C 11/23/16 19:29 Pulse 83 11/23/16 19:29 Resp 18 11/23/16 19:29 BP 123/78 11/23/16 19:29 Pulse Ox 96 11/23/16 19:29 - Orders/Labs/Meds Labs: Laboratory Tests 11/23/16 11/23/16 Range/Units 20:30 20:30 WBC 7.36 (4.23-9.07) K/mm3 RBC 3.50 L (4.63-6.08) M/mm3 Hgb 9.3 L (13.7-17.5) gm/L Hct 28.3 L (40.1-51.0) % MCV 80.9 (79.0-92.2) fl MCH 26.6 (25.7-32.2) pg MCHC 32.9 (32.2-35.5) g/dl RDW Std Deviation 50.1 H (35.1-43.9) fL Plt Count 227 (163-337) K/mm3 MPV 9.2 L (9.4-12.3) fl Neut % (Auto) 68.6 H (34.0-67.9) % Lymph % (Auto) 13.3 L (21.8-53.1) % [place] % (Auto) 17.8 H (5.3-12.2) % Eos % (Auto) 0 L (0.8-7.0) Baso % (Auto) 0.0 L (0.1-1.2) % Neut # (Auto) 5.05 (1.78-5.38) K/mm3 Lymph # (Auto) 0.98 L (1.32-3.57) K/mm3 [place] # (Auto) 1.31 H (0.30-0.82) K/mm3 Eos # (Auto) 0.00 L (0.04-0.54) K/mm3 Baso # (Auto) 0.00 L (0.01-0.08) K/mm3 Manual Slide Review Abnormal smear PT 17.2 H (8.0-13.0) SECONDS INR 1.54 APTT 38 H (22-36) SECONDS Meds: Medications Discontinued Medications Generic Name Dose Route Start Last Admin Trade Name Freq PRN Reason Stop Dose Admin Hydrocodone Bitart/Acetaminophen 1 tab 11/23/16 21:19 11/23/16 21:31 [place] 325-5 Mg PO 11/23/16 21:20 1 tab ONETIME ONE Administration Cephalexin 500 mg 11/23/16 22:33 11/23/16 22:44 Keflex PO 11/23/16 22:34 500 mg ONETIME ONE Administration Oxymetazoline HCl 1 ml 11/23/16 20:05 11/23/16 20:14 Afrin Original 0.05% Nasal [place] DUARTE 11/23/16 20:06 1 ml ONETIME ONE Administration - Re-Assessments/Exams Free Text/Narrative Re-Assessment/Exam: 11/23/16 22:43 Upon presentation to the ER the bleeding had subsided. I inspected the right near was not able to identify any obvious source of bleeding. I had the patient blow and remove clots but the bleed and the bleeding did not restart. The patient continued to dab at his nose and insisted that he was bleeding. I was only able to appreciate that he was removing some of the leftover blood from the bleed earlier. He was not spitting up any blood or had any blood going down his throat. I then had nursing staff to give him 2 sprays of Afrin nasal spray to the right near to help vasoconstrict. Decided to go ahead and check lab work. His hemoglobin is currently down to 9.3. He is to follow-up with his primary care provider. I encouraged him to discuss this further with him. During the patient's ER stay he continued to Dab at his nose. The bleeding ultimately restarted to the right near. I they gave him one [place] around 2200 for pain relief in anticipation of packing with a nasal tampon. A 5.5 cm nasal tampon was soaked in sterile water and applied to the right near. I then inflated the balloon with about 5 mL of air. art bleedign stopped. The patient continued to Dab at the balloon. bleeding then restarted around the nasal tampon. i asked Dr. Sheth to assist due to inability to control the bleeding. We then decided to place a 7.5 cm nasal tampon. The balloon was again soaked in sterile water. The nasal tampon was inserted and inflated with 4 mL of air. I checked on the patient about 10 minutes later and inflated with an additional 4 mL. He overall tolerated this well. Bleeding was controlled with the 7.5 cm nasal tampon. I will discharge him back to [facility] at this time. Given a pack of [place] 5- 325 one tab every 6 hours for pain. He was also given a 500 mg cephalexin here in the ER. Perception given for 5 days that he may start tomorrow. He is instructed to follow-up with his primary care provider tomorrow as planned for removal of the nasal tampon. Departure - Departure Time of Disposition: 22:50 Disposition: DC/Tfer to [facility] 62 Condition: Good Clinical Impression: Epistaxis not due to trauma - Discharge Information Prescriptions: Acetaminophen/HYDROcodone [[place] 325-5 MG] 1 tab PO Q6H #5 tablet Cephalexin 500 mg PO BID #9 capsule Instructions: Nosebleed, [id number] Referrals: Jean Pierre Choi MD [Primary Care Provider] - Vern Cabezas MD [Ordering Only Provider] - Forms: ED Department Discharge Additional Instructions: Follow-up with Dr. Li tomorrow as planned. You likely have the Rhino Rocket removed tomorrow. Recommend that it be placed for only 24-48 hours. Follow-up with Dr. Li about your anemia. Her hemoglobin was 9.3 in the ER tonight. Follow-up with ear nose and throat. Recommend Dr. Cabezas. Call [phone] to schedule with him 1 tab every 6 hours. This is for pain. Cephalexin 1 tab twice a day for 5 days. Her first dose was given in the ER. Stereo prescription tomorrow. Please return to the ER if your symptoms change or worsen.
[2016-11-23] MEDS ORDERED: Cephalexin 500 MG Cap PO ONE (22:33)
[2016-11-23] MEDS ORDERED: Acetaminophen/HYDROcodone 325-5 MG Tab ONE (22:54)
== END 2016-11-23 23:02 ==
LOC: JD.ED 19:14
DX: R04.0 Epistaxis (principal); I10 Essential (primary) hypertension; K21.9 Gastro-esophageal reflux disease without esophagitis; M19.90 Unspecified osteoarthritis, unspecified site; E10.9 Type 1 diabetes mellitus without complications; Z79.84 Long term (current) use of oral hypoglycemic drugs; Z79.82 Long term (current) use of aspirin; Z79.899 Other long term (current) drug therapy; Z79.02 Long term (current) use of antithrombotics/antiplatelets; Z86.2 Personal history of diseases of the blood and blood-forming organs and certain disorders involving the immune mechanism
CPT/HCPCS: 30903; 36415; 85025; 85610; 85730; 99284; A9270; 99283

== ENCOUNTER 2016-11-26 12:10 | Emergency (ER) | payer MEDICARE, BC ==
[2016-11-26 12:15] VITALS: BP 122/52
[2016-11-26] MEDS ORDERED: Oxymetazoline 0.05% Nasal Spray 15 ML Bottle NAS ONE (12:27)
[2016-11-26] MEDS ORDERED: LORazepam 1 MG Tab PO ONE (12:27)
--- NOTE | 2016-11-26 12:27 | EDM.PDOC ---
ED HPI GENERAL MEDICAL PROBLEM - General Chief Complaint: ENT Problem Stated Complaint: [facility] Time Seen by Provider: 11/26/16 12:26 Source of Information: Reports: Patient History Limitations: Reports: No Limitations - History of Present Illness INITIAL COMMENTS - FREE TEXT/NARRATIVE: 86-year-old male presents from [facility] for evaluation treatment of epistaxis. Reports this current nosebleed started around 11 AM today. Nosebleed is from the right nare. Patient was seen in the ER on November 23. Upon initial presentation in the ER his nosebleed had subsided. He was seen by myself. He then continued to wipe his nose and consequently a nosebleed started on the ER. We then decided to pack with a Rhino Rocket. He is initially packed with a 5.5 cm Rhino Rocket which did not stop the bleeding. He was then packed with a 7.5 cm Rhino Rocket which allowed the bleeding to stop. Patient was seen on Thursday by his primary care provider. He was then seen by ear, nose and throat on Thursday. It sounds like cautery was done and a dissolvable bandage was placed. He's now been taken off his xeralto also aspirin for the next 4 days. - Related Data Allergies Allergy/AdvReac Type Severity Reaction Status Date / Time No Known Allergies Allergy Verified 11/26/16 12:16 Home Meds: Home Meds Flunisolide [Nasalide Nasal [place]] 2 spray NASBOTH BID 10/24/13 [History] Melatonin/Pyridoxine HCl (B6) [Melatonin 3 mg Tablet] 3 mg PO DAILY 11/11/14 [ History] metFORMIN HCl [Metformin HCl] 1,000 mg PO DAILY 11/11/14 [History] Lisinopril 40 mg PO DAILY 07/10/15 [History] QUEtiapine Fumarate [Seroquel] 25 mg PO BEDTIME 07/10/15 [History] glipiZIDE [Glucotrol] 10 mg PO BID 07/10/15 [History] Aspirin [Ecotrin] 81 mg PO DAILY 12/19/15 [History] Enalapril [Vasotec] 20 mg PO BID 12/19/15 [History] Hydrochlorothiazide 25 mg PO DAILY 12/25/15 [History] Psyllium with Sucrose [Metamucil] 0.5 packet PO BID 12/25/15 [History] Ferrous Sulfate [Slow Fe] 142 mg PO DAILY 05/14/16 [History] Naproxen Sodium 220 mg PO DAILY 05/14/16 [History] Omeprazole 20 mg PO DAILY 05/14/16 [History] Potassium Chloride 20 meq PO DAILY 05/14/16 [History] Rivaroxaban [Xarelto] 20 mg PO DAILY 05/14/16 [History] Simvastatin [Zocor] 40 mg PO BEDTIME 05/14/16 [History] metFORMIN [Glucophage] 500 mg PO ACDINNER 05/14/16 [History] Cholestyramine/Sucrose [Cholestyramine] 4 gm PO DAILY 05/15/16 [History] Amiodarone [Cordarone] 200 mg PO DAILY #30 tablet 05/22/16 [Rx] Carvedilol [Coreg] 25 mg PO BID #60 tablet 05/22/16 [Rx] Digoxin [Lanoxin] 125 mcg PO DAILY #30 tablet 05/22/16 [Rx] Doxazosin [Cardura] 4 mg PO BEDTIME #30 tablet 05/22/16 [Rx] Dronabinol [Marinol] 2.5 mg PO BIDMEALS #60 cap 05/22/16 [Rx] Magnesium Oxide 400 mg PO BID #60 tablet 05/22/16 [Rx] Bisacodyl 10 mg PO ASDIRECTED PRN 06/16/16 [History] Cholecalciferol (Vitamin D3) [Vitamin D3] 1,000 unit PO DAILY 06/16/16 [History] Lanolin [Lantiseptic] 1 applic TOP BID 06/16/16 [History] Polyvinyl Alcohol/Povidone/Pf [Refresh Classic Eye Drops] 1 drop EYEBOTH ASDIRECTED PRN 06/16/16 [History] Tamsulosin [Flomax] 0.4 mg PO DAILY 06/16/16 [History] Travoprost [Travatan Z] 1 drop EYEBOTH BEDTIME 06/16/16 [History] Vit A,C & E/Lutein/Minerals [Healthy Eyes] 1 tab PO DAILY 06/16/16 [History] Furosemide [Lasix] 10 mg PO DAILY #30 tablet 06/19/16 [Rx] Acetaminophen/HYDROcodone [[place] 325-5 MG] 1 tab PO Q6H #5 tablet 11/23/16 [Rx] Cephalexin 500 mg PO BID #9 capsule 11/23/16 [Rx] LORazepam [Ativan] 1 mg PO Q6H #20 tablet 11/26/16 [Rx] Past Medical History HEENT History: Reports: Glaucoma, Impaired Vision, Macular Degeneration, Other ( See Below) Other HEENT History: wears glasses, cannot hear or see from right side. Cardiovascular History: Reports: Afib, Aneurysm, Arrhythmia, Hypertension, Other (See Below) Other Cardiovascular History: ventricular tachycardia Respiratory History: Reports: None, Other (See Below) Other Respiratory History: had pneumonia 2 weeks ago, now admitted for CHF. Gastrointestinal History: Reports: GERD, Other (See Below) Other Gastrointestinal History: hematochezia, melena, dysphagia Genitourinary History: Reports: Other (See Below) Other Genitourinary History: polyuria Musculoskeletal History: Reports: Arthritis, Osteoarthritis Other Musculoskeletal History: contractures of the fingers Endocrine/Metabolic History: Reports: Diabetes, Type I Hematologic History: Reports: Anemia - Infectious Disease History Infectious Disease History: Reports: Chicken Pox, Influenza, Measles - Past Surgical History HEENT Surgical History: Reports: Cataract Surgery, Laser Surgery Social & Family History - Family History Family Medical History: Noncontributory - Tobacco Use Smoking Status *Q: Unknown Ever Smoked Years of Tobacco use: 5 Used Tobacco, but Quit: Yes Month Tobacco Last Used: 60 years ago Second Hand Smoke Exposure: No - Caffeine Use Caffeine Use: Reports: Coffee Other Caffeine Use: 2 cups in am and tea at night - Alcohol Use Days Per Week of Alcohol Use: 0 Number of Drinks Per Day: 0 Total Drinks Per Week: 0 - Recreational Drug Use Recreational Drug Use: No Drug Use in Last 12 Months: No ED ROS ENT - Review of Systems Review Of Systems: See Below HEENT: Reports: Nosebleed (right nare) ED EXAM, ENT - Physical Exam Exam: See Below Exam Limited By: No Limitations General Appearance: Alert, WD/WN, No Apparent Distress Nose: Active Bleeding (minimal at time of arrival; large clot at the right nare) Respiratory/Chest: No Respiratory Distress Neurological: Alert, Oriented Psychiatric: Normal Affect, Normal Mood Skin: Warm, Dry, Normal Color Course - Vital Signs Last Recorded V/S: Last Vital Signs Temp 37.2 C 11/26/16 12:11 Pulse 70 11/26/16 12:11 Resp 16 11/26/16 12:11 BP 122/52 L 11/26/16 12:11 Pulse Ox 99 11/26/16 12:11 - Orders/Labs/Meds Meds: Medications Discontinued Medications Generic Name Dose Route Start Last Admin Trade Name Sandra PRN Reason Stop Dose Admin Lorazepam 1 mg 11/26/16 12:27 11/26/16 12:46 Ativan PO 11/26/16 12:28 1 mg ONETIME ONE Administration Oxymetazoline HCl 1 ml 11/26/16 12:27 11/26/16 12:46 Afrin Original 0.05% Nasal [place] DUARTE 11/26/16 12:28 2 sprays ONETIME ONE Administration - Re-Assessments/Exams Free Text/Narrative Re-Assessment/Exam: 11/26/16 12:36 When the patient presented to the ER he had minimal bleeding from the right narw. Large clot present in the right naer. I removed the clot by gently pulling it from the nare wtih gauze. Patient tolerated this well. The bleeding at this point has stopped. Discussed this case with Dr. Escobedo, shared that the patient on Thursday and was difficult to control at that time. He recommended starting with Afrin nasal spray, pressure and Ativan. 11/26/16 14:41 Patient is currently sleeping at this time. He had a small trickle of blood that came from the right near but is dry. No active bleeding for the last hour and half. 11/26/16 15:51 The patient did wake up and rubbed his nose again. He did have a nosebleed evident by dripping from the right near. I applied pressure for about 2 minutes which subsided the nosebleed. [facility] I'll prescribe him some Ativan. The only intervention I feel is needed at this time is he is to leave the nose alone so can heal. I'm concerned that he continues to rub the nose and this dislodges the clot that is forming. Discharge instructions as documented. Departure - Departure Time of Disposition: 15:39 Disposition: Home, Self-Care 01 Condition: Fair Clinical Impression: Epistaxis not due to trauma - Discharge Information Prescriptions: LORazepam [Ativan] 1 mg PO Q6H #20 tablet Instructions: Nosebleed, [id number] Referrals: Jean Pierre Choi MD [Primary Care Provider] - Forms: ED Department Discharge Additional Instructions: Ativan 1 tablet every 6 hours. Follow up with ear nose and throat if you're nose bleed continues to bleed beyond 1 week. Do not touch her nose. It will take 3-4 days for the nose to heal. Do not touch your nose. If you develop another nosebleed hold pressure to the nose. May also try 2 squirts of Afrin nasal spray. Please return to the ER if your symptoms change or worsen.
== END 2016-11-26 16:45 | disposition home or self-care (01) ==
LOC: JD.ED 12:10
DX: R04.0 Epistaxis (principal); E10.9 Type 1 diabetes mellitus without complications; I10 Essential (primary) hypertension; I48.91 Unspecified atrial fibrillation; K21.9 Gastro-esophageal reflux disease without esophagitis; Z98.49 Cataract extraction status, unspecified eye; Z86.2 Personal history of diseases of the blood and blood-forming organs and certain disorders involving the immune mechanism; Z87.891 Personal history of nicotine dependence; Z79.84 Long term (current) use of oral hypoglycemic drugs; Z79.82 Long term (current) use of aspirin; Z79.899 Other long term (current) drug therapy
CPT/HCPCS: 99284; A9270

== ENCOUNTER 2017-11-22 06:41 | Emergency (ER) | payer MEDICARE, BC ==
[2017-11-22] MEDS ORDERED: Sodium Chloride 0.9% 10 ML Syringe FLUSH PRN (07:02)
[2017-11-22] MEDS ORDERED: Aspirin 81 MG Tab.Chew PO ONE (07:03)
[2017-11-22] MEDS ORDERED: Iopamidol 755 Mg/ML 100 ML Bottle IVPUSH ONE (08:18)
[2017-11-22] MEDS ORDERED: Sodium Chloride 0.9% 10 ML Syringe FLUSH ONE (08:18)
[2017-11-22] MEDS ORDERED: Sodium Chloride 0.9% 100 ML IV SCH (08:30)
--- NOTE | 2017-11-22 08:50 | EDM.PDOC ---
ED HPI GENERAL MEDICAL PROBLEM - General Chief Complaint: Respiratory Problem Stated Complaint: [facility] Time Seen by Provider: 11/22/17 06:58 Source of Information: Reports: Patient, Family History Limitations: Reports: No Limitations - History of Present Illness INITIAL COMMENTS - FREE TEXT/NARRATIVE: The patient presents from [facility] for right lower chest pain and right upper abdominal pain. This started last night at 9pm. He had trouble sleeping last night. He says it hurts worse with movement, deep breathing and coughing. He has no fever or chills. He has no shortness of breath. He denies abdominal now and nausea or vomiting. He has no swelling or pain in his legs. He denies any trauma. Onset: Gradual Duration: Day(s): (last night at 9pm) Location: Reports: Chest Quality: Reports: Sharp Severity: Moderate Improves with: Reports: Immobilization Worsens with: Reports: Breathing (and coughing), Movement Associated Symptoms: Reports: Chest Pain, Cough. Denies: Fever/Chills, Headaches, Nausea/Vomiting, Shortness of Breath right upper abdomen/lower chest area Pain Score (Numeric/FACES): 3 - Related Data Allergies Allergy/AdvReac Type Severity Reaction Status Date / Time No Known Allergies Allergy Verified 11/22/17 06:54 Home Meds: Home Meds Flunisolide [Nasalide Nasal [place]] 2 spray NASBOTH BID PRN 10/24/13 [History] Lisinopril 40 mg PO DAILY 07/10/15 [History] glipiZIDE [Glucotrol] 10 mg PO BID 07/10/15 [History] Aspirin [Ecotrin] 81 mg PO DAILY 12/19/15 [History] Psyllium with Sucrose [Metamucil] 0.5 packet PO DAILY 12/25/15 [History] Ferrous Sulfate [Slow Fe] 325 mg PO DAILY 05/14/16 [History] Omeprazole 20 mg PO BEDTIME 05/14/16 [History] Potassium Chloride 20 meq PO BID 05/14/16 [History] metFORMIN [Glucophage] 500 mg PO BID 05/14/16 [History] Amiodarone [Cordarone] 200 mg PO DAILY #30 tablet 05/22/16 [Rx] Carvedilol [Coreg] 25 mg PO BID #60 tablet 05/22/16 [Rx] Doxazosin [Cardura] 4 mg PO BEDTIME #30 tablet 05/22/16 [Rx] Cholecalciferol (Vitamin D3) [Vitamin D3] 1,000 unit PO DAILY 06/16/16 [History] Lanolin [Lantiseptic] 1 applic TOP BID PRN 06/16/16 [History] Polyvinyl Alcohol/Povidone/Pf [Refresh Classic Eye Drops] 1 drop EYEBOTH QID PRN 06/16/16 [History] Tamsulosin [Flomax] 0.4 mg PO DAILY 06/16/16 [History] Travoprost [Travatan Z] 1 drop EYEBOTH BEDTIME 06/16/16 [History] Vit A,C & E/Lutein/Minerals [Healthy Eyes] 1 tab PO DAILY 06/16/16 [History] Benzonatate 100 mg PO TID PRN 11/22/17 [History] Carboxymethyl/Glycerin/Poly80 [Refresh Optive Advanced Drops] 1 drop EYEBOTH QID 11/22/17 [History] Digoxin [Lanoxin] 125 mcg PO ACLUNCH 11/22/17 [History] Docusate Sodium [Colace] 100 mg PO BID PRN 11/22/17 [History] Doxycycline [Vibramycin] 100 mg PO BID #14 cap 11/22/17 [Rx] Furosemide 40 mg PO ACDINNER 11/22/17 [History] Furosemide [Lasix] 60 mg PO DAILY 11/22/17 [History] Insulin Glarg,Human.Rec.Analog [Lantus] 10 unit SQ BEDTIME 11/22/17 [History] Levothyroxine Sodium [Synthroid] 125 mcg PO DAILY 11/22/17 [History] Magnesium Oxide 420 mg PO DAILY 11/22/17 [History] Melatonin 6 mg PO BEDTIME 11/22/17 [History] Rivaroxaban [Xarelto] 20 mg PO DAILY 11/22/17 [History] Rosuvastatin Calcium [Crestor] 20 mg PO BEDTIME 11/22/17 [History] Travoprost [Travatan Z] 1 drop EYEBOTH BEDTIME 11/22/17 [History] amLODIPine Besylate [Amlodipine Besylate] 5 mg PO DAILY 11/22/17 [History] Past Medical History HEENT History: Reports: Glaucoma, Impaired Vision, Macular Degeneration, Other ( See Below) Other HEENT History: wears glasses, cannot hear or see from right side. Cardiovascular History: Reports: Afib, Aneurysm, Arrhythmia, Hypertension, Other (See Below) Other Cardiovascular History: ventricular tachycardia Respiratory History: Reports: None Other Respiratory History: pneumonia Gastrointestinal History: Reports: GERD, Other (See Below) Other Gastrointestinal History: hematochezia, melena, dysphagia Genitourinary History: Reports: Other (See Below) Other Genitourinary History: polyuria Musculoskeletal History: Reports: Arthritis, Osteoarthritis Other Musculoskeletal History: contractures of the fingers Endocrine/Metabolic History: Reports: Diabetes, Type I Hematologic History: Reports: Anemia - Infectious Disease History Infectious Disease History: Reports: Chicken Pox, Influenza, Measles - Past Surgical History HEENT Surgical History: Reports: Cataract Surgery, Laser Surgery Other Neurological Surgeries/Procedures: generalized weakness Musculoskeletal Surgical History: Reports: Other (See Below) Other Musculoskeletal Surgeries/Procedures:: partial amputation of left second finger Social & Family History - Family History Family Medical History: Noncontributory - Tobacco Use Smoking Status *Q: Never Smoker - Caffeine Use Caffeine Use: Reports: Coffee Other Caffeine Use: 2 cups in am and tea at night - Recreational Drug Use Recreational Drug Use: No ED ROS GENERAL - Review of Systems Review Of Systems: See Below Constitutional: Reports: No Symptoms HEENT: Reports: No Symptoms Respiratory: Reports: Cough. Denies: Shortness of Breath Cardiovascular: Reports: Chest Pain Endocrine: Reports: No Symptoms GI/Abdominal: Reports: No Symptoms : Reports: No Symptoms Musculoskeletal: Reports: No Symptoms Skin: Reports: No Symptoms ED EXAM, GENERAL - Physical Exam Exam: See Below Exam Limited By: No Limitations General Appearance: Alert, No Apparent Distress Ears: Normal External Exam Nose: Normal Inspection Head: Atraumatic, Normocephalic Neck: Normal Inspection Respiratory/Chest: No Respiratory Distress, Lungs Clear, Normal Breath Sounds Cardiovascular: Regular Rate, Rhythm, No Edema, No Murmur GI/Abdominal: Soft, Non-Tender, No Organomegaly, No Mass Back Exam: Normal Inspection Extremities: Normal Inspection EKG INTERPRETATION EKG Date: 11/22/17 Time: 07:25 Rhythm: A-Fib Rate (Beats/Min): 64 [place]: Normal QRS: Normal ST-T: Normal QT: Normal Course - Vital Signs Last Recorded V/S: Last Vital Signs Temp 99.0 F 11/22/17 09:57 Pulse 54 L 11/22/17 09:57 Resp 16 11/22/17 09:57 BP 137/46 L 11/22/17 09:57 Pulse Ox 98 11/22/17 09:57 - Orders/Labs/Meds Orders: Active Orders 24 hr Category Date Time Status Cardiac Monitoring [RC] . DIRECTED Care 11/22/17 07:02 Active EKG Documentation Completion [RC] STAT Care 11/22/17 07:03 Active Peripheral IV Care [RC] . DIRECTED Care 11/22/17 07:03 Active Ang Chest [CT] Stat Exams 11/22/17 08:13 Taken Chest 1V Frontal [CR] Stat Exams 11/22/17 07:03 Taken Sodium Chloride 0.9% [Normal Saline] 100 ml Med 11/22/17 08:30 Active IV ASDIRECTED Sodium Chloride 0.9% [Saline Flush] Med 11/22/17 07:02 Active 10 ml FLUSH ASDIRECTED PRN cefTRIAXone [Rocephin] 2 gm Med 11/22/17 09:46 Active Sodium Chloride 0.9% [Normal Saline] 100 ml IV ONETIME Peripheral IV Insertion Adult [OM.PC] Stat Oth 11/22/17 07:02 Ordered Medication Orders Sodium Chloride (Normal Saline) 100 mls @ 60 mls/hr IV ASDIRECTED GABRIELLE Last Admin: 11/22/17 08:36 Dose: 60 mls/hr Ceftriaxone Sodium 2 gm/ (Sodium Chloride) 100 mls @ 100 mls/hr IV ONETIME ONE Stop: 11/22/17 10:45 Last Admin: 11/22/17 09:55 Dose: 100 mls/hr Sodium Chloride (Saline Flush) 10 ml FLUSH ASDIRECTED PRN PRN Reason: Keep Vein Open Last Admin: 11/22/17 07:20 Dose: 10 ml Labs: Laboratory Tests 11/22/17 11/22/17 11/22/17 Range/Units 07:20 07:20 07:20 WBC 9.57 H (4.23-9.07) K/mm3 RBC 4.30 L (4.63-6.08) M/mm3 Hgb 11.8 L (13.7-17.5) gm/L Hct 35.9 L (40.1-51.0) % MCV 83.5 (79.0-92.2) fl MCH 27.4 (25.7-32.2) pg MCHC 32.9 (32.2-35.5) g/dl RDW Std Deviation 47.2 H (35.1-43.9) fL Plt Count 213 (163-337) K/mm3 MPV 10.1 (9.4-12.3) fl Neut % (Auto) 76.7 H (34.0-67.9) % Lymph % (Auto) 8.6 L (21.8-53.1) % [place] % (Auto) 14.0 H (5.3-12.2) % Eos % (Auto) 0.4 L (0.8-7.0) Baso % (Auto) 0.1 (0.1-1.2) % Neut # (Auto) 7.34 H (1.78-5.38) K/mm3 Lymph # (Auto) 0.82 L (1.32-3.57) K/mm3 [place] # (Auto) 1.34 H (0.30-0.82) K/mm3 Eos # (Auto) 0.04 (0.04-0.54) K/mm3 Baso # (Auto) 0.01 (0.01-0.08) K/mm3 Manual Slide Review Abnormal smear D-Dimer, Quantitative 1.28 H (0.19-0.50) mg/L Sodium 135 L (136-145) mEq/L Potassium 4.6 (3.5-5.1) mEq/L Chloride 98 (98-107) mEq/L Carbon Dioxide 32 (21-32) mEq/L Anion Gap 9.6 (5-15) BUN 21 H (7-18) mg/dL Creatinine 1.0 (0.7-1.3) mg/dL Est Cr Clr Drug Dosing 51.25 mL/min Estimated GFR (MDRD) > 60 (>60) mL/min BUN/Creatinine Ratio 21.0 H (14-18) Glucose 204 H (83-115) mg/dL Calcium 8.9 (8.5-10.1) mg/dL Total Bilirubin 0.5 (0.2-1.0) mg/dL AST 40 H (15-37) U/L ALT 63 (16-63) U/L Alkaline Phosphatase 83 (46-116) U/L Troponin I < 0.017 (0.00-0.056) ng/mL Total Protein 7.1 (6.4-8.2) g/dl Albumin 2.8 L (3.4-5.0) g/dl Globulin 4.3 gm/dL Albumin/Globulin Ratio 0.7 L (1-2) Meds: Medications Generic Name Dose Route Start Last Admin Trade Name Sandra PRN Reason Stop Dose Admin Sodium Chloride 100 mls @ 60 mls/hr 11/22/17 08:30 11/22/17 08:36 Normal Saline IV 60 mls/hr ASDIRECTED GABRIELLE Administration Ceftriaxone Sodium 2 gm/ 100 mls @ 100 mls/hr 11/22/17 09:46 11/22/17 09:55 Sodium Chloride IV 11/22/17 10:45 100 mls/hr ONETIME ONE Administration Sodium Chloride 10 ml 11/22/17 07:02 11/22/17 07:20 Saline Flush FLUSH 10 ml ASDIRECTED PRN Administration Keep Vein Open Discontinued Medications Generic Name Dose Route Start Last Admin Trade Name Sandra PRN Reason Stop Dose Admin Aspirin 324 mg 11/22/17 07:03 11/22/17 07:22 Aspirin PO 11/22/17 07:04 324 mg ONETIME ONE Administration Iopamidol 100 ml 11/22/17 08:18 11/22/17 08:36 Isovue-370 (76%) IVPUSH 11/22/17 08:19 100 ml ONETIME ONE Administration Sodium Chloride 10 ml 11/22/17 08:18 11/22/17 08:36 Saline Flush FLUSH 11/22/17 08:19 10 ml ONETIME ONE Administration - Re-Assessments/Exams Free Text/Narrative Re-Assessment/Exam: 11/22/17 08:45 I ordered an IV saline lock, EKG, CXR, labs, and aspirin. His EKG shows A-fib with no acute changes. He is on xarelto. His CXR shows what appears to be an infiltrate in the right lower lobe. His WBC was slightly elevated at 9.57. His Hgb was low at 11.8. His D-dimer was elevated at 1.28. I have ordered a CT angio of his chest. His glucose was elevated at 204. His troponin is negative. I am waiting for the CT angio of his chest. 11/22/17 09:[address] shows filling defects in small branches of the descending right pulmonary artery may represent acute or chronic nonoccluding pulmonary emboli. Large right pleural effusion. Mild left pleural effusion. The consolidation in the right upper lobe and right middle lobe and both lower lobes may represent atelectasis or pneumonia. I will order rocephin 2 grams IV. 11/22/17 10:[address] Carrillo and she came to see the patient. He is looking good. She and I do not think he needs to be admitted at this time. I will give him the dose of rocephin here and get him on some zithromax. I will also increase his lasix for a few days. Departure - Departure Time of Disposition: 10:15 Disposition: Home, Self-Care 01 Condition: Good Clinical Impression: Pleural effusion Pneumonia Qualifiers: Pneumonia type: due to unspecified organism Laterality: right Lung location: middle lobe of lung Qualified Code(s): J18.1 - Lobar pneumonia, unspecified organism Atrial fibrillation Qualifiers: Atrial fibrillation type: persistent Qualified Code(s): I48.1 - Persistent atrial fibrillation Congestive heart failure Qualifiers: Qualified Code(s): I50.43 - Acute on chronic combined systolic (congestive) and diastolic (congestive) heart failure - Discharge Information *PRESCRIPTION DRUG MONITORING PROGRAM REVIEWED*: No *COPY OF PRESCRIPTION DRUG MONITORING REPORT IN PATIENT SHYANNE: No Prescriptions: Doxycycline [Vibramycin] 100 mg PO BID #14 cap Referrals: Jean Pierre Choi MD [Primary Care Provider] - 1 Week Forms: ED Department Discharge Additional Instructions: Take the doxycycline 2 times per day for 7 days. Take 60mg of lasix in the morning and 60mg at night for 3 days. Do not take your metformin for 2 days. After that take your medicine as prescribed. Please return if you are worse. Follow up with Dr Choi. - My Orders Last 24 Hours: My Active Orders 11/22/17 07:02 Cardiac Monitoring [RC] . DIRECTED Sodium Chloride 0.9% [Saline Flush] 10 ml FLUSH ASDIRECTED PRN Peripheral IV Insertion Adult [OM.PC] Stat 11/22/17 07:03 EKG Documentation Completion [RC] STAT Peripheral IV Care [RC] . DIRECTED Chest 1V Frontal [CR] Stat 11/22/17 08:13 Ang Chest [CT] Stat 11/22/17 08:30 Sodium Chloride 0.9% [Normal Saline] 100 ml IV ASDIRECTED 11/22/17 09:46 cefTRIAXone [Rocephin] 2 gm Sodium Chloride 0.9% [Normal Saline] 100 ml IV ONETIME - Assessment/Plan Last 24 Hours: My Active Orders 11/22/17 07:02 Cardiac Monitoring [RC] . DIRECTED Sodium Chloride 0.9% [Saline Flush] 10 ml FLUSH ASDIRECTED PRN Peripheral IV Insertion Adult [OM.PC] Stat 11/22/17 07:03 EKG Documentation Completion [RC] STAT Peripheral IV Care [RC] . DIRECTED Chest 1V Frontal [CR] Stat 11/22/17 08:13 Ang Chest [CT] Stat 11/22/17 08:30 Sodium Chloride 0.9% [Normal Saline] 100 ml IV ASDIRECTED 11/22/17 09:46 cefTRIAXone [Rocephin] 2 gm Sodium Chloride 0.9% [Normal Saline] 100 ml IV ONETIME
[2017-11-22] MEDS ORDERED: cefTRIAXone 2 GM in Sodium Chloride 0.9% 100 ML IV ONE (09:46)
[2017-11-22 11:24] VITALS: BP 125/48
--- NOTE | 2017-11-23 07:13 | CT ---
CT chest Technique: Multiple axial sections were obtained from above the lung apices inferiorly through the lung bases. Intravenous contrast was utilized. Study has been performed as a pulmonary angiogram protocol. Findings: Moderately large right-sided pleural effusion is seen with small left-sided pleural effusion. Pleural effusions cause atelectasis which is worse on the right side. Lung window setting show a small right sided pneumothorax. No left-sided pneumothorax is seen. Other than the atelectasis, lungs otherwise are clear. Pulmonary arteries are fairly well-opacified. Pulmonary emboli within the area of atelectasis are poorly seen. I do not see any definite filling defects to indicate acute pulmonary embolism. Mild coronary artery calcification is seen. Atherosclerotic calcification is noted within the thoracic aorta. Heart is slightly enlarged. Prior cholecystectomy is noted. Bone window settings were reviewed which show scattered degenerative change within the spine. Impression: 1. Bilateral pleural effusions which are much larger on the right side than left side. 2. Small right sided pneumothorax. 3. Atelectasis on a compressive basis within both lungs, worse on the right side. 4. Other incidental findings. Diagnostic code #5 Disagree with preliminary report issued by [facility] pulmonary emboli described by [facility] most likely artifact from atelectasis, small pneumothorax is seen which was not mentioned ([facility] preliminary report dictated on 11/22/17, 10:31 AM Central Time) (code 5) Findings were discussed with Dr. Hernandez at time 7:19 PM on the day of the exam
--- NOTE | 2017-11-23 07:13 | CR ---
Chest: Portable view of the chest was obtained. Comparison: Prior chest x-ray of 06/19/16. Bilateral pleural effusions are seen larger in size on the right side. Findings on the right side have increased from previous exam. Heart is slightly enlarged. Tortuous thoracic aorta is seen. Small apical pneumothorax is seen. Impression: 1. Bilateral pleural effusions larger in size on the right side. 2. Small right sided pneumothorax. Diagnostic code #5
== END 2017-11-22 11:10 | disposition home or self-care (01) ==
LOC: JD.ED 06:41
DX: I11.0 Hypertensive heart disease with heart failure (principal); I50.43 Acute on chronic combined systolic (congestive) and diastolic (congestive) heart failure; J18.9 Pneumonia, unspecified organism; I48.1 Persistent atrial fibrillation; E10.9 Type 1 diabetes mellitus without complications; J90 Pleural effusion, not elsewhere classified; Z79.899 Other long term (current) drug therapy; Z79.82 Long term (current) use of aspirin
CPT/HCPCS: 36415; 71045; 71275; 80053; 84484; 85025; 85379; 93005; 96365; 99285; A9270; J0696; J7030; J7050; Q9967

== ENCOUNTER 2017-11-22 20:16 | Emergency (ER) | payer MEDICARE, BC ==
--- NOTE | 2017-11-22 20:37 | EDM.PDOC ---
ED HPI GENERAL MEDICAL PROBLEM - General Chief Complaint: Respiratory Problem Stated Complaint: FOLLOW UP Time Seen by Provider: 11/22/17 20:34 Source of Information: Reports: Patient, Old Records (ED 11/22/2017 AM) History Limitations: Reports: Physical Impairment (Hard of hearing) - History of Present Illness INITIAL COMMENTS - FREE TEXT/NARRATIVE: Medical records indicate that the patient was seen by Dr. Sheth in this ED this morning, for a complaint of right lower chest pain and right upper abdominal pain that started last night. The pain was made worse with movement, deep breathing, and coughing. No recent fever or chills, and no associated dyspnea. Workup included a CBC, CMP, troponin, D-dimer, ECG, and chest x-ray. The D-dimer returned elevated at 1.28, prompting the order of the CT angiogram of the chest. The CT angiogram was read by [facility] as showing filling defects in small branches of the descending right pulmonary artery which may represent acute or chronic nonoccluding pulmonary emboli, a large right-sided pleural effusion, and mild left-sided pleural effusion. There was consolidation in the right upper lobe and right middle lobe and both lower lobes that may represent atelectasis or pneumonia. The patient was treated with 2 g of IV Rocephin, then discharged back to [facility] with a prescription for doxycycline 100 mg po BID x 7 days. I was contacted by Dr. Obrien earlier this evening, being notified that he re- read the CT angiogram and disagreed with [facility]'s interpretation. He felt that the patient did not have a pulmonary embolus, that the filling defects in the pulmonary arteries were due to compressive atelectasis. He did, however, note that there was an approximately 10% right-sided pneumothorax that had not been reported by [facility]. I then contacted the patient's PCP, Dr. Choi. It was decided that the patient would be brought back to the ED for a chest x-ray to determine if there was any change in the size of the pneumothorax, then have the patient admitted for a therapeutic thoracentesis. Here in the ED, the patient states that he has felt well ever since leaving the ED earlier today, and currently has no chest pain or shortness of breath. His oxygen saturation is noted to be 96-97% on room air. - Related Data Allergies Allergy/AdvReac Type Severity Reaction Status Date / Time No Known Allergies Allergy Verified 11/22/17 20:31 Home Meds: Home Meds Flunisolide [Nasalide Nasal [place]] 2 spray NASBOTH BID PRN 10/24/13 [History] Lisinopril 40 mg PO DAILY 07/10/15 [History] glipiZIDE [Glucotrol] 10 mg PO BID 07/10/15 [History] Aspirin [Ecotrin] 81 mg PO DAILY 12/19/15 [History] Psyllium with Sucrose [Metamucil] 0.5 packet PO DAILY 12/25/15 [History] Ferrous Sulfate [Slow Fe] 325 mg PO DAILY 05/14/16 [History] Omeprazole 20 mg PO BEDTIME 05/14/16 [History] Potassium Chloride 20 meq PO BID 05/14/16 [History] metFORMIN [Glucophage] 500 mg PO BID 05/14/16 [History] Amiodarone [Cordarone] 200 mg PO DAILY #30 tablet 05/22/16 [Rx] Carvedilol [Coreg] 25 mg PO BID #60 tablet 05/22/16 [Rx] Doxazosin [Cardura] 4 mg PO BEDTIME #30 tablet 05/22/16 [Rx] Cholecalciferol (Vitamin D3) [Vitamin D3] 1,000 unit PO DAILY 06/16/16 [History] Lanolin [Lantiseptic] 1 applic TOP BID PRN 06/16/16 [History] Polyvinyl Alcohol/Povidone/Pf [Refresh Classic Eye Drops] 1 drop EYEBOTH QID PRN 06/16/16 [History] Tamsulosin [Flomax] 0.4 mg PO DAILY 06/16/16 [History] Vit A,C & E/Lutein/Minerals [Healthy Eyes] 1 tab PO DAILY 06/16/16 [History] Benzonatate 100 mg PO TID PRN 11/22/17 [History] Carboxymethyl/Glycerin/Poly80 [Refresh Optive Advanced Drops] 1 drop EYEBOTH QID 11/22/17 [History] Digoxin [Lanoxin] 125 mcg PO ACLUNCH 11/22/17 [History] Docusate Sodium [Colace] 100 mg PO BID PRN 11/22/17 [History] Doxycycline [Vibramycin] 100 mg PO BID #14 cap 11/22/17 [Rx] Furosemide 1.5 tab PO DAILY 11/22/17 [History] Furosemide 40 mg PO ACDINNER 11/22/17 [History] Furosemide [Lasix] 60 mg PO DAILY 11/22/17 [History] Insulin Glarg,Human.Rec.Analog [Lantus] 10 unit SQ BEDTIME 11/22/17 [History] Levothyroxine Sodium [Synthroid] 125 mcg PO DAILY 11/22/17 [History] Magnesium Oxide 420 mg PO DAILY 11/22/17 [History] Melatonin 6 mg PO BEDTIME 11/22/17 [History] Rivaroxaban [Xarelto] 20 mg PO DAILY 11/22/17 [History] Rosuvastatin Calcium [Crestor] 20 mg PO BEDTIME 11/22/17 [History] Travoprost [Travatan Z] 1 drop EYEBOTH BEDTIME 11/22/17 [History] amLODIPine Besylate [Amlodipine Besylate] 5 mg PO DAILY 11/22/17 [History] Past Medical History HEENT History: Reports: Allergic Rhinitis, Glaucoma, Hard of Hearing (deaf right ear), Impaired Vision (blind right eye), Macular Degeneration Cardiovascular History: Reports: Afib (Paroxysmal), Aneurysm, Arrhythmia ( ventricular tachycardia), Heart Failure, High Cholesterol, Hypertension Gastrointestinal History: Reports: GERD Genitourinary History: Reports: BPH Musculoskeletal History: Reports: Osteoarthritis, Other (See Below) (Dupuytren' s contractures) Endocrine/Metabolic History: Reports: Diabetes, Type II, Hypothyroidism Hematologic History: Reports: Anemia - Infectious Disease History Infectious Disease History: Reports: Chicken Pox, Influenza, Measles - Past Surgical History HEENT Surgical History: Reports: Cataract Surgery, Laser Surgery GI Surgical History: Reports: Cholecystectomy Other Neurological Surgeries/Procedures: generalized weakness Musculoskeletal Surgical History: Reports: Amputation (partial amputation of left second finger) Social & Family History - Family History Family Medical History: Noncontributory - Tobacco Use Smoking Status *Q: Former Smoker (smoked briefly as a teenager) - Caffeine Use Caffeine Use: Reports: Coffee Other Caffeine Use: 2 cups in am and tea at night - Alcohol Use Alcohol Use History: Yes Alcohol Use Frequency: Socially - Recreational Drug Use Recreational Drug Use: No - Living Situation & Occupation Living situation: Reports: , with Spouse, Assisted Living ([facility]) Occupation: Retired ED ROS GENERAL - Review of Systems Review Of Systems: ROS reveals no pertinent complaints other than HPI. ED EXAM, GENERAL - Physical Exam Exam: See Below Exam Limited By: No Limitations General Appearance: Alert, No Apparent Distress, Thin Eye Exam: Bilateral Eye: EOMI Ears: Normal External Exam, Hearing Grossly Normal Nose: Normal Inspection, No Blood Throat/Mouth: Normal Inspection, Normal Lips, Normal Voice, No Airway Compromise Head: Atraumatic, Normocephalic Neck: Normal Inspection, Full Range of Motion Respiratory/Chest: No Respiratory Distress, No Accessory Muscle Use, Decreased Breath Sounds (shelter up right lung field). No: Crackles, Rhonchi, Wheezing Cardiovascular: Normal Peripheral Pulses, Regular Rate, Rhythm, No Edema, No Gallop, No JVD, No Murmur, No Rub Peripheral Pulses: 4+: Radial (L), Radial (R) GI/Abdominal: Normal Bowel Sounds, Soft, Non-Tender, No Organomegaly, No Distention, No Abnormal Bruit, No Mass (Male) Exam: Deferred Rectal (Males) Exam: Deferred Back Exam: Normal Inspection, Full Range of Motion, NT Extremities: Normal Inspection, Normal Range of Motion, No Pedal Edema, Normal Capillary Refill Neurological: Alert, Oriented, Normal Cognition, No Motor/Sensory Deficits Psychiatric: Normal Affect Skin Exam: Warm, Dry, Intact, Normal Color, No Rash Course - Vital Signs Last Recorded V/S: Last Vital Signs Temp 36.7 C 11/22/17 20:18 Pulse 65 11/22/17 21:09 Resp 18 11/22/17 21:09 BP 108/68 11/22/17 21:09 Pulse Ox 98 11/22/17 21:09 - Orders/Labs/Meds Orders: Active Orders 24 hr Category Date Time Status Chest 2V [CR] Stat Exams 11/22/17 20:35 Taken - Re-Assessments/Exams Free Text/Narrative Re-Assessment/Exam: 11/22/17 21:01 2-view chest radiograph reviewed. The cardiac silhouette is within normal limits. No pulmonary vascular congestion. There is a moderate to large right- sided pleural effusion, and small left pleural effusion. There is hyperinflation. No focal infiltrate seen within the aerated lungs, however, a focal infiltrate cannot be excluded from the areas of pleural effusion and atelectasis. No visible thorax. Aortosclerosis incidentally noted. Mild scoliosis incidentally noted. Formal read per the Radiologist pending. 11/22/17 21:33 The patient states that he has felt well ever since leaving the ED this morning , and denies having any pleuritic chest pain. Further, the patient's right- sided pleural effusion appears to be chronic. Case discussed with Dr. Choi at 21:15. We will return the patient back to [facility]. Dr. Choi would like us to increase the patient's Lasix to 80 mg po QAM and 40 mg po QPM. He would like us to have [facility] call his clinic to make a follow-up appointment for this coming , 11/26/2017 or 11/27. Departure - Departure Time of Disposition: 21:34 Disposition: Home, Self-Care 01 Condition: Good Clinical Impression: Recurrent pleural effusion on right - Discharge Information *PRESCRIPTION DRUG MONITORING PROGRAM REVIEWED*: Not Applicable *COPY OF PRESCRIPTION DRUG MONITORING REPORT IN PATIENT SHYANNE: Not Applicable Instructions: Pleural Effusion Referrals: Jean Pierre Choi MD [Primary Care Provider] - Forms: ED Department Discharge Additional Instructions: You were seen in the emergency room to reevaluate a pneumothorax (pocket of air in your chest, outside of your lung) that was seen on the CT scan that you underwent this morning. A chest x-ray in the ER does not show expansion of the pneumothorax. Your case was discussed with Dr. Choi. Because you are not having any symptoms at this time, you do not need to be admitted to the hospital. You are to increase your Lasix (furosemide) to 80 mg every morning, and 40 mg every afternoon. The staff at [facility] is to call Dr. Choi' clinic and make an appointment for you to follow-up with him this coming , 11/26/2017, or Thursday, 2017. If any other problems, please do not hesitate to return to the ER. - My Orders Last 24 Hours: My Active Orders 11/22/17 20:35 Chest 2V [CR] Stat - Assessment/Plan Last 24 Hours: My Active Orders 11/22/17 20:35 Chest 2V [CR] Stat
[2017-11-22 21:24] VITALS: BP 108/68
--- NOTE | 2017-11-23 07:13 | CR ---
Chest: Two views of the chest were obtained. Comparison: Prior chest x-ray performed earlier on the same day (7:07 AM). Small right apical pneumothorax is seen. Pneumothorax measures about 15-20%. Pneumothorax is felt to be fairly stable from prior chest x-ray. Right sided subpulmonic effusion is seen. Atelectasis is noted within both lung bases. Heart size appears stable. Tortuous thoracic aorta is seen. Impression: 1. Small right apical pneumothorax measuring approximately 15-20%. 2. Right sided subpulmonic effusion is seen. 3. Bibasilar atelectasis. Diagnostic code #5
== END 2017-11-22 21:45 | disposition home or self-care (01) ==
LOC: JD.ED 20:16
DX: J90 Pleural effusion, not elsewhere classified (principal); E11.9 Type 2 diabetes mellitus without complications; E03.9 Hypothyroidism, unspecified; E78.00 Pure hypercholesterolemia, unspecified; I10 Essential (primary) hypertension; I48.91 Unspecified atrial fibrillation; Z79.899 Other long term (current) drug therapy; Z87.891 Personal history of nicotine dependence
CPT/HCPCS: 71046; 71046-26; 99284

== ENCOUNTER 2018-01-28 14:38 | Inpatient (IN) | payer MEDICARE, BC ==
[2018-01-28] MEDS ORDERED: Ondansetron 4 MG/2 ML SDV IVPUSH ONE (15:30)
[2018-01-28] MEDS ORDERED: HYDROmorphone 1 MG/ML Syringe IVPUSH ONE (15:30)
--- NOTE | 2018-01-28 15:33 | EDM.PDOC ---
ED HPI GENERAL MEDICAL PROBLEM - General Chief Complaint: Back Pain or Injury Stated Complaint: LOWER BACK PAIN Time Seen by Provider: 01/28/18 15:30 Source of Information: Reports: Patient History Limitations: Reports: No Limitations - History of Present Illness INITIAL COMMENTS - FREE TEXT/NARRATIVE: 79-year-old male presents to the ED for evaluation of worsening of chronic low back pain. He is unsure but he thinks about a week ago he started having increased low back pain rating towards his right hip and buttock area. Says starts in his very low back. No recent falls or injuries. He has no history of compression fractures. States is very difficult to move such as getting in and out of bed in out of a chair off the toilet etc. States he is still voiding normally. Pain is not radiating down the leg. All in all is been used for pain relief and is not helping at all. He states he any flinching or movement or spasm causes severe pain. Cries out at times due to pain Onset: Today Onset Date: 01/22/18 Duration: Day(s):, Getting Worse Location: Reports: Back (Low back pain radiating towards his right hip and buttock area.) Quality: Reports: Ache, Sharp, Stabbing, Other Severity: Severe (Strong spastic component to his pain 8-9 out of 10 when spasms. Any movement worsens the pain. Usually gets around with a walker but has had to use the wheelchair today) Improves with: Reports: Rest Worsens with: Reports: Movement Context: Reports: Other (Spontaneous occurrence without any recent falls.). Denies: Activity, Exercise, Lifting, Sick Contact, Trauma Associated Symptoms: Reports: Malaise. Denies: Confusion, Chest Pain, Cough, cough w sputum, Diaphoresis, Fever/Chills, Headaches, Loss of Appetite, Nausea/ Vomiting, Rash, Seizure, Shortness of Breath, Syncope Treatments COAL WEIGHER: Reports: Acetaminophen (All was not helping for the pain.), Other (see below) Other Treatments COAL WEIGHER: tylenol Right Hip Pain Score (Numeric/FACES): 8 - Related Data Allergies Allergy/AdvReac Type Severity Reaction Status Date / Time No Known Allergies Allergy Verified 11/22/17 20:31 Home Meds: Home Meds Lisinopril 40 mg PO DAILY 07/10/15 [History] glipiZIDE [Glucotrol] 10 mg PO BID 07/10/15 [History] Aspirin [Ecotrin] 81 mg PO DAILY 12/19/15 [History] Psyllium with Sucrose [Metamucil] 1 tsp PO DAILY 12/25/15 [History] Ferrous Sulfate [Slow Fe] 325 mg PO DAILY 05/14/16 [History] Omeprazole 20 mg PO BEDTIME 05/14/16 [History] Potassium Chloride 20 meq PO BID 05/14/16 [History] metFORMIN [Glucophage] 500 mg PO BID 05/14/16 [History] Amiodarone [Cordarone] 200 mg PO DAILY #30 tablet 05/22/16 [Rx] Doxazosin [Cardura] 4 mg PO BEDTIME #30 tablet 05/22/16 [Rx] Cholecalciferol (Vitamin D3) [Vitamin D3] 1,000 unit PO DAILY 06/16/16 [History] Lanolin [Lantiseptic] 1 applic TOP DAILY PRN 06/16/16 [History] Polyvinyl Alcohol/Povidone/Pf [Refresh Classic Eye Drops] 1 drop EYEBOTH QID PRN 06/16/16 [History] Tamsulosin [Flomax] 0.4 mg PO DAILY 06/16/16 [History] Vit A,C & E/Lutein/Minerals [Healthy Eyes] 1 tab PO DAILY 06/16/16 [History] Benzonatate 100 mg PO TID PRN 11/22/17 [History] Carboxymethyl/Glycerin/Poly80 [Refresh Optive Advanced Drops] 1 drop EYEBOTH QID 11/22/17 [History] Furosemide 40 mg PO 1600 11/22/17 [History] Furosemide [Lasix] 80 mg PO DAILY 11/22/17 [History] Insulin Glarg,Human.Rec.Analog [Lantus] 10 unit SQ BEDTIME 11/22/17 [History] Levothyroxine Sodium [Synthroid] 137 mcg PO DAILY 11/22/17 [History] Magnesium Oxide 420 mg PO DAILY 11/22/17 [History] Melatonin 6 mg PO BEDTIME 11/22/17 [History] Travoprost [Travatan Z] 1 drop EYEBOTH BEDTIME 11/22/17 [History] amLODIPine Besylate [Amlodipine Besylate] 5 mg PO DAILY 11/22/17 [History] Acetaminophen [Tylenol] 650 mg PO Q4H PRN 11/29/18 [History] Carvedilol [Coreg] 25 mg PO Q12H 01/28/18 [History] Digoxin [Lanoxin] 125 mcg PO DAILY 01/28/18 [History] Docusate Sodium [Colace] 100 mg PO BID PRN 01/28/18 [History] Flunisolide [Nasalide Nasal Barton] 2 spray INH DAILY PRN 01/28/18 [History] Rivaroxaban [Xarelto] 20 mg PO DAILY 01/28/18 [History] Rosuvastatin [Crestor] 20 mg PO DAILY 01/28/18 [History] Past Medical History HEENT History: Reports: Allergic Rhinitis, Glaucoma, Hard of Hearing, Impaired Vision, Macular Degeneration Other HEENT History: wears glasses, cannot hear or see from right side. Cardiovascular History: Reports: Afib (He is on amiodarone and digoxin for rate control. He supposedly is also on Xarelto to prevent stroke.. However he does have an elevated INR.), Aneurysm, Arrhythmia (On amiodarone.), Heart Failure, High Cholesterol, Hypertension Other Cardiovascular History: ventricular tachycardia Respiratory History: Reports: None Other Respiratory History: pneumonia Gastrointestinal History: Reports: GERD Other Gastrointestinal History: hematochezia, melena, dysphagia Genitourinary History: Reports: BPH Other Genitourinary History: polyuria Musculoskeletal History: Reports: Osteoarthritis, Other (See Below) Other Musculoskeletal History: contractures of the fingers Endocrine/Metabolic History: Reports: Diabetes, Type II (Controlled with insulin.), Hypothyroidism Hematologic History: Reports: Anemia - Infectious Disease History Infectious Disease History: Reports: Chicken Pox, Influenza, Measles - Past Surgical History HEENT Surgical History: Reports: Cataract Surgery, Laser Surgery GI Surgical History: Reports: Cholecystectomy Other Neurological Surgeries/Procedures: generalized weakness Musculoskeletal Surgical History: Reports: Amputation Social & Family History - Family History Family Medical History: Noncontributory - Tobacco Use Smoking Status *Q: Former Smoker Used Tobacco, but Quit: Yes Month/Year Tobacco Last Used: 50 yrs - Caffeine Use Caffeine Use: Reports: Coffee, Soda Other Caffeine Use: 2 cups in am and tea at night - Recreational Drug Use Recreational Drug Use: No - Living Situation & Occupation Living situation: Reports: , with Spouse, Assisted Living ([facility].) Occupation: Retired ED ROS GENERAL - Review of Systems Review Of Systems: See Below Constitutional: Reports: Fatigue, Decreased Appetite, Weight Loss. Denies: Fever, Chills, Malaise, Weakness HEENT: Reports: Glasses Respiratory: Reports: Shortness of Breath. Denies: Wheezing, Pleuritic Chest Pain, Cough, Sputum Cardiovascular: Reports: Blood Pressure Problem (Chronic hypertension), Dyspnea on Exertion. Denies: Chest Pain, Claudication, Edema, Lightheadedness, Orthopnea Endocrine: Reports: Fatigue GI/Abdominal: Reports: Constipation (Occasional problems with constipation.) : Reports: Frequency, Other (Known BPH.) Musculoskeletal: Reports: Back Pain (Chronic low back pain due to degenerative arthritic changes but no history of compression fractures.) Skin: Reports: Bruising Neurological: Reports: No Symptoms Psychiatric: Reports: No Symptoms Hematologic/Lymphatic: Reports: No Symptoms Immunologic: Reports: No Symptoms ED EXAM,LOWER BACK PAIN/INJURY - Physical Exam Exam: See Below Exam Limited By: No Limitations General Appearance: Alert, Moderate Distress (Even flinching and we bit makes him have crying out in pain in his lower back and into his right hip.) Eye Exam: Right Eye: Vision Changes (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 No: Normal Teeth Neck: Limited Range of Motion. No: Carotid Bruit, Lymphadenopathy (L) ( Crepitus with movement of his neck and with marked limited range of motion due to arthritis.), Lymphadenopathy (R), Thyromegaly Respiratory/Chest: Respiratory Distress, Decreased Breath Sounds (Mild tachypnea at rest. Breath sounds are markedly decreased to the right posterior lung field. Mildly to the left posterior lung field. Crackles appreciated left lung base. ) Cardiovascular: Regular Rate, Rhythm, No Edema, No Gallop, No Murmur, No Rub. No: Normal Peripheral Pulses GI/Abdominal: Normal Bowel Sounds, Soft, Non-Tender, No Organomegaly, Pelvis Stable Back Exam: Other (Rolled to his left side for examination of his back. Alignment appears normal no spinous process tenderness. Very tender to touch on firm palpation over the fourth and fifth facet joints on the right side of his back. There is moderate tenderness throughout the right sacroiliac joint as well.) Extremities: Normal Inspection, Other (Evidence of osteoarthritic changes in both knees both hips. Of note external rotation of his right hip caused excruciating pain in his back.). No: Normal Range of Motion Neurological: Alert, Normal Dorsiflexion, CN II-XII Intact, Normal Plantar Flexion, Oriented x 3. No: Normal Gait DTR - Lower Extremities: 0: Ankle (R), Ankle (L), 1+: Knee (R), Knee (L) Psychiatric: Anxious, Other Skin Exam: Warm, Dry (In a lot of pain), Intact, Normal Color, Other (Mild bruising over the left posterior shoulder.) EKG INTERPRETATION EKG Date: 01/28/18 Time: 17:32 Rhythm: A-Fib (With crit of 47-60/m) Rate (Beats/Min): 53 [place]: Normal P-Wave: Absent QRS: Other (Decreased voltage limb leads. There is early R-wave transition suggesting septal hypertrophy pattern.) ST-T: Other (ST segment depression in V3 to V6 cannot rule out ischemia. Diffuse T-wave abnormalities with flattening in multiple leads.) QT: Prolonged (Is mildly prolonged.) EKG Interpretation Comments: Abnormal ECG Course - Vital Signs Last Recorded V/S: Last Vital Signs Temp 36.3 C 01/28/18 15:05 Pulse 54 L 01/28/18 15:05 Resp 20 01/28/18 15:05 BP 122/47 L 01/28/18 15:05 Pulse Ox 99 01/28/18 15:05 - Orders/Labs/Meds Orders: Active Orders 24 hr Category Date Time Status Admission Status [Patient Status] [ADT] Routine ADT 01/28/18 19:43 Ordered EKG Documentation Completion [RC] STAT Care 01/28/18 17:20 Active Chest 1V Frontal [CR] Stat Exams 01/28/18 17:20 Taken Sodium Chloride 0.9% [Normal Saline] 1,000 ml Med 01/28/18 15:30 Active IV ASDIRECTED Medication Orders Sodium Chloride (Normal Saline) 1,000 mls @ 125 mls/hr IV ASDIRECTED GABRIELLE Last Admin: 01/28/18 15:52 Dose: 125 mls/hr Labs: Laboratory Tests 11/29/18 11/29/18 11/29/18 Range/Units 15:40 15:40 15:40 WBC 6.35 (4.23-9.07) K/mm3 RBC 3.76 L (4.63-6.08) M/mm3 Hgb 10.4 L (13.7-17.5) gm/L Hct 32.7 L (40.1-51.0) % MCV 87.0 (79.0-92.2) fl MCH 27.7 (25.7-32.2) pg MCHC 31.8 L (32.2-35.5) g/dl RDW Std Deviation 52.1 H (35.1-43.9) fL Plt Count 211 (163-337) K/mm3 MPV 10.4 (9.4-12.3) fl Neutrophils % (Manual) 76 H (40-60) % Band Neutrophils % 1 (0-10) % Lymphocytes % (Manual) 7 L (20-40) % Atypical Lymphs % 1 % Monocytes % (Manual) 11 H (2-10) % Eosinophils % (Manual) 4 (0.8-7.0) % Basophils % (Manual) 0 L (0.2-1.2) Platelet Estimate Adequate Plt Morphology Comment Normal Anisocytosis 1+ slight Microcytosis 1+ slight Macrocytosis 1+ slight RBC Morph Comment Not Reportable ESR 19 H (0-15) mm/hr PT (9.5-12.1) SECONDS INR Sodium 136 (136-145) mEq/L Potassium 5.0 (3.5-5.1) mEq/L Chloride 99 (98-107) mEq/L Carbon Dioxide 30 (21-32) mEq/L Anion Gap 12.0 (5-15) BUN 26 H (7-18) mg/dL Creatinine 1.3 (0.7-1.3) mg/dL Est Cr Clr Drug Dosing 39.56 mL/min Estimated GFR (MDRD) 52 (>60) mL/min BUN/Creatinine Ratio 20.0 H (14-18) Glucose 228 H (83-115) mg/dL Calcium 8.7 (8.5-10.1) mg/dL Magnesium (1.8-2.4) mg/dl Total Bilirubin 0.4 (0.2-1.0) mg/dL AST 64 H (15-37) U/L ALT 79 H (16-63) U/L Alkaline Phosphatase 102 (46-116) U/L CK-MB (CK-2) (0-3.6) ng/ml Troponin I (0.00-0.056) ng/mL C-Reactive Protein 1.8 H* (<1.0) mg/dL NT-Pro-B Natriuret Pep (0-450) pg/mL Total Protein 6.5 (6.4-8.2) g/dl Albumin 2.3 L (3.4-5.0) g/dl Globulin 4.2 gm/dL Albumin/Globulin Ratio 0.6 L (1-2) PSA Screen (0.0-4.0) ng/mL Digoxin (0.9-2.0) ng/mL 01/28/18 01/28/18 01/28/18 Range/Units 15:40 15:40 15:40 WBC (4.23-9.07) K/mm3 RBC (4.63-6.08) M/mm3 Hgb (13.7-17.5) gm/L Hct (40.1-51.0) % MCV (79.0-92.2) fl MCH (25.7-32.2) pg MCHC (32.2-35.5) g/dl RDW Std Deviation (35.1-43.9) fL Plt Count (163-337) K/mm3 MPV (9.4-12.3) fl Neutrophils % (Manual) (40-60) % Band Neutrophils % (0-10) % Lymphocytes % (Manual) (20-40) % Atypical Lymphs % % Monocytes % (Manual) (2-10) % Eosinophils % (Manual) (0.8-7.0) % Basophils % (Manual) (0.2-1.2) Platelet Estimate Plt Morphology Comment Anisocytosis Microcytosis Macrocytosis RBC Morph Comment ESR (0-15) mm/hr PT 22.5 H (9.5-12.1) SECONDS INR 2.09 Sodium (136-145) mEq/L Potassium (3.5-5.1) mEq/L Chloride (98-107) mEq/L Carbon Dioxide (21-32) mEq/L Anion Gap (5-15) BUN (7-18) mg/dL Creatinine (0.7-1.3) mg/dL Est Cr Clr Drug Dosing mL/min Estimated GFR (MDRD) (>60) mL/min BUN/Creatinine Ratio (14-18) Glucose (83-115) mg/dL Calcium (8.5-10.1) mg/dL Magnesium 2.1 (1.8-2.4) mg/dl Total Bilirubin (0.2-1.0) mg/dL AST (15-37) U/L ALT (16-63) U/L Alkaline Phosphatase (46-116) U/L CK-MB (CK-2) 1.1 (0-3.6) ng/ml Troponin I < 0.017 (0.00-0.056) ng/mL C-Reactive Protein (<1.0) mg/dL NT-Pro-B Natriuret Pep (0-450) pg/mL Total Protein (6.4-8.2) g/dl Albumin (3.4-5.0) g/dl Globulin gm/dL Albumin/Globulin Ratio (1-2) PSA Screen 0.8 (0.0-4.0) ng/mL Digoxin (0.9-2.0) ng/mL 01/28/18 01/28/18 Range/Units 15:40 15:40 WBC (4.23-9.07) K/mm3 RBC (4.63-6.08) M/mm3 Hgb (13.7-17.5) gm/L Hct (40.1-51.0) % MCV (79.0-92.2) fl MCH (25.7-32.2) pg MCHC (32.2-35.5) g/dl RDW Std Deviation (35.1-43.9) fL Plt Count (163-337) K/mm3 MPV (9.4-12.3) fl Neutrophils % (Manual) (40-60) % Band Neutrophils % (0-10) % Lymphocytes % (Manual) (20-40) % Atypical Lymphs % % Monocytes % (Manual) (2-10) % Eosinophils % (Manual) (0.8-7.0) % Basophils % (Manual) (0.2-1.2) Platelet Estimate Plt Morphology Comment Anisocytosis Microcytosis Macrocytosis RBC Morph Comment ESR (0-15) mm/hr PT (9.5-12.1) SECONDS INR Sodium (136-145) mEq/L Potassium (3.5-5.1) mEq/L Chloride (98-107) mEq/L Carbon Dioxide (21-32) mEq/L Anion Gap (5-15) BUN (7-18) mg/dL Creatinine (0.7-1.3) mg/dL Est Cr Clr Drug Dosing mL/min Estimated GFR (MDRD) (>60) mL/min BUN/Creatinine Ratio (14-18) Glucose (83-115) mg/dL Calcium (8.5-10.1) mg/dL Magnesium (1.8-2.4) mg/dl Total Bilirubin (0.2-1.0) mg/dL AST (15-37) U/L ALT (16-63) U/L Alkaline Phosphatase (46-116) U/L CK-MB (CK-2) (0-3.6) ng/ml Troponin I (0.00-0.056) ng/mL C-Reactive Protein (<1.0) mg/dL NT-Pro-B Natriuret Pep 4062 H (0-450) pg/mL Total Protein (6.4-8.2) g/dl Albumin (3.4-5.0) g/dl Globulin gm/dL Albumin/Globulin Ratio (1-2) PSA Screen (0.0-4.0) ng/mL Digoxin 1.4 (0.9-2.0) ng/mL Meds: Medications Generic Name Dose Route Start Last Admin Trade Name Freq PRN Reason Stop Dose Admin Sodium Chloride 1,000 mls @ 125 mls/hr 01/28/18 15:30 01/28/18 15:52 Normal Saline IV 125 mls/hr ASDIRECTED GABRIELLE Administration Discontinued Medications Generic Name Dose Route Start Last Admin Trade Name Freq PRN Reason Stop Dose Admin Hydromorphone HCl 0.5 mg 01/28/18 15:30 01/28/18 15:52 Dilaudid IVPUSH 01/28/18 15:31 0.5 mg ONETIME ONE Administration Hydromorphone HCl 0.5 mg 01/28/18 18:25 01/28/18 18:45 Dilaudid IVPUSH 01/28/18 18:26 0.5 mg ONETIME ONE Administration Insulin Human Lispro 10 unit 01/28/18 19:00 Humalog SUBCUT 01/28/18 19:01 ONETIME ONE Methylprednisolone Sodium Succinate 62.5 mg 01/28/18 18:28 01/28/18 18:45 Solu-Medrol IVPUSH 01/28/18 18:29 62.5 mg ONETIME ONE Administration Ondansetron HCl 4 mg 01/28/18 15:30 01/28/18 15:52 Zofran IVPUSH 01/28/18 15:31 4 mg ONETIME ONE Administration Oxycodone/Acetaminophen 1 tab 01/28/18 18:25 01/28/18 18:45 Percocet 325-5 Mg PO 01/28/18 18:26 1 tab ONETIME ONE Administration - Radiology Interpretation Free Text/Narrative:: 87-year-old male presents the ED with acute exacerbation of chronic low back pain. States for the last week his back pain has been gradually worsened to the point that he is become wheelchair bound. Usually was able to get around with a walker. Pain is sharp stabbing and spastic in intensity and radiates towards his right hip with any movement at all. No history of compression fractures. No cancer of the prostate. Plan routine labs including PSA. CT of his lumbar spine will be obtained. He is unable to lie flat at this time. Will start an IV. He will be given Dilaudid 0.5 mg IV with Zofran for Paige grams IV for pain relief prior to the CT. - Re-Assessments/Exams Free Text/Narrative Re-Assessment/Exam: 01/28/18 16:53 Labs reveal a normal white count at 6.35 differential is pending. Hemoglobin is mildly low at 10.4 with hematocrit 32.7. MCV is 87. Blood count is 211,000. Sodium is normal at 136 potassium is high normal at 5.0. Troponin 9 with a bicarbonate 30. Anion gap is 12 with a BUN of 26. Creatinine is 1.3. GFR is 52. Glucose is elevated at 228 and he is a known diabetic. Calcium is 8.7 with bilirubin of 0.4. AST is 64 with an ALT of 79 mildly elevated. Alk phosphatase is normal 102. C-reactive protein is 1.8. Total protein is 6.5 albumin fraction 2.3. PSA screen is 0.8. 01/28/18 16:53 CT of his lumbar spine reveals advanced degenerative arthritic changes at all levels. There is also mild retro-spinal listhesis at L1 on L2 pain is going to be due to spinal stenosis. He does not have any evidence of compression fractures. 01/28/18 17:57 chest x-ray done portably, reveals a very large right-sided pleural effusion taking up most of the lower lobe and the middle lobe. He has marked cardiomegaly. 01/28/18 18:00 Differential is now back on the white count. 76% neutrophils and 1% band cells. 11% monocytes. Sedimentation rate was 19. PT is 22.5 with an INR of 2.09. Glucose is elevated at 228. C-reactive protein was 1.8 BNP is elevated at 4062. Magnesium is normal at 2.1 01/28/18 19:[address] Carrillo carbon rod inserter hospitalist and she will see the patient in the ED with a view to admission to the hospital. The reason to come into the hospitalist for pain control of his severe low back pain which is going to be difficult as he is diabetic and will not tolerate high-dose steroids and renal function is poor with significant congestive heart failure and NSAIDs are relatively contraindicated. He will require oral analgesia for pain control. Low-dose steroids could be utilized his checking his blood sugars on a regular basis. Patient usually uses travoprost thalamic drops to his left eye at bedtime and they're not available in the hospital. See if somebody can bring his medications for his eyes from [place] where he resides. CODE STATUS is DO NOT RESUSCITATE/DO NOT INTUBATE. Departure - Departure Time of Disposition: 19:47 Disposition: Admitted As Inpatient 65 Condition: Poor Clinical Impression: Atrial fibrillation, chronic, Bradycardia by electrocardiography, Pleural effusion on right, Blind right eye Congestive heart failure Qualifiers: Heart failure type: unspecified Heart failure chronicity: chronic Qualified Code(s): I50.9 - Heart failure, unspecified Degenerative arthritis of lumbar spine Qualifiers: Spinal osteoarthritis complication: unspecified spinal osteoarthritis Qualified Code(s): M47.816 - Spondylosis without myelopathy or radiculopathy, lumbar region Type 2 diabetes mellitus Qualifiers: Diabetes mellitus residential insulin use: with convention manager use Diabetes mellitus complication status: with unspecified complications Qualified Code(s): E11.8 - Type 2 diabetes mellitus with unspecified complications Glaucoma Qualifiers: Primary angle closure glaucoma type: chronic Laterality: bilateral Glaucoma stage: severe stage - Discharge Information *PRESCRIPTION DRUG MONITORING PROGRAM REVIEWED*: Not Applicable *COPY OF PRESCRIPTION DRUG MONITORING REPORT IN PATIENT SHYANNE: Not Applicable Referrals: Jean Pierre Choi MD [Primary Care Provider] - Forms: ED Department Discharge - My Orders Last 24 Hours: My Active Orders 01/28/18 15:30 Sodium Chloride 0.9% [Normal Saline] 1,000 ml IV ASDIRECTED 01/28/18 17:20 EKG Documentation Completion [RC] STAT Chest 1V Frontal [CR] Stat 01/28/18 19:43 Admission Status [Patient Status] [ADT] Routine - Assessment/Plan Last 24 Hours: My Active Orders 01/28/18 15:30 Sodium Chloride 0.9% [Normal Saline] 1,000 ml IV ASDIRECTED 01/28/18 17:20 EKG Documentation Completion [RC] STAT Chest 1V Frontal [CR] Stat 01/28/18 19:43 Admission Status [Patient Status] [ADT] Routine
[2018-01-28] MEDS: Sodium Chloride 0.9% 1,000 ML IV SCH (15:52)
--- NOTE | 2018-01-28 17:14 | CT ---
CT lumbar spine Technique: Multiple axial sections were obtained from the mid T11 level inferiorly through the S3 level. Reconstructed sagittal and coronal images were reviewed. Findings: Partially visualized moderately large right-sided pleural effusion is seen. Small left-sided pleural effusion is also partially visualized. Fluid noted within the pelvis. Diffuse disc space narrowing is noted throughout the lower thoracic and lumbar spine. Vacuum disc phenomena is noted within the L1-2, L2-3 and L4-5 discs. Retrolisthesis is noted at L1-2 by approximately 4 mm. epidural air noted posterior to the L2 vertebral body compatible with annular tear at L1-2 with escape of the air from the vacuum phenomena within the L1-2 disc. Slight retrolisthesis noted at L4-5 by about 2.3 mm. Diffuse anterior endplate osteophytes are seen. No fracture is seen. Diffuse circumferential disc bulging is seen. No discrete central canal stenosis is seen. Neural foramina are felt to be fairly well patent where the nerve roots exit. Diffuse atherosclerotic calcification is noted within the aorta and iliac vessels without aneurysm. Impression: 1. Diffuse degenerative change. No definite central canal stenosis or neural foraminal stenosis is seen. No fracture is appreciated. 2. Moderate right sided pleural effusion is partially visualized. Small left-sided pleural effusion is partially visualized. Fluid also noted within the pelvis. 3. Other incidental findings. Note: If further evaluation for lumbar spine disease is needed, MRI would be helpful. Diagnostic code #3
[2018-01-28] MEDS ORDERED: HYDROmorphone 0.5 MG/0.5 ML SYRINGE IVPUSH ONE (18:25)
[2018-01-28] MEDS ORDERED: Acetaminophen/oxyCODONE 325-5 MG Tab PO ONE (18:25)
[2018-01-28] MEDS ORDERED: methylPREDNISolone Sodium Succinate 125 MG/2 ML SDV IVPUSH ONE (18:28)
[2018-01-28] MEDS ORDERED: Insulin Lispro 100 Unit/ML 3 ML KwikPen SUBCUT ONE (19:00)
[2018-01-28] MEDS ORDERED: Carboxymethylcellulose Sodium 1% Ophth Gel 15 ML Bottle EYEBOTH PRN (20:59)
[2018-01-28] MEDS ORDERED: Docusate Sodium 100 MG Cap PO PRN (20:59)
[2018-01-28] MEDS ORDERED: Benzonatate 100 MG Cap PO PRN (20:59)
[2018-01-28] MEDS ORDERED: Acetaminophen 325 MG Tab PO PRN (20:59)
--- NOTE | 2018-01-28 20:59 | PCM.HP ---
H&P History of Present Illness - General Date of Service: 01/28/18 Admit Problem/Dx: Admission Diagnosis/Problem Admission Diagnosis/Problem Lumbar back pain with radiculopathy affecting left lower extremity Right Hip Pain Score (Numeric/FACES): 8 - Related Data Allergies/Adverse Reactions: Allergies Allergy/AdvReac Type Severity Reaction Status Date / Time No Known Allergies Allergy Verified 11/22/17 20:31 Home Medications: Home Meds Lisinopril 40 mg PO DAILY 07/10/15 [History] glipiZIDE [Glucotrol] 10 mg PO BID 07/10/15 [History] Aspirin [Ecotrin] 81 mg PO DAILY 12/19/15 [History] Psyllium with Sucrose [Metamucil] 1 tsp PO DAILY 12/25/15 [History] Ferrous Sulfate [Slow Fe] 325 mg PO DAILY 05/14/16 [History] Omeprazole 20 mg PO BEDTIME 05/14/16 [History] Potassium Chloride 20 meq PO BID 05/14/16 [History] metFORMIN [Glucophage] 500 mg PO BID 05/14/16 [History] Amiodarone [Cordarone] 200 mg PO DAILY #30 tablet 05/22/16 [Rx] Doxazosin [Cardura] 4 mg PO BEDTIME #30 tablet 05/22/16 [Rx] Cholecalciferol (Vitamin D3) [Vitamin D3] 1,000 unit PO DAILY 06/16/16 [History] Lanolin [Lantiseptic] 1 applic TOP DAILY PRN 06/16/16 [History] Polyvinyl Alcohol/Povidone/Pf [Refresh Classic Eye Drops] 1 drop EYEBOTH QID PRN 06/16/16 [History] Tamsulosin [Flomax] 0.4 mg PO DAILY 06/16/16 [History] Vit A,C & E/Lutein/Minerals [Healthy Eyes] 1 tab PO DAILY 06/16/16 [History] Benzonatate 100 mg PO TID PRN 11/22/17 [History] Carboxymethyl/Glycerin/Poly80 [Refresh Optive Advanced Drops] 1 drop EYEBOTH QID 11/22/17 [History] Furosemide 40 mg PO 1600 11/22/17 [History] Furosemide [Lasix] 80 mg PO DAILY 11/22/17 [History] Insulin Glarg,Human.Rec.Analog [Lantus] 10 unit SQ BEDTIME 11/22/17 [History] Levothyroxine Sodium [Synthroid] 137 mcg PO DAILY 11/22/17 [History] Magnesium Oxide 420 mg PO DAILY 11/22/17 [History] Melatonin 6 mg PO BEDTIME 11/22/17 [History] Travoprost [Travatan Z] 1 drop EYEBOTH BEDTIME 11/22/17 [History] amLODIPine Besylate [Amlodipine Besylate] 5 mg PO DAILY 11/22/17 [History] Acetaminophen [Tylenol] 650 mg PO Q4H PRN 01/28/18 [History] Carvedilol [Coreg] 25 mg PO Q12H 01/28/18 [History] Digoxin [Lanoxin] 125 mcg PO DAILY 01/28/18 [History] Docusate Sodium [Colace] 100 mg PO BID PRN 01/28/18 [History] Flunisolide [Nasalide Nasal [place]] 2 spray INH DAILY PRN 01/28/18 [History] Rivaroxaban [Xarelto] 20 mg PO DAILY 01/28/18 [History] Rosuvastatin [Crestor] 20 mg PO DAILY 01/28/18 [History] Past Medical History HEENT History: Reports: Allergic Rhinitis, Glaucoma, Hard of Hearing, Impaired Vision, Macular Degeneration Other HEENT History: wears glasses, cannot hear or see from right side. Cardiovascular History: Reports: Afib (He is on amiodarone and digoxin for rate control. He supposedly is also on Xarelto to prevent stroke.. However he does have an elevated INR.), Aneurysm, Arrhythmia (On amiodarone.), Heart Failure, High Cholesterol, Hypertension Other Cardiovascular History: ventricular tachycardia Respiratory History: Reports: None Other Respiratory History: pneumonia Gastrointestinal History: Reports: GERD Other Gastrointestinal History: hematochezia, melena, dysphagia Genitourinary History: Reports: BPH Other Genitourinary History: polyuria Musculoskeletal History: Reports: Osteoarthritis, Other (See Below) Other Musculoskeletal History: contractures of the fingers Endocrine/Metabolic History: Reports: Diabetes, Type II (Controlled with insulin.), Hypothyroidism Hematologic History: Reports: Anemia - Infectious Disease History Infectious Disease History: Reports: Chicken Pox, Influenza, Measles - Past Surgical History HEENT Surgical History: Reports: Cataract Surgery, Laser Surgery GI Surgical History: Reports: Cholecystectomy Other Neurological Surgeries/Procedures: generalized weakness Musculoskeletal Surgical History: Reports: Amputation Social & Family History - Family History Family Medical History: Noncontributory - Tobacco Use Smoking Status *Q: Former Smoker Used Tobacco, but Quit: Yes Month/Year Tobacco Last Used: 50 yrs - Caffeine Use Caffeine Use: Reports: Coffee, Soda Other Caffeine Use: 2 cups in am and tea at night - Recreational Drug Use Recreational Drug Use: No - Living Situation & Occupation Living situation: Reports: , with Spouse, Assisted Living ([place] halfway home.) Occupation: Retired Exam - Vital Signs Vital Signs: Last Vital Signs Temp 36.3 C 01/28/18 15:05 Pulse 54 L 01/28/18 15:05 Resp 20 01/28/18 15:05 BP 122/47 L 01/28/18 15:05 Pulse Ox 99 01/28/18 15:05 Weight: 71.214 kg - Patient Data Lab Results Last 24 hrs: Laboratory Results - last 24 hr 01/28/18 01/28/18 01/28/18 Range/Units 15:40 15:40 15:40 WBC 6.35 (4.23-9.07) K/mm3 RBC 3.76 L (4.63-6.08) M/mm3 Hgb 10.4 L (13.7-17.5) gm/L Hct 32.7 L (40.1-51.0) % MCV 87.0 (79.0-92.2) fl MCH 27.7 (25.7-32.2) pg MCHC 31.8 L (32.2-35.5) g/dl RDW Std Deviation 52.1 H (35.1-43.9) fL Plt Count 211 (163-337) K/mm3 MPV 10.4 (9.4-12.3) fl Neutrophils % (Manual) 76 H (40-60) % Band Neutrophils % 1 (0-10) % Lymphocytes % (Manual) 7 L (20-40) % Atypical Lymphs % 1 % Monocytes % (Manual) 11 H (2-10) % Eosinophils % (Manual) 4 (0.8-7.0) % Basophils % (Manual) 0 L (0.2-1.2) Platelet Estimate Adequate Plt Morphology Comment Normal Anisocytosis 1+ slight Microcytosis 1+ slight Macrocytosis 1+ slight RBC Morph Comment Not Reportable ESR 19 H (0-15) mm/hr PT (9.5-12.1) SECONDS INR Sodium 136 (136-145) mEq/L Potassium 5.0 (3.5-5.1) mEq/L Chloride 99 (98-107) mEq/L Carbon Dioxide 30 (21-32) mEq/L Anion Gap 12.0 (5-15) BUN 26 H (7-18) mg/dL Creatinine 1.3 (0.7-1.3) mg/dL Est Cr Clr Drug Dosing 39.56 mL/min Estimated GFR (MDRD) 52 (>60) mL/min BUN/Creatinine Ratio 20.0 H (14-18) Glucose 228 H (83-115) mg/dL Calcium 8.7 (8.5-10.1) mg/dL Magnesium (1.8-2.4) mg/dl Total Bilirubin 0.4 (0.2-1.0) mg/dL AST 64 H (15-37) U/L ALT 79 H (16-63) U/L Alkaline Phosphatase 102 (46-116) U/L CK-MB (CK-2) (0-3.6) ng/ml Troponin I (0.00-0.056) ng/mL C-Reactive Protein 1.8 H* (<1.0) mg/dL NT-Pro-B Natriuret Pep (0-450) pg/mL Total Protein 6.5 (6.4-8.2) g/dl Albumin 2.3 L (3.4-5.0) g/dl Globulin 4.2 gm/dL Albumin/Globulin Ratio 0.6 L (1-2) PSA Screen (0.0-4.0) ng/mL Digoxin (0.9-2.0) ng/mL 01/28/18 01/28/18 01/28/18 Range/Units 15:40 15:40 15:40 WBC (4.23-9.07) K/mm3 RBC (4.63-6.08) M/mm3 Hgb (13.7-17.5) gm/L Hct (40.1-51.0) % MCV (79.0-92.2) fl MCH (25.7-32.2) pg MCHC (32.2-35.5) g/dl RDW Std Deviation (35.1-43.9) fL Plt Count (163-337) K/mm3 MPV (9.4-12.3) fl Neutrophils % (Manual) (40-60) % Band Neutrophils % (0-10) % Lymphocytes % (Manual) (20-40) % Atypical Lymphs % % Monocytes % (Manual) (2-10) % Eosinophils % (Manual) (0.8-7.0) % Basophils % (Manual) (0.2-1.2) Platelet Estimate Plt Morphology Comment Anisocytosis Microcytosis Macrocytosis RBC Morph Comment ESR (0-15) mm/hr PT 22.5 H (9.5-12.1) SECONDS INR 2.09 Sodium (136-145) mEq/L Potassium (3.5-5.1) mEq/L Chloride (98-107) mEq/L Carbon Dioxide (21-32) mEq/L Anion Gap (5-15) BUN (7-18) mg/dL Creatinine (0.7-1.3) mg/dL Est Cr Clr Drug Dosing mL/min Estimated GFR (MDRD) (>60) mL/min BUN/Creatinine Ratio (14-18) Glucose (83-115) mg/dL Calcium (8.5-10.1) mg/dL Magnesium 2.1 (1.8-2.4) mg/dl Total Bilirubin (0.2-1.0) mg/dL AST (15-37) U/L ALT (16-63) U/L Alkaline Phosphatase (46-116) U/L CK-MB (CK-2) 1.1 (0-3.6) ng/ml Troponin I < 0.017 (0.00-0.056) ng/mL C-Reactive Protein (<1.0) mg/dL NT-Pro-B Natriuret Pep (0-450) pg/mL Total Protein (6.4-8.2) g/dl Albumin (3.4-5.0) g/dl Globulin gm/dL Albumin/Globulin Ratio (1-2) PSA Screen 0.8 (0.0-4.0) ng/mL Digoxin (0.9-2.0) ng/mL 01/28/18 01/28/18 Range/Units 15:40 15:40 WBC (4.23-9.07) K/mm3 RBC (4.63-6.08) M/mm3 Hgb (13.7-17.5) gm/L Hct (40.1-51.0) % MCV (79.0-92.2) fl MCH (25.7-32.2) pg MCHC (32.2-35.5) g/dl RDW Std Deviation (35.1-43.9) fL Plt Count (163-337) K/mm3 MPV (9.4-12.3) fl Neutrophils % (Manual) (40-60) % Band Neutrophils % (0-10) % Lymphocytes % (Manual) (20-40) % Atypical Lymphs % % Monocytes % (Manual) (2-10) % Eosinophils % (Manual) (0.8-7.0) % Basophils % (Manual) (0.2-1.2) Platelet Estimate Plt Morphology Comment Anisocytosis Microcytosis Macrocytosis RBC Morph Comment ESR (0-15) mm/hr PT (9.5-12.1) SECONDS INR Sodium (136-145) mEq/L Potassium (3.5-5.1) mEq/L Chloride (98-107) mEq/L Carbon Dioxide (21-32) mEq/L Anion Gap (5-15) BUN (7-18) mg/dL Creatinine (0.7-1.3) mg/dL Est Cr Clr Drug Dosing mL/min Estimated GFR (MDRD) (>60) mL/min BUN/Creatinine Ratio (14-18) Glucose (83-115) mg/dL Calcium (8.5-10.1) mg/dL Magnesium (1.8-2.4) mg/dl Total Bilirubin (0.2-1.0) mg/dL AST (15-37) U/L ALT (16-63) U/L Alkaline Phosphatase (46-116) U/L CK-MB (CK-2) (0-3.6) ng/ml Troponin I (0.00-0.056) ng/mL C-Reactive Protein (<1.0) mg/dL NT-Pro-B Natriuret Pep 4062 H (0-450) pg/mL Total Protein (6.4-8.2) g/dl Albumin (3.4-5.0) g/dl Globulin gm/dL Albumin/Globulin Ratio (1-2) PSA Screen (0.0-4.0) ng/mL Digoxin 1.4 (0.9-2.0) ng/mL Result Diagrams: 01/28/18 15:40 01/28/18 15:40 Orders Last 24hrs: Active Orders 24 hr Category Date Time Status Admission Status [Patient Status] [ADT] Routine ADT 01/28/18 19:43 Active Chest 1V Frontal [CR] Stat Exams 01/28/18 17:20 Taken Sodium Chloride 0.9% [Normal Saline] 1,000 ml Med 01/28/18 15:30 Active IV ASDIRECTED Medication Orders Sodium Chloride (Normal Saline) 1,000 mls @ 125 mls/hr IV ASDIRECTED GABRIELLE Last Admin: 01/28/18 15:52 Dose: 125 mls/hr
[2018-01-28] MEDS ORDERED: Non-Formulary Medication 1 Each (Travoprost [Travatan Z] 1 DROP) EYEBOTH SCH (21:00)
[2018-01-28] MEDS ORDERED: Carvedilol 12.5 MG Tab PO SCH (21:00)
[2018-01-28] MEDS ORDERED: 50% Dextrose in Water 50 ML Syringe IVPUSH PRN (21:13)
[2018-01-28] MEDS ORDERED: Ondansetron 4 MG/2 ML SDV IVPUSH PRN (21:17)
[2018-01-29] MEDS: Latanoprost 0.005% Ophth Soln 2.5 ML Bottle EYEBOTH SCH ×2 (00:23→21:26)
[2018-01-29] MEDS: Insulin Lispro 100 Unit/ML 3 ML KwikPen SUBCUT SCH ×6 (00:23→21:26)
[2018-01-29] MEDS: Doxazosin 4 MG Tab PO SCH ×2 (00:26→21:22)
[2018-01-29] MEDS: Sodium Chloride 0.9% 1,000 ML IV SCH (03:47)
[2018-01-29] MEDS: methylPREDNISolone Sodium Succinate 40 MG/1 ML SDV IVPUSH SCH ×3 (03:48→18:21)
[2018-01-29] MEDS ORDERED: Levothyroxine 112 MCG Tab PO SCH (06:00)
[2018-01-29] MEDS ORDERED: Levothyroxine 25 MCG Tab PO SCH (06:00)
--- NOTE | 2018-01-29 07:05 | PCM.HP ---
H&P History of Present Illness - General Date of Service: 01/29/18 Admit Problem/Dx: Admission Diagnosis/Problem Admission Diagnosis/Problem Lumbar back pain with radiculopathy affecting left lower extremity Source of Information: Patient, Old Records, Provider, RN, RN Notes Reviewed History Limitations: Reports: No Limitations - History of Present Illness Initial Comments - Free Text/Narative: Marco Sandoval is an 87 yo male who presented to our ED on 01/28/18 with worsening chronic lower back pain. Reports the pain has been going on for approximately 1 week and radiates towards his hip and buttocks area. He reports it originates in the very low back. Denies any recent trauma and no history of compression fractures. He reports difficulty getting in and out of bed, off the toilet, or out of a chair. Denies any difficulty with voiding or pain radiating down the left leg. He's been utilizing Tylenol for pain with minimal relief. States any flinching, movement, or spasm causes severe pain. He does report at times he will need to cry out because the pain is so bad. In the ED temperature is 36.3 Celsius. Pulse 54. Respirations 20. Blood pressure 122/47. Pulse ox 99%. 12-lead EKG is obtained showing A. fib at a rate of 53 bpm. There is decreased voltage in the limb leads and early R-wave transition. ST segment depression is noted in V3 through V6, cannot rule out ischemia. Diffuse T-wave abnormalities with flattening in multiple leads. The QT is also noted to be mildly prolonged. Labs are obtained: WBC is 6.35. Hemoglobin 10.4. Hematocrit 32.7. He is normocytic. Platelets are good at 211 ,000. Neutrophils are elevated at 76%. There is 1% banded neutrophils. ESR is 19. Sodium 136. Potassium 5.0. Chloride 99. Carbon dioxide 30. Anion gap 12. BUN is high at 26. Creatinine high at 1.3. EGFR is down at 52. Glucose is quite high at 228. Calcium 8.7. Total bilirubin 0.4. AST is 64, ALT 79, alk phosphatase 102. CRP is slightly elevated at 1.8. Total protein 6.5. Albumin is low at 2.3. PT is 22.5. INR is 2.04. Magnesium is 2.1. CK- MB is 1.1. Troponin is less than 0.017. PSA is 0.8. ProBNP is obtained and is 4062. Digoxin level was also obtained at 1.4. He is given 0.5 mg Dilaudid for pain and started on saline at 125 mils an hour. He's given 10 units of subcutaneous Humalog and a 62.5 mg IV push dose of Solu-Medrol. He is also given 1 tablet by mouth Percocet and [address] scan of the lumbar spine is obtained and interpreted by Dr. Obrien as "1. Diffuse degenerative change. No definite central canal stenosis or or neural foraminal stenosis is seen. No fractures appreciated. 2. Moderate right-sided pleural effusion is partially visualized. Small left-sided pleural effusion is partially visualized. Fluid also noted within the pelvis. 3. Other incidental findings. Note: If further evaluation for lumbar spine diseases needed, MRI would be helpful." He carries a history of: Glaucoma, hard of hearing, impaired vision, macular degeneration, A. fib on amiodarone and digoxin for rate control, along with Xarelto. Aneurysm, heart failure, HLD, hypertension, history of ventricular tachycardia, GERD, dysphagia, BPH, polyuria, osteoporosis, contractures of the fingers, type II DM control with insulin, hypothyroidism, anemia. He is a former smoker who quit approximately 50 years ago. He is a DNR/DNI. His PCP is Dr. Choi. He subsequently admitted to the medical floor for management of his pain and pleural effusions. Right Hip Pain Score (Numeric/FACES): 8 - Related Data Allergies/Adverse Reactions: Allergies Allergy/AdvReac Type Severity Reaction Status Date / Time No Known Allergies Allergy Verified 01/28/18 22:16 Home Medications: Home Meds Lisinopril 40 mg PO DAILY 07/10/15 [History] glipiZIDE [Glucotrol] 10 mg PO BID 07/10/15 [History] Aspirin [Ecotrin] 81 mg PO DAILY 12/19/15 [History] Psyllium with Sucrose [Metamucil] 1 tsp PO DAILY 12/25/15 [History] Ferrous Sulfate [Slow Fe] 325 mg PO DAILY 05/14/16 [History] Omeprazole 20 mg PO BEDTIME 05/14/16 [History] Potassium Chloride 20 meq PO BID 05/14/16 [History] metFORMIN [Glucophage] 500 mg PO BID 05/14/16 [History] Amiodarone [Cordarone] 200 mg PO DAILY #30 tablet 05/22/16 [Rx] Doxazosin [Cardura] 4 mg PO BEDTIME #30 tablet 05/22/16 [Rx] Cholecalciferol (Vitamin D3) [Vitamin D3] 1,000 unit PO DAILY 06/16/16 [History] Lanolin [Lantiseptic] 1 applic TOP DAILY PRN 06/16/16 [History] Polyvinyl Alcohol/Povidone/Pf [Refresh Classic Eye Drops] 1 drop EYEBOTH QID PRN 06/16/16 [History] Tamsulosin [Flomax] 0.4 mg PO DAILY 06/16/16 [History] Vit A,C & E/Lutein/Minerals [Healthy Eyes] 1 tab PO DAILY 06/16/16 [History] Benzonatate 100 mg PO TID PRN 11/22/17 [History] Carboxymethyl/Glycerin/Poly80 [Refresh Optive Advanced Drops] 1 drop EYEBOTH QID 11/22/17 [History] Furosemide 40 mg PO 1600 11/22/17 [History] Furosemide [Lasix] 80 mg PO DAILY 11/22/17 [History] Insulin Glarg,Human.Rec.Analog [Lantus] 10 unit SQ BEDTIME 11/22/17 [History] Levothyroxine Sodium [Synthroid] 137 mcg PO DAILY 11/22/17 [History] Magnesium Oxide 420 mg PO DAILY 11/22/17 [History] Melatonin 6 mg PO BEDTIME 11/22/17 [History] Travoprost [Travatan Z] 1 drop EYEBOTH BEDTIME 11/22/17 [History] amLODIPine Besylate [Amlodipine Besylate] 5 mg PO DAILY 11/22/17 [History] Acetaminophen [Tylenol] 650 mg PO Q4H PRN 01/28/18 [History] Carvedilol [Coreg] 25 mg PO Q12H 01/28/18 [History] Digoxin [Lanoxin] 125 mcg PO DAILY 01/28/18 [History] Docusate Sodium [Colace] 100 mg PO BID PRN 01/28/18 [History] Flunisolide [Nasalide Nasal Solway] 2 spray INH DAILY PRN 01/28/18 [History] Rivaroxaban [Xarelto] 20 mg PO DAILY 01/28/18 [History] Rosuvastatin [Crestor] 20 mg PO DAILY 01/28/18 [History] Past Medical History HEENT History: Reports: Allergic Rhinitis, Glaucoma, Hard of Hearing, Impaired Vision, Macular Degeneration Other HEENT History: wears glasses, cannot hear or see from right side. Cardiovascular History: Reports: Afib, Aneurysm, Arrhythmia, Heart Failure, High Cholesterol, Hypertension Other Cardiovascular History: ventricular tachycardia Respiratory History: Reports: None Other Respiratory History: pneumonia Gastrointestinal History: Reports: GERD Other Gastrointestinal History: hematochezia, melena, dysphagia Genitourinary History: Reports: BPH Other Genitourinary History: polyuria Musculoskeletal History: Reports: Osteoarthritis, Other (See Below) Other Musculoskeletal History: contractures of the fingers Endocrine/Metabolic History: Reports: Diabetes, Type II, Hypothyroidism Hematologic History: Reports: Anemia - Infectious Disease History Infectious Disease History: Reports: Chicken Pox, Influenza, Measles - Past Surgical History HEENT Surgical History: Reports: Cataract Surgery, Laser Surgery GI Surgical History: Reports: Cholecystectomy Other Neurological Surgeries/Procedures: generalized weakness Musculoskeletal Surgical History: Reports: Amputation Social & Family History - Family History Family Medical History: Noncontributory - Tobacco Use Smoking Status *Q: Never Smoker Used Tobacco, but Quit: Yes Month/Year Tobacco Last Used: 50 yrs - Caffeine Use Caffeine Use: Reports: Coffee, Soda Other Caffeine Use: 2 cups in am and tea at night - Recreational Drug Use Recreational Drug Use: No - Living Situation & Occupation Living situation: Reports: , with Spouse, Assisted Living ([facility].) Occupation: Retired H&P Review of Systems - Review of Systems: Review Of Systems: See Below General: Reports: Weakness, Fatigue, Decreased Appetite, Weight Loss. Denies: Fever, Chills, Malaise HEENT: Reports: No Symptoms Pulmonary: Reports: Shortness of Breath. Denies: Wheezing, Pleuritic Chest Pain , Cough, Sputum Cardiovascular: Reports: Dyspnea on Exertion. Denies: Chest Pain, Palpitations , Edema, Lightheadedness Gastrointestinal: Reports: Constipation. Denies: Abdominal Pain, Diarrhea, Nausea, Vomiting Genitourinary: Reports: Frequency. Denies: Dysuria, Burning, Pain, Urgency Musculoskeletal: Reports: Back Pain (Acute on chronic ) Skin: Reports: No Symptoms Psychiatric: Reports: No Symptoms. Denies: Confusion Neurological: Reports: No Symptoms Hematologic/Lymphatic: Reports: Anemia (history ) Immunologic: Reports: No Symptoms Exam - Exam Exam: See Below - Vital Signs Vital Signs: Last Vital Signs Temp 97.4 F 01/28/18 15:05 Pulse 61 01/29/18 03:53 Resp 16 01/29/18 03:53 BP 131/52 L 01/29/18 03:53 Pulse Ox 93 L 01/29/18 03:53 Weight: 156 lb 6.4 oz - Exam Quality Assessment: Supplemental Oxygen, DVT Prophylaxis General: Alert, Oriented, Cooperative. No: Mild Distress HEENT: Conjunctiva Clear, EACs Clear, EOMI, Hearing Intact, Mucosa Moist & [place] , Nares Patent, Posterior Pharynx Clear, PERRLA Neck: Supple, Trachea Midline Lungs: Normal Respiratory Effort, Decreased Breath Sounds. No: Rhonchi, Stridor , Wheezing Cardiovascular: Regular Rate, Irregular Rhythm GI/Abdominal Exam: Normal Bowel Sounds, Soft, Non-Tender, No Distention, No Abnormal Bruit (Male) Exam: Deferred Rectal (Males) Exam: Deferred Back Exam: Normal Inspection, Decreased Range of Motion, Paraspinal Tenderness, Vertebral Tenderness Extremities: Normal Inspection, Normal Range of Motion, Non-Tender, No Pedal Edema, Normal Capillary Refill Peripheral Pulses: 3+: Radial (L), Radial (R), Dorsalis Pedis (L), Dorsalis Pedis (R) Skin: Warm, Dry, Intact Neurological: Cranial Nerves Intact (Grossly ) Neuro Extensive - Mental Status: Alert, Oriented x3, Normal Mood/Affect, Normal Cognition - Patient Data Lab Results Last 24 hrs: Laboratory Results - last 24 hr 01/28/18 01/28/18 01/28/18 Range/Units 15:40 15:40 15:40 WBC 6.35 (4.23-9.07) K/mm3 RBC 3.76 L (4.63-6.08) M/mm3 Hgb 10.4 L (13.7-17.5) gm/L Hct 32.7 L (40.1-51.0) % MCV 87.0 (79.0-92.2) fl MCH 27.7 (25.7-32.2) pg MCHC 31.8 L (32.2-35.5) g/dl RDW Std Deviation 52.1 H (35.1-43.9) fL Plt Count 211 (163-337) K/mm3 MPV 10.4 (9.4-12.3) fl Neutrophils % (Manual) 76 H (40-60) % Band Neutrophils % 1 (0-10) % Lymphocytes % (Manual) 7 L (20-40) % Atypical Lymphs % 1 % Monocytes % (Manual) 11 H (2-10) % Eosinophils % (Manual) 4 (0.8-7.0) % Basophils % (Manual) 0 L (0.2-1.2) Platelet Estimate Adequate Plt Morphology Comment Normal Anisocytosis 1+ slight Microcytosis 1+ slight Macrocytosis 1+ slight RBC Morph Comment Not Reportable ESR 19 H (0-15) mm/hr PT (9.5-12.1) SECONDS INR Sodium 136 (136-145) mEq/L Potassium 5.0 (3.5-5.1) mEq/L Chloride 99 (98-107) mEq/L Carbon Dioxide 30 (21-32) mEq/L Anion Gap 12.0 (5-15) BUN 26 H (7-18) mg/dL Creatinine 1.3 (0.7-1.3) mg/dL Est Cr Clr Drug Dosing 39.56 mL/min Estimated GFR (MDRD) 52 (>60) mL/min BUN/Creatinine Ratio 20.0 H (14-18) Glucose 228 H (83-115) mg/dL POC Glucose (83-110) mg/dL Calcium 8.7 (8.5-10.1) mg/dL Magnesium (1.8-2.4) mg/dl Total Bilirubin 0.4 (0.2-1.0) mg/dL AST 64 H (15-37) U/L ALT 79 H (16-63) U/L Alkaline Phosphatase 102 (46-116) U/L CK-MB (CK-2) (0-3.6) ng/ml Troponin I (0.00-0.056) ng/mL C-Reactive Protein 1.8 H* (<1.0) mg/dL NT-Pro-B Natriuret Pep (0-450) pg/mL Total Protein 6.5 (6.4-8.2) g/dl Albumin 2.3 L (3.4-5.0) g/dl Globulin 4.2 gm/dL Albumin/Globulin Ratio 0.6 L (1-2) PSA Screen (0.0-4.0) ng/mL Digoxin (0.9-2.0) ng/mL MRSA (PCR) 01/28/18 01/28/18 01/28/18 Range/Units 15:40 15:40 15:40 WBC (4.23-9.07) K/mm3 RBC (4.63-6.08) M/mm3 Hgb (13.7-17.5) gm/L Hct (40.1-51.0) % MCV (79.0-92.2) fl MCH (25.7-32.2) pg MCHC (32.2-35.5) g/dl RDW Std Deviation (35.1-43.9) fL Plt Count (163-337) K/mm3 MPV (9.4-12.3) fl Neutrophils % (Manual) (40-60) % Band Neutrophils % (0-10) % Lymphocytes % (Manual) (20-40) % Atypical Lymphs % % Monocytes % (Manual) (2-10) % Eosinophils % (Manual) (0.8-7.0) % Basophils % (Manual) (0.2-1.2) Platelet Estimate Plt Morphology Comment Anisocytosis Microcytosis Macrocytosis RBC Morph Comment ESR (0-15) mm/hr PT 22.5 H (9.5-12.1) SECONDS INR 2.09 Sodium (136-145) mEq/L Potassium (3.5-5.1) mEq/L Chloride (98-107) mEq/L Carbon Dioxide (21-32) mEq/L Anion Gap (5-15) BUN (7-18) mg/dL Creatinine (0.7-1.3) mg/dL Est Cr Clr Drug Dosing mL/min Estimated GFR (MDRD) (>60) mL/min BUN/Creatinine Ratio (14-18) Glucose (83-115) mg/dL POC Glucose (83-110) mg/dL Calcium (8.5-10.1) mg/dL Magnesium 2.1 (1.8-2.4) mg/dl Total Bilirubin (0.2-1.0) mg/dL AST (15-37) U/L ALT (16-63) U/L Alkaline Phosphatase (46-116) U/L CK-MB (CK-2) 1.1 (0-3.6) ng/ml Troponin I < 0.017 (0.00-0.056) ng/mL C-Reactive Protein (<1.0) mg/dL NT-Pro-B Natriuret Pep (0-450) pg/mL Total Protein (6.4-8.2) g/dl Albumin (3.4-5.0) g/dl Globulin gm/dL Albumin/Globulin Ratio (1-2) PSA Screen 0.8 (0.0-4.0) ng/mL Digoxin (0.9-2.0) ng/mL MRSA (PCR) 01/28/18 01/28/18 01/28/18 Range/Units 15:40 15:40 19:11 WBC (4.23-9.07) K/mm3 RBC (4.63-6.08) M/mm3 Hgb (13.7-17.5) gm/L Hct (40.1-51.0) % MCV (79.0-92.2) fl MCH (25.7-32.2) pg MCHC (32.2-35.5) g/dl RDW Std Deviation (35.1-43.9) fL Plt Count (163-337) K/mm3 MPV (9.4-12.3) fl Neutrophils % (Manual) (40-60) % Band Neutrophils % (0-10) % Lymphocytes % (Manual) (20-40) % Atypical Lymphs % % Monocytes % (Manual) (2-10) % Eosinophils % (Manual) (0.8-7.0) % Basophils % (Manual) (0.2-1.2) Platelet Estimate Plt Morphology Comment Anisocytosis Microcytosis Macrocytosis RBC Morph Comment ESR (0-15) mm/hr PT (9.5-12.1) SECONDS INR Sodium (136-145) mEq/L Potassium (3.5-5.1) mEq/L Chloride (98-107) mEq/L Carbon Dioxide (21-32) mEq/L Anion Gap (5-15) BUN (7-18) mg/dL Creatinine (0.7-1.3) mg/dL Est Cr Clr Drug Dosing mL/min Estimated GFR (MDRD) (>60) mL/min BUN/Creatinine Ratio (14-18) Glucose (83-115) mg/dL POC Glucose 149 H (83-110) mg/dL Calcium (8.5-10.1) mg/dL Magnesium (1.8-2.4) mg/dl Total Bilirubin (0.2-1.0) mg/dL AST (15-37) U/L ALT (16-63) U/L Alkaline Phosphatase (46-116) U/L CK-MB (CK-2) (0-3.6) ng/ml Troponin I (0.00-0.056) ng/mL C-Reactive Protein (<1.0) mg/dL NT-Pro-B Natriuret Pep 4062 H (0-450) pg/mL Total Protein (6.4-8.2) g/dl Albumin (3.4-5.0) g/dl Globulin gm/dL Albumin/Globulin Ratio (1-2) PSA Screen (0.0-4.0) ng/mL Digoxin 1.4 (0.9-2.0) ng/mL MRSA (PCR) 01/28/18 01/29/18 Range/Units 21:55 06:16 WBC (4.23-9.07) K/mm3 RBC (4.63-6.08) M/mm3 Hgb (13.7-17.5) gm/L Hct (40.1-51.0) % MCV (79.0-92.2) fl MCH (25.7-32.2) pg MCHC (32.2-35.5) g/dl RDW Std Deviation (35.1-43.9) fL Plt Count (163-337) K/mm3 MPV (9.4-12.3) fl Neutrophils % (Manual) (40-60) % Band Neutrophils % (0-10) % Lymphocytes % (Manual) (20-40) % Atypical Lymphs % % Monocytes % (Manual) (2-10) % Eosinophils % (Manual) (0.8-7.0) % Basophils % (Manual) (0.2-1.2) Platelet Estimate Plt Morphology Comment Anisocytosis Microcytosis Macrocytosis RBC Morph Comment ESR (0-15) mm/hr PT (9.5-12.1) SECONDS INR Sodium (136-145) mEq/L Potassium (3.5-5.1) mEq/L Chloride (98-107) mEq/L Carbon Dioxide (21-32) mEq/L Anion Gap (5-15) BUN (7-18) mg/dL Creatinine (0.7-1.3) mg/dL Est Cr Clr Drug Dosing mL/min Estimated GFR (MDRD) (>60) mL/min BUN/Creatinine Ratio (14-18) Glucose (83-115) mg/dL POC Glucose 135 H (83-110) mg/dL Calcium (8.5-10.1) mg/dL Magnesium (1.8-2.4) mg/dl Total Bilirubin (0.2-1.0) mg/dL AST (15-37) U/L ALT (16-63) U/L Alkaline Phosphatase (46-116) U/L CK-MB (CK-2) (0-3.6) ng/ml Troponin I (0.00-0.056) ng/mL C-Reactive Protein (<1.0) mg/dL NT-Pro-B Natriuret Pep (0-450) pg/mL Total Protein (6.4-8.2) g/dl Albumin (3.4-5.0) g/dl Globulin gm/dL Albumin/Globulin Ratio (1-2) PSA Screen (0.0-4.0) ng/mL Digoxin (0.9-2.0) ng/mL MRSA (PCR) Negative Result Diagrams: 01/29/18 07:41 01/29/18 07:41 - Problem List (1) Back pain SNOMED Code(s): 550679523 ICD Code: M54.9 - DORSALGIA, UNSPECIFIED Status: Acute Priority: High Current Visit: Yes Qualifiers: Back pain location: low back pain Chronicity: acute Back pain laterality : midline Sciatica presence: unspecified whether sciatica present Qualified Code(s): M54.5 - Low back pain (2) Pleural effusion on right SNOMED Code(s): 06554016 ICD Code: J90 - PLEURAL EFFUSION, NOT ELSEWHERE CLASSIFIED Status: Acute Priority: High Current Visit: Yes (3) Bradycardia by electrocardiography SNOMED Code(s): 068957387 ICD Code: R00.1 - BRADYCARDIA, UNSPECIFIED Status: Acute Priority: Medium Current Visit: Yes (4) Congestive heart failure SNOMED Code(s): 67311408 ICD Code: I50.9 - HEART FAILURE, UNSPECIFIED Status: Chronic Priority: Medium Current Visit: Yes Qualifiers: Heart failure type: unspecified Heart failure chronicity: chronic Qualified Code(s): I50.9 - Heart failure, unspecified (5) Degenerative arthritis of lumbar spine Status: Chronic Priority: High Current Visit: Yes Qualifiers: Spinal osteoarthritis complication: unspecified spinal osteoarthritis Qualified Code(s): M47.816 - Spondylosis without myelopathy or radiculopathy, lumbar region (6) Type 2 diabetes mellitus SNOMED Code(s): 92034857 ICD Code: E11.9 - TYPE 2 DIABETES MELLITUS WITHOUT COMPLICATIONS Status: Chronic Priority: Medium Current Visit: No Qualifiers: Diabetes mellitus fci insulin use: with drug and alcohol counsellor use Diabetes mellitus complication status: with unspecified complications Qualified Code(s) : E11.8 - Type 2 diabetes mellitus with unspecified complications; 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 (7) Atrial fibrillation, chronic SNOMED Code(s): 953790624 ICD Code: I48.2 - CHRONIC ATRIAL FIBRILLATION Status: Chronic Priority: High Current Visit: Yes (8) Acute kidney injury SNOMED Code(s): 69033239 ICD Code: N17.9 - ACUTE KIDNEY FAILURE, UNSPECIFIED Status: Acute Priority: High Current Visit: Yes Problem List Initiated/Reviewed/Updated: Yes Orders Last 24hrs: Active Orders 24 hr Category Date Time Status Admission Status [Patient Status] [ADT] Routine ADT 01/28/18 19:43 Active Accu Check [Blood Glucose Check, Bedside] [RC] Care 01/28/18 21:12 Active QIDACANDBED Notify Provider Consults [RC] ASDIRECTED Care 01/28/18 21:21 Active Oxygen Therapy [RC] PRN Care 01/29/18 06:27 Active Consult to Case Management/Mortar Maker [CONS] Cons 01/29/18 08:00 Active Routine Consult to Occupational Therapy [OT Evaluation and Cons 01/29/18 10:00 Active Treatment] [CONS] Routine Consult to Physician [CONS] Routine Cons 01/28/18 21:18 Active Consult to Physician [CONS] Routine Cons 01/28/18 21:20 Active PT Evaluation and Treatment [CONS] Routine Cons 01/29/18 10:00 Active Heart Healthy Diet [DIET] Diet 01/29/18 Breakfast Active Chest 1V Frontal [CR] Stat Exams 01/28/18 17:20 Taken Acetaminophen [Tylenol] Med 01/28/18 20:59 Active 650 mg PO Q6H PRN Amiodarone [Cordarone] Med 01/29/18 09:00 Hold 200 mg PO DAILY Aspirin [Halfprin] Med 01/29/18 09:00 Active 81 mg PO DAILY Benzonatate [Tessalon Perles] Med 01/28/18 20:59 Active 100 mg PO TID PRN Carboxymethyl/Glycerin/Poly80 [Refresh Optive Advanced Med 01/28/18 21:00 Pending Drops] 1 drop EYEBOTH QID Dextrose 50% in Water Med 01/28/18 21:13 Active 50 ml IVPUSH ASDIRECTED PRN Docusate Sodium [Colace] Med 01/28/18 20:59 Active 100 mg PO BID PRN Doxazosin [Cardura] Med 01/28/18 21:00 Active 4 mg PO BEDTIME Ferrous Sulfate [Slow Fe] Med 01/29/18 09:00 Active 280 mg PO DAILY Flunisolide [Nasalide Nasal [place]] Med 01/28/18 20:59 Active 0 ml DUARTE DAILY PRN HYDROmorphone [Dilaudid] Med 01/28/18 21:07 Active 0.5 mg IVPUSH Q4H PRN Insulin Glarg,Human.Rec.Analog Med 01/29/18 21:00 Pending 5 unit SQ BEDTIME Insulin Lispro [HumaLOG] Med 01/28/18 22:00 Active See Protocol SUBCUT QIDACANDBED Latanoprost [Xalatan 0.005% Ophth Soln] Med 01/28/18 21:00 Active 0 ml EYEBOTH BEDTIME Levothyroxine [Levothroid] Med 01/30/18 06:00 Active 137 mcg PO ACBREAKFAST Magnesium Oxide Med 01/29/18 09:00 Active 400 mg PO DAILY Ondansetron [Zofran] Med 01/28/18 21:17 Active 4 mg IVPUSH Q8H PRN Polyvinyl Alcohol/Povidone/Pf [Refresh Classic Eye Med 01/28/18 20:59 Pending Drops] 1 drop EYEBOTH QID PRN Psyllium with Sucrose [Metamucil] Med 01/29/18 09:00 Pending 1 tsp PO DAILY Rosuvastatin [Crestor] Med 01/29/18 09:00 Active 20 mg PO DAILY Tamsulosin [Flomax] Med 01/29/18 09:00 Active 0.4 mg PO DAILY glipiZIDE [Glucotrol] Med 01/29/18 06:00 Active 10 mg PO BIDAC methylPREDNISolone Sod Succ [Solu-MEDROL] Med 01/29/18 03:00 Active 80 mg IVPUSH Q8H Code Status [Resuscitation Status] Routine Resus Stat 01/28/18 21:22 Ordered Medication Orders Acetaminophen (Tylenol) 650 mg PO Q6H PRN PRN Reason: Pain/Fever Amiodarone HCl (Cordarone) 200 mg PO DAILY [facility] Aspirin (Halfprin) 81 mg PO DAILY [facility] Benzonatate (Tessalon Perles) 100 mg PO TID PRN PRN Reason: Cough Dextrose/Water (Dextrose 50% In Water) 50 ml IVPUSH ASDIRECTED PRN PRN Reason: Hypoglycemia Docusate Sodium (Colace) 100 mg PO BID PRN PRN Reason: Constipation Doxazosin Mesylate (Cardura) 4 mg PO BEDTIME [facility] Last Admin: 01/29/18 00:26 Dose: Not Given Ferrous Sulfate (Slow Fe) 280 mg PO DAILY [facility] Flunisolide (Nasalide Nasal [place]) 0 ml DUARTE DAILY PRN PRN Reason: Congestion Glipizide (Glucotrol) 10 mg PO BIDAC [facility] Last Admin: 01/29/18 06:18 Dose: 10 mg Hydromorphone HCl (Dilaudid) 0.5 mg IVPUSH Q4H PRN PRN Reason: Pain (moderate 4-6) Insulin Human Lispro (Humalog) 0 unit SUBCUT QIDACANDBED [facility]; Protocol Last Admin: 01/29/18 06:18 Dose: Not Given Admin: 01/29/18 00:23 Dose: Latanoprost (Xalatan 0.005% Ophth Soln) 0 ml EYEBOTH BEDTIME [facility] Last Admin: 01/29/18 00:23 Dose: Not Given Levothyroxine Sodium (Levothroid) 137 mcg PO ACBREAKFAST [facility] Magnesium Oxide (Magnesium Oxide) 400 mg PO DAILY [facility] Methylprednisolone Sodium Succinate (Solu-Medrol) 80 mg IVPUSH Q8H [facility] Last Admin: 01/29/18 03:48 Dose: 80 mg Non-Formulary Medication (Carboxymethyl/Glycerin/Poly80 [Refresh Optive Advanced Drops]) 1 drop EYEBOTH QID [facility] Non-Formulary Medication (Polyvinyl Alcohol/Povidone/Pf [Refresh Classic Eye Drops]) 1 drop EYEBOTH QID PRN PRN Reason: Dry Eyes Non-Formulary Medication (Psyllium With Sucrose [Metamucil]) 1 tsp PO DAILY [facility] Non-Formulary Medication (Insulin Glarg,Human.Rec.Analog) 5 unit SQ BEDTIME [facility] Ondansetron HCl (Zofran) 4 mg IVPUSH Q8H PRN PRN Reason: Nausea/Vomiting Rosuvastatin Calcium (Crestor) 20 mg PO DAILY [facility] Tamsulosin HCl (Flomax) 0.4 mg PO DAILY [facility] Assessment/Plan Comment:: I/P: Acute: Back pain: -Acute on chronic -Hx/o pain due to degenerative arthritis, no history of compression fractures -Reports worsening over past week; Worse with movement -Lower back radiating into right hip and buttocks area -No recent trauma; No difficulty voiding -CT scan in ED on 01/28/18: 1. Diffuse degenerative change. No definite central stenosis or neural foraminal stenosis is seen. No fractures appreciated. 2. Moderate right-sided pleural effusion is partially visualized. Small left-sided pleural effusion is partially visualized. Fluid also noted within the pelvis. 3. Other incidental findings. Note: If further evaluation for lumbar spine disease as needed, MRI would be helpful. -Solu-medrol as ordered -PRN pain medications -PT/OT -Recommend outpatient appointment with Dr. De Oliveira Bilateral pleural effusions -Right>left -Hx/o pleural effusions, heart failure -Right sided pleural effusions noted on prior ED visit angiography from 11/27 -Left sided thoracentesis performed on 05/18/16 with 950mL clear straw colored return -Symptomatic and requiring O2 -Dr. Barber consulted -Will perform thoracentesis today -Xarelto held today -O2 as needed -Echo ordered -BNP 4062-->5006 Acute kidney injury -Baseline appears to be creatinine less than 1 and GFR >60 -BUN 26-->27 -Creatinine 1.3-->1.1 -eGFR 52--> greater than 60 -Hold lasix today, hold lisinopril and metformin -IV fluids were started in ED - stop -Monitor -Repeat BMP at 1400 Bradycardia -EKG in ED shows A-fib at rate of 54 -Digoxin level 1.4 in ED -Hold digoxin and decrease carvedilol dose to 12.5mg BID -Monitor -Has had a few 8 beat runs of V-tach (has history of v-tach runs) -TSH ordered -Electrolytes WNL -Repeat magnesium at 1600 today Chronic: Glaucoma Hard of hearing Impaired vision Macular degeneration A. fib on amiodarone and digoxin for rate control, along with Xarelto Aneurysm Heart failure HLD Hypertension History of ventricular tachycardia GERD Dysphagia BPH Polyuria Osteoporosis Contractures of the fingers Type II DM controlled with insulin -A1C 8.1 Hypothyroidism Anemia Plan: Admit to medical floor PT/OT Routine AM labs Home medications as ordered CM/SW for discharge planning - resides at [facility] DVT prophylaxis: SCDs until back on home Xarelto Code status: DNR/DNI; PCP: Dr. Choi
[2018-01-29] MEDS ORDERED: Albuterol/Ipratropium 3.0-0.5 MG/3 ML Neb Soln NEB PRN (07:06)
[2018-01-29] MEDS ORDERED: Polyethylene Glycol 3350 Powder 17 GM Packet PO PRN (07:06)
[2018-01-29] MEDS: Carboxymethylcellulose Sodium 1% Ophth Gel 15 ML Bottle EYEBOTH SCH ×5 (07:25→21:25)
--- NOTE | 2018-01-29 07:47 | CR ---
Chest: Portable view of the chest was obtained. Comparison: Prior chest x-ray of 11/22/17. Moderately large right sided pleural effusion is seen which is increased in amount from previous exam. Small left-sided pleural effusion is seen as evidenced by slight blunting of the lateral costophrenic angle. Probable compressive atelectasis within the right base is seen. Pulmonary vessel shows mild upper lobe vascular redistribution. Heart is enlarged. Bony structures are osteopenic. Impression: 1. Pleural effusions with cardiomegaly and mild upper lobe pulmonary vascular redistribution. 2. Probable compressive atelectasis within the right lung base. Diagnostic code #3
[2018-01-29] MEDS ORDERED: Digoxin 125 MCG Tab PO SCH (09:00)
[2018-01-29] MEDS: Magnesium Oxide 400 MG Tab PO SCH (09:38)
[2018-01-29] MEDS: Rosuvastatin 10 MG Tab PO SCH (09:38)
[2018-01-29] MEDS: Tamsulosin 0.4 MG Cap.ER PO SCH (09:39)
[2018-01-29] MEDS: Ferrous Sulfate 140 MG Tab PO SCH (09:39)
[2018-01-29] MEDS: Aspirin 81 MG Tab.EC PO SCH (09:40)
[2018-01-29] MEDS: Psyllium Husk Powder Sugar Free 3.4 GM Packet PO SCH (09:40)
[2018-01-29 10:02] LABS: HEMOGLOBIN A1C 8.1 % (4.50-6.20)
[2018-01-29] MEDS: HYDROmorphone 0.5 MG/0.5 ML Syringe IVPUSH PRN (14:11)
--- NOTE | 2018-01-29 15:01 | PCM.OPNOTE ---
- General Post-Op/Procedure Note Date of Surgery/Procedure: 01/29/18 Operative Procedure(s): bilateral thoracentesis Pre Op Diagnosis: bilateral pleural effusion Post-Op Diagnosis: Same Anesthesia Technique: Local Primary Surgeon: Rustam Barber EBL in mLs: 0 Complications: None Condition: Stable Free Text/Narrative:: Intake & Output 01/28/18 01/29/18 01/29/18 23:59 07:59 15:59 Intake Total 222 180 Output Total 0 Balance 222 180
--- NOTE | 2018-01-29 16:12 | PCM.CONSN ---
- General Info Date of Service: 01/29/18 - Patient Data Vitals - Most Recent: Last Vital Signs Temp 97.9 F 01/29/18 11:51 Pulse 68 01/29/18 11:51 Resp 18 01/29/18 11:51 BP 105/73 01/29/18 11:51 Pulse Ox 95 01/29/18 11:51 Weight - Most Recent: 70.942 kg I&O - Last 24 Hours: Intake & Output 01/29/18 01/29/18 01/29/18 07:59 15:59 23:59 Intake Total 222 180 Output Total 0 Balance 222 180 Lab Results Last 24 Hours: Laboratory Results - last 24 hr 01/28/18 01/28/18 01/28/18 Range/Units 15:40 15:40 15:40 WBC (4.23-9.07) K/mm3 RBC (4.63-6.08) M/mm3 Hgb (13.7-17.5) gm/L Hct (40.1-51.0) % MCV (79.0-92.2) fl MCH (25.7-32.2) pg MCHC (32.2-35.5) g/dl RDW Std Deviation (35.1-43.9) fL Plt Count (163-337) K/mm3 MPV (9.4-12.3) fl Neut % (Auto) (34.0-67.9) % Lymph % (Auto) (21.8-53.1) % Davis % (Auto) (5.3-12.2) % Eos % (Auto) (0.8-7.0) Baso % (Auto) (0.1-1.2) % Neut # (Auto) (1.78-5.38) K/mm3 Lymph # (Auto) (1.32-3.57) K/mm3 Davis # (Auto) (0.30-0.82) K/mm3 Eos # (Auto) (0.04-0.54) K/mm3 Baso # (Auto) (0.01-0.08) K/mm3 Neutrophils % (Manual) 76 H (40-60) % Band Neutrophils % 1 (0-10) % Lymphocytes % (Manual) 7 L (20-40) % Atypical Lymphs % 1 % Monocytes % (Manual) 11 H (2-10) % Eosinophils % (Manual) 4 (0.8-7.0) % Basophils % (Manual) 0 L (0.2-1.2) Manual Slide Review Platelet Estimate Adequate Plt Morphology Comment Normal Anisocytosis 1+ slight Microcytosis 1+ slight Macrocytosis 1+ slight RBC Morph Comment Not Reportable ESR 19 H (0-15) mm/hr PT (9.5-12.1) SECONDS INR Sodium 136 (136-145) mEq/L Potassium 5.0 (3.5-5.1) mEq/L Chloride 99 (98-107) mEq/L Carbon Dioxide 30 (21-32) mEq/L Anion Gap 12.0 (5-15) BUN 26 H (7-18) mg/dL Creatinine 1.3 (0.7-1.3) mg/dL Est Cr Clr Drug Dosing 39.56 mL/min Estimated GFR (MDRD) 52 (>60) mL/min BUN/Creatinine Ratio 20.0 H (14-18) Glucose 228 H (83-115) mg/dL POC Glucose (83-110) mg/dL Hemoglobin A1c (4.50-6.20) % Calcium 8.7 (8.5-10.1) mg/dL Magnesium (1.8-2.4) mg/dl Total Bilirubin 0.4 (0.2-1.0) mg/dL AST 64 H (15-37) U/L ALT 79 H (16-63) U/L Alkaline Phosphatase 102 (46-116) U/L CK-MB (CK-2) (0-3.6) ng/ml Troponin I (0.00-0.056) ng/mL C-Reactive Protein 1.8 H* (<1.0) mg/dL NT-Pro-B Natriuret Pep (0-450) pg/mL Total Protein 6.5 (6.4-8.2) g/dl Albumin 2.3 L (3.4-5.0) g/dl Globulin 4.2 gm/dL Albumin/Globulin Ratio 0.6 L (1-2) PSA Screen (0.0-4.0) ng/mL Digoxin (0.9-2.0) ng/mL MRSA (PCR) 01/28/18 01/28/18 01/28/18 Range/Units 15:40 15:40 15:40 WBC (4.23-9.07) K/mm3 RBC (4.63-6.08) M/mm3 Hgb (13.7-17.5) gm/L Hct (40.1-51.0) % MCV (79.0-92.2) fl MCH (25.7-32.2) pg MCHC (32.2-35.5) g/dl RDW Std Deviation (35.1-43.9) fL Plt Count (163-337) K/mm3 MPV (9.4-12.3) fl Neut % (Auto) (34.0-67.9) % Lymph % (Auto) (21.8-53.1) % Davis % (Auto) (5.3-12.2) % Eos % (Auto) (0.8-7.0) Baso % (Auto) (0.1-1.2) % Neut # (Auto) (1.78-5.38) K/mm3 Lymph # (Auto) (1.32-3.57) K/mm3 Davis # (Auto) (0.30-0.82) K/mm3 Eos # (Auto) (0.04-0.54) K/mm3 Baso # (Auto) (0.01-0.08) K/mm3 Neutrophils % (Manual) (40-60) % Band Neutrophils % (0-10) % Lymphocytes % (Manual) (20-40) % Atypical Lymphs % % Monocytes % (Manual) (2-10) % Eosinophils % (Manual) (0.8-7.0) % Basophils % (Manual) (0.2-1.2) Manual Slide Review Platelet Estimate Plt Morphology Comment Anisocytosis Microcytosis Macrocytosis RBC Morph Comment ESR (0-15) mm/hr PT 22.5 H (9.5-12.1) SECONDS INR 2.09 Sodium (136-145) mEq/L Potassium (3.5-5.1) mEq/L Chloride (98-107) mEq/L Carbon Dioxide (21-32) mEq/L Anion Gap (5-15) BUN (7-18) mg/dL Creatinine (0.7-1.3) mg/dL Est Cr Clr Drug Dosing mL/min Estimated GFR (MDRD) (>60) mL/min BUN/Creatinine Ratio (14-18) Glucose (83-115) mg/dL POC Glucose (83-110) mg/dL Hemoglobin A1c (4.50-6.20) % Calcium (8.5-10.1) mg/dL Magnesium 2.1 (1.8-2.4) mg/dl Total Bilirubin (0.2-1.0) mg/dL AST (15-37) U/L ALT (16-63) U/L Alkaline Phosphatase (46-116) U/L CK-MB (CK-2) 1.1 (0-3.6) ng/ml Troponin I < 0.017 (0.00-0.056) ng/mL C-Reactive Protein (<1.0) mg/dL NT-Pro-B Natriuret Pep (0-450) pg/mL Total Protein (6.4-8.2) g/dl Albumin (3.4-5.0) g/dl Globulin gm/dL Albumin/Globulin Ratio (1-2) PSA Screen 0.8 (0.0-4.0) ng/mL Digoxin (0.9-2.0) ng/mL MRSA (PCR) 01/28/18 01/28/18 01/28/18 Range/Units 15:40 15:40 19:11 WBC (4.23-9.07) K/mm3 RBC (4.63-6.08) M/mm3 Hgb (13.7-17.5) gm/L Hct (40.1-51.0) % MCV (79.0-92.2) fl MCH (25.7-32.2) pg MCHC (32.2-35.5) g/dl RDW Std Deviation (35.1-43.9) fL Plt Count (163-337) K/mm3 MPV (9.4-12.3) fl Neut % (Auto) (34.0-67.9) % Lymph % (Auto) (21.8-53.1) % Davis % (Auto) (5.3-12.2) % Eos % (Auto) (0.8-7.0) Baso % (Auto) (0.1-1.2) % Neut # (Auto) (1.78-5.38) K/mm3 Lymph # (Auto) (1.32-3.57) K/mm3 Davis # (Auto) (0.30-0.82) K/mm3 Eos # (Auto) (0.04-0.54) K/mm3 Baso # (Auto) (0.01-0.08) K/mm3 Neutrophils % (Manual) (40-60) % Band Neutrophils % (0-10) % Lymphocytes % (Manual) (20-40) % Atypical Lymphs % % Monocytes % (Manual) (2-10) % Eosinophils % (Manual) (0.8-7.0) % Basophils % (Manual) (0.2-1.2) Manual Slide Review Platelet Estimate Plt Morphology Comment Anisocytosis Microcytosis Macrocytosis RBC Morph Comment ESR (0-15) mm/hr PT (9.5-12.1) SECONDS INR Sodium (136-145) mEq/L Potassium (3.5-5.1) mEq/L Chloride (98-107) mEq/L Carbon Dioxide (21-32) mEq/L Anion Gap (5-15) BUN (7-18) mg/dL Creatinine (0.7-1.3) mg/dL Est Cr Clr Drug Dosing mL/min Estimated GFR (MDRD) (>60) mL/min BUN/Creatinine Ratio (14-18) Glucose (83-115) mg/dL POC Glucose 149 H (83-110) mg/dL Hemoglobin A1c (4.50-6.20) % Calcium (8.5-10.1) mg/dL Magnesium (1.8-2.4) mg/dl Total Bilirubin (0.2-1.0) mg/dL AST (15-37) U/L ALT (16-63) U/L Alkaline Phosphatase (46-116) U/L CK-MB (CK-2) (0-3.6) ng/ml Troponin I (0.00-0.056) ng/mL C-Reactive Protein (<1.0) mg/dL NT-Pro-B Natriuret Pep 4062 H (0-450) pg/mL Total Protein (6.4-8.2) g/dl Albumin (3.4-5.0) g/dl Globulin gm/dL Albumin/Globulin Ratio (1-2) PSA Screen (0.0-4.0) ng/mL Digoxin 1.4 (0.9-2.0) ng/mL MRSA (PCR) 01/28/18 01/29/18 01/29/18 Range/Units 21:55 06:16 07:41 WBC 5.91 (4.23-9.07) K/mm3 RBC 4.15 L (4.63-6.08) M/mm3 Hgb 11.6 L (13.7-17.5) gm/L Hct 36.1 L (40.1-51.0) % MCV 87.0 (79.0-92.2) fl MCH 28.0 (25.7-32.2) pg MCHC 32.1 L (32.2-35.5) g/dl RDW Std Deviation 51.3 H (35.1-43.9) fL Plt Count 199 (163-337) K/mm3 MPV 9.8 (9.4-12.3) fl Neut % (Auto) 90.8 H (34.0-67.9) % Lymph % (Auto) 8.0 L (21.8-53.1) % Davis % (Auto) 1.0 L (5.3-12.2) % Eos % (Auto) 0 L (0.8-7.0) Baso % (Auto) 0.0 L (0.1-1.2) % Neut # (Auto) 5.37 (1.78-5.38) K/mm3 Lymph # (Auto) 0.47 L (1.32-3.57) K/mm3 Davis # (Auto) 0.06 L (0.30-0.82) K/mm3 Eos # (Auto) 0.00 L (0.04-0.54) K/mm3 Baso # (Auto) 0.00 L (0.01-0.08) K/mm3 Neutrophils % (Manual) (40-60) % Band Neutrophils % (0-10) % Lymphocytes % (Manual) (20-40) % Atypical Lymphs % % Monocytes % (Manual) (2-10) % Eosinophils % (Manual) (0.8-7.0) % Basophils % (Manual) (0.2-1.2) Manual Slide Review Abnormal smear Platelet Estimate Plt Morphology Comment Anisocytosis Microcytosis Macrocytosis RBC Morph Comment ESR (0-15) mm/hr PT (9.5-12.1) SECONDS INR Sodium (136-145) mEq/L Potassium (3.5-5.1) mEq/L Chloride (98-107) mEq/L Carbon Dioxide (21-32) mEq/L Anion Gap (5-15) BUN (7-18) mg/dL Creatinine (0.7-1.3) mg/dL Est Cr Clr Drug Dosing mL/min Estimated GFR (MDRD) (>60) mL/min BUN/Creatinine Ratio (14-18) Glucose (83-115) mg/dL POC Glucose 135 H (83-110) mg/dL Hemoglobin A1c (4.50-6.20) % Calcium (8.5-10.1) mg/dL Magnesium (1.8-2.4) mg/dl Total Bilirubin (0.2-1.0) mg/dL AST (15-37) U/L ALT (16-63) U/L Alkaline Phosphatase (46-116) U/L CK-MB (CK-2) (0-3.6) ng/ml Troponin I (0.00-0.056) ng/mL C-Reactive Protein (<1.0) mg/dL NT-Pro-B Natriuret Pep (0-450) pg/mL Total Protein (6.4-8.2) g/dl Albumin (3.4-5.0) g/dl Globulin gm/dL Albumin/Globulin Ratio (1-2) PSA Screen (0.0-4.0) ng/mL Digoxin (0.9-2.0) ng/mL MRSA (PCR) Negative 01/29/18 01/29/18 01/29/18 Range/Units 07:41 07:41 07:41 WBC (4.23-9.07) K/mm3 RBC (4.63-6.08) M/mm3 Hgb (13.7-17.5) gm/L Hct (40.1-51.0) % MCV (79.0-92.2) fl MCH (25.7-32.2) pg MCHC (32.2-35.5) g/dl RDW Std Deviation (35.1-43.9) fL Plt Count (163-337) K/mm3 MPV (9.4-12.3) fl Neut % (Auto) (34.0-67.9) % Lymph % (Auto) (21.8-53.1) % Davis % (Auto) (5.3-12.2) % Eos % (Auto) (0.8-7.0) Baso % (Auto) (0.1-1.2) % Neut # (Auto) (1.78-5.38) K/mm3 Lymph # (Auto) (1.32-3.57) K/mm3 Davis # (Auto) (0.30-0.82) K/mm3 Eos # (Auto) (0.04-0.54) K/mm3 Baso # (Auto) (0.01-0.08) K/mm3 Neutrophils % (Manual) (40-60) % Band Neutrophils % (0-10) % Lymphocytes % (Manual) (20-40) % Atypical Lymphs % % Monocytes % (Manual) (2-10) % Eosinophils % (Manual) (0.8-7.0) % Basophils % (Manual) (0.2-1.2) Manual Slide Review Platelet Estimate Plt Morphology Comment Anisocytosis Microcytosis Macrocytosis RBC Morph Comment ESR (0-15) mm/hr PT (9.5-12.1) SECONDS INR Sodium 138 (136-145) mEq/L Potassium 5.4 H (3.5-5.1) mEq/L Chloride 102 (98-107) mEq/L Carbon Dioxide 31 (21-32) mEq/L Anion Gap 10.4 (5-15) BUN 27 H (7-18) mg/dL Creatinine 1.1 (0.7-1.3) mg/dL Est Cr Clr Drug Dosing 46.58 mL/min Estimated GFR (MDRD) > 60 (>60) mL/min BUN/Creatinine Ratio 24.5 H (14-18) Glucose 162 H (83-115) mg/dL POC Glucose (83-110) mg/dL Hemoglobin A1c 8.10 H (4.50-6.20) % Calcium 8.7 (8.5-10.1) mg/dL Magnesium 1.9 (1.8-2.4) mg/dl Total Bilirubin (0.2-1.0) mg/dL AST (15-37) U/L ALT (16-63) U/L Alkaline Phosphatase (46-116) U/L CK-MB (CK-2) (0-3.6) ng/ml Troponin I (0.00-0.056) ng/mL C-Reactive Protein 1.8 H* (<1.0) mg/dL NT-Pro-B Natriuret Pep 5006 H (0-450) pg/mL Total Protein (6.4-8.2) g/dl Albumin (3.4-5.0) g/dl Globulin gm/dL Albumin/Globulin Ratio (1-2) PSA Screen (0.0-4.0) ng/mL Digoxin (0.9-2.0) ng/mL MRSA (PCR) 01/29/18 Range/Units 11:42 WBC (4.23-9.07) K/mm3 RBC (4.63-6.08) M/mm3 Hgb (13.7-17.5) gm/L Hct (40.1-51.0) % MCV (79.0-92.2) fl MCH (25.7-32.2) pg MCHC (32.2-35.5) g/dl RDW Std Deviation (35.1-43.9) fL Plt Count (163-337) K/mm3 MPV (9.4-12.3) fl Neut % (Auto) (34.0-67.9) % Lymph % (Auto) (21.8-53.1) % Davis % (Auto) (5.3-12.2) % Eos % (Auto) (0.8-7.0) Baso % (Auto) (0.1-1.2) % Neut # (Auto) (1.78-5.38) K/mm3 Lymph # (Auto) (1.32-3.57) K/mm3 Davis # (Auto) (0.30-0.82) K/mm3 Eos # (Auto) (0.04-0.54) K/mm3 Baso # (Auto) (0.01-0.08) K/mm3 Neutrophils % (Manual) (40-60) % Band Neutrophils % (0-10) % Lymphocytes % (Manual) (20-40) % Atypical Lymphs % % Monocytes % (Manual) (2-10) % Eosinophils % (Manual) (0.8-7.0) % Basophils % (Manual) (0.2-1.2) Manual Slide Review Platelet Estimate Plt Morphology Comment Anisocytosis Microcytosis Macrocytosis RBC Morph Comment ESR (0-15) mm/hr PT (9.5-12.1) SECONDS INR Sodium (136-145) mEq/L Potassium (3.5-5.1) mEq/L Chloride (98-107) mEq/L Carbon Dioxide (21-32) mEq/L Anion Gap (5-15) BUN (7-18) mg/dL Creatinine (0.7-1.3) mg/dL Est Cr Clr Drug Dosing mL/min Estimated GFR (MDRD) (>60) mL/min BUN/Creatinine Ratio (14-18) Glucose (83-115) mg/dL POC Glucose 276 H (83-110) mg/dL Hemoglobin A1c (4.50-6.20) % Calcium (8.5-10.1) mg/dL Magnesium (1.8-2.4) mg/dl Total Bilirubin (0.2-1.0) mg/dL AST (15-37) U/L ALT (16-63) U/L Alkaline Phosphatase (46-116) U/L CK-MB (CK-2) (0-3.6) ng/ml Troponin I (0.00-0.056) ng/mL C-Reactive Protein (<1.0) mg/dL NT-Pro-B Natriuret Pep (0-450) pg/mL Total Protein (6.4-8.2) g/dl Albumin (3.4-5.0) g/dl Globulin gm/dL Albumin/Globulin Ratio (1-2) PSA Screen (0.0-4.0) ng/mL Digoxin (0.9-2.0) ng/mL MRSA (PCR) Med Orders - Current: Current Medications Acetaminophen (Tylenol) 650 mg PO Q6H PRN PRN Reason: Pain/Fever Albuterol/Ipratropium (Duoneb 3.0-0.5 Mg/3 Ml) 3 ml NEB Q4H PRN PRN Reason: Shortness Of Breath/wheezing Amiodarone HCl (Cordarone) 200 mg PO DAILY [facility] Artificial Tears (Refresh Liquigel 1%) 0 ml EYEBOTH QID [facility] Last Admin: 01/29/18 13:34 Dose: 1 drop Artificial Tears (Refresh Liquigel 1%) 0 ml EYEBOTH QID PRN PRN Reason: Dry Eyes Aspirin (Halfprin) 81 mg PO DAILY [facility] Last Admin: 01/29/18 09:40 Dose: 81 mg Benzonatate (Tessalon Perles) 100 mg PO TID PRN PRN Reason: Cough Bisacodyl (Dulcolax) 5 mg PO DAILY PRN PRN Reason: Constipation Carvedilol (Coreg) 12.5 mg PO BID [facility] Dextrose/Water (Dextrose 50% In Water) 50 ml IVPUSH ASDIRECTED PRN PRN Reason: Hypoglycemia Docusate Sodium (Colace) 100 mg PO BID PRN PRN Reason: Constipation Doxazosin Mesylate (Cardura) 4 mg PO BEDTIME [facility] Last Admin: 01/29/18 00:26 Dose: Not Given Ferrous Sulfate (Slow Fe) 280 mg PO DAILY [facility] Last Admin: 01/29/18 09:39 Dose: 280 mg Flunisolide (Nasalide Nasal [place]) 0 ml DUARTE DAILY PRN PRN Reason: Congestion Glipizide (Glucotrol) 10 mg PO BIDAC [facility] Last Admin: 01/29/18 06:18 Dose: 10 mg Hydromorphone HCl (Dilaudid) 0.5 mg IVPUSH Q4H PRN PRN Reason: Pain (moderate 4-6) Last Admin: 01/29/18 14:11 Dose: 0.5 mg Insulin Glargine (Lantus Solostar) 5 units SUBCUT BEDTIME [facility] Insulin Human Lispro (Humalog) 0 unit SUBCUT QIDACANDBED [facility]; Protocol Last Admin: 01/29/18 11:47 Dose: 6 units Latanoprost (Xalatan 0.005% Ophth Soln) 0 ml EYEBOTH BEDTIME [facility] Last Admin: 01/29/18 00:23 Dose: Not Given Levothyroxine Sodium (Levothroid) 137 mcg PO ACBREAKFAST [facility] Magnesium Oxide (Magnesium Oxide) 400 mg PO DAILY [facility] Last Admin: 01/29/18 09:38 Dose: 400 mg Methylprednisolone Sodium Succinate (Solu-Medrol) 80 mg IVPUSH Q8H [facility] Last Admin: 01/29/18 11:43 Dose: 80 mg Ondansetron HCl (Zofran) 4 mg IVPUSH Q8H PRN PRN Reason: Nausea/Vomiting Polyethylene Glycol (Miralax) 17 gm PO DAILY PRN PRN Reason: Constipation Psyllium Husk (Metamucil Sugar Free) 1 packet PO DAILY [facility] Last Admin: 01/29/18 09:40 Dose: 1 packet Rivaroxaban (Xarelto) 20 mg PO WITHDINNER [facility] Rosuvastatin Calcium (Crestor) 20 mg PO DAILY [facility] Last Admin: 01/29/18 09:38 Dose: 20 mg Senna/Docusate Sodium (Senna Plus) 1 tab PO BID PRN PRN Reason: Constipation Tamsulosin HCl (Flomax) 0.4 mg PO DAILY [facility] Last Admin: 01/29/18 09:39 Dose: 0.4 mg Discontinued Medications Carvedilol (Coreg) 25 mg PO Q12H [facility] Last Admin: 01/28/18 22:21 Dose: Not Given Digoxin (Lanoxin) 125 mcg PO DAILY [facility] Hydromorphone HCl (Dilaudid) 0.5 mg IVPUSH ONETIME ONE Stop: 01/28/18 15:31 Last Admin: 01/28/18 15:52 Dose: 0.5 mg Hydromorphone HCl (Dilaudid) 0.5 mg IVPUSH ONETIME ONE Stop: 01/28/18 18:26 Last Admin: 01/28/18 18:45 Dose: 0.5 mg Sodium Chloride (Normal Saline) 1,000 mls @ 125 mls/hr IV ASDIRECTED [facility] Last Admin: 01/29/18 03:47 Dose: 125 mls/hr Insulin Human Lispro (Humalog) 10 unit SUBCUT ONETIME ONE Stop: 01/28/18 19:01 Last Admin: 01/28/18 19:55 Dose: 10 unit Levothyroxine Sodium (Levothyroxine) 112 mcg PO ACBREAKFAST [facility] Stop: 01/29/18 06:01 Last Admin: 01/29/18 06:17 Dose: 112 mcg Levothyroxine Sodium (Levothyroxine) 25 mcg PO ACBREAKFAST [facility] Stop: 01/29/18 06:01 Last Admin: 01/29/18 06:17 Dose: 25 mcg Methylprednisolone Sodium Succinate (Solu-Medrol) 62.5 mg IVPUSH ONETIME ONE Stop: 01/28/18 18:29 Last Admin: 01/28/18 18:45 Dose: 62.5 mg Ondansetron HCl (Zofran) 4 mg IVPUSH ONETIME ONE Stop: 01/28/18 15:31 Last Admin: 01/28/18 15:52 Dose: 4 mg Oxycodone/Acetaminophen (Percocet 325-5 Mg) 1 tab PO ONETIME ONE Stop: 01/28/18 18:26 Last Admin: 01/28/18 18:45 Dose: 1 tab Consult PN Assessment/Plan Procedures: Procedures AGENT NOS ASSAY W/OPTIC (06/16/16) AIRWAY INHALATION TREATMENT (05/14/16) ASSAY OF BLOOD LIPOPROTEIN (01/23/15) ASSAY OF CREATININE (11/13/14) ASSAY OF DIGOXIN TOTAL (06/16/16) ASSAY OF LACTIC ACID (11/11/14) ASSAY OF MAGNESIUM (05/14/16) ASSAY OF NATRIURETIC PEPTIDE (06/16/16) ASSAY OF PROTEIN OTHER (05/14/16) ASSAY OF SERUM ALBUMIN (05/14/16) ASSAY OF SERUM POTASSIUM (05/14/16) ASSAY OF TROPONIN QUANT (11/22/17) ASSAY PH BODY FLUID NOS (05/14/16) BLOOD CULTURE FOR BACTERIA (05/14/16) BODY FLUID CELL COUNT (05/14/16) C-REACTIVE PROTEIN (06/16/16) CHEST WALL MANIPULATION (05/14/16) CHEST WALL MANIPULATION (05/14/16) CHEST X-RAY 1 VIEW FRONTAL (06/16/16) CHEST X-RAY 2VW FRONTAL&LATL (06/16/16) COLONOSCOPY AND BIOPSY (12/26/15) COMPLETE CBC W/AUTO DIFF WBC (11/22/17) COMPREHEN METABOLIC PANEL (11/22/17) CONTROL OF NOSEBLEED (11/23/16) CREATINE MB FRACTION (05/14/16) CT ABD & PELV W/CONTRAST (11/11/14) CT ANGIOGRAPHY CHEST (11/22/17) CT HEAD/BRAIN W/O DYE (07/10/15) CT THORAX W/O DYE (05/14/16) CULTURE OTHR SPECIMN AEROBIC (05/14/16) CYTOPATH CELL ENHANCE TECH (05/14/16) DIAGNOSTIC COLONOSCOPY (10/25/13) ECHO GUIDE FOR BIOPSY (05/14/16) EGD BIOPSY SINGLE/MULTIPLE (12/26/15) ELECTROCARDIOGRAM TRACING (11/22/17) EMERGENCY DEPT VISIT (11/22/17) EMERGENCY DEPT VISIT (11/22/17) EMERGENCY DEPT VISIT (11/26/16) EMERGENCY DEPT VISIT (06/16/16) EMERGENCY DEPT VISIT (05/14/16) EMERGENCY DEPT VISIT (12/19/15) EMERGENCY DEPT VISIT (07/10/15) EMERGENCY DEPT VISIT (11/11/14) EMERGENCY DEPT VISIT (11/12/13) EVALUATE PT USE OF INHALER (05/14/16) EVALUATE SWALLOWING FUNCTION (05/14/16) FIBRIN DEGRADATION QUANT (11/22/17) GAIT TRAINING THERAPY (05/14/16) GLUCOSE BLOOD TEST (06/16/16) GLUCOSE OTHER FLUID (05/14/16) GLYCOSYLATED HEMOGLOBIN TEST (08/15/15) HYDRATE IV INFUSION ADD-ON (05/14/16) HYDRATION IV INFUSION INIT (07/10/15) INFLUENZA ASSAY W/OPTIC (06/16/16) LACTATE (LD) (LDH) ENZYME (05/14/16) MEASURE BLOOD OXYGEN LEVEL (06/16/16) MEASURE BLOOD OXYGEN LEVEL (05/14/16) MEASURE BLOOD OXYGEN LEVEL (05/14/16) METABOLIC PANEL TOTAL CA (06/16/16) MR-STAPH DNA AMP PROBE (06/16/16) MYCOPLASMA ANTIBODY (06/16/16) ORAL FUNCTION THERAPY (05/14/16) OT EVAL LOW COMPLEX 30 MIN (06/16/16) OTHER SOURCE ALBUMIN NIEVES EA (05/14/16) PROTHROMBIN TIME (11/23/16) PT EVAL LOW COMPLEX 20 MIN (06/16/16) ROUTINE VENIPUNCTURE (11/22/17) SMEAR GRAM STAIN (05/14/16) THER/PROPH/DIAG INJ IV PUSH (06/16/16) THER/PROPH/DIAG IV INF ADDON (05/14/16) THER/PROPH/DIAG IV INF INIT (11/22/17) THERAPEUTIC ACTIVITIES (05/14/16) THROMBOPLASTIN TIME PARTIAL (11/23/16) TISSUE EXAM BY PATHOLOGIST (05/14/16) TISSUE EXAM FOR FUNGI (05/14/16) TTE W/DOPPLER COMPLETE (05/14/16) UR ALBUMIN QUANTITATIVE (01/23/15) URINALYSIS AUTO W/SCOPE (06/16/16) URINE CULTURE/COLONY COUNT (05/14/16) X-RAY EXAM CHEST 1 VIEW (11/22/17) X-RAY EXAM CHEST 2 VIEWS (11/22/17) X-RAY EXAM OF FOREARM (12/19/15) X-RAY EXAM OF SHOULDER (12/19/15) Problem List Initiated/Reviewed/Updated: Yes My Orders Last 24 Hours: My Active Orders 01/29/18 10:51 Guide Needle Biopsy [US] Routine 01/29/18 11:17 Verify Patient Consent Obtain [RC] ASDIRECTED 01/29/18 15:08 CXR [Chest 1V Frontal] [CR] Routine Plan: CXR shows a pneumonthorax moderate I believe on the rt but the radiologist says left pt is doing well ass stable plan follow and repeat the CR tomorrow
[2018-01-29] MEDS ORDERED: Rivaroxaban 10 MG Tab PO SCH (17:00)
[2018-01-29] MEDS ORDERED: Insulin Glargine,Human Rec. Analog 100 Units/ML 3 ML Pen SUBCUT SCH (21:00)
[2018-01-29] MEDS: Carvedilol 12.5 MG Tab PO SCH (21:23)
[2018-01-30] MEDS: methylPREDNISolone Sodium Succinate 40 MG/1 ML SDV IVPUSH SCH ×2 (04:35→11:38)
--- NOTE | 2018-01-30 07:32 | PCM.PN ---
- General Info Date of Service: 01/30/18 Admission Dx/Problem (Free Text): Admission Diagnosis/Problem Admission Diagnosis/Problem Lumbar back pain with radiculopathy affecting left lower extremity Subjective Update: Follow Up Functional Status: Reports: Pain Controlled, Tolerating Diet, Ambulating, Urinating. Denies: New Symptoms - Review of Systems General: Denies: Fever, Weakness, Fatigue, Chills HEENT: Reports: No Symptoms Pulmonary: Denies: Shortness of Breath, Pleuritic Chest Pain, Hemoptysis Cardiovascular: Denies: Chest Pain, Palpitations, Lightheadedness, Other Gastrointestinal: Denies: Abdominal Pain, Nausea, Vomiting Genitourinary: Reports: No Symptoms Musculoskeletal: Denies: Back Pain Skin: Denies: Cyanosis, Pallor, Diaphoresis, Bruising Neurological: Reports: Gait Disturbance. Denies: Weakness Psychiatric: Denies: No Symptoms, Depression, Anxiety, Hallucinations Systems Review Comment:: No significant overnight issues. However he did not slept well due to SCDs that kept him awake on and off. He denies any respiratory issues. His WBC is elevated at 13.22 but afebrile. His K is up at 5.5. His glucose is not well controlled. He has no acute issues this AM. - Patient Data Vitals - Most Recent: Last Vital Signs Temp 36.8 C 01/29/18 21:03 Pulse 61 01/29/18 21:23 Resp 14 01/29/18 21:03 BP 119/61 01/29/18 21:23 Pulse Ox 97 01/29/18 21:03 Weight - Most Recent: 70.851 kg I&O - Last 24 Hours: Intake & Output 01/29/18 01/30/18 01/30/18 22:59 06:59 14:59 Intake Total 200 200 Output Total 2750 450 Balance -2550 -250 Lab Results Last 24 Hours: Laboratory Results - last 24 hr 01/29/18 01/29/18 01/29/18 Range/Units 07:41 07:41 07:41 WBC 5.91 (4.23-9.07) K/mm3 RBC 4.15 L (4.63-6.08) M/mm3 Hgb 11.6 L (13.7-17.5) gm/L Hct 36.1 L (40.1-51.0) % MCV 87.0 (79.0-92.2) fl MCH 28.0 (25.7-32.2) pg MCHC 32.1 L (32.2-35.5) g/dl RDW Std Deviation 51.3 H (35.1-43.9) fL Plt Count 199 (163-337) K/mm3 MPV 9.8 (9.4-12.3) fl Neut % (Auto) 90.8 H (34.0-67.9) % Lymph % (Auto) 8.0 L (21.8-53.1) % [place] % (Auto) 1.0 L (5.3-12.2) % Eos % (Auto) 0 L (0.8-7.0) Baso % (Auto) 0.0 L (0.1-1.2) % Neut # (Auto) 5.37 (1.78-5.38) K/mm3 Lymph # (Auto) 0.47 L (1.32-3.57) K/mm3 [place] # (Auto) 0.06 L (0.30-0.82) K/mm3 Eos # (Auto) 0.00 L (0.04-0.54) K/mm3 Baso # (Auto) 0.00 L (0.01-0.08) K/mm3 Manual Slide Review Abnormal smear Sodium 138 (136-145) mEq/L Potassium 5.4 H (3.5-5.1) mEq/L Chloride 102 (98-107) mEq/L Carbon Dioxide 31 (21-32) mEq/L Anion Gap 10.4 (5-15) BUN 27 H (7-18) mg/dL Creatinine 1.1 (0.7-1.3) mg/dL Est Cr Clr Drug Dosing 46.58 mL/min Estimated GFR (MDRD) > 60 (>60) mL/min BUN/Creatinine Ratio 24.5 H (14-18) Glucose 162 H (83-115) mg/dL POC Glucose (83-110) mg/dL Hemoglobin A1c (4.50-6.20) % Calcium 8.7 (8.5-10.1) mg/dL Magnesium 1.9 (1.8-2.4) mg/dl C-Reactive Protein 1.8 H* (<1.0) mg/dL NT-Pro-B Natriuret Pep 5006 H (0-450) pg/mL TSH 3rd Generation (0.358-3.74) uIU/mL 01/29/18 01/29/18 01/29/18 Range/Units 07:41 11:42 16:19 WBC (4.23-9.07) K/mm3 RBC (4.63-6.08) M/mm3 Hgb (13.7-17.5) gm/L Hct (40.1-51.0) % MCV (79.0-92.2) fl MCH (25.7-32.2) pg MCHC (32.2-35.5) g/dl RDW Std Deviation (35.1-43.9) fL Plt Count (163-337) K/mm3 MPV (9.4-12.3) fl Neut % (Auto) (34.0-67.9) % Lymph % (Auto) (21.8-53.1) % [place] % (Auto) (5.3-12.2) % Eos % (Auto) (0.8-7.0) Baso % (Auto) (0.1-1.2) % Neut # (Auto) (1.78-5.38) K/mm3 Lymph # (Auto) (1.32-3.57) K/mm3 [place] # (Auto) (0.30-0.82) K/mm3 Eos # (Auto) (0.04-0.54) K/mm3 Baso # (Auto) (0.01-0.08) K/mm3 Manual Slide Review Sodium 137 (136-145) mEq/L Potassium 5.1 (3.5-5.1) mEq/L Chloride 101 (98-107) mEq/L Carbon Dioxide 30 (21-32) mEq/L Anion Gap 11.1 (5-15) BUN 35 H (7-18) mg/dL Creatinine 1.2 (0.7-1.3) mg/dL Est Cr Clr Drug Dosing 42.70 mL/min Estimated GFR (MDRD) 57 (>60) mL/min BUN/Creatinine Ratio 29.2 H (14-18) Glucose 232 H (83-115) mg/dL POC Glucose 276 H (83-110) mg/dL Hemoglobin A1c 8.10 H (4.50-6.20) % Calcium 8.6 (8.5-10.1) mg/dL Magnesium 2.1 (1.8-2.4) mg/dl C-Reactive Protein (<1.0) mg/dL NT-Pro-B Natriuret Pep (0-450) pg/mL TSH 3rd Generation 1.425 (0.358-3.74) uIU/mL 01/29/18 01/29/18 01/30/18 Range/Units 18:14 21:19 05:40 WBC 13.22 H (4.23-9.07) K/mm3 RBC 3.99 L (4.63-6.08) M/mm3 Hgb 11.1 L (13.7-17.5) gm/L Hct 34.4 L (40.1-51.0) % MCV 86.2 (79.0-92.2) fl MCH 27.8 (25.7-32.2) pg MCHC 32.3 (32.2-35.5) g/dl RDW Std Deviation 51.4 H (35.1-43.9) fL Plt Count 215 (163-337) K/mm3 MPV 10.1 (9.4-12.3) fl Neut % (Auto) 91.1 H (34.0-67.9) % Lymph % (Auto) 4.8 L (21.8-53.1) % [place] % (Auto) 3.9 L (5.3-12.2) % Eos % (Auto) 0 L (0.8-7.0) Baso % (Auto) 0.0 L (0.1-1.2) % Neut # (Auto) 12.03 H (1.78-5.38) K/mm3 Lymph # (Auto) 0.64 L (1.32-3.57) K/mm3 [place] # (Auto) 0.52 (0.30-0.82) K/mm3 Eos # (Auto) 0.00 L (0.04-0.54) K/mm3 Baso # (Auto) 0.00 L (0.01-0.08) K/mm3 Manual Slide Review Abnormal smear Sodium (136-145) mEq/L Potassium (3.5-5.1) mEq/L Chloride (98-107) mEq/L Carbon Dioxide (21-32) mEq/L Anion Gap (5-15) BUN (7-18) mg/dL Creatinine (0.7-1.3) mg/dL Est Cr Clr Drug Dosing mL/min Estimated GFR (MDRD) (>60) mL/min BUN/Creatinine Ratio (14-18) Glucose (83-115) mg/dL POC Glucose 268 H 219 H (83-110) mg/dL Hemoglobin A1c (4.50-6.20) % Calcium (8.5-10.1) mg/dL Magnesium (1.8-2.4) mg/dl C-Reactive Protein (<1.0) mg/dL NT-Pro-B Natriuret Pep (0-450) pg/mL TSH 3rd Generation (0.358-3.74) uIU/mL 01/30/18 01/30/18 01/30/18 Range/Units 05:40 05:40 06:32 WBC (4.23-9.07) K/mm3 RBC (4.63-6.08) M/mm3 Hgb (13.7-17.5) gm/L Hct (40.1-51.0) % MCV (79.0-92.2) fl MCH (25.7-32.2) pg MCHC (32.2-35.5) g/dl RDW Std Deviation (35.1-43.9) fL Plt Count (163-337) K/mm3 MPV (9.4-12.3) fl Neut % (Auto) (34.0-67.9) % Lymph % (Auto) (21.8-53.1) % [place] % (Auto) (5.3-12.2) % Eos % (Auto) (0.8-7.0) Baso % (Auto) (0.1-1.2) % Neut # (Auto) (1.78-5.38) K/mm3 Lymph # (Auto) (1.32-3.57) K/mm3 [place] # (Auto) (0.30-0.82) K/mm3 Eos # (Auto) (0.04-0.54) K/mm3 Baso # (Auto) (0.01-0.08) K/mm3 Manual Slide Review Sodium 136 (136-145) mEq/L Potassium 5.5 H (3.5-5.1) mEq/L Chloride 101 (98-107) mEq/L Carbon Dioxide 29 (21-32) mEq/L Anion Gap 11.5 (5-15) BUN 42 H (7-18) mg/dL Creatinine 1.2 (0.7-1.3) mg/dL Est Cr Clr Drug Dosing 42.64 mL/min Estimated GFR (MDRD) 57 (>60) mL/min BUN/Creatinine Ratio 35.0 H (14-18) Glucose 279 H (83-115) mg/dL POC Glucose 282 H (83-110) mg/dL Hemoglobin A1c (4.50-6.20) % Calcium 8.3 L (8.5-10.1) mg/dL Magnesium 2.1 (1.8-2.4) mg/dl C-Reactive Protein (<1.0) mg/dL NT-Pro-B Natriuret Pep 5315 H (0-450) pg/mL TSH 3rd Generation (0.358-3.74) uIU/mL Med Orders - Current: Current Medications Acetaminophen (Tylenol) 650 mg PO Q6H PRN PRN Reason: Pain/Fever Albuterol/Ipratropium (Duoneb 3.0-0.5 Mg/3 Ml) 3 ml NEB Q4H PRN PRN Reason: Shortness Of Breath/wheezing Amiodarone HCl (Cordarone) 200 mg PO DAILY [facility] Artificial Tears (Refresh Liquigel 1%) 0 ml EYEBOTH QID [facility] Last Admin: 01/29/18 21:25 Dose: 1 drop Artificial Tears (Refresh Liquigel 1%) 0 ml EYEBOTH QID PRN PRN Reason: Dry Eyes Aspirin (Halfprin) 81 mg PO DAILY [facility] Last Admin: 01/29/18 09:40 Dose: 81 mg Benzonatate (Tessalon Perles) 100 mg PO TID PRN PRN Reason: Cough Bisacodyl (Dulcolax) 5 mg PO DAILY PRN PRN Reason: Constipation Carvedilol (Coreg) 12.5 mg PO BID [facility] Last Admin: 01/29/18 21:23 Dose: 12.5 mg Dextrose/Water (Dextrose 50% In Water) 50 ml IVPUSH ASDIRECTED PRN PRN Reason: Hypoglycemia Docusate Sodium (Colace) 100 mg PO BID PRN PRN Reason: Constipation Doxazosin Mesylate (Cardura) 4 mg PO BEDTIME [facility] Last Admin: 01/29/18 21:22 Dose: 4 mg Ferrous Sulfate (Slow Fe) 280 mg PO DAILY [facility] Last Admin: 01/29/18 09:39 Dose: 280 mg Flunisolide (Nasalide Nasal [place]) 0 ml DUARTE DAILY PRN PRN Reason: Congestion Glipizide (Glucotrol) 10 mg PO BIDAC [facility] Last Admin: 01/30/18 06:33 Dose: 10 mg Hydromorphone HCl (Dilaudid) 0.5 mg IVPUSH Q4H PRN PRN Reason: Pain (moderate 4-6) Last Admin: 01/29/18 14:11 Dose: 0.5 mg Insulin Glargine (Lantus Solostar) 5 units SUBCUT BEDTIME [facility] Last Admin: 01/29/18 21:24 Dose: 5 units Insulin Human Lispro (Humalog) 0 unit SUBCUT QIDACANDBED [facility]; Protocol Last Admin: 01/29/18 21:26 Dose: 4 units Latanoprost (Xalatan 0.005% Ophth Soln) 0 ml EYEBOTH BEDTIME [facility] Last Admin: 01/29/18 21:26 Dose: 1 drop Levothyroxine Sodium (Levothroid) 137 mcg PO ACBREAKFAST [facility] Last Admin: 01/30/18 06:33 Dose: 137 mcg Magnesium Oxide (Magnesium Oxide) 400 mg PO DAILY [facility] Last Admin: 01/29/18 09:38 Dose: 400 mg Methylprednisolone Sodium Succinate (Solu-Medrol) 80 mg IVPUSH Q8H [facility] Last Admin: 01/30/18 04:35 Dose: 80 mg Ondansetron HCl (Zofran) 4 mg IVPUSH Q8H PRN PRN Reason: Nausea/Vomiting Polyethylene Glycol (Miralax) 17 gm PO DAILY PRN PRN Reason: Constipation Psyllium Husk (Metamucil Sugar Free) 1 packet PO DAILY [facility] Last Admin: 01/29/18 09:40 Dose: 1 packet Rivaroxaban (Xarelto) 20 mg PO WITHDINNER [facility] Last Admin: 01/29/18 17:08 Dose: 20 mg Rosuvastatin Calcium (Crestor) 20 mg PO DAILY [facility] Last Admin: 01/29/18 09:38 Dose: 20 mg Senna/Docusate Sodium (Senna Plus) 1 tab PO BID PRN PRN Reason: Constipation Tamsulosin HCl (Flomax) 0.4 mg PO DAILY [facility] Last Admin: 01/29/18 09:39 Dose: 0.4 mg Discontinued Medications Carvedilol (Coreg) 25 mg PO Q12H [facility] Last Admin: 01/28/18 22:21 Dose: Not Given Digoxin (Lanoxin) 125 mcg PO DAILY [facility] Hydromorphone HCl (Dilaudid) 0.5 mg IVPUSH ONETIME ONE Stop: 01/28/18 15:31 Last Admin: 01/28/18 15:52 Dose: 0.5 mg Hydromorphone HCl (Dilaudid) 0.5 mg IVPUSH ONETIME ONE Stop: 01/28/18 18:26 Last Admin: 01/28/18 18:45 Dose: 0.5 mg Sodium Chloride (Normal Saline) 1,000 mls @ 125 mls/hr IV ASDIRECTED [facility] Last Admin: 01/29/18 03:47 Dose: 125 mls/hr Insulin Human Lispro (Humalog) 10 unit SUBCUT ONETIME ONE Stop: 01/28/18 19:01 Last Admin: 01/28/18 19:55 Dose: 10 unit Levothyroxine Sodium (Levothyroxine) 112 mcg PO ACBREAKFAST [facility] Stop: 01/29/18 06:01 Last Admin: 01/29/18 06:17 Dose: 112 mcg Levothyroxine Sodium (Levothyroxine) 25 mcg PO ACBREAKFAST [facility] Stop: 01/29/18 06:01 Last Admin: 01/29/18 06:17 Dose: 25 mcg Methylprednisolone Sodium Succinate (Solu-Medrol) 62.5 mg IVPUSH ONETIME ONE Stop: 01/28/18 18:29 Last Admin: 01/28/18 18:45 Dose: 62.5 mg Ondansetron HCl (Zofran) 4 mg IVPUSH ONETIME ONE Stop: 01/28/18 15:31 Last Admin: 01/28/18 15:52 Dose: 4 mg Oxycodone/Acetaminophen (Percocet 325-5 Mg) 1 tab PO ONETIME ONE Stop: 01/28/18 18:26 Last Admin: 01/28/18 18:45 Dose: 1 tab - Exam Quality Assessment: No: Supplemental Oxygen General: Alert, Cooperative, No Acute Distress HEENT: Pupils Equal, Pupils Reactive, Mucous Membr. Moist/[place] Neck: Supple Lungs: Normal Respiratory Effort, Decreased Breath Sounds (right side) Cardiovascular: Irregular Rhythm GI/Abdominal Exam: Normal Bowel Sounds, Soft, Non-Tender, No Organomegaly, No Distention, No Abnormal Bruit, No Mass (Male) Exam: Hernia (right inguinal (reduceable and not strangulated)) Back Exam: Normal Inspection, Decreased Range of Motion Extremities: Normal Inspection, Normal Range of Motion, Non-Tender, No Pedal Edema, Normal Capillary Refill Peripheral Pulses: 2+: Dorsalis Pedis (L), Dorsalis Pedis (R) Skin: Warm, Dry, Intact Neurological: No New Focal Deficit Psy/Mental Status: Alert, Normal Affect, Normal Mood - Problem List Review Problem List Initiated/Reviewed/Updated: Yes - Plan Plan:: I/P: Acute: Back Pain, Stable -Acute on chronic -Hx/o pain due to degenerative arthritis, no history of compression fractures -Reports worsening over past week; Worse with movement -Lower back radiating into right hip and buttocks area -No recent trauma; No difficulty voiding -CT scan in ED on 01/28/18: 1. Diffuse degenerative change. No definite central stenosis or neural foraminal stenosis is seen. No fractures appreciated. 2. Moderate right-sided pleural effusion is partially visualized. Small left-sided pleural effusion is partially visualized. Fluid also noted within the pelvis. 3. Other incidental findings. Note: If further evaluation for lumbar spine disease as needed, MRI would be helpful. -Solu-medrol as ordered; discontinued (no indication) -Continue PRN pain medications and PT/OT -Recommend outpatient appointment with Dr. De Oliveira Bilateral Pleural Effusions S/p Bilateral Throcentesis -Right>left -Hx/o pleural effusions, heart failure -Right sided pleural effusions noted on prior ED visit angiography from 11/27 -Left sided thoracentesis performed on 05/18/16 with 950mL clear straw colored return -Symptomatic and requiring O2 -Dr. Barber consulted -S/p thoracentesis performed yesterday: 600 cc removed on left side and 2000 cc removed on fight side -Xarelto resumed after thoracentesis yesterday -O2 as needed -Echo completed awaiting report -BNP 4062-->5006-->5315 Moderately Large Right Sided Pneumothorax -S/p Thoracentesis -Dr. Barber managing Hydropneumothorax -S/p Thoracentesis -Repeat CXR this AM shows increasing pleural effusion with air fluid level within the right lung -IS as directed Hyperglycemia Type II DM controlled with insulin -BS not well controlled -Worsened by administration of Solumedrol (no clear indication) -A1C 8.1 01/29/2018 -On the following regimen: Glucotrol 10 mg po BID, Metformin 500 mg po BID was held, Lantus 5 units SC QHS and Medium level of ISS -Discontinue Steroid -Resume home dose Metformin and Lantus Mild Hyperkalemia -K of 5.5 -Anticipate to improve once we resume his loop diuretic -Will monitor Resolved: S/p Acute kidney injury -Baseline appears to be creatinine less than 1 and GFR >60 -BUN 26-->27 -Creatinine 1.3-->1.1 -eGFR 52--> greater than 60 -Hold lasix today, hold lisinopril and metformin -IV fluids were started in ED - stop -Monitor -Repeat BMP at 1400 S/p Bradycardia -EKG in ED shows A-fib at rate of 54 -Digoxin level 1.4 in ED -Hold digoxin and decrease carvedilol dose to 12.5mg BID -Monitor -Has had a few 8 beat runs of V-tach (has history of v-tach runs) -TSH ordered -Electrolytes WNL -Repeat magnesium at 1600 today Chronic: Glaucoma Hard of hearing Impaired vision Macular degeneration A. fib on amiodarone and digoxin for rate control, along with Xarelto, HR controlled Aneurysm Heart failure HLD Hypertension History of ventricular tachycardia GERD Dysphagia BPH Polyuria Osteoporosis Contractures of the fingers Hypothyroidism Anemia Plan: He is clinically stable and in no respiratory distress Routine AM labs Resume home dose diuretic Continue PT/OT IS as directed CM/SW for discharge planning - resides at [facility] DVT prophylaxis: Xarelto; discontinue SCDs Code status: DNR/DNI; PCP: Dr. Choi
--- NOTE | 2018-01-30 07:38 | CR ---
Chest: Portable expiratory view of the chest was obtained. Comparison: Prior chest x-ray of 01/19/1918. Moderately large right sided pneumothorax seen measuring about 30-40%. Small right sided pleural effusion is seen with right basilar atelectasis. Minimal blunting of the lateral left costophrenic angle is seen. No left sided pneumothorax is seen. Heart size is normal. Tortuous thoracic aorta is seen. Impression: 1. Moderately large right-sided pneumothorax measuring 30-40%. 2. Small right sided pleural effusion with right basilar atelectasis. 3. Slight blunting of the left lateral costophrenic angle. Diagnostic code #5 I agree with preliminary report issued by [facility] ([facility] report finalized on 01/29/18, 4:33 PM Central Time)
[2018-01-30] MEDS: Ferrous Sulfate 140 MG Tab PO SCH (09:33)
[2018-01-30] MEDS: Magnesium Oxide 400 MG Tab PO SCH (09:34)
[2018-01-30] MEDS: Carvedilol 12.5 MG Tab PO SCH (09:34)
[2018-01-30] MEDS: Aspirin 81 MG Tab.EC PO SCH (09:34)
[2018-01-30] MEDS: Rosuvastatin 10 MG Tab PO SCH (09:34)
[2018-01-30] MEDS: Tamsulosin 0.4 MG Cap.ER PO SCH (09:34)
[2018-01-30] MEDS: Psyllium Husk Powder Sugar Free 3.4 GM Packet PO SCH (09:34)
[2018-01-30] MEDS: Carboxymethylcellulose Sodium 1% Ophth Gel 15 ML Bottle EYEBOTH SCH ×4 (09:35→21:58)
[2018-01-30] MEDS: Insulin Lispro 100 Unit/ML 3 ML KwikPen SUBCUT SCH ×4 (09:35→21:56)
--- NOTE | 2018-01-30 09:39 | CR ---
Chest: Frontal view of the chest was obtained. Comparison: Previous chest x-ray of 01/29/18. Moderately large right sided pneumothorax is seen. Air-fluid level is seen within the right lung base compatible with hydropneumothorax. Small left sided pleural effusion is seen. Heart size is normal. Upper mediastinum is normal. Impression: 1. Moderately large right sided pneumothorax remains fairly stable from prior study. 2. Increasing right sided pleural effusion appears to be present with air-fluid level within the right lung base compatible with hydropneumothorax. 3. Other incidental findings. Diagnostic code #3
--- NOTE | 2018-01-30 10:20 | PCM.CONSN ---
- General Info Date of Service: 01/30/18 - Review of Systems General: Reports: No Symptoms Pulmonary: Reports: No Symptoms - Patient Data Vitals - Most Recent: Last Vital Signs Temp 97.5 F 01/30/18 08:00 Pulse 66 01/30/18 09:34 Resp 20 01/30/18 08:00 BP 122/57 L 01/30/18 09:34 Pulse Ox 100 01/30/18 08:00 Weight - Most Recent: 70.851 kg I&O - Last 24 Hours: Intake & Output 01/29/18 01/30/18 01/30/18 23:59 07:59 15:59 Intake Total 200 200 Output Total 2750 450 Balance -2550 -250 Lab Results Last 24 Hours: Laboratory Results - last 24 hr 01/29/18 01/29/18 01/29/18 Range/Units 11:42 16:19 18:14 WBC (4.23-9.07) K/mm3 RBC (4.63-6.08) M/mm3 Hgb (13.7-17.5) gm/L Hct (40.1-51.0) % MCV (79.0-92.2) fl MCH (25.7-32.2) pg MCHC (32.2-35.5) g/dl RDW Std Deviation (35.1-43.9) fL Plt Count (163-337) K/mm3 MPV (9.4-12.3) fl Neut % (Auto) (34.0-67.9) % Lymph % (Auto) (21.8-53.1) % [place] % (Auto) (5.3-12.2) % Eos % (Auto) (0.8-7.0) Baso % (Auto) (0.1-1.2) % Neut # (Auto) (1.78-5.38) K/mm3 Lymph # (Auto) (1.32-3.57) K/mm3 [place] # (Auto) (0.30-0.82) K/mm3 Eos # (Auto) (0.04-0.54) K/mm3 Baso # (Auto) (0.01-0.08) K/mm3 Manual Slide Review Sodium 137 (136-145) mEq/L Potassium 5.1 (3.5-5.1) mEq/L Chloride 101 (98-107) mEq/L Carbon Dioxide 30 (21-32) mEq/L Anion Gap 11.1 (5-15) BUN 35 H (7-18) mg/dL Creatinine 1.2 (0.7-1.3) mg/dL Est Cr Clr Drug Dosing 42.70 mL/min Estimated GFR (MDRD) 57 (>60) mL/min BUN/Creatinine Ratio 29.2 H (14-18) Glucose 232 H (83-115) mg/dL POC Glucose 276 H 268 H (83-110) mg/dL Calcium 8.6 (8.5-10.1) mg/dL Magnesium 2.1 (1.8-2.4) mg/dl NT-Pro-B Natriuret Pep (0-450) pg/mL TSH 3rd Generation 1.425 (0.358-3.74) uIU/mL 01/29/18 01/30/18 01/30/18 Range/Units 21:19 05:40 05:40 WBC 13.22 H (4.23-9.07) K/mm3 RBC 3.99 L (4.63-6.08) M/mm3 Hgb 11.1 L (13.7-17.5) gm/L Hct 34.4 L (40.1-51.0) % MCV 86.2 (79.0-92.2) fl MCH 27.8 (25.7-32.2) pg MCHC 32.3 (32.2-35.5) g/dl RDW Std Deviation 51.4 H (35.1-43.9) fL Plt Count 215 (163-337) K/mm3 MPV 10.1 (9.4-12.3) fl Neut % (Auto) 91.1 H (34.0-67.9) % Lymph % (Auto) 4.8 L (21.8-53.1) % [place] % (Auto) 3.9 L (5.3-12.2) % Eos % (Auto) 0 L (0.8-7.0) Baso % (Auto) 0.0 L (0.1-1.2) % Neut # (Auto) 12.03 H (1.78-5.38) K/mm3 Lymph # (Auto) 0.64 L (1.32-3.57) K/mm3 [place] # (Auto) 0.52 (0.30-0.82) K/mm3 Eos # (Auto) 0.00 L (0.04-0.54) K/mm3 Baso # (Auto) 0.00 L (0.01-0.08) K/mm3 Manual Slide Review Abnormal smear Sodium 136 (136-145) mEq/L Potassium 5.5 H (3.5-5.1) mEq/L Chloride 101 (98-107) mEq/L Carbon Dioxide 29 (21-32) mEq/L Anion Gap 11.5 (5-15) BUN 42 H (7-18) mg/dL Creatinine 1.2 (0.7-1.3) mg/dL Est Cr Clr Drug Dosing 42.64 mL/min Estimated GFR (MDRD) 57 (>60) mL/min BUN/Creatinine Ratio 35.0 H (14-18) Glucose 279 H (83-115) mg/dL POC Glucose 219 H (83-110) mg/dL Calcium 8.3 L (8.5-10.1) mg/dL Magnesium 2.1 (1.8-2.4) mg/dl NT-Pro-B Natriuret Pep (0-450) pg/mL TSH 3rd Generation (0.358-3.74) uIU/mL 01/30/18 01/30/18 Range/Units 05:40 06:32 WBC (4.23-9.07) K/mm3 RBC (4.63-6.08) M/mm3 Hgb (13.7-17.5) gm/L Hct (40.1-51.0) % MCV (79.0-92.2) fl MCH (25.7-32.2) pg MCHC (32.2-35.5) g/dl RDW Std Deviation (35.1-43.9) fL Plt Count (163-337) K/mm3 MPV (9.4-12.3) fl Neut % (Auto) (34.0-67.9) % Lymph % (Auto) (21.8-53.1) % [place] % (Auto) (5.3-12.2) % Eos % (Auto) (0.8-7.0) Baso % (Auto) (0.1-1.2) % Neut # (Auto) (1.78-5.38) K/mm3 Lymph # (Auto) (1.32-3.57) K/mm3 [place] # (Auto) (0.30-0.82) K/mm3 Eos # (Auto) (0.04-0.54) K/mm3 Baso # (Auto) (0.01-0.08) K/mm3 Manual Slide Review Sodium (136-145) mEq/L Potassium (3.5-5.1) mEq/L Chloride (98-107) mEq/L Carbon Dioxide (21-32) mEq/L Anion Gap (5-15) BUN (7-18) mg/dL Creatinine (0.7-1.3) mg/dL Est Cr Clr Drug Dosing mL/min Estimated GFR (MDRD) (>60) mL/min BUN/Creatinine Ratio (14-18) Glucose (83-115) mg/dL POC Glucose 282 H (83-110) mg/dL Calcium (8.5-10.1) mg/dL Magnesium (1.8-2.4) mg/dl NT-Pro-B Natriuret Pep 5315 H (0-450) pg/mL TSH 3rd Generation (0.358-3.74) uIU/mL Med Orders - Current: Current Medications Acetaminophen (Tylenol) 650 mg PO Q6H PRN PRN Reason: Pain/Fever Albuterol/Ipratropium (Duoneb 3.0-0.5 Mg/3 Ml) 3 ml NEB Q4H PRN PRN Reason: Shortness Of Breath/wheezing Amiodarone HCl (Cordarone) 200 mg PO DAILY [facility] Artificial Tears (Refresh Liquigel 1%) 0 ml EYEBOTH QID [facility] Last Admin: 01/30/18 09:35 Dose: 1 drop Artificial Tears (Refresh Liquigel 1%) 0 ml EYEBOTH QID PRN PRN Reason: Dry Eyes Aspirin (Halfprin) 81 mg PO DAILY [facility] Last Admin: 01/30/18 09:34 Dose: 81 mg Benzonatate (Tessalon Perles) 100 mg PO TID PRN PRN Reason: Cough Bisacodyl (Dulcolax) 5 mg PO DAILY PRN PRN Reason: Constipation Carvedilol (Coreg) 12.5 mg PO BID [facility] Last Admin: 01/30/18 09:34 Dose: 12.5 mg Dextrose/Water (Dextrose 50% In Water) 50 ml IVPUSH ASDIRECTED PRN PRN Reason: Hypoglycemia Docusate Sodium (Colace) 100 mg PO BID PRN PRN Reason: Constipation Doxazosin Mesylate (Cardura) 4 mg PO BEDTIME [facility] Last Admin: 01/29/18 21:22 Dose: 4 mg Ferrous Sulfate (Slow Fe) 280 mg PO DAILY [facility] Last Admin: 01/30/18 09:33 Dose: 280 mg Flunisolide (Nasalide Nasal [place]) 0 ml DUARTE DAILY PRN PRN Reason: Congestion Glipizide (Glucotrol) 10 mg PO BIDAC [facility] Last Admin: 01/30/18 06:33 Dose: 10 mg Hydromorphone HCl (Dilaudid) 0.5 mg IVPUSH Q4H PRN PRN Reason: Pain (moderate 4-6) Last Admin: 01/29/18 14:11 Dose: 0.5 mg Insulin Glargine (Lantus Solostar) 5 units SUBCUT BEDTIME [facility] Last Admin: 01/29/18 21:24 Dose: 5 units Insulin Human Lispro (Humalog) 0 unit SUBCUT QIDACANDBED [facility]; Protocol Last Admin: 01/30/18 09:35 Dose: 6 units Latanoprost (Xalatan 0.005% Ophth Soln) 0 ml EYEBOTH BEDTIME [facility] Last Admin: 01/29/18 21:26 Dose: 1 drop Levothyroxine Sodium (Levothroid) 137 mcg PO ACBREAKFAST [facility] Last Admin: 01/30/18 06:33 Dose: 137 mcg Magnesium Oxide (Magnesium Oxide) 400 mg PO DAILY [facility] Last Admin: 01/30/18 09:34 Dose: 400 mg Methylprednisolone Sodium Succinate (Solu-Medrol) 80 mg IVPUSH Q8H [facility] Last Admin: 01/30/18 04:35 Dose: 80 mg Ondansetron HCl (Zofran) 4 mg IVPUSH Q8H PRN PRN Reason: Nausea/Vomiting Polyethylene Glycol (Miralax) 17 gm PO DAILY PRN PRN Reason: Constipation Psyllium Husk (Metamucil Sugar Free) 1 packet PO DAILY [facility] Last Admin: 01/30/18 09:34 Dose: 1 packet Rivaroxaban (Xarelto) 20 mg PO WITHDINNER [facility] Last Admin: 01/29/18 17:08 Dose: 20 mg Rosuvastatin Calcium (Crestor) 20 mg PO DAILY [facility] Last Admin: 01/30/18 09:34 Dose: 20 mg Senna/Docusate Sodium (Senna Plus) 1 tab PO BID PRN PRN Reason: Constipation Tamsulosin HCl (Flomax) 0.4 mg PO DAILY [facility] Last Admin: 01/30/18 09:34 Dose: 0.4 mg Discontinued Medications Carvedilol (Coreg) 25 mg PO Q12H [facility] Last Admin: 01/28/18 22:21 Dose: Not Given Digoxin (Lanoxin) 125 mcg PO DAILY [facility] Hydromorphone HCl (Dilaudid) 0.5 mg IVPUSH ONETIME ONE Stop: 01/28/18 15:31 Last Admin: 01/28/18 15:52 Dose: 0.5 mg Hydromorphone HCl (Dilaudid) 0.5 mg IVPUSH ONETIME ONE Stop: 01/28/18 18:26 Last Admin: 01/28/18 18:45 Dose: 0.5 mg Sodium Chloride (Normal Saline) 1,000 mls @ 125 mls/hr IV ASDIRECTED [facility] Last Admin: 01/29/18 03:47 Dose: 125 mls/hr Insulin Human Lispro (Humalog) 10 unit SUBCUT ONETIME ONE Stop: 01/28/18 19:01 Last Admin: 01/28/18 19:55 Dose: 10 unit Levothyroxine Sodium (Levothyroxine) 112 mcg PO ACBREAKFAST [facility] Stop: 01/29/18 06:01 Last Admin: 01/29/18 06:17 Dose: 112 mcg Levothyroxine Sodium (Levothyroxine) 25 mcg PO ACBREAKFAST [facility] Stop: 01/29/18 06:01 Last Admin: 01/29/18 06:17 Dose: 25 mcg Methylprednisolone Sodium Succinate (Solu-Medrol) 62.5 mg IVPUSH ONETIME ONE Stop: 01/28/18 18:29 Last Admin: 01/28/18 18:45 Dose: 62.5 mg Ondansetron HCl (Zofran) 4 mg IVPUSH ONETIME ONE Stop: 01/28/18 15:31 Last Admin: 01/28/18 15:52 Dose: 4 mg Oxycodone/Acetaminophen (Percocet 325-5 Mg) 1 tab PO ONETIME ONE Stop: 01/28/18 18:26 Last Admin: 01/28/18 18:45 Dose: 1 tab - Exam Lungs: Clear to Auscultation, Normal Respiratory Effort Consult PN Assessment/Plan Procedures: Procedures AGENT NOS ASSAY W/OPTIC (06/16/16) AIRWAY INHALATION TREATMENT (05/14/16) ASSAY OF BLOOD LIPOPROTEIN (01/23/15) ASSAY OF CREATININE (11/13/14) ASSAY OF DIGOXIN TOTAL (06/16/16) ASSAY OF LACTIC ACID (11/11/14) ASSAY OF MAGNESIUM (05/14/16) ASSAY OF NATRIURETIC PEPTIDE (06/16/16) ASSAY OF PROTEIN OTHER (05/14/16) ASSAY OF SERUM ALBUMIN (05/14/16) ASSAY OF SERUM POTASSIUM (05/14/16) ASSAY OF TROPONIN QUANT (11/22/17) ASSAY PH BODY FLUID NOS (05/14/16) BLOOD CULTURE FOR BACTERIA (05/14/16) BODY FLUID CELL COUNT (05/14/16) C-REACTIVE PROTEIN (06/16/16) CHEST WALL MANIPULATION (05/14/16) CHEST WALL MANIPULATION (05/14/16) CHEST X-RAY 1 VIEW FRONTAL (06/16/16) CHEST X-RAY 2VW FRONTAL&LATL (06/16/16) COLONOSCOPY AND BIOPSY (12/26/15) COMPLETE CBC W/AUTO DIFF WBC (11/22/17) COMPREHEN METABOLIC PANEL (11/22/17) CONTROL OF NOSEBLEED (11/23/16) CREATINE MB FRACTION (05/14/16) CT ABD & PELV W/CONTRAST (11/11/14) CT ANGIOGRAPHY CHEST (11/22/17) CT HEAD/BRAIN W/O DYE (07/10/15) CT THORAX W/O DYE (05/14/16) CULTURE OTHR SPECIMN AEROBIC (05/14/16) CYTOPATH CELL ENHANCE TECH (05/14/16) DIAGNOSTIC COLONOSCOPY (10/25/13) ECHO GUIDE FOR BIOPSY (05/14/16) EGD BIOPSY SINGLE/MULTIPLE (12/26/15) ELECTROCARDIOGRAM TRACING (11/22/17) EMERGENCY DEPT VISIT (11/22/17) EMERGENCY DEPT VISIT (11/22/17) EMERGENCY DEPT VISIT (11/26/16) EMERGENCY DEPT VISIT (06/16/16) EMERGENCY DEPT VISIT (05/14/16) EMERGENCY DEPT VISIT (12/19/15) EMERGENCY DEPT VISIT (07/10/15) EMERGENCY DEPT VISIT (11/11/14) EMERGENCY DEPT VISIT (11/12/13) EVALUATE PT USE OF INHALER (05/14/16) EVALUATE SWALLOWING FUNCTION (05/14/16) FIBRIN DEGRADATION QUANT (11/22/17) GAIT TRAINING THERAPY (05/14/16) GLUCOSE BLOOD TEST (06/16/16) GLUCOSE OTHER FLUID (05/14/16) GLYCOSYLATED HEMOGLOBIN TEST (08/15/15) HYDRATE IV INFUSION ADD-ON (05/14/16) HYDRATION IV INFUSION INIT (07/10/15) INFLUENZA ASSAY W/OPTIC (06/16/16) LACTATE (LD) (LDH) ENZYME (05/14/16) MEASURE BLOOD OXYGEN LEVEL (06/16/16) MEASURE BLOOD OXYGEN LEVEL (05/14/16) MEASURE BLOOD OXYGEN LEVEL (05/14/16) METABOLIC PANEL TOTAL CA (06/16/16) MR-STAPH DNA AMP PROBE (06/16/16) MYCOPLASMA ANTIBODY (06/16/16) ORAL FUNCTION THERAPY (05/14/16) OT EVAL LOW COMPLEX 30 MIN (06/16/16) OTHER SOURCE ALBUMIN NIEVES EA (05/14/16) PROTHROMBIN TIME (11/23/16) PT EVAL LOW COMPLEX 20 MIN (06/16/16) ROUTINE VENIPUNCTURE (11/22/17) SMEAR GRAM STAIN (05/14/16) THER/PROPH/DIAG INJ IV PUSH (06/16/16) THER/PROPH/DIAG IV INF ADDON (05/14/16) THER/PROPH/DIAG IV INF INIT (11/22/17) THERAPEUTIC ACTIVITIES (05/14/16) THROMBOPLASTIN TIME PARTIAL (11/23/16) TISSUE EXAM BY PATHOLOGIST (05/14/16) TISSUE EXAM FOR FUNGI (05/14/16) TTE W/DOPPLER COMPLETE (05/14/16) UR ALBUMIN QUANTITATIVE (01/23/15) URINALYSIS AUTO W/SCOPE (06/16/16) URINE CULTURE/COLONY COUNT (05/14/16) X-RAY EXAM CHEST 1 VIEW (11/22/17) X-RAY EXAM CHEST 2 VIEWS (11/22/17) X-RAY EXAM OF FOREARM (12/19/15) X-RAY EXAM OF SHOULDER (12/19/15) Problem List Initiated/Reviewed/Updated: Yes My Orders Last 24 Hours: My Active Orders 01/29/18 10:51 Guide Needle Biopsy [US] Routine Plan: pneumo on the right is stable plan continue to observe reviewed the cxr and pneumo difficult to outline JMB
--- NOTE | 2018-01-30 10:42 | PCM.CONSN ---
- General Info Date of Service: 01/30/18 - Patient Data Vitals - Most Recent: Last Vital Signs Temp 97.5 F 01/30/18 08:00 Pulse 66 01/30/18 09:34 Resp 20 01/30/18 08:00 BP 122/57 L 01/30/18 09:34 Pulse Ox 100 01/30/18 08:00 Weight - Most Recent: 70.851 kg I&O - Last 24 Hours: Intake & Output 01/29/18 01/30/18 01/30/18 23:59 07:59 15:59 Intake Total 200 200 Output Total 2750 450 Balance -2550 -250 Lab Results Last 24 Hours: Laboratory Results - last 24 hr 01/29/18 01/29/18 01/29/18 Range/Units 11:42 16:19 18:14 WBC (4.23-9.07) K/mm3 RBC (4.63-6.08) M/mm3 Hgb (13.7-17.5) gm/L Hct (40.1-51.0) % MCV (79.0-92.2) fl MCH (25.7-32.2) pg MCHC (32.2-35.5) g/dl RDW Std Deviation (35.1-43.9) fL Plt Count (163-337) K/mm3 MPV (9.4-12.3) fl Neut % (Auto) (34.0-67.9) % Lymph % (Auto) (21.8-53.1) % [place] % (Auto) (5.3-12.2) % Eos % (Auto) (0.8-7.0) Baso % (Auto) (0.1-1.2) % Neut # (Auto) (1.78-5.38) K/mm3 Lymph # (Auto) (1.32-3.57) K/mm3 [place] # (Auto) (0.30-0.82) K/mm3 Eos # (Auto) (0.04-0.54) K/mm3 Baso # (Auto) (0.01-0.08) K/mm3 Manual Slide Review Sodium 137 (136-145) mEq/L Potassium 5.1 (3.5-5.1) mEq/L Chloride 101 (98-107) mEq/L Carbon Dioxide 30 (21-32) mEq/L Anion Gap 11.1 (5-15) BUN 35 H (7-18) mg/dL Creatinine 1.2 (0.7-1.3) mg/dL Est Cr Clr Drug Dosing 42.70 mL/min Estimated GFR (MDRD) 57 (>60) mL/min BUN/Creatinine Ratio 29.2 H (14-18) Glucose 232 H (83-115) mg/dL POC Glucose 276 H 268 H (83-110) mg/dL Calcium 8.6 (8.5-10.1) mg/dL Magnesium 2.1 (1.8-2.4) mg/dl NT-Pro-B Natriuret Pep (0-450) pg/mL TSH 3rd Generation 1.425 (0.358-3.74) uIU/mL 01/29/18 01/30/18 01/30/18 Range/Units 21:19 05:40 05:40 WBC 13.22 H (4.23-9.07) K/mm3 RBC 3.99 L (4.63-6.08) M/mm3 Hgb 11.1 L (13.7-17.5) gm/L Hct 34.4 L (40.1-51.0) % MCV 86.2 (79.0-92.2) fl MCH 27.8 (25.7-32.2) pg MCHC 32.3 (32.2-35.5) g/dl RDW Std Deviation 51.4 H (35.1-43.9) fL Plt Count 215 (163-337) K/mm3 MPV 10.1 (9.4-12.3) fl Neut % (Auto) 91.1 H (34.0-67.9) % Lymph % (Auto) 4.8 L (21.8-53.1) % [place] % (Auto) 3.9 L (5.3-12.2) % Eos % (Auto) 0 L (0.8-7.0) Baso % (Auto) 0.0 L (0.1-1.2) % Neut # (Auto) 12.03 H (1.78-5.38) K/mm3 Lymph # (Auto) 0.64 L (1.32-3.57) K/mm3 [place] # (Auto) 0.52 (0.30-0.82) K/mm3 Eos # (Auto) 0.00 L (0.04-0.54) K/mm3 Baso # (Auto) 0.00 L (0.01-0.08) K/mm3 Manual Slide Review Abnormal smear Sodium 136 (136-145) mEq/L Potassium 5.5 H (3.5-5.1) mEq/L Chloride 101 (98-107) mEq/L Carbon Dioxide 29 (21-32) mEq/L Anion Gap 11.5 (5-15) BUN 42 H (7-18) mg/dL Creatinine 1.2 (0.7-1.3) mg/dL Est Cr Clr Drug Dosing 42.64 mL/min Estimated GFR (MDRD) 57 (>60) mL/min BUN/Creatinine Ratio 35.0 H (14-18) Glucose 279 H (83-115) mg/dL POC Glucose 219 H (83-110) mg/dL Calcium 8.3 L (8.5-10.1) mg/dL Magnesium 2.1 (1.8-2.4) mg/dl NT-Pro-B Natriuret Pep (0-450) pg/mL TSH 3rd Generation (0.358-3.74) uIU/mL 01/30/18 01/30/18 Range/Units 05:40 06:32 WBC (4.23-9.07) K/mm3 RBC (4.63-6.08) M/mm3 Hgb (13.7-17.5) gm/L Hct (40.1-51.0) % MCV (79.0-92.2) fl MCH (25.7-32.2) pg MCHC (32.2-35.5) g/dl RDW Std Deviation (35.1-43.9) fL Plt Count (163-337) K/mm3 MPV (9.4-12.3) fl Neut % (Auto) (34.0-67.9) % Lymph % (Auto) (21.8-53.1) % [place] % (Auto) (5.3-12.2) % Eos % (Auto) (0.8-7.0) Baso % (Auto) (0.1-1.2) % Neut # (Auto) (1.78-5.38) K/mm3 Lymph # (Auto) (1.32-3.57) K/mm3 [place] # (Auto) (0.30-0.82) K/mm3 Eos # (Auto) (0.04-0.54) K/mm3 Baso # (Auto) (0.01-0.08) K/mm3 Manual Slide Review Sodium (136-145) mEq/L Potassium (3.5-5.1) mEq/L Chloride (98-107) mEq/L Carbon Dioxide (21-32) mEq/L Anion Gap (5-15) BUN (7-18) mg/dL Creatinine (0.7-1.3) mg/dL Est Cr Clr Drug Dosing mL/min Estimated GFR (MDRD) (>60) mL/min BUN/Creatinine Ratio (14-18) Glucose (83-115) mg/dL POC Glucose 282 H (83-110) mg/dL Calcium (8.5-10.1) mg/dL Magnesium (1.8-2.4) mg/dl NT-Pro-B Natriuret Pep 5315 H (0-450) pg/mL TSH 3rd Generation (0.358-3.74) uIU/mL Med Orders - Current: Current Medications Acetaminophen (Tylenol) 650 mg PO Q6H PRN PRN Reason: Pain/Fever Albuterol/Ipratropium (Duoneb 3.0-0.5 Mg/3 Ml) 3 ml NEB Q4H PRN PRN Reason: Shortness Of Breath/wheezing Amiodarone HCl (Cordarone) 200 mg PO DAILY [facility] [place] Artificial Tears (Refresh Liquigel 1%) 0 ml EYEBOTH QID [facility] Last Admin: 01/30/18 09:35 Dose: 1 drop Artificial Tears (Refresh Liquigel 1%) 0 ml EYEBOTH QID PRN PRN Reason: Dry Eyes Aspirin (Halfprin) 81 mg PO DAILY [facility] [place] Last Admin: 01/30/18 09:34 Dose: 81 mg Benzonatate (Tessalon Perles) 100 mg PO TID PRN PRN Reason: Cough Bisacodyl (Dulcolax) 5 mg PO DAILY PRN PRN Reason: Constipation Carvedilol (Coreg) 12.5 mg PO BID [facility] [place] Last Admin: 12/01/18 09:34 Dose: 12.5 mg Dextrose/Water (Dextrose 50% In Water) 50 ml IVPUSH ASDIRECTED PRN PRN Reason: Hypoglycemia Docusate Sodium (Colace) 100 mg PO BID PRN PRN Reason: Constipation Doxazosin Mesylate (Cardura) 4 mg PO BEDTIME [facility] [place] Last Admin: 01/29/18 21:22 Dose: 4 mg Ferrous Sulfate (Slow Fe) 280 mg PO DAILY [facility] [place] Last Admin: 01/30/18 09:33 Dose: 280 mg Flunisolide (Nasalide Nasal [place]) 0 ml DUARTE DAILY PRN PRN Reason: Congestion Glipizide (Glucotrol) 10 mg PO BIDAC [facility] [place] Last Admin: 01/30/18 06:33 Dose: 10 mg Hydromorphone HCl (Dilaudid) 0.5 mg IVPUSH Q4H PRN PRN Reason: Pain (moderate 4-6) Last Admin: 01/29/18 14:11 Dose: 0.5 mg Insulin Glargine (Lantus Solostar) 5 units SUBCUT BEDTIME [facility] [place] Last Admin: 01/29/18 21:24 Dose: 5 units Insulin Human Lispro (Humalog) 0 unit SUBCUT QIDACANDBED [facility] [place]; Protocol Last Admin: 01/30/18 09:35 Dose: 6 units Latanoprost (Xalatan 0.005% Ophth Soln) 0 ml EYEBOTH BEDTIME [facility] [place] Last Admin: 01/29/18 21:26 Dose: 1 drop Levothyroxine Sodium (Levothroid) 137 mcg PO ACBREAKFAST [facility] [place] Last Admin: 01/30/18 06:33 Dose: 137 mcg Magnesium Oxide (Magnesium Oxide) 400 mg PO DAILY [facility] [place] Last Admin: 01/30/18 09:34 Dose: 400 mg Methylprednisolone Sodium Succinate (Solu-Medrol) 80 mg IVPUSH Q8H [facility] [place] Last Admin: 01/30/18 04:35 Dose: 80 mg Ondansetron HCl (Zofran) 4 mg IVPUSH Q8H PRN PRN Reason: Nausea/Vomiting Polyethylene Glycol (Miralax) 17 gm PO DAILY PRN PRN Reason: Constipation Psyllium Husk (Metamucil Sugar Free) 1 packet PO DAILY [facility] [place] Last Admin: 01/30/18 09:34 Dose: 1 packet Rosuvastatin Calcium (Crestor) 20 mg PO DAILY [facility] [place] Last Admin: 01/30/18 09:34 Dose: 20 mg Senna/Docusate Sodium (Senna Plus) 1 tab PO BID PRN PRN Reason: Constipation Tamsulosin HCl (Flomax) 0.4 mg PO DAILY [facility] [place] Last Admin: 01/30/18 09:34 Dose: 0.4 mg Discontinued Medications Carvedilol (Coreg) 25 mg PO Q12H [facility] [place] Last Admin: 01/28/18 22:21 Dose: Not Given Digoxin (Lanoxin) 125 mcg PO DAILY [facility] [place] Hydromorphone HCl (Dilaudid) 0.5 mg IVPUSH ONETIME ONE Stop: 01/28/18 15:31 Last Admin: 01/28/18 15:52 Dose: 0.5 mg Hydromorphone HCl (Dilaudid) 0.5 mg IVPUSH ONETIME ONE Stop: 01/28/18 18:26 Last Admin: 01/28/18 18:45 Dose: 0.5 mg Sodium Chloride (Normal Saline) 1,000 mls @ 125 mls/hr IV ASDIRECTED [facility] [place] Last Admin: 01/29/18 03:47 Dose: 125 mls/hr Insulin Human Lispro (Humalog) 10 unit SUBCUT ONETIME ONE Stop: 01/28/18 19:01 Last Admin: 01/28/18 19:55 Dose: 10 unit Levothyroxine Sodium (Levothyroxine) 112 mcg PO ACBREAKFAST [facility] [place] Stop: 01/29/18 06:01 Last Admin: 01/29/18 06:17 Dose: 112 mcg Levothyroxine Sodium (Levothyroxine) 25 mcg PO ACBREAKFAST [facility] [place] Stop: 01/29/18 06:01 Last Admin: 01/29/18 06:17 Dose: 25 mcg Methylprednisolone Sodium Succinate (Solu-Medrol) 62.5 mg IVPUSH ONETIME ONE Stop: 01/28/18 18:29 Last Admin: 01/28/18 18:45 Dose: 62.5 mg Ondansetron HCl (Zofran) 4 mg IVPUSH ONETIME ONE Stop: 01/28/18 15:31 Last Admin: 01/28/18 15:52 Dose: 4 mg Oxycodone/Acetaminophen (Percocet 325-5 Mg) 1 tab PO ONETIME ONE Stop: 01/28/18 18:26 Last Admin: 01/28/18 18:45 Dose: 1 tab Rivaroxaban [facility]) [facility] Last Admin: 01/29/18 17:08 Dose: 20 mg Consult PN Assessment/Plan Procedures: Procedures AGENT NOS ASSAY W/OPTIC (06/16/16) AIRWAY INHALATION TREATMENT (05/14/16) ASSAY OF BLOOD LIPOPROTEIN (01/23/15) ASSAY OF CREATININE (11/13/14) ASSAY OF DIGOXIN TOTAL (06/16/16) ASSAY OF LACTIC ACID (11/11/14) ASSAY OF MAGNESIUM (05/14/16) ASSAY OF NATRIURETIC PEPTIDE (06/16/16) ASSAY OF PROTEIN OTHER (05/14/16) ASSAY OF SERUM ALBUMIN (05/14/16) ASSAY OF SERUM POTASSIUM (05/14/16) ASSAY OF TROPONIN QUANT (11/22/17) ASSAY PH BODY FLUID NOS (05/14/16) BLOOD CULTURE FOR BACTERIA (05/14/16) BODY FLUID CELL COUNT (05/14/16) C-REACTIVE PROTEIN (06/16/16) CHEST WALL MANIPULATION (05/14/16) CHEST WALL MANIPULATION (05/14/16) CHEST X-RAY 1 VIEW FRONTAL (06/16/16) CHEST X-RAY 2VW FRONTAL&LATL (06/16/16) COLONOSCOPY AND BIOPSY (12/26/15) COMPLETE CBC W/AUTO DIFF WBC (11/22/17) COMPREHEN METABOLIC PANEL (11/22/17) CONTROL OF NOSEBLEED (11/23/16) CREATINE MB FRACTION (05/14/16) CT ABD & PELV W/CONTRAST (11/11/14) CT ANGIOGRAPHY CHEST (11/22/17) CT HEAD/BRAIN W/O DYE (07/10/15) CT THORAX W/O DYE (05/14/16) CULTURE OTHR SPECIMN AEROBIC (05/14/16) CYTOPATH CELL ENHANCE TECH (05/14/16) DIAGNOSTIC COLONOSCOPY (10/25/13) ECHO GUIDE FOR BIOPSY (05/14/16) EGD BIOPSY SINGLE/MULTIPLE (12/26/15) ELECTROCARDIOGRAM TRACING (11/22/17) EMERGENCY DEPT VISIT (11/22/17) EMERGENCY DEPT VISIT (11/22/17) EMERGENCY DEPT VISIT (11/26/16) EMERGENCY DEPT VISIT (06/16/16) EMERGENCY DEPT VISIT (05/14/16) EMERGENCY DEPT VISIT (12/19/15) EMERGENCY DEPT VISIT (07/10/15) EMERGENCY DEPT VISIT (11/11/14) EMERGENCY DEPT VISIT (11/12/13) EVALUATE PT USE OF INHALER (05/14/16) EVALUATE SWALLOWING FUNCTION (05/14/16) FIBRIN DEGRADATION QUANT (11/22/17) GAIT TRAINING THERAPY (05/14/16) GLUCOSE BLOOD TEST (06/16/16) GLUCOSE OTHER FLUID (05/14/16) GLYCOSYLATED HEMOGLOBIN TEST (08/15/15) HYDRATE IV INFUSION ADD-ON (05/14/16) HYDRATION IV INFUSION INIT (07/10/15) INFLUENZA ASSAY W/OPTIC (06/16/16) LACTATE (LD) (LDH) ENZYME (05/14/16) MEASURE BLOOD OXYGEN LEVEL (06/16/16) MEASURE BLOOD OXYGEN LEVEL (05/14/16) MEASURE BLOOD OXYGEN LEVEL (05/14/16) METABOLIC PANEL TOTAL CA (06/16/16) MR-STAPH DNA AMP PROBE (06/16/16) MYCOPLASMA ANTIBODY (06/16/16) ORAL FUNCTION THERAPY (05/14/16) OT EVAL LOW COMPLEX 30 MIN (06/16/16) OTHER SOURCE ALBUMIN NIEVES EA (05/14/16) PROTHROMBIN TIME (11/23/16) PT EVAL LOW COMPLEX 20 MIN (06/16/16) ROUTINE VENIPUNCTURE (11/22/17) SMEAR GRAM STAIN (05/14/16) THER/PROPH/DIAG INJ IV PUSH (06/16/16) THER/PROPH/DIAG IV INF ADDON (05/14/16) THER/PROPH/DIAG IV INF INIT (11/22/17) THERAPEUTIC ACTIVITIES (05/14/16) THROMBOPLASTIN TIME PARTIAL (11/23/16) TISSUE EXAM BY PATHOLOGIST (05/14/16) TISSUE EXAM FOR FUNGI (05/14/16) TTE W/DOPPLER COMPLETE (05/14/16) UR ALBUMIN QUANTITATIVE (01/23/15) URINALYSIS AUTO W/SCOPE (06/16/16) URINE CULTURE/COLONY COUNT (05/14/16) X-RAY EXAM CHEST 1 VIEW (11/22/17) X-RAY EXAM CHEST 2 VIEWS (11/22/17) X-RAY EXAM OF FOREARM (12/19/15) X-RAY EXAM OF SHOULDER (12/19/15) Problem List Initiated/Reviewed/Updated: Yes My Orders Last 24 Hours: My Active Orders 01/29/18 10:51 Guide Needle Biopsy [US] Routine 01/30/18 10:39 Verify Patient Consent Obtain [RC] ASDIRECTED Plan: reviewed the CXR with radiology and large pneumo will place ct after holding the xeroalto at 5 pm today
[2018-01-30] MEDS ORDERED: Lidocaine 1% 2 ML SDV INJECT ONE (16:32)
[2018-01-30] MEDS ORDERED: Lidocaine 1% 50 ML MDV ONE (16:49)
[2018-01-30] MEDS: metFORMIN 500 MG Tab PO SCH (16:52)
[2018-01-30] MEDS: Furosemide 40 MG Tab PO SCH (16:58)
[2018-01-30] MEDS: HYDROmorphone 0.5 MG/0.5 ML Syringe IVPUSH PRN (17:05)
--- NOTE | 2018-01-30 19:05 | PCM.OPNOTE ---
- General Post-Op/Procedure Note Operative Procedure(s): aspiration of right pneumothorax Pre Op Diagnosis: rt pneumothorax Post-Op Diagnosis: Same Anesthesia Technique: Local Primary Surgeon: Rustam Barber EBL in mLs: 0 Complications: None Condition: Stable Free Text/Narrative:: Intake & Output 01/30/18 01/30/18 01/30/18 07:59 15:59 23:59 Intake Total 200 400 100 Output Total 450 650 Balance -250 400 -550
[2018-01-30] MEDS ORDERED: MELATONIN 6 MG PO SCH (21:00)
[2018-01-30] MEDS: Insulin Glargine,Human Rec. Analog 100 Units/ML 3 ML Pen SUBCUT SCH (21:55)
[2018-01-30] MEDS: Latanoprost 0.005% Ophth Soln 2.5 ML Bottle EYEBOTH SCH (21:58)
[2018-01-30] MEDS: Carvedilol 6.25 MG Tab PO SCH (22:01)
[2018-01-30] MEDS: Doxazosin 4 MG Tab PO SCH (22:01)
[2018-01-31] MEDS: metFORMIN 500 MG Tab PO SCH ×2 (07:04→16:20)
--- NOTE | 2018-01-31 08:06 | PCM.PN ---
- General Info Date of Service: 01/31/18 Admission Dx/Problem (Free Text): Admission Diagnosis/Problem Admission Diagnosis/Problem Lumbar back pain with radiculopathy affecting left lower extremity Subjective Update: Follow Up Functional Status: Reports: Pain Controlled, Tolerating Diet, Ambulating, Urinating. Denies: New Symptoms - Review of Systems General: Denies: Fever, Chills HEENT: Reports: No Symptoms Pulmonary: Denies: Shortness of Breath Cardiovascular: Denies: Chest Pain, Dyspnea on Exertion, Lightheadedness Gastrointestinal: Denies: Abdominal Pain, Nausea, Vomiting Musculoskeletal: Reports: No Symptoms Skin: Denies: Cyanosis, Mottled, Pallor, Diaphoresis Neurological: Reports: Confusion (Baseline Dementia), Gait Disturbance Psychiatric: Denies: Depression, Anxiety, Agitation, Hallucinations Systems Review Comment:: No overnight or acute issues. He looks clinically stable and in no acute distress. When asked a few questions, he replied with "I don't know". Essentially, he did not have any complaints. - Patient Data Vitals - Most Recent: Last Vital Signs Temp 36.2 C 01/31/18 07:44 Pulse 58 L 01/31/18 07:44 Resp 16 01/31/18 07:44 BP 102/57 L 01/31/18 07:44 Pulse Ox 98 01/31/18 07:44 Weight - Most Recent: 70.261 kg I&O - Last 24 Hours: Intake & Output 01/30/18 01/31/18 01/31/18 22:59 06:59 14:59 Intake Total 900 200 Output Total 650 425 Balance 250 -225 Lab Results Last 24 Hours: Laboratory Results - last 24 hr 01/30/18 01/30/18 01/30/18 Range/Units 11:50 16:54 21:52 WBC (4.23-9.07) K/mm3 RBC (4.63-6.08) M/mm3 Hgb (13.7-17.5) gm/L Hct (40.1-51.0) % MCV (79.0-92.2) fl MCH (25.7-32.2) pg MCHC (32.2-35.5) g/dl RDW Std Deviation (35.1-43.9) fL Plt Count (163-337) K/mm3 MPV (9.4-12.3) fl Neut % (Auto) (34.0-67.9) % Lymph % (Auto) (21.8-53.1) % [place] % (Auto) (5.3-12.2) % Eos % (Auto) (0.8-7.0) Baso % (Auto) (0.1-1.2) % Neut # (Auto) (1.78-5.38) K/mm3 Lymph # (Auto) (1.32-3.57) K/mm3 [place] # (Auto) (0.30-0.82) K/mm3 Eos # (Auto) (0.04-0.54) K/mm3 Baso # (Auto) (0.01-0.08) K/mm3 Manual Slide Review Sodium (136-145) mEq/L Potassium (3.5-5.1) mEq/L Chloride (98-107) mEq/L Carbon Dioxide (21-32) mEq/L Anion Gap (5-15) BUN (7-18) mg/dL Creatinine (0.7-1.3) mg/dL Est Cr Clr Drug Dosing mL/min Estimated GFR (MDRD) (>60) mL/min BUN/Creatinine Ratio (14-18) Glucose 374 H (83-115) mg/dL POC Glucose 252 H 329 H (83-110) mg/dL Calcium (8.5-10.1) mg/dL Magnesium (1.8-2.4) mg/dl 01/31/18 01/31/18 01/31/18 Range/Units 06:10 06:10 06:45 WBC 12.77 H (4.23-9.07) K/mm3 RBC 3.85 L (4.63-6.08) M/mm3 Hgb 10.6 L (13.7-17.5) gm/L Hct 33.1 L (40.1-51.0) % MCV 86.0 (79.0-92.2) fl MCH 27.5 (25.7-32.2) pg MCHC 32.0 L (32.2-35.5) g/dl RDW Std Deviation 51.8 H (35.1-43.9) fL Plt Count 218 (163-337) K/mm3 MPV 10.1 (9.4-12.3) fl Neut % (Auto) 87.3 H (34.0-67.9) % Lymph % (Auto) 4.6 L (21.8-53.1) % [place] % (Auto) 7.9 (5.3-12.2) % Eos % (Auto) 0 L (0.8-7.0) Baso % (Auto) 0.0 L (0.1-1.2) % Neut # (Auto) 11.15 H (1.78-5.38) K/mm3 Lymph # (Auto) 0.59 L (1.32-3.57) K/mm3 [place] # (Auto) 1.01 H (0.30-0.82) K/mm3 Eos # (Auto) 0.00 L (0.04-0.54) K/mm3 Baso # (Auto) 0.00 L (0.01-0.08) K/mm3 Manual Slide Review Abnormal smear Sodium 138 (136-145) mEq/L Potassium 4.6 (3.5-5.1) mEq/L Chloride 102 (98-107) mEq/L Carbon Dioxide 31 (21-32) mEq/L Anion Gap 9.6 (5-15) BUN 50 H (7-18) mg/dL Creatinine 1.2 (0.7-1.3) mg/dL Est Cr Clr Drug Dosing 42.29 mL/min Estimated GFR (MDRD) 57 (>60) mL/min BUN/Creatinine Ratio 41.7 H (14-18) Glucose 217 H (83-115) mg/dL POC Glucose 209 H (83-110) mg/dL Calcium 8.1 L (8.5-10.1) mg/dL Magnesium 2.3 (1.8-2.4) mg/dl Med Orders - Current: Current Medications Acetaminophen (Tylenol) 650 mg PO Q6H PRN PRN Reason: Pain/Fever Albuterol/Ipratropium (Duoneb 3.0-0.5 Mg/3 Ml) 3 ml NEB Q4H PRN PRN Reason: Shortness Of Breath/wheezing Amiodarone HCl (Cordarone) 200 mg PO DAILY [facility] Artificial Tears (Refresh Liquigel 1%) 0 ml EYEBOTH QID [facility] Last Admin: 01/30/18 21:58 Dose: 1 drop Artificial Tears (Refresh Liquigel 1%) 0 ml EYEBOTH QID PRN PRN Reason: Dry Eyes Aspirin (Halfprin) 81 mg PO DAILY [facility] Last Admin: 01/30/18 09:34 Dose: 81 mg Benzonatate (Tessalon Perles) 100 mg PO TID PRN PRN Reason: Cough Bisacodyl (Dulcolax) 5 mg PO DAILY PRN PRN Reason: Constipation Carvedilol (Coreg) 6.25 mg PO BID [facility] Last Admin: 01/30/18 22:01 Dose: 6.25 mg Dextrose/Water (Dextrose 50% In Water) 50 ml IVPUSH ASDIRECTED PRN PRN Reason: Hypoglycemia Docusate Sodium (Colace) 100 mg PO BID PRN PRN Reason: Constipation Doxazosin Mesylate (Cardura) 4 mg PO BEDTIME [facility] Last Admin: 01/30/18 22:01 Dose: 4 mg Ferrous Sulfate (Slow Fe) 280 mg PO DAILY [facility] Last Admin: 01/30/18 09:33 Dose: 280 mg Flunisolide (Nasalide Nasal [place]) 0 ml DUARTE DAILY PRN PRN Reason: Congestion Furosemide (Lasix) 80 mg PO DAILY [facility] Furosemide (Lasix) 40 mg PO 1600 [facility] Last Admin: 01/30/18 16:58 Dose: 40 mg Glipizide (Glucotrol) 10 mg PO BIDAC [facility] Last Admin: 01/31/18 07:04 Dose: 10 mg Hydromorphone HCl (Dilaudid) 0.5 mg IVPUSH Q4H PRN PRN Reason: Pain (moderate 4-6) Last Admin: 01/30/18 17:05 Dose: 0.5 mg Insulin Glargine (Lantus Solostar) 10 units SUBCUT BID [facility] Last Admin: 01/30/18 21:55 Dose: 10 units Insulin Human Lispro (Humalog) 0 unit SUBCUT QIDACANDBED [facility]; Protocol Last Admin: 01/30/18 21:56 Dose: 8 units Latanoprost (Xalatan 0.005% Ophth Soln) 0 ml EYEBOTH BEDTIME [facility] Last Admin: 01/30/18 21:58 Dose: 1 drop Levothyroxine Sodium (Levothroid) 137 mcg PO ACBREAKFAST [facility] Last Admin: 12/02/18 07:03 Dose: 137 mcg Magnesium Oxide (Magnesium Oxide) 400 mg PO DAILY [facility] Last Admin: 01/30/18 09:34 Dose: 400 mg Metformin HCl (Glucophage) 500 mg PO BIDMEALS [facility] Last Admin: 01/31/18 07:04 Dose: 500 mg Ondansetron HCl (Zofran) 4 mg IVPUSH Q8H PRN PRN Reason: Nausea/Vomiting Polyethylene Glycol (Miralax) 17 gm PO DAILY PRN PRN Reason: Constipation Psyllium Husk (Metamucil Sugar Free) 1 packet PO DAILY [facility] Last Admin: 01/30/18 09:34 Dose: 1 packet Rosuvastatin Calcium (Crestor) 20 mg PO DAILY [facility] Last Admin: 01/30/18 09:34 Dose: 20 mg Senna/Docusate Sodium (Senna Plus) 1 tab PO BID PRN PRN Reason: Constipation Tamsulosin HCl (Flomax) 0.4 mg PO DAILY [facility] Last Admin: 01/30/18 09:34 Dose: 0.4 mg Discontinued Medications Carvedilol (Coreg) 25 mg PO Q12H [facility] Last Admin: 01/28/18 22:21 Dose: Not Given Carvedilol (Coreg) 12.5 mg PO BID [facility] Last Admin: 01/30/18 09:34 Dose: 12.5 mg Digoxin (Lanoxin) 125 mcg PO DAILY [facility] Hydromorphone HCl (Dilaudid) 0.5 mg IVPUSH ONETIME ONE Stop: 01/28/18 15:31 Last Admin: 01/28/18 15:52 Dose: 0.5 mg Hydromorphone HCl (Dilaudid) 0.5 mg IVPUSH ONETIME ONE Stop: 01/28/18 18:26 Last Admin: 01/28/18 18:45 Dose: 0.5 mg Sodium Chloride (Normal Saline) 1,000 mls @ 125 mls/hr IV ASDIRECTED [facility] Last Admin: 01/29/18 03:47 Dose: 125 mls/hr Insulin Glargine (Lantus Solostar) 5 units SUBCUT BEDTIME [facility] Last Admin: 01/29/18 21:24 Dose: 5 units Insulin Human Lispro (Humalog) 10 unit SUBCUT ONETIME ONE Stop: 01/28/18 19:01 Last Admin: 01/28/18 19:55 Dose: 10 unit Levothyroxine Sodium (Levothyroxine) 112 mcg PO ACBREAKFAST [facility] Stop: 01/29/18 06:01 Last Admin: 01/29/18 06:17 Dose: 112 mcg Levothyroxine Sodium (Levothyroxine) 25 mcg PO ACBREAKFAST [facility] Stop: 01/29/18 06:01 Last Admin: 01/29/18 06:17 Dose: 25 mcg Lidocaine HCl (Xylocaine 1%) Confirm Administered Dose 50 ml .ROUTE .STK-MED ONE Stop: 01/30/18 16:50 Last Admin: 01/30/18 18:58 Dose: 10 ml Methylprednisolone Sodium Succinate (Solu-Medrol) 62.5 mg IVPUSH ONETIME ONE Stop: 01/28/18 18:29 Last Admin: 01/28/18 18:45 Dose: 62.5 mg Methylprednisolone Sodium Succinate (Solu-Medrol) 80 mg IVPUSH Q8H [facility] Last Admin: 01/30/18 11:38 Dose: 80 mg Non-Formulary Medication (Melatonin) 6 mg PO BEDTIME [facility] Last Admin: 01/31/18 03:53 Dose: Not Given Ondansetron HCl (Zofran) 4 mg IVPUSH ONETIME ONE Stop: 01/28/18 15:31 Last Admin: 01/28/18 15:52 Dose: 4 mg Oxycodone/Acetaminophen (Percocet 325-5 Mg) 1 tab PO ONETIME ONE Stop: 01/28/18 18:26 Last Admin: 01/28/18 18:45 Dose: 1 tab [facility]ar[facility]) [facility] Last Admin: 01/29/18 17:08 Dose: 20 mg - Exam General: Alert, No Acute Distress HEENT: Pupils Equal, Pupils Reactive Neck: Supple Lungs: Normal Respiratory Effort, Decreased Breath Sounds, Rhonchi Cardiovascular: Irregular Rhythm GI/Abdominal Exam: Normal Bowel Sounds, Soft, Non-Tender, No Organomegaly, No Distention, No Abnormal Bruit (Male) Exam: Deferred Back Exam: Normal Inspection, Decreased Range of Motion Extremities: Normal Inspection, Normal Range of Motion, Non-Tender, No Pedal Edema, Normal Capillary Refill Peripheral Pulses: 2+: Dorsalis Pedis (L), Dorsalis Pedis (R) Skin: Warm, Dry, Intact Neurological: Other (deferred due to lack of motivation). No: Normal Gait Psy/Mental Status: Alert, Normal Affect, Normal Mood - Problem List Review Problem List Initiated/Reviewed/Updated: Yes - My Orders Last 24 Hours: My Active Orders 01/30/18 14:05 Incentive Spirometry [RT Incentive Spirometry] [RC] ASDIRECTED 01/30/18 16:00 Furosemide [Lasix] 40 mg PO 1600 01/30/18 17:00 metFORMIN [Glucophage] 500 mg PO BIDMEALS 01/30/18 21:00 Carvedilol [Coreg] 6.25 mg PO BID Insulin Glarg,Human.Rec.Analog [LantUS Solostar] 10 units SUBCUT BID 01/31/18 09:00 Furosemide [Lasix] 80 mg PO DAILY - Plan Plan:: I/P: Acute: Bilateral Pleural Effusions S/p Bilateral Throcentesis -Right>left -Hx/o pleural effusions, heart failure -Right sided pleural effusions noted on prior ED visit angiography from 11/27 -Left sided thoracentesis performed on 05/18/16 with 950mL clear straw colored return -Symptomatic and requiring O2 -Dr. Barber consulted -S/p thoracentesis performed yesterday: 600 cc removed on left side and 2000 cc removed on fight side -Xarelto resumed after thoracentesis yesterday -O2 as needed -Echo completed awaiting report -BNP 4062-->5006-->5315 Moderately Large Right Sided Pneumothorax -S/p Thoracentesis -CXR this AM improved abnormal lung findings per Dr. Barber -Dr. Barber okay to d/c in AM with follow up appointment with him after discharge Hydropneumothorax, Unchanged -S/p Thoracentesis -Repeat CXR this AM shows increasing pleural effusion with air fluid level within the right lung -Dr. Barber managing it -IS as directed Hyperglycemia Type II DM controlled with insulin -BS not well controlled; slightly improved -Worsened by administration of Solumedrol (no clear indication) -A1C 8.1 01/29/2018 -Continue Glucotrol 10 mg po BID, Metformin 500 mg po BID, and Lantus 10 units SC QHS -Changed Medium level of ISS to high Resolved: S/p Acute kidney injury -Baseline appears to be creatinine less than 1 and GFR >60 -BUN 26-->27 -Creatinine 1.3-->1.1 -eGFR 52--> greater than 60 -Hold lasix today, hold lisinopril and metformin -IV fluids were started in ED - stop -Monitor -Repeat BMP at 1400 S/p Bradycardia -EKG in ED shows A-fib at rate of 54 -Digoxin level 1.4 in ED -Hold digoxin and decrease carvedilol dose to 12.5mg BID -Monitor -Has had a few 8 beat runs of V-tach (has history of v-tach runs) -TSH ordered -Electrolytes WNL -Repeat magnesium at 1600 today S/p Mild Hyperkalemia -K of 5.5--> 4.6 -Anticipate to improve once we resume his loop diuretic -Will monitor S/p Back Pain -Acute on chronic -Hx/o pain due to degenerative arthritis, no history of compression fractures -Reports worsening over past week; Worse with movement -Lower back radiating into right hip and buttocks area -No recent trauma; No difficulty voiding -CT scan in ED on 01/28/18: 1. Diffuse degenerative change. No definite central stenosis or neural foraminal stenosis is seen. No fractures appreciated. 2. Moderate right-sided pleural effusion is partially visualized. Small left-sided pleural effusion is partially visualized. Fluid also noted within the pelvis. 3. Other incidental findings. Note: If further evaluation for lumbar spine disease as needed, MRI would be helpful. -Solu-medrol as ordered; discontinued (no indication) -Continue PRN pain medications and PT/OT -Recommend outpatient appointment with Dr. De Oliveira Chronic: Glaucoma Hard of hearing Impaired vision Macular degeneration A. fib on amiodarone and digoxin for rate control, along with Xarelto, HR controlled Aneurysm Heart failure HLD Hypertension History of ventricular tachycardia GERD Dysphagia BPH Polyuria Osteoporosis Contractures of the fingers Hypothyroidism Anemia Plan: He remains clinically stable and in no respiratory distress Routine AM labs Continue PT/OT IS as directed Digoxin level in AM CM/SW for discharge planning - resides at [facility] DVT prophylaxis: Xarelto; discontinue SCDs Code status: DNR/DNI; PCP: Dr. Choi Discharge in AM No family members present at beside during morning rounds
[2018-01-31] MEDS: Magnesium Oxide 400 MG Tab PO SCH (08:27)
[2018-01-31] MEDS: Carboxymethylcellulose Sodium 1% Ophth Gel 15 ML Bottle EYEBOTH SCH ×4 (08:27→21:50)
[2018-01-31] MEDS: Tamsulosin 0.4 MG Cap.ER PO SCH (08:27)
[2018-01-31] MEDS: Carvedilol 6.25 MG Tab PO SCH ×2 (08:28→21:43)
[2018-01-31] MEDS: Ferrous Sulfate 140 MG Tab PO SCH (08:28)
[2018-01-31] MEDS: Rosuvastatin 10 MG Tab PO SCH (08:28)
[2018-01-31] MEDS: Insulin Lispro 100 Unit/ML 3 ML KwikPen SUBCUT SCH ×4 (08:29→21:48)
[2018-01-31] MEDS: Furosemide 40 MG Tab PO SCH ×2 (08:29→16:23)
[2018-01-31] MEDS: Aspirin 81 MG Tab.EC PO SCH (08:29)
[2018-01-31] MEDS: Insulin Glargine,Human Rec. Analog 100 Units/ML 3 ML Pen SUBCUT SCH ×2 (08:30→21:46)
[2018-01-31] MEDS: Psyllium Husk Powder Sugar Free 3.4 GM Packet PO SCH (08:31)
[2018-01-31] MEDS: Amiodarone 200 MG Tab PO SCH (10:30)
[2018-01-31] MEDS: Bisacodyl 5 MG Tab PO PRN ×2 (11:28→21:57)
[2018-01-31] MEDS ORDERED: Rivaroxaban 10 MG Tab PO SCH (12:00)
[2018-01-31] MEDS: Rivaroxaban 10 MG Tab PO SCH (13:18)
[2018-01-31] MEDS: Doxazosin 4 MG Tab PO SCH (21:41)
[2018-01-31] MEDS: Latanoprost 0.005% Ophth Soln 2.5 ML Bottle EYEBOTH SCH (21:41)
[2018-02-01] MEDS: metFORMIN 500 MG Tab PO SCH (06:59)
[2018-02-01] MEDS: Insulin Lispro 100 Unit/ML 3 ML KwikPen SUBCUT SCH ×2 (06:59→11:52)
--- NOTE | 2018-02-01 07:29 | PCM.DCSUM1 ---
Discharge Summary - Hospital Course HPI Initial Comments: Marco Sandoval is an 87 yo male who presented to our ED on 01/28/18 with worsening chronic lower back pain. Reports the pain has been going on for approximately 1 week and radiates towards his hip and buttocks area. He reports it originates in the very low back. Denies any recent trauma and no history of compression fractures. He reports difficulty getting in and out of bed, off the toilet, or out of a chair. Denies any difficulty with voiding or pain radiating down the left leg. He's been utilizing Tylenol for pain with minimal relief. States any flinching, movement, or spasm causes severe pain. He does report at times he will need to cry out because the pain is so bad. In the ED temperature is 36.3 Celsius. Pulse 54. Respirations 20. Blood pressure 122/47. Pulse ox 99%. 12-lead EKG is obtained showing A. fib at a rate of 53 bpm. There is decreased voltage in the limb leads and early R-wave transition. ST segment depression is noted in V3 through V6, cannot rule out ischemia. Diffuse T-wave abnormalities with flattening in multiple leads. The QT is also noted to be mildly prolonged. Labs are obtained: WBC is 6.35. Hemoglobin 10.4. Hematocrit 32.7. He is normocytic. Platelets are good at 211 ,000. Neutrophils are elevated at 76%. There is 1% banded neutrophils. ESR is 19. Sodium 136. Potassium 5.0. Chloride 99. Carbon dioxide 30. Anion gap 12. BUN is high at 26. Creatinine high at 1.3. EGFR is down at 52. Glucose is quite high at 228. Calcium 8.7. Total bilirubin 0.4. AST is 64, ALT 79, alk phosphatase 102. CRP is slightly elevated at 1.8. Total protein 6.5. Albumin is low at 2.3. PT is 22.5. INR is 2.04. Magnesium is 2.1. CK- MB is 1.1. Troponin is less than 0.017. PSA is 0.8. ProBNP is obtained and is 4062. Digoxin level was also obtained at 1.4. He is given 0.5 mg Dilaudid for pain and started on saline at 125 mils an hour. He's given 10 units of subcutaneous Humalog and a 62.5 mg IV push dose of Solu-Medrol. He is also given 1 tablet by mouth Percocet and [address] scan of the lumbar spine is obtained and interpreted by Dr. Obrien as "1. Diffuse degenerative change. No definite central canal stenosis or or neural foraminal stenosis is seen. No fractures appreciated. 2. Moderate right-sided pleural effusion is partially visualized. Small left-sided pleural effusion is partially visualized. Fluid also noted within the pelvis. 3. Other incidental findings. Note: If further evaluation for lumbar spine diseases needed, MRI would be helpful." He carries a history of: Glaucoma, hard of hearing, impaired vision, macular degeneration, A. fib on amiodarone and digoxin for rate control, along with Xarelto. Aneurysm, heart failure, HLD, hypertension, history of ventricular tachycardia, GERD, dysphagia, BPH, polyuria, osteoporosis, contractures of the fingers, type II DM control with insulin, hypothyroidism, anemia. He is a former smoker who quit approximately 50 years ago. He is a DNR/DNI. His PCP is Dr. Choi. He subsequently admitted to the medical floor for management of his pain and pleural effusions. Diagnosis: Stroke: No - Discharge Data Discharge Date: 02/01/18 (Admit date: 01/28/18) Discharge Disposition: DC/Tfer to SNF 03 Condition: Stable - Discharge Diagnosis/Problem(s) (1) Back pain SNOMED Code(s): 208116554 ICD Code: M54.9 - DORSALGIA, UNSPECIFIED Status: Acute Priority: High Current Visit: Yes Qualifiers: Back pain location: low back pain Chronicity: acute Back pain laterality : midline Sciatica presence: unspecified whether sciatica present Qualified Code(s): M54.5 - Low back pain (2) Pleural effusion on right SNOMED Code(s): 79063168 ICD Code: J90 - PLEURAL EFFUSION, NOT ELSEWHERE CLASSIFIED Status: Acute Priority: High Current Visit: Yes (3) Bradycardia by electrocardiography SNOMED Code(s): 587288919 ICD Code: R00.1 - BRADYCARDIA, UNSPECIFIED Status: Acute Priority: Medium Current Visit: Yes (4) Congestive heart failure SNOMED Code(s): 87769989 ICD Code: I50.9 - HEART FAILURE, UNSPECIFIED Status: Chronic Priority: Medium Current Visit: Yes Qualifiers: Heart failure type: unspecified Heart failure chronicity: chronic Qualified Code(s): I50.9 - Heart failure, unspecified (5) Degenerative arthritis of lumbar spine Status: Chronic Priority: High Current Visit: Yes Qualifiers: Spinal osteoarthritis complication: unspecified spinal osteoarthritis Qualified Code(s): M47.816 - Spondylosis without myelopathy or radiculopathy, lumbar region (6) Type 2 diabetes mellitus SNOMED Code(s): 76372054 ICD Code: E11.9 - TYPE 2 DIABETES MELLITUS WITHOUT COMPLICATIONS Status: Chronic Priority: Medium Current Visit: No Qualifiers: Diabetes mellitus terminal block assembler insulin use: with nursing home use Diabetes mellitus complication status: with unspecified complications Qualified Code(s) : E11.8 - Type 2 diabetes mellitus with unspecified complications; Z79.4 - shelter (current) use of insulin (7) Atrial fibrillation, chronic SNOMED Code(s): 134807860 ICD Code: I48.2 - CHRONIC ATRIAL FIBRILLATION Status: Chronic Priority: High Current Visit: Yes (8) Acute kidney injury SNOMED Code(s): 80020842 ICD Code: N17.9 - ACUTE KIDNEY FAILURE, UNSPECIFIED Status: Acute Priority: High Current Visit: Yes (9) Pleural effusion on left SNOMED Code(s): 39617734 ICD Code: J90 - PLEURAL EFFUSION, NOT ELSEWHERE CLASSIFIED Status: Acute Priority: High Current Visit: Yes - Patient Summary/Data Operative Procedure(s) Performed: aspiration of right pneumothorax Consults: Consultations 01/29/18 08:00 Consult to Case Management/Internet Researcher [CONS] Routine 01/29/18 09:27 Consult to Physician [CONS] Routine 01/29/18 10:00 Consult to Occupational Therapy [OT Evaluation and Treatment] [CONS] Routine PT Evaluation and Treatment [CONS] Routine Labs Pending at D/C: Awaiting echo report - will pass along to PCP when we receive. Recommended Follow-up Testing/Procedures: Follow-up with PCP within 7-10 days. Recommend repeat CXR at that time. Follow-up with Dr. Barber regarding hydropneumothorax. Follow-up outpatient with Dr. De Oliveira for back pain. Hospital Course: I/P: Acute: Bilateral Pleural Effusions S/p Bilateral Throcentesis -Right>left -Hx/o pleural effusions, heart failure -Right sided pleural effusions noted on prior ED visit angiography from 9/28 /18 -Left sided thoracentesis performed on 05/18/16 with 950mL clear straw colored return -Symptomatic and requiring O2 -Dr. Barber consulted -S/p thoracentesis performed yesterday: 600 cc removed on left side and 2000 cc removed on right side -Xarelto resumed after thoracentesis yesterday at 15mg -O2 as needed -Echo completed awaiting report -BNP 4062-->5006-->5315 Moderately Large Right Sided Pneumothorax -S/p Thoracentesis -CXR this AM improved abnormal lung findings per Dr. Barber -Dr. Barber okay to d/c in AM with follow up appointment with him after discharge Hydropneumothorax, Unchanged -S/p Thoracentesis -Repeat CXR shows increasing pleural effusion with air fluid level within the right lung -Dr. Barber managing it -IS as directed Hyperglycemia Type II DM controlled with insulin -BS not well controlled; slightly improved -Worsened by administration of Solumedrol (no clear indication) -A1C 8.1 01/29/2018 -Continue Glucotrol 10 mg po BID, Metformin 500 mg po BID, and Lantus 10 units SC QHS -Changed Medium level of ISS to high Resolved: S/p Acute kidney injury -Baseline appears to be creatinine less than 1 and GFR >60 -BUN 26-->27 -Creatinine 1.3-->1.1 -eGFR 52--> greater than 60 -Hold lasix today, hold lisinopril and metformin -IV fluids were started in ED - stop -Monitor -Repeat BMP at 1400 S/p Bradycardia -EKG in ED shows A-fib at rate of 54 -Digoxin level 1.4 in ED -Hold digoxin and decrease carvedilol dose to 12.5mg BID -Monitor -Has had a few 8 beat runs of V-tach (has history of v-tach runs) -TSH ordered -Electrolytes WNL -Repeat magnesium at 1600 today S/p Mild Hyperkalemia -K of 5.5--> 4.6 -Anticipate to improve once we resume his loop diuretic -Will monitor S/p Back Pain -Acute on chronic -Hx/o pain due to degenerative arthritis, no history of compression fractures -Reports worsening over past week; Worse with movement -Lower back radiating into right hip and buttocks area -No recent trauma; No difficulty voiding -CT scan in ED on 01/28/18: 1. Diffuse degenerative change. No definite central stenosis or neural foraminal stenosis is seen. No fractures appreciated. 2. Moderate right-sided pleural effusion is partially visualized. Small left-sided pleural effusion is partially visualized. Fluid also noted within the pelvis. 3. Other incidental findings. Note: If further evaluation for lumbar spine disease as needed, MRI would be helpful. -Solu-medrol as ordered; discontinued (no indication) -Continue PRN pain medications and PT/OT -Recommend outpatient appointment with Dr. De Oliveira Chronic: Glaucoma Hard of hearing Impaired vision Macular degeneration A. fib on amiodarone and digoxin for rate control, along with Xarelto, HR controlled Aneurysm Heart failure HLD Hypertension History of ventricular tachycardia GERD Dysphagia BPH Polyuria Osteoporosis Contractures of the fingers Hypothyroidism Anemia Plan: He remains clinically stable and in no respiratory distress Routine AM labs Continue PT/OT IS as directed Digoxin level in AM CM/SW for discharge planning - resides at [facility] DVT prophylaxis: Xarelto; discontinue SCDs Code status: DNR/DNI; PCP: Dr. Choi Discharge in AM Overall Marco did well. His CT scan in the ED showed degenerative change and incidental pleural effusions were also noted. He was started on a steroid which was later stopped. He was noted to be somewhat short of breath and Dr. Barber was consulted for bilateral pleural effusions. Both sides were tapped by him with 600mL removed from the left and 2000mL removed from the right. Xarelto was resumed at 15mg after the tap was performed under the direction of Dr. Barber. He recommended Marco follow-up with him outpatient after discharge regarding this. After the tap a right sided pneumothorax was noted and remained stable. Dr. Barber was not very concerned about this and felt comfortable with his discharge per Dr. Hu. His blood sugars were elevated after the steroid and did respond more towards normal when they were stopped. He was noted to be bradycardic on arrival so his Carvedilol dose was decreased to 6.25 BID. Othewise his home medications were continued. He is already on a rather high does of lasix and lisinopril. Echo was obtained and is pending. Results will be faxed to the patients PCP once this is received. He was instructed to follow-up with his PCP within 7-10 days of discharge and Dr. Barber within 1 week. Recommend re-checking CXR at that visit. He should follow-up with Dr. De Oliveira outpatient for his back pain. He worked with PT/OT while here and will be discharged to [facility] for a rehab stay to continue working with them. He will be discharged today. - Patient Instructions Diet: Diabetic Diet Fluid Restriction: 2000 mL Activity: As Tolerated Driving: Do Not Drive Showering/Bathing: May Shower Notify Provider of: Fever, Increased Pain, Nausea and/or Vomiting - Discharge Plan *PRESCRIPTION DRUG MONITORING PROGRAM REVIEWED*: Not Applicable *COPY OF PRESCRIPTION DRUG MONITORING REPORT IN PATIENT SHYANNE: Not Applicable Prescriptions/Med Rec: Carvedilol [Coreg] 6.25 mg PO BID #60 tablet Rivaroxaban [Xarelto] 15 mg PO DAILY #30 tablet Home Medications: Home Meds Lisinopril 40 mg PO DAILY 07/10/15 [History] glipiZIDE [Glucotrol] 10 mg PO BID 07/10/15 [History] Aspirin [Ecotrin] 81 mg PO DAILY 12/19/15 [History] Psyllium with Sucrose [Metamucil] 1 tsp PO DAILY 12/25/15 [History] Ferrous Sulfate [Slow Fe] 325 mg PO DAILY 05/14/16 [History] Omeprazole 20 mg PO BEDTIME 05/14/16 [History] Potassium Chloride 20 meq PO BID 05/14/16 [History] metFORMIN [Glucophage] 500 mg PO BID 05/14/16 [History] Amiodarone [Cordarone] 200 mg PO DAILY #30 tablet 05/22/16 [Rx] Doxazosin [Cardura] 4 mg PO BEDTIME #30 tablet 05/22/16 [Rx] Cholecalciferol (Vitamin D3) [Vitamin D3] 1,000 unit PO DAILY 06/16/16 [History] Lanolin [Lantiseptic] 1 applic TOP DAILY PRN 06/16/16 [History] Polyvinyl Alcohol/Povidone/Pf [Refresh Classic Eye Drops] 1 drop EYEBOTH QID PRN 06/16/16 [History] Tamsulosin [Flomax] 0.4 mg PO DAILY 06/16/16 [History] Vit A,C & E/Lutein/Minerals [Healthy Eyes] 1 tab PO DAILY 06/16/16 [History] Benzonatate 100 mg PO TID PRN 11/22/17 [History] Carboxymethyl/Glycerin/Poly80 [Refresh Optive Advanced Drops] 1 drop EYEBOTH QID 11/22/17 [History] Furosemide 40 mg PO 1600 11/22/17 [History] Furosemide [Lasix] 80 mg PO DAILY 11/22/17 [History] Insulin Glarg,Human.Rec.Analog [Lantus] 10 unit SQ BEDTIME 11/22/17 [History] Levothyroxine Sodium [Synthroid] 137 mcg PO DAILY 11/22/17 [History] Magnesium Oxide 420 mg PO DAILY 11/22/17 [History] Melatonin 6 mg PO BEDTIME 11/22/17 [History] Travoprost [Travatan Z] 1 drop EYEBOTH BEDTIME 11/22/17 [History] amLODIPine Besylate [Amlodipine Besylate] 5 mg PO DAILY 11/22/17 [History] Acetaminophen [Tylenol] 650 mg PO Q4H PRN 01/28/18 [History] Digoxin [Lanoxin] 125 mcg PO DAILY 01/28/18 [History] Docusate Sodium [Colace] 100 mg PO BID PRN 01/28/18 [History] Flunisolide [Nasalide Nasal Chilton] 2 spray INH DAILY PRN 01/28/18 [History] Rosuvastatin [Crestor] 20 mg PO DAILY 01/28/18 [History] Carvedilol [Coreg] 6.25 mg PO BID #60 tablet 02/01/18 [Rx] Rivaroxaban [Xarelto] 15 mg PO DAILY #30 tablet 02/01/18 [Rx] Patient Handouts: Bradycardia, Adult, Pneumothorax, Pleural Effusion, Back Pain , Adult, [id number], Heart Failure, [id number] Referrals: Jean Pierre Choi MD [Primary Care Provider] - Grey De Oliveira MD [Physician] - - Discharge Summary/Plan Comment DC Time >30 min.: Yes (45 mins ) - General Info Date of Service: 02/01/18 Admission Dx/Problem (Free Text: Admission Diagnosis/Problem Admission Diagnosis/Problem Lumbar back pain with radiculopathy affecting left lower extremity Subjective Update: In to see Marco. He reports he feels pretty good and is excited to be discharged. He states he has some mild shortness of breath but denies any other pain. No other concerns. No nursing concerns. He will be discharged to [facility] today for a rehab stay. Functional Status: Reports: Pain Controlled, Tolerating Diet, Ambulating, Urinating. Denies: New Symptoms - Review of Systems General: Reports: No Symptoms. Denies: Fever, Weakness, Fatigue, Malaise, Chills HEENT: Reports: No Symptoms. Denies: Sore Throat Pulmonary: Reports: Shortness of Breath (mild ). Denies: Pleuritic Chest Pain, Cough, Wheezing Cardiovascular: Reports: No Symptoms. Denies: Chest Pain, Dyspnea on Exertion, Edema Gastrointestinal: Reports: No Symptoms. Denies: Abdominal Pain, Constipation, Diarrhea, Nausea, Vomiting Genitourinary: Reports: No Symptoms Musculoskeletal: Reports: No Symptoms Skin: Reports: No Symptoms Neurological: Reports: Confusion (baseline ) Psychiatric: Reports: No Symptoms - Patient Data Vitals - Most Recent: Last Vital Signs Temp 97.5 F 02/01/18 03:00 Pulse 58 L 02/01/18 03:00 Resp 16 02/01/18 03:00 BP 121/58 L 02/01/18 03:00 Pulse Ox 95 02/01/18 03:00 Weight - Most Recent: 148 lb 9 oz I&O - Last 24 hours: Intake & Output 01/31/18 02/01/18 02/01/18 22:59 06:59 14:59 Intake Total 550 100 Output Total 600 850 Balance -50 -750 Lab Results - Last 24 hrs: Laboratory Results - last 24 hr 01/31/18 01/31/18 01/31/18 Range/Units 11:25 16:15 21:29 WBC (4.23-9.07) K/mm3 RBC (4.63-6.08) M/mm3 Hgb (13.7-17.5) gm/L Hct (40.1-51.0) % MCV (79.0-92.2) fl MCH (25.7-32.2) pg MCHC (32.2-35.5) g/dl RDW Std Deviation (35.1-43.9) fL Plt Count (163-337) K/mm3 MPV (9.4-12.3) fl Neut % (Auto) (34.0-67.9) % Lymph % (Auto) (21.8-53.1) % Jewell % (Auto) (5.3-12.2) % Eos % (Auto) (0.8-7.0) Baso % (Auto) (0.1-1.2) % Neut # (Auto) (1.78-5.38) K/mm3 Lymph # (Auto) (1.32-3.57) K/mm3 Jewell # (Auto) (0.30-0.82) K/mm3 Eos # (Auto) (0.04-0.54) K/mm3 Baso # (Auto) (0.01-0.08) K/mm3 Manual Slide Review Sodium (136-145) mEq/L Potassium (3.5-5.1) mEq/L Chloride (98-107) mEq/L Carbon Dioxide (21-32) mEq/L Anion Gap (5-15) BUN (7-18) mg/dL Creatinine (0.7-1.3) mg/dL Est Cr Clr Drug Dosing mL/min Estimated GFR (MDRD) (>60) mL/min BUN/Creatinine Ratio (14-18) Glucose (83-115) mg/dL POC Glucose 207 H 229 H 196 H (83-110) mg/dL Calcium (8.5-10.1) mg/dL Magnesium (1.8-2.4) mg/dl Digoxin (0.9-2.0) ng/mL 02/01/18 02/01/18 02/01/18 Range/Units 05:52 05:55 05:59 WBC 8.79 (4.23-9.07) K/mm3 RBC 3.85 L (4.63-6.08) M/mm3 Hgb 10.5 L (13.7-17.5) gm/L Hct 33.3 L (40.1-51.0) % MCV 86.5 (79.0-92.2) fl MCH 27.3 (25.7-32.2) pg MCHC 31.5 L (32.2-35.5) g/dl RDW Std Deviation 51.4 H (35.1-43.9) fL Plt Count 206 (163-337) K/mm3 MPV 10.0 (9.4-12.3) fl Neut % (Auto) 77.5 H (34.0-67.9) % Lymph % (Auto) 9.6 L (21.8-53.1) % Jewell % (Auto) 12.5 H (5.3-12.2) % Eos % (Auto) 0.3 L (0.8-7.0) Baso % (Auto) 0.0 L (0.1-1.2) % Neut # (Auto) 6.81 H (1.78-5.38) K/mm3 Lymph # (Auto) 0.84 L (1.32-3.57) K/mm3 Jewell # (Auto) 1.10 H (0.30-0.82) K/mm3 Eos # (Auto) 0.03 L (0.04-0.54) K/mm3 Baso # (Auto) 0.00 L (0.01-0.08) K/mm3 Manual Slide Review Abnormal smear Sodium 142 (136-145) mEq/L Potassium 3.6 (3.5-5.1) mEq/L Chloride 105 (98-107) mEq/L Carbon Dioxide 31 (21-32) mEq/L Anion Gap 9.6 (5-15) BUN 42 H (7-18) mg/dL Creatinine 1.0 (0.7-1.3) mg/dL Est Cr Clr Drug Dosing 48.67 mL/min Estimated GFR (MDRD) > 60 (>60) mL/min BUN/Creatinine Ratio 42.0 H (14-18) Glucose 51 L (83-115) mg/dL POC Glucose 53 L (83-110) mg/dL Calcium 7.8 L (8.5-10.1) mg/dL Magnesium 2.0 (1.8-2.4) mg/dl Digoxin 0.6 L (0.9-2.0) ng/mL 02/01/18 Range/Units 06:31 WBC (4.23-9.07) K/mm3 RBC (4.63-6.08) M/mm3 Hgb (13.7-17.5) gm/L Hct (40.1-51.0) % MCV (79.0-92.2) fl MCH (25.7-32.2) pg MCHC (32.2-35.5) g/dl RDW Std Deviation (35.1-43.9) fL Plt Count (163-337) K/mm3 MPV (9.4-12.3) fl Neut % (Auto) (34.0-67.9) % Lymph % (Auto) (21.8-53.1) % Jewell % (Auto) (5.3-12.2) % Eos % (Auto) (0.8-7.0) Baso % (Auto) (0.1-1.2) % Neut # (Auto) (1.78-5.38) K/mm3 Lymph # (Auto) (1.32-3.57) K/mm3 Jewell # (Auto) (0.30-0.82) K/mm3 Eos # (Auto) (0.04-0.54) K/mm3 Baso # (Auto) (0.01-0.08) K/mm3 Manual Slide Review Sodium (136-145) mEq/L Potassium (3.5-5.1) mEq/L Chloride (98-107) mEq/L Carbon Dioxide (21-32) mEq/L Anion Gap (5-15) BUN (7-18) mg/dL Creatinine (0.7-1.3) mg/dL Est Cr Clr Drug Dosing mL/min Estimated GFR (MDRD) (>60) mL/min BUN/Creatinine Ratio (14-18) Glucose (83-115) mg/dL POC Glucose 94 (83-110) mg/dL Calcium (8.5-10.1) mg/dL Magnesium (1.8-2.4) mg/dl Digoxin (0.9-2.0) ng/mL Med Orders - Current: Current Medications Acetaminophen (Tylenol) 650 mg PO Q6H PRN PRN Reason: Pain/Fever Albuterol/Ipratropium (Duoneb 3.0-0.5 Mg/3 Ml) 3 ml NEB Q4H PRN PRN Reason: Shortness Of Breath/wheezing Amiodarone HCl (Cordarone) 200 mg PO DAILY [facility] Last Admin: 01/31/18 10:30 Dose: 200 mg Artificial Tears (Refresh Liquigel 1%) 0 ml EYEBOTH QID [facility] Last Admin: 01/31/18 21:50 Dose: 1 drop Artificial Tears (Refresh Liquigel 1%) 0 ml EYEBOTH QID PRN PRN Reason: Dry Eyes Aspirin (Halfprin) 81 mg PO DAILY [facility] Last Admin: 01/31/18 08:29 Dose: 81 mg Benzonatate (Tessalon Perles) 100 mg PO TID PRN PRN Reason: Cough Bisacodyl (Dulcolax) 5 mg PO DAILY PRN PRN Reason: Constipation Last Admin: 01/31/18 21:57 Dose: 5 mg Carvedilol (Coreg) 6.25 mg PO BID [facility] Last Admin: 01/31/18 21:43 Dose: Not Given Dextrose/Water (Dextrose 50% In Water) 50 ml IVPUSH ASDIRECTED PRN PRN Reason: Hypoglycemia Docusate Sodium (Colace) 100 mg PO BID PRN PRN Reason: Constipation Doxazosin Mesylate (Cardura) 4 mg PO BEDTIME [facility] Last Admin: 01/31/18 21:41 Dose: 4 mg Ferrous Sulfate (Slow Fe) 280 mg PO DAILY [facility] Last Admin: 01/31/18 08:28 Dose: 280 mg Flunisolide (Nasalide Nasal Chilton) 0 ml DUARTE DAILY PRN PRN Reason: Congestion Furosemide (Lasix) 80 mg PO DAILY [facility] Last Admin: 01/31/18 08:29 Dose: 80 mg Furosemide (Lasix) 40 mg PO 1600 [facility] Last Admin: 01/31/18 16:23 Dose: 40 mg Glipizide (Glucotrol) 10 mg PO BIDAC [facility] Last Admin: 02/01/18 06:44 Dose: Not Given Hydromorphone HCl (Dilaudid) 0.5 mg IVPUSH Q4H PRN PRN Reason: Pain (moderate 4-6) Last Admin: 01/30/18 17:05 Dose: 0.5 mg Insulin Glargine (Lantus Solostar) 10 units SUBCUT BID [facility] Last Admin: 01/31/18 21:46 Dose: 10 units Insulin Human Lispro (Humalog) 0 unit SUBCUT QIDACANDBED [facility]; Protocol Last Admin: 02/01/18 06:59 Dose: Not Given Latanoprost (Xalatan 0.005% Ophth Soln) 0 ml EYEBOTH BEDTIME [facility] Last Admin: 01/31/18 21:41 Dose: 1 drop Levothyroxine Sodium (Levothroid) 137 mcg PO ACBREAKFAST [facility] Last Admin: 02/01/18 06:24 Dose: 137 mcg Magnesium Oxide (Magnesium Oxide) 400 mg PO DAILY [facility] Last Admin: 01/31/18 08:27 Dose: 400 mg Metformin HCl (Glucophage) 500 mg PO BIDMEALS [facility] Last Admin: 02/01/18 06:59 Dose: Not Given Ondansetron HCl (Zofran) 4 mg IVPUSH Q8H PRN PRN Reason: Nausea/Vomiting Polyethylene Glycol (Miralax) 17 gm PO DAILY PRN PRN Reason: Constipation Psyllium Husk (Metamucil Sugar Free) 1 packet PO DAILY [facility] Last Admin: 01/31/18 08:31 Dose: 1 packet Rivaroxaban (Xarelto) 15 mg PO DAILY [facility] Last Admin: 01/31/18 13:18 Dose: 15 mg Rosuvastatin Calcium (Crestor) 20 mg PO DAILY [facility] Last Admin: 01/31/18 08:28 Dose: 20 mg Senna/Docusate Sodium (Senna Plus) 1 tab PO BID PRN PRN Reason: Constipation Last Admin: 01/31/18 11:27 Dose: 1 tab Tamsulosin HCl (Flomax) 0.4 mg PO DAILY [facility] Last Admin: 01/31/18 08:27 Dose: 0.4 mg Discontinued Medications Carvedilol (Coreg) 25 mg PO Q12H [facility] Last Admin: 01/28/18 22:21 Dose: Not Given Carvedilol (Coreg) 12.5 mg PO BID [facility] Last Admin: 01/30/18 09:34 Dose: 12.5 mg Digoxin (Lanoxin) 125 mcg PO DAILY [facility] Hydromorphone HCl (Dilaudid) 0.5 mg IVPUSH ONETIME ONE Stop: 01/28/18 15:31 Last Admin: 01/28/18 15:52 Dose: 0.5 mg Hydromorphone HCl (Dilaudid) 0.5 mg IVPUSH ONETIME ONE Stop: 01/28/18 18:26 Last Admin: 01/28/18 18:45 Dose: 0.5 mg Sodium Chloride (Normal Saline) 1,000 mls @ 125 mls/hr IV ASDIRECTED [facility] Last Admin: 01/29/18 03:47 Dose: 125 mls/hr Insulin Glargine (Lantus Solostar) 5 units SUBCUT BEDTIME [facility] Last Admin: 01/29/18 21:24 Dose: 5 units Insulin Human Lispro (Humalog) 10 unit SUBCUT ONETIME ONE Stop: 01/28/18 19:01 Last Admin: 01/28/18 19:55 Dose: 10 unit Levothyroxine Sodium (Levothyroxine) 112 mcg PO ACBREAKFAST GAB[facility]ELLE Stop: 01/29/18 06:01 Last Admin: 01/29/18 06:17 Dose: 112 mcg Levothyroxine Sodium (Levothyroxine) 25 mcg PO ACBREAKFAST [facility] Stop: 01/29/18 06:01 Last Admin: 01/29/18 06:17 Dose: 25 mcg Lidocaine HCl (Xylocaine 1%) Confirm Administered Dose 50 ml .ROUTE .STK-MED ONE Stop: 01/30/18 16:50 Last Admin: 01/30/18 18:58 Dose: 10 ml Methylprednisolone Sodium Succinate (Solu-Medrol) 62.5 mg IVPUSH ONETIME ONE Stop: 01/28/18 18:29 Last Admin: 01/28/18 18:45 Dose: 62.5 mg Methylprednisolone Sodium Succinate (Solu-Medrol) 80 mg IVPUSH Q8H [facility] Last Admin: 01/30/18 11:38 Dose: 80 mg Non-Formulary Medication (Melatonin) 6 mg PO BEDTIME [facility] Last Admin: 01/31/18 03:53 Dose: Not Given Ondansetron HCl (Zofran) 4 mg IVPUSH ONETIME ONE Stop: 01/28/18 15:31 Last Admin: 01/28/18 15:52 Dose: 4 mg Oxycodone/Acetaminophen (Percocet 325-5 Mg) 1 tab PO ONETIME ONE Stop: 01/28/18 18:26 Last Admin: 01/28/18 18:45 Dose: 1 tab Rivaroxaban (Xarelto) 20 mg PO WITHDINNER [facility] Last Admin: 01/29/18 17:08 Dose: 20 mg Rivaroxaban (Xarelto) 20 mg PO DAILY [facility] Last Admin: 01/31/18 14:00 Dose: Not Given - Exam Quality Assessment: Reports: DVT Prophylaxis General: Reports: Alert, Cooperative, No Acute Distress HEENT: Reports: Pupils Equal, Pupils Reactive, EOMI, Mucous Membr. Moist/Dyess Neck: Reports: Supple Lungs: Reports: Normal Respiratory Effort, Decreased Breath Sounds, Rhonchi Cardiovascular: Reports: Regular Rate, Irregular Rhythm GI/Abdominal Exam: Normal Bowel Sounds, Soft, Non-Tender, No Distention, No Abnormal Bruit (Male) Exam: Deferred Rectal (Males) Exam: Deferred Back Exam: Reports: Normal Inspection, Full Range of Motion Extremities: Normal Inspection, Normal Range of Motion, Non-Tender, No Pedal Edema, Normal Capillary Refill Skin: Reports: Warm, Dry, Intact Neurological: Reports: No New Focal Deficit Psy/Mental Status: Reports: Alert, Normal Affect, Normal Mood
[2018-02-01] MEDS: Amiodarone 200 MG Tab PO SCH (08:52)
[2018-02-01] MEDS: Magnesium Oxide 400 MG Tab PO SCH (08:52)
[2018-02-01] MEDS: Aspirin 81 MG Tab.EC PO SCH (08:53)
[2018-02-01] MEDS: Furosemide 40 MG Tab PO SCH (08:53)
[2018-02-01] MEDS: Rosuvastatin 10 MG Tab PO SCH (08:54)
[2018-02-01] MEDS: Ferrous Sulfate 140 MG Tab PO SCH (08:54)
[2018-02-01] MEDS: Rivaroxaban 10 MG Tab PO SCH (08:54)
[2018-02-01] MEDS: Psyllium Husk Powder Sugar Free 3.4 GM Packet PO SCH (08:55)
[2018-02-01] MEDS: Carboxymethylcellulose Sodium 1% Ophth Gel 15 ML Bottle EYEBOTH SCH (08:55)
[2018-02-01] MEDS: Carvedilol 6.25 MG Tab PO SCH (08:56)
[2018-02-01] MEDS: Tamsulosin 0.4 MG Cap.ER PO SCH (08:56)
[2018-02-01] MEDS: Insulin Glargine,Human Rec. Analog 100 Units/ML 3 ML Pen SUBCUT SCH (09:15)
--- NOTE | 2018-02-01 10:31 | PROC ---
DATE OF OPERATION: 01/29/2018 SURGEON: Rustam Barber MD PREOPERATIVE DIAGNOSIS: Bilateral pleural effusion. POSTOPERATIVE DIAGNOSIS: Bilateral pleural effusion. OPERATION PERFORMED: Bilateral thoracentesis done under local anesthetic of 1% Xylocaine. FINDINGS: 2 L were removed from the right chest cavity, which was serosanguineous, and 800 mL removed from the left chest cavity, which was serosanguineous. Done under ultrasound guidance. DESCRIPTION OF PROCEDURE: The patient seen at the bedside and was placed in the upright position leaning over a bed stand. Ultrasound was used to indra the most efficacious site for placement of the needle, and both chest cavities were thus ultrasounded. The area was then prepped with chlorhexidine and alcohol prep, draped off in a sterile fashion. The left side was done first by anesthetizing the skin and inserting a thoracentesis needle above the rib on the anterior-superior surface and entering into the thoracic cavity. It was then connected to vacuum bottles and 800 mL were removed. The patient tolerated the procedure, and the right side was done in the similar fashion where 2 L were removed. The patient tolerated this, and the area was dressed with Band-Aids and a chest x-ray was obtained. ANESTHESIA: ESTIMATED BLOOD LOSS: MMODAL /[id number]
--- NOTE | 2018-02-01 10:31 | CONS ---
CONSULTING PHYSICIAN: Rustam Barber MD DATE OF CONSULTATION: 01/29/2018 SURGICAL CONSULTATION HISTORY OF PRESENT ILLNESS: This is an 87-year-old who came in with chronic low back pain. Diagnosis at this time was type 2 diabetes and congestive heart failure. Evaluation showed a large right pleural effusion and the patient has been complaining of gradual increase in shortness of breath over the last 3 days and is now on oxygen which he states he has not taken in the past. PAST MEDICAL HISTORY: Some glaucoma, difficulty hearing, hypertension, high cholesterol, congestive heart failure, type 2 diabetes, hypothyroidism treated, and pleural effusion. FAMILY HISTORY: Noncontributory. SOCIAL HISTORY: Former smoker. REVIEW OF SYSTEMS: No chest pain. Does have some shortness of breath. Has some weight loss. No fever, chills, nausea, vomiting, or indigestion. PHYSICAL EXAMINATION: GENERAL: Reviews an alert and cooperative male. He is thin. VITAL SIGNS: Temperature is 36, pulse 54, respirations 20, blood pressure 122/47. EYES: Sclerae white. Extraocular muscle motion. NECK: Supple. No nodes. No thyromegaly. LUNGS: Showed decreased breath sounds on the right. ABDOMEN: Soft. No tenderness, guarding, or rebound. EXTREMITIES: Upper and lower extremities; no angulation deformities, no sensory neuro deficits. SKIN: Warm and dry. PSYCHIATRIC: He is alert. ASSESSMENT: 1. Pleural effusion. 2. Congestive heart failure. 3. Diabetes type 2. 4. Atrial fibrillation. PLAN: He is on Xarelto. This was stopped last night when he came in and we will consider later tonight doing a pleural tap. His creatinine clearance and renal function. Glomerular filtration rate greater than 60. Discussed this with the patient, risks and complications. He understands and consents. MMODAL /[id number]
--- NOTE | 2018-02-01 10:46 | PROC ---
DATE OF OPERATION: 01/30/2018 SURGEON: Rustam Barber MD PREOPERATIVE DIAGNOSIS: Right pneumothorax. POSTOPERATIVE DIAGNOSIS: Right pneumothorax. OPERATION PERFORMED: Aspiration of right pneumothorax done under local anesthetic of 1% Xylocaine. DESCRIPTION OF PROCEDURE: The patient was seen at the bedside. Ultrasound was done to find the most appropriate site for putting the trocar. This was the lateral chest wall about adjacent to the nipple on the right axillary area. This area was prepped with Betadine, draped off in a sterile fashion, and the skin anesthetized. A small incision was made. A 10-Sami trocar thoracic tube was then inserted into the chest cavity. It was placed under water-seal, and the patient was asked to cough and air was evacuated. When all the air ceased to be evacuated, the catheter was removed and a dressing placed. Chest x-ray obtained. The patient tolerated the procedure. ANESTHESIA: ESTIMATED BLOOD LOSS: MMODAL /[id number]
--- NOTE | 2018-02-01 14:15 | CR ---
Chest: Frontal view of the chest was obtained utilizing portable technique. Study obtained in expiration. Comparison: Prior chest x-ray performed earlier on the same day (9:03 AM). Small to moderate size pneumothorax is seen. This has slightly decreased in size from previous exam. Fluid has diminished within the right lung base from prior exam. Increased density within the right lung base most likely due to atelectasis. Minimal left basilar atelectasis is seen. Heart size and mediastinum are normal. Bony structures are grossly intact. Impression: 1. Small to moderate size pneumothorax slightly decreased in amount from previous chest x-ray. No chest tube is appreciated as noted on preliminary report, this raises the possibility that second chest x-ray was performed which I am not in receipt of. 2. Decreased right-sided pleural effusion. 3. Increased density within the right lung base most likely due to atelectasis. Minimal atelectasis within the left base is seen. Diagnostic code #3 I agree with preliminary report issued by [facility], please see above for further details ([facility] report finalized on 01/30/18, 9:01 PM Central Type) CIARAD
--- NOTE | 2018-02-01 14:17 | CR ---
Chest: Two views of the chest were obtained. Comparison: Prior chest x-ray of 01/30/18. Increasing right sided pleural effusion is seen with air-fluid level. Small pneumothorax is seen which appears stable from most recent exam measuring about 15%. Atelectasis within the right base. Atelectasis is noted within the left base. Degenerative spurring is noted within the spine. Heart is not enlarged. Impression: 1. Increasing right-sided pleural effusion with air-fluid level from hydropneumothorax. 2. Small apical pneumothorax is stable measuring about 15%. 3. Mild bibasilar atelectasis. Diagnostic code #3 MTDD
[2018-02-01 15:09] VITALS: BP 102/53
== END 2018-02-01 15:32 | DRG 292 ==
LOC: JD.ED 14:38 → JD.MS 19:43
PROVIDERS: ADMIT Internal Medicine Cardiovascular Disease; ATTEND Internal Medicine Cardiovascular Disease
PROC: 0W993ZZ Drainage of Right Pleural Cavity, Percutaneous Approach (ICD-10-PCS; principal; 2018-01-29)
PROC: 0W9B3ZZ Drainage of Left Pleural Cavity, Percutaneous Approach (ICD-10-PCS; principal; 2018-01-29)
PROC: 0W9900Z Drainage of Right Pleural Cavity with Drainage Device, Open Approach (ICD-10-PCS; 2018-01-30)
DX: I11.0 Hypertensive heart disease with heart failure (principal); G89.29 Other chronic pain; M54.5 Low back pain; N17.9 Acute kidney failure, unspecified; J90 Pleural effusion, not elsewhere classified; J93.9 Pneumothorax, unspecified; M47.816 Spondylosis without myelopathy or radiculopathy, lumbar region; I45.81 Long QT syndrome; E11.9 Type 2 diabetes mellitus without complications; R00.1 Bradycardia, unspecified; E78.5 Hyperlipidemia, unspecified; I48.2 Chronic atrial fibrillation; E11.65 Type 2 diabetes mellitus with hyperglycemia; E87.5 Hyperkalemia; I50.9 Heart failure, unspecified; H54.61 Unqualified visual loss, right eye, normal vision left eye; Y83.8 Other surgical procedures as the cause of abnormal reaction of the patient, or of later complication, without mention of misadventure at the time of the procedure; Z87.01 Personal history of pneumonia (recurrent); Y92.230 Patient room in hospital as the place of occurrence of the external cause; K21.9 Gastro-esophageal reflux disease without esophagitis; N40.0 Benign prostatic hyperplasia without lower urinary tract symptoms; E03.9 Hypothyroidism, unspecified; M81.0 Age-related osteoporosis without current pathological fracture; D64.9 Anemia, unspecified; H40.9 Unspecified glaucoma; H91.90 Unspecified hearing loss, unspecified ear; H35.30 Unspecified macular degeneration; I72.9 Aneurysm of unspecified site; R13.10 Dysphagia, unspecified; Z87.891 Personal history of nicotine dependence; Z66 Do not resuscitate; Z79.82 Long term (current) use of aspirin; Z79.01 Long term (current) use of anticoagulants; Z79.899 Other long term (current) drug therapy; Z79.4 Long term (current) use of insulin
CPT/HCPCS: 36415; 71045; 72131; 80053; 80162; 82553; 82962; 83735; 83880; 84484; 85007; 85027; 85610; 85652; 86140; 93005; 96361; 96374; 96375; 96376; 99285; A9270; G0103; J1170 ×2; J1815; J2405; J2930; J7040; 71046; 71046-26; 76942; 80048; 82947; 83036; 84443; 85025; 87641; 93010; 93306; 93307; 94760; 96372; 97110-GP; 97116-GP; 97161-GP; 97165-GO; 97530-GO; 97530-GP; C1729; J2920